=== PATIENT | female | born 1940 | race Caucasian/White ===

== ENCOUNTER 2017-02-14 13:05 | Emergency (ER) | payer MEDICARE ==
[2017-02-14] MEDS ORDERED: Ondansetron ODT TAB* 4 MG PO ONE (15:48)
[2017-02-14 16:18] LABS: Urine Bilirubin Negative (Negative); Urine Glucose Negative (Negative); Urine Nitrite Negative (Negative)
[2017-02-14 16:29] LABS: Hematocrit 42 % (35-47); Hemoglobin 14.1 g/dl (12.0-16.0); Mean Corpuscular HGB Conc 33 g/dl (31-36); Mean Corpuscular Hemoglobin 27 pg (27-31); Mean Corpuscular Volume 82 fL (80-97); Mean Platelet Volume 7 um3 (7.4-10.4); Red Blood Count 5.14 10^6/ul (4.0-5.4); Red Cell Distribution Width 14 % (10.5-15); White Blood Count 7.5 10^3/ul (3.5-10.8)
[2017-02-14] MEDS ORDERED: Orphenadrine Citrate IV* 30 MG/ML 2 ML VIAL IM ONE (16:34)
[2017-02-14] MEDS ORDERED: Ibuprofen TAB* 600 MG PO ONE (16:34)
[2017-02-14 16:40] LABS: ALT 15 U/L (7-52); AST 20 U/L (13-39); Albumin 4.1 g/dL (3.2-5.2); Alkaline Phosphatase 122 U/L (34-104); Anion Gap 5 mmol/L (2-11); BUN/Creatinine Ratio 19.5 (8-20); Blood Urea Nitrogen 17 mg/dL (6-24); C Reactive Protein 5.77 mg/L (< 5.00); CO2 Carbon Dioxide 29 mmol/L (22-32); Chloride 101 mmol/L (101-111); EGFR African American 81.6 (>60); EGFR Non-African American 63.5 (>60); Globulin 3.4 g/dL (2-4); Glucose 91 mg/dL (70-100); Lipase < 10 U/L (11.0-82.0); Potassium 3.8 mmol/L (3.5-5.0); Sodium 135 mmol/L (133-145); Total Protein 7.5 g/dL (6.4-8.9)
--- NOTE | 2017-02-14 17:32 | RAD ---
INDICATION: Diffuse abdominal pain COMPARISON: CT August 17, 2013 TECHNIQUE: Noncontrast axial source images were obtained from the hemidiaphragms to the symphysis pubis. This examination was ordered using a renal stone protocol which is performed without oral or intravenous contrast and therefore has inherent limitations when used to evaluate other intra-abdominal or intrapelvic pathology. Consider conventional contrast enhanced imaging if clinically indicated. Lung bases: The lung bases are clear. Liver: The liver is normal in size. Noncontrast imaging shows no evidence of a hepatic mass or ductal dilatation. Gallbladder: There are no calcified gallstones. There is no evidence of wall thickening or pericholecystic fluid.. Spleen: The spleen is normal in size. The noncontrast CT appearance is normal. Pancreas: Noncontrast imaging shows no pancreatic mass or ductal dilitation. The pancreas appears atrophic Adrenal glands: No masses are identified. Kidneys/Bladder: There is no evidence of nephrolithiasis or CT evidence of hydronephrosis. Noncontrast imaging shows no evidence of a renal mass. The bladder is unremarkable.. Adenopathy: There is no evidence of intraperitoneal or retroperitoneal adenopathy. Evaluation is limited without oral contrast. Fluid collections: There are no free or localized fluid collections. Vessels: The aorta and iliac vessels are normal in caliber. There are no significant atherosclerotic changes. The IVC appears normal Pelvic organs: There is hysterectomy. There is no adnexal mass GI tract: Evaluation of the bowel is limited without oral contrast. The upper GI tract is grossly normal. There are moderate diverticula of the sigmoid colon. There are no obstructive findings. The appendix is visualized and appears normal. Soft tissues: No soft tissue abnormalities of the extraperitoneal abdomen or pelvis are identified. Osseous structures: There are no acute osseous findings. IMPRESSION: NO ACUTE CT FINDINGS. NO MASS OR INFLAMMATORY CHANGES. MODERATE DIVERTICULA.
--- NOTE | 2017-02-14 17:36 | ED ---
Complex/Multi-Sys Presentation - HPI Summary HPI Summary: 76 female presents to ED with complaints of chronic pain in back and abdomen with nausea. States she sees chronic pain management, takes morphine however it has not been helping. Denies any known injury or trauma. Tripped and had a slight fall a few days ago which she thinks may have tweaked something. Has not taken any other medication at home other than what she is prescribed. Denies vomiting, diarrhea, constipation, fever, chills, chest pain, and difficulty breathing. Normal bowel movements and no urinary symptoms other than pressure with urinating and not producing a lot. No other complaints. No significant PMHx other than chronic pain and low back pain. - History Of Current Complaint Chief Complaint: EDGeneral Time Seen by Provider: 02/14/17 15:48 Hx Obtained From: Patient Onset/Duration: Gradual Onset, Lasting Days, Still Present Timing: Constant Severity Currently: Moderate Severity Initially: Mild Location: Pain At: - diffuse back/abdomen Character: Dull - aching Aggravating Factor(s): movement Alleviating Factor(s): none Associated Signs And Symptoms: Positive: Nausea, Back Pain. Negative: Agitation , Headache, SOB, Cough, Palpitations, Vomiting, Diarrhea - Allergies/Home Medications Allergies/Adverse Reactions: Allergies Allergy/AdvReac Type Severity Reaction Status Date / Time Penicillins [PCN] Allergy Severe Swelling Verified 02/14/17 13:13 Iodinated Diagnostic Agents Allergy Hives Verified 02/14/17 13:13 PMH/Surg Hx/FS Hx/Imm Hx Endocrine/Hematology History: Denies: Hx Diabetes, Hx Thyroid Disease Cardiovascular History: Denies: Hx Congestive Heart Failure, Hx Hypertension, Hx Pacemaker/ICD, Other Cardiovascular Problems/Disorders Respiratory History: Reports: Hx Sleep Apnea - CPAP Denies: Hx Asthma, Hx Chronic Obstructive Pulmonary Disease (COPD), Other Respiratory Problems/Disorders GI History: Reports: Hx Diverticulosis, Hx Gastroesophageal Reflux Disease, Hx Irritable Bowel, Hx Ulcer Denies: Other GI Disorders History: Reports: Hx Kidney Stones Denies: Hx Renal Disease Musculoskeletal History: Reports: Hx Arthritis - ALL OVER, Hx Back Problems - Lumbar Spinal Stenosis, Hx Bursitis - IN THE PAST IN SHOULDERS, Hx Fibromyalgia , Other Musculoskeletal History - Plantars Fascia Syndrome Denies: Hx Tendonitis Sensory History: Reports: Hx Cataracts - ROSHNI REMOVAL, Hx Contacts or Glasses - READING GLASSES, Other Sensory Impairments - Actinic Keratosis (skin) Denies: Hx Hearing Aid Opthamlomology History: Reports: Hx Cataracts - ROSHIN REMOVAL, Hx Contacts or Glasses - READING GLASSES, Other Sensory Impairments - Actinic Keratosis (skin) Neurological History: Reports: Other Neuro Impairments/Disorders - Senile Nuclear Sclerosis. PAIN CLINIC PT. Denies: Hx Headaches, Hx Migraine, Hx Nerve Disease, Hx Seizures Psychiatric History: Reports: Hx Anxiety - ON MEDS, Hx Depression - ON MEDS Denies: Hx Panic Disorder - Cancer History Hx Chemotherapy: No Hx Radiation Therapy: No Hx Palliative Cancer Treatment: No - Surgical History Surgery Procedure, Year, and Place: KIDNEY STONES, 07/27/12, [facility] [place]. HYSTERECTOMY , 1982, [facility] [place]. 05/2013 LAMINECTOMY LOW BACK Hx Anesthesia Reactions: No - Immunization History Date of Tetanus Vaccine: PT STATES UNSURE Date of Influenza Vaccine: NONE Immunizations Up to Date: Yes Infectious Disease History: No Infectious Disease History: Denies: Hx Clostridium Difficile, Hx Hepatitis, Hx Human Immunodeficiency Virus (HIV), Hx of Known/Suspected MRSA, Hx Shingles, Hx Tuberculosis, Hx Known/ Suspected VRSA, History Other Infectious Disease, Traveled Outside the [place] in Last 30 Days - Family History Known Family History: Positive: None - Social History Alcohol Use: None Substance Use Type: Reports: None Substance Use Comment - Amount & Last Used: percocet Smoking Status (MU): Never Smoked Tobacco Review of Systems Constitutional: Negative Cardiovascular: Negative Respiratory: Negative Positive: Abdominal Pain, Nausea Positive: Arthralgia, Myalgia Neurological: Negative All Other Systems Reviewed And Are Negative: Yes Physical Exam Triage Information Reviewed: Yes Vital Signs On Initial Exam: Initial Vitals Temp Pulse Resp BP Pulse Ox 97.9 F 89 16 144/98 100 02/14/17 13:08 02/14/17 13:08 02/14/17 13:08 02/14/17 13:08 02/14/17 13:08 133/87 normal vitals, bp improved Vital Signs Reviewed: Yes Appearance: Positive: Well-Appearing, No Pain Distress, Well-Nourished Skin: Positive: Warm, Skin Color Reflects Adequate Perfusion, Dry. Negative: Cold, Numb, Cyanosis @, Jaundiced, Pale, Erythema @ Head/Face: Positive: Normal Head/Face Inspection Eyes: Positive: Conjunctiva Clear ENT: Positive: Hearing grossly normal, Pharynx normal Neck: Positive: Supple, Nontender Respiratory/Lung Sounds: Positive: Clear to Auscultation, Breath Sounds Present. Negative: Rales, Rhonchi, Wheezes Cardiovascular: Positive: Normal, RRR, Pulses are Symmetrical in both Upper and Lower Extremities. Negative: Murmur, Rub Abdomen Description: Positive: Nontender, No Organomegaly, Soft. Negative: Bruit, CVA Tenderness (R), CVA Tenderness (L), Distended, Guarding, McBurney's Point Tenderness, Peritoneal Signs Bowel Sounds: Positive: Present Musculoskeletal: Positive: Normal, Strength/ROM Intact, Pain @ - on palpation of lower lumbar back around L3. Negative: Limited @, Interruption @, Abnormal @ , Edema Left, Edema Right, Other - no crepitus step off or obvious deformity Neurological: Positive: Normal, Sensory/Motor Intact, Alert, Oriented to Person Place, Time, CN Intact II-III, Reflexes Intact, NV Bundle Intact Distally, Normal Gait - [place] Coma Scale Coma Scale Total: 15 Diagnostics - Vital Signs Vital Signs Temp Pulse Resp BP Pulse Ox 02/14/17 13:08 97.9 F 89 16 144/98 100 - Laboratory Lab Results: Lab Results 02/14/17 02/14/17 02/14/17 Range/Units 15:30 16:10 16:10 WBC 7.5 (3.5-10.8) 10^3/ul RBC 5.14 (4.0-5.4) 10^6/ul Hgb 14.1 (12.0-16.0) g/dl Hct 42 (35-47) % MCV 82 (80-97) fL MCH 27 (27-31) pg MCHC 33 (31-36) g/dl RDW 14 (10.5-15) % Plt Count 232 (150-450) 10^3/ul MPV 7 L (7.4-10.4) um3 Neut % (Auto) 64.0 (38-83) % Lymph % (Auto) 27.0 (25-47) % [place] % (Auto) 7.2 (1-9) % Eos % (Auto) 0.6 (0-6) % Baso % (Auto) 1.2 (0-2) % Absolute Neuts (auto) 4.8 (1.5-7.7) 10^3/ul Absolute Lymphs (auto) 2.0 (1.0-4.8) 10^3/ul Absolute Monos (auto) 0.5 (0-0.8) 10^3/ul Absolute Eos (auto) 0 (0-0.6) 10^3/ul Absolute Basos (auto) 0.1 (0-0.2) 10^3/ul Absolute Nucleated RBC 0 10^3/ul Nucleated RBC % 0 Sodium 135 (133-145) mmol/L Potassium 3.8 (3.5-5.0) mmol/L Chloride 101 (101-111) mmol/L Carbon Dioxide 29 (22-32) mmol/L Anion Gap 5 (2-11) mmol/L BUN 17 (6-24) mg/dL Creatinine 0.87 (0.51-0.95) mg/dL Est GFR ( Amer) 81.6 (>60) Est GFR (Non-Af Amer) 63.5 (>60) BUN/Creatinine Ratio 19.5 (8-20) Glucose 91 (70-100) mg/dL Lactic Acid (0.5-2.0) mmol/L Calcium 10.0 (8.6-10.3) mg/dL Total Bilirubin 0.40 (0.2-1.0) mg/dL AST 20 (13-39) U/L ALT 15 (7-52) U/L Alkaline Phosphatase 122 H (34-104) U/L C-Reactive Protein 5.77 H (< 5.00) mg/L Total Protein 7.5 (6.4-8.9) g/dL Albumin 4.1 (3.2-5.2) g/dL Globulin 3.4 (2-4) g/dL Albumin/Globulin Ratio 1.2 (1-3) Lipase < 10 L (11.0-82.0) U/L Urine Color Yellow Urine Appearance Clear Urine pH 5.0 (5-9) Ur Specific [place] 1.018 (1.010-1.030) Urine Protein Negative (Negative) Urine Ketones Negative (Negative) Urine Blood Negative (Negative) Urine Nitrate Negative (Negative) Urine Bilirubin Negative (Negative) Urine Urobilinogen Negative (Negative) Ur Leukocyte Esterase Negative (Negative) Urine Glucose Negative (Negative) 12/18/17 Range/Units 16:10 WBC (3.5-10.8) 10^3/ul RBC (4.0-5.4) 10^6/ul Hgb (12.0-16.0) g/dl Hct (35-47) % MCV (80-97) fL MCH (27-31) pg MCHC (31-36) g/dl RDW (10.5-15) % Plt Count (150-450) 10^3/ul MPV (7.4-10.4) um3 Neut % (Auto) (38-83) % Lymph % (Auto) (25-47) % [place] % (Auto) (1-9) % Eos % (Auto) (0-6) % Baso % (Auto) (0-2) % Absolute Neuts (auto) (1.5-7.7) 10^3/ul Absolute Lymphs (auto) (1.0-4.8) 10^3/ul Absolute Monos (auto) (0-0.8) 10^3/ul Absolute Eos (auto) (0-0.6) 10^3/ul Absolute Basos (auto) (0-0.2) 10^3/ul Absolute Nucleated RBC 10^3/ul Nucleated RBC % Sodium (133-145) mmol/L Potassium (3.5-5.0) mmol/L Chloride (101-111) mmol/L Carbon Dioxide (22-32) mmol/L Anion Gap (2-11) mmol/L BUN (6-24) mg/dL Creatinine (0.51-0.95) mg/dL Est GFR ( Amer) (>60) Est GFR (Non-Af Amer) (>60) BUN/Creatinine Ratio (8-20) Glucose (70-100) mg/dL Lactic Acid 1.1 (0.5-2.0) mmol/L Calcium (8.6-10.3) mg/dL Total Bilirubin (0.2-1.0) mg/dL AST (13-39) U/L ALT (7-52) U/L Alkaline Phosphatase (34-104) U/L C-Reactive Protein (< 5.00) mg/L Total Protein (6.4-8.9) g/dL Albumin (3.2-5.2) g/dL Globulin (2-4) g/dL Albumin/Globulin Ratio (1-3) Lipase (11.0-82.0) U/L Urine Color Urine Appearance Urine pH (5-9) Ur Specific [place] (1.010-1.030) Urine Protein (Negative) Urine Ketones (Negative) Urine Blood (Negative) Urine Nitrate (Negative) Urine Bilirubin (Negative) Urine Urobilinogen (Negative) Ur Leukocyte Esterase (Negative) Urine Glucose (Negative) Result Diagrams: 02/14/17 16:10 02/14/17 16:10 Lab Statement: Any lab studies that have been ordered have been reviewed, and results considered in the medical decision making process. - CT abd/pelvis CT Interpretation: No Acute Changes - NO ACUTE CT FINDINGS. NO MASS OR INFLAMMATORY CHANGES. MODERATE DIVERTICULA. CT Interpretation Completed By: Radiologist - and myself Re-Evaluation - Re-Evaluation First Eval Re-Evaluation Time: 17:35 Change: Improved - had relief after medication Complex Multi-Symp Course/Dx Course Of Treatment: CT abd/pelvis obtained and normal. urinalysis obtained and completely negative. Given ibuprofen and norflex with significant relief. labs obtained and unremarkable. appears patient is suffering from a MSK strain/pain. will continue ibuprofen and muscle relaxer for spasms and antiinflammation. follow up with pain clinic and pcp. aware of worsening signs and symptoms. no other concerns or etiologies for pain. patient agrees and understands. - Diagnoses Differential Diagnoses/HQI/PQRI: Other - chronic pain, chronic back pain, muscle strain, low back strain, constipation Provider Diagnoses: Chronic pain, Back pain Discharge - Discharge Plan Condition: Stable Disposition: HOME Prescriptions: Baclofen TAB* [Lioresal TAB*] 5 mg PO TID PRN #15 tab PRN Reason: Spasms Ibuprofen TAB* [Motrin TAB* 400 MG] 400 mg PO Q6H PRN #15 tab PRN Reason: Pain Ondansetron ODT TAB* [Zofran 4 MG Odt TAB*] 4 mg PO Q6H PRN #10 tab.odt PRN Reason: Nausea Patient Education Materials: Chronic Pain (ED), Chronic Back Pain (ED) Referrals: Abe Leon MD [Primary Care Provider] - Additional Instructions: Take prescribed medication as directed. Take ibuprofen and muscle relaxer as prescribed. Apply heating pad. Zofran for nausea as needed. Follow up with PCP. Any new or worsening signs/symptoms please seek medical attention promptly.
[2017-02-14 18:00] VITALS: BP 133/87
== END 2017-02-14 18:00 | disposition home or self-care (01) ==
LOC: ED 13:05
DX: M54.5 Low back pain (principal); G89.29 Other chronic pain; G47.30 Sleep apnea, unspecified
CPT/HCPCS: 36415; 74176; 80053; 81003; 83605; 83690; 85025; 86140; 96372; 99282; A9270-GY; J2360

== ENCOUNTER 2017-02-23 12:02 | Emergency (ER) | payer MEDICARE ==
[2017-02-23] MEDS ORDERED: HYDROmorphone INJ* 2 MG/ML CARPUJECT SYRINGE IV SLOW PU ONE ×2 (12:41→13:48)
[2017-02-23] MEDS ORDERED: HYDROmorphone INJ* 1 MG/ML CARPUJECT SYRINGE IV SLOW PU ONE ×2 (12:41→13:48)
[2017-02-23] MEDS ORDERED: NS 0.9% 1000 ML* 1,000 ML BOLUS SCH (12:45)
[2017-02-23 12:46] LABS: ABS Basophils 0.1 10^3/ul (0-0.2); ABS Eosinophils 0.1 10^3/ul (0-0.6); ABS Lymphocytes 1.5 10^3/ul (1.0-4.8); ABS Monocytes 0.5 10^3/ul (0-0.8); ABS Neutrophils 5.7 10^3/ul (1.5-7.7); ABS Nucleated RBC 0.01 10^3/ul; Eosinophil % 0.7 % (0-6); Hematocrit 44 % (35-47); Hemoglobin 14.5 g/dl (12.0-16.0); Mean Corpuscular HGB Conc 33 g/dl (31-36); Mean Corpuscular Hemoglobin 27 pg (27-31); Mean Corpuscular Volume 83 fL (80-97); Mean Platelet Volume 8 um3 (7.4-10.4); Nucleated Red Blood Cells % 0.1; Platelet Count 223 10^3/ul (150-450); Red Blood Count 5.31 10^6/ul (4.0-5.4); Red Cell Distribution Width 15 % (10.5-15); White Blood Count 7.8 10^3/ul (3.5-10.8)
[2017-02-23] MEDS ORDERED: HYDROmorphone INJ* 1 MG/ML CARPUJECT SYRINGE ONE (12:48)
[2017-02-23 12:52] LABS: INR 1.02 (0.77-1.02)
[2017-02-23 12:56] LABS: Urine Appearance Clear; Urine Blood Negative (Negative); Urine Color Yellow; Urine Ketones Negative (Negative); Urine Protein Negative (Negative); Urine Specific Gravity 1.014 (1.010-1.030); Urine Urobilinogen Negative (Negative)
[2017-02-23] MEDS ORDERED: Ondansetron INJ* 2 MG/ML VIAL IV ONE (13:01)
[2017-02-23 13:05] LABS: EGFR Non-African American 62.6 (>60)
[2017-02-23] MEDS ORDERED: Metoclopramide IV* 5 MG/ML 2 ML VIAL IV ONE (13:49)
--- NOTE | 2017-02-23 15:52 | RAD ---
Indication: Left lower quadrant abdominal pain. CT of the abdomen and pelvis was performed after oral contrast administration. No IV contrast was given. Coronal and sagittal reconstructed. The lung bases demonstrate no pleural fluid, nodules or masses. Heart is of normal size without evidence of pericardial effusion. The liver is normal in size. No focal lesions or intrahepatic ductal dilatation is noted. The gallbladder demonstrates no calcific gallstones. No pericholecystic fluid or wall thickening is identified. The pancreas demonstrates no mass or pancreatic ductal dilatation. The spleen is normal in size. No adrenal lesions are noted. The kidneys demonstrates no hydronephrosis in either kidney. No hydroureter is noted. No retroperitoneal adenopathy is noted. Aorta and inferior vena cava are unremarkable. No dilated loops of bowel are noted. Diverticulosis of the sigmoid colon without definite evidence of diverticulitis is noted. No dilated loops of bowel are noted. The bladder is unremarkable. The patient status post hysterectomy. Mild compression of the T11 vertebra is noted. This is unchanged from February 14, 2017. Grade 1 spondylolisthesis of L4 on 5 is noted. IMPRESSION: Diverticulosis of the sigmoid colon without definite evidence of diverticulitis. No free fluid is identified. Patient status post hysterectomy. No evidence of obstructive uropathy is noted. Approximately 25% compression of T11 age of which is undetermined.
--- NOTE | 2017-02-23 17:09 | ED ---
Uday Chambers Angela, scribed for Lana Reynoso MD on 02/23/17 at 1245 . Complex/Multi-Sys Presentation - HPI Summary HPI Summary: This pt is a 76 y/o female, accompanied by her son, presenting to [facility] c/o abd pain and chronic lower back pain. Pt reports she was seen in the ED 1 week ago ( 02/14/17) for the same complaint, for which she was given Dilaudid and alleviated her pain. She had a CT abd pelvis that was unremarkable on 02/14/17 and was treated with baclofen and ibuprofen and zofran for musculoskeletal pain. She notes left lower abd pain radiating to right lower side of the abd, which is described as aching and stabbing. Pt notes nausea and constipation. Pt states her last normal bowel movement was 3 days ago, denies bloody stool. Pt has taken a couple of Dulcolax with no relief. She denies vomiting, dysuria, hematuria, chest pain, SOB. Pt is on pain management, taking morphine, for chronic low back pain but has not had much relief. Pt has had back surgery. She has not had a colonoscopy in many years. Pt was told by Dr. Leon that she does not have to get any more colonoscopies. She states all her colonoscopies were normal. PMHx includes kidney stones which were retrieved. Pt notes that today's pain does not feel like a kidney stone, "it feels worse." Pt notes she has always had "stomach problems on and off." Pt denies hx of MA. - History Of Current Complaint Chief Complaint: EDAbdPain Time Seen by Provider: 02/23/17 12:14 Hx Obtained From: Patient, Family/Hvac R Tech - Refugio Campbell Onset/Duration: Lasting Days, Still Present Timing: Constant, Days Severity Currently: Severe Location: Pain At: - lower left abd, and chronic low back pain, Radiates To: - right lower abd Character: Sharp - aching and stabbing Aggravating Factor(s): Nothing Alleviating Factor(s): Dilaudid Associated Signs And Symptoms: Positive: Nausea, Abdominal Pain, Back Pain - chronic, Other - POS: constipation. NEG: hematuria. Negative: SOB, Chest Pain, Vomiting, Dysuria - Allergies/Home Medications Allergies/Adverse Reactions: Allergies Allergy/AdvReac Type Severity Reaction Status Date / Time Penicillins [PCN] Allergy Severe Swelling Verified 02/14/17 13:13 Iodinated Diagnostic Agents Allergy Hives Verified 02/14/17 13:13 PMH/Surg Hx/FS Hx/Imm Hx Previously Healthy: No Endocrine/Hematology History: Denies: Hx Diabetes, Hx Thyroid Disease Cardiovascular History: Denies: Hx Congestive Heart Failure, Hx Hypertension, Hx Myocardial Infarction, Hx Pacemaker/ICD, Other Cardiovascular Problems/Disorders Respiratory History: Reports: Hx Sleep Apnea - CPAP Denies: Hx Asthma, Hx Chronic Obstructive Pulmonary Disease (COPD), Other Respiratory Problems/Disorders GI History: Reports: Hx Diverticulosis, Hx Gastroesophageal Reflux Disease, Hx Irritable Bowel, Hx Ulcer Denies: Other GI Disorders History: Reports: Hx Kidney Stones Denies: Hx Renal Disease Musculoskeletal History: Reports: Hx Arthritis, Hx Back Problems - Lumbar Spinal Stenosis, Hx Bursitis - IN THE PAST IN SHOULDERS, Hx Fibromyalgia, Other Musculoskeletal History - Plantar Fascia Syndrome Denies: Hx Tendonitis Sensory History: Reports: Hx Cataracts - ROSHNI REMOVAL, Hx Contacts or Glasses - READING GLASSES, Other Sensory Impairments - Actinic Keratosis (skin) Denies: Hx Hearing Aid Opthamlomology History: Reports: Hx Cataracts - ROSHNI REMOVAL, Hx Contacts or Glasses - READING GLASSES, Other Sensory Impairments - Actinic Keratosis (skin) Neurological History: Reports: Other Neuro Impairments/Disorders - Senile Nuclear Sclerosis. PAIN CLINIC PT. Denies: Hx Headaches, Hx Migraine, Hx Nerve Disease, Hx Seizures Psychiatric History: Reports: Hx Anxiety - ON MEDS, Hx Depression - ON MEDS Denies: Hx Panic Disorder - Cancer History Hx Chemotherapy: No Hx Radiation Therapy: No Hx Palliative Cancer Treatment: No - Surgical History Surgery Procedure, Year, and Place[place] [facility] [place] [facility] [place] LAMINECTOMY LOW BACK Hx Anesthesia Reactions: No - Immunization History Date of Tetanus Vaccine: PT STATES UNSURE Date of Influenza Vaccine: NONE Infectious Disease History: No Infectious Disease History: Denies: Hx Clostridium Difficile, Hx Hepatitis, Hx Human Immunodeficiency Virus (HIV), Hx of Known/Suspected MRSA, Hx Shingles, Hx Tuberculosis, Hx Known/ Suspected VRSA, History Other Infectious Disease, Traveled Outside the [place] in Last 30 Days - Family History Known Family History: Positive: Cardiac Disease - Brother and sister, Other - Mother: from [place]. Father: colon [place]. - Social History Lives: Alone Alcohol Use: Rare Substance Use Type: Reports: Prescribed Substance Use Comment - Amount & Last Used: morphine, pain clinic Smoking Status (MU): Never Smoked Tobacco Review of Systems Negative: Fever, Chills Negative: Chest Pain Negative: Shortness Of Breath Gastrointestinal: Other - constipation Positive: Abdominal Pain, Nausea. Negative: Vomiting, Other - bloody stools Negative: dysuria, hematuria Positive: Arthralgia Neurological: Negative Psychological: Normal All Other Systems Reviewed And Are Negative: Yes Physical Exam - Summary Physical Exam Summary: Appearance: Well-appearing, severe pain distress, Well-nourished Skin: Warm, color reflects adequate perfusion Head: Normal Head/Face inspection Eyes: Conjunctiva clear ENT: Normal inspection Neck: Supple, non tender, no nodes, no JVD Respiratory: Lungs clear, Normal breath sounds, no respiratory distress Cardio: RRR, No murmur, pulses normal, brisk capillary refill Abdomen: soft, left lower quadrant abd tenderness radiating to right lower abd, no guarding, no rebound, no masses, no bruits, no organomegaly Musculoskeletal: Strength Intact/ ROM intact. No calf tenderness. No edema. Low lumbar spinal tenderness, no CVA tenderness Neuro: Alert, muscle tone normal, facial symmetry, speech normal, sensory/motor intact Psychological: Normal Triage Information Reviewed: Yes Vital Signs On Initial Exam: Initial Vitals Temp Pulse Resp BP Pulse Ox 98.0 F 84 20 138/90 96 02/23/17 12:04 02/23/17 12:04 02/23/17 12:04 02/23/17 12:04 02/23/17 12:04 Vital Signs Reviewed: Yes - Rosamaria Coma Scale Coma Scale Total: 15 Diagnostics - Vital Signs Vital Signs Temp Pulse Resp BP Pulse Ox 02/23/17 12:04 98.0 F 84 20 138/90 96 - Laboratory Lab Results: Lab Results 02/23/17 02/23/17 02/23/17 Range/Units 12:35 12:35 12:35 WBC 7.8 (3.5-10.8) 10^3/ul RBC 5.31 (4.0-5.4) 10^6/ul Hgb 14.5 (12.0-16.0) g/dl Hct 44 (35-47) % MCV 83 (80-97) fL MCH 27 (27-31) pg MCHC 33 (31-36) g/dl RDW 15 (10.5-15) % Plt Count 223 (150-450) 10^3/ul MPV 8 (7.4-10.4) um3 Neut % (Auto) 72.9 (38-83) % Lymph % (Auto) 19.0 L (25-47) % Rains % (Auto) 6.5 (1-9) % Eos % (Auto) 0.7 (0-6) % Baso % (Auto) 0.9 (0-2) % Absolute Neuts (auto) 5.7 (1.5-7.7) 10^3/ul Absolute Lymphs (auto) 1.5 (1.0-4.8) 10^3/ul Absolute Monos (auto) 0.5 (0-0.8) 10^3/ul Absolute Eos (auto) 0.1 (0-0.6) 10^3/ul Absolute Basos (auto) 0.1 (0-0.2) 10^3/ul Absolute Nucleated RBC 0.01 10^3/ul Nucleated RBC % 0.1 INR (Anticoag Therapy) (0.77-1.02) Sodium 136 (133-145) mmol/L Potassium 3.8 (3.5-5.0) mmol/L Chloride 101 (101-111) mmol/L Carbon Dioxide 28 (22-32) mmol/L Anion Gap 7 (2-11) mmol/L BUN 16 (6-24) mg/dL Creatinine 0.88 (0.51-0.95) mg/dL Est GFR ( Amer) 80.6 (>60) Est GFR (Non-Af Amer) 62.6 (>60) BUN/Creatinine Ratio 18.2 (8-20) Glucose 100 (70-100) mg/dL Lactic Acid (0.5-2.0) mmol/L Calcium 10.1 (8.6-10.3) mg/dL Magnesium 2.2 (1.9-2.7) mg/dL Total Bilirubin 0.50 (0.2-1.0) mg/dL AST 21 (13-39) U/L ALT 16 (7-52) U/L Alkaline Phosphatase 110 H (34-104) U/L Ammonia 34 (16-53) mol/L Total Creatine Kinase 80 (10-223) U/L Troponin I 0.00 (<0.04) ng/mL C-Reactive Protein 2.79 (< 5.00) mg/L B-Natriuretic Peptide 63 ( - 100) pg/mL Total Protein 7.3 (6.4-8.9) g/dL Albumin 4.1 (3.2-5.2) g/dL Globulin 3.2 (2-4) g/dL Albumin/Globulin Ratio 1.3 (1-3) Amylase 13 L (29-103) U/L Lipase < 10 L (11.0-82.0) U/L Urine Color Urine Appearance Urine pH (5-9) Ur Specific [place] (1.010-1.030) Urine Protein (Negative) Urine Ketones (Negative) Urine Blood (Negative) Urine Nitrate (Negative) Urine Bilirubin (Negative) Urine Urobilinogen (Negative) Ur Leukocyte Esterase (Negative) Urine Glucose (Negative) 02/23/17 02/23/17 02/23/17 Range/Units 12:35 12:35 12:45 WBC (3.5-10.8) 10^3/ul RBC (4.0-5.4) 10^6/ul Hgb (12.0-16.0) g/dl Hct (35-47) % MCV (80-97) fL MCH (27-31) pg MCHC (31-36) g/dl RDW (10.5-15) % Plt Count (150-450) 10^3/ul MPV (7.4-10.4) um3 Neut % (Auto) (38-83) % Lymph % (Auto) (25-47) % Rains % (Auto) (1-9) % Eos % (Auto) (0-6) % Baso % (Auto) (0-2) % Absolute Neuts (auto) (1.5-7.7) 10^3/ul Absolute Lymphs (auto) (1.0-4.8) 10^3/ul Absolute Monos (auto) (0-0.8) 10^3/ul Absolute Eos (auto) (0-0.6) 10^3/ul Absolute Basos (auto) (0-0.2) 10^3/ul Absolute Nucleated RBC 10^3/ul Nucleated RBC % INR (Anticoag Therapy) 1.02 (0.77-1.02) Sodium (133-145) mmol/L Potassium (3.5-5.0) mmol/L Chloride (101-111) mmol/L Carbon Dioxide (22-32) mmol/L Anion Gap (2-11) mmol/L BUN (6-24) mg/dL Creatinine (0.51-0.95) mg/dL Est GFR ( Amer) (>60) Est GFR (Non-Af Amer) (>60) BUN/Creatinine Ratio (8-20) Glucose (70-100) mg/dL Lactic Acid 1.1 (0.5-2.0) mmol/L Calcium (8.6-10.3) mg/dL Magnesium (1.9-2.7) mg/dL Total Bilirubin (0.2-1.0) mg/dL AST (13-39) U/L ALT (7-52) U/L Alkaline Phosphatase (34-104) U/L Ammonia (16-53) mol/L Total Creatine Kinase (10-223) U/L Troponin I (<0.04) ng/mL C-Reactive Protein (< 5.00) mg/L B-Natriuretic Peptide ( - 100) pg/mL Total Protein (6.4-8.9) g/dL Albumin (3.2-5.2) g/dL Globulin (2-4) g/dL Albumin/Globulin Ratio (1-3) Amylase (29-103) U/L Lipase (11.0-82.0) U/L Urine Color Yellow Urine Appearance Clear Urine pH 6.0 (5-9) Ur Specific [place] 1.014 (1.010-1.030) Urine Protein Negative (Negative) Urine Ketones Negative (Negative) Urine Blood Negative (Negative) Urine Nitrate Negative (Negative) Urine Bilirubin Negative (Negative) Urine Urobilinogen Negative (Negative) Ur Leukocyte Esterase Negative (Negative) Urine Glucose Negative (Negative) Result Diagrams: 02/23/17 12:35 02/23/17 12:35 Lab Statement: Any lab studies that have been ordered have been reviewed, and results considered in the medical decision making process. - CT Abdomen/pelvis CT CT Interpretation: Positive (See Comments) - IMPRESSION: Diverticulosis of the sigmoid colon without definite evidence of diverticulitis. No free fluid is identified. Patient status post hysterectomy. No evidence of obstructive uropathy is noted. Approximately 25% compression of T11 age of which is undetermined. Dr. Reynoso has reviewed this radiology report. CT Interpretation Completed By: Radiologist - EKG 12:32 Cardiac Rate: NL EKG Rhythm: Sinus Rhythm - at 71 bpm EKG Interpretation: Nl AV IV conduction time. Nl QTc. Nl axis. Non-specific ST- T wave changes EKG Comparison: No Significant Change - no change compared to EKG done on . Re-Evaluation - Re-Evaluation First Eval Re-Evaluation Time: 17:10 Change: Unchanged Comment: I reviewed the abdomen/pelvis CT results with the pt. Pt has just had a bowel movement, which she describes as a "nice brown" color and non-bloody. Pt states she still has abd and back pain, rated 9/10 in severity. Pt reports that Dilaudid has not alleviated her pain. On re-examination the abd is soft. Pt notes she has only taken approximately 4 Robaxin pills in 10 days. Son reports "I think she gets confused after getting discharged with all the medications she has and forgets to take them." Pt states that she takes two morphine tablets at a time rather than taking them q 4 hrs as directed. Son notes she will be going to the pain clinic this Tuesday02/24/17. Second Eval Re-Evaluation Time: 18:13 Change: Unchanged Comment: The pt's pain is rated 9/10 in severity. Pt is lying down. She is tolerating a sandwich without any nausea or vomiting. Pt is agreeable with the discharge plan and will add a Fentanyl patch and try taking her meds as scheduled and directed and f/u in the pain clinic in 2 days. Complex Multi-Symp Course/Dx Course Of Treatment: Pt medications reviewed this visit. Allergies noted. EKG shows NSR at 71 bpm, normal AV IV conduction time. Normal QTc. Nl axis. Non- specific ST-T wave changes. CT abdomen/pelvis reveals diverticulosis of the sigmoid colon without definite evidence of diverticulitis. No free fluid is identified. Patient status post hysterectomy. No evidence of obstructive uropathy is noted. Approximately 25% compression of T11 age of which is undetermined. In the ED course, the pt was given IV fluids, Dilaudid, Reglan, and Zofran. On re-evaluation at 17:10 - I reviewed the abdomen/pelvis CT results with the pt. Pt has just had a bowel movement, which she describes as a "nice brown" color and non-bloody. Pt states she still has abd and back pain, rated 9/10 in severity. Pt reports that Dilaudid has not alleviated her pain. On re-examination the abd is soft. Pt notes she has only taken approximately 4 Robaxin pills in 10 days. Son reports "I think she gets confused after getting discharged with all the medications she has and forgets to take them." Son notes she will be going to the pain clinic this Tuesday. Pt was then given morphine orally, Toradol IV, and fentanyl patch 50 mcgs and baclofen. On re- eval at 18:13, the pt's pain is rated 9/10 in severity. Pt is lying down. She is tolerating a sandwich without any nausea or vomiting. Pt is agreeable with the discharge plan. - Diagnoses Differential Diagnoses/HQI/PQRI: Other - diverticulitis, renal calculus, bowel obstruction, cancer Provider Diagnoses: Abdominal pain in female, Acute exacerbation of chronic low back pain Discharge - Discharge Plan Condition: Stable Disposition: HOME Patient Education Materials: Chronic Pain (ED), Abdominal Pain (ED) Referrals: Abe Leon MD [Primary Care Provider] - 2 Days Additional Instructions: Keep your appointment with the pain clinic on 02/25/17. You were given dilaudid and morphine and toradol and a fentanyl patch for breakthrough abdominal and back pain. You were also given ondansetron and reglan for nausea. You were given baclofen as a muscle relaxant. Continue to take your morphine and muscle relaxant meds as directed. Take these around the clock. Leave the fentanyl patch in place until you are seen by the pain clinic. They may want to prescribe more. This patch lasts 72 hrs. It was placed at 5:45pm on 02/23/[address] and labs did not show any emergency condition that needed further treatment. RETURN TO THE EMERGENCY DEPARTMENT FOR ANY NEW OR WORSENING SYMPTOMS. The documentation as recorded by the Uday obrien Angela accurately reflects the service I personally performed and the decisions made by me, Lana Reynoso MD.
[2017-02-23] MEDS ORDERED: Morphine ORAL.SOLN 10 mg* 2 MG/ML UDC 5 ml PO ONE (17:26)
[2017-02-23] MEDS ORDERED: fentaNYL PATCH 50 MCG/HR TRANSDERM ONE (17:27)
[2017-02-23] MEDS ORDERED: Ketorolac INJ* 30 MG/ML 1 ML VIAL IV PUSH ONE (17:28)
[2017-02-23] MEDS ORDERED: Baclofen TAB* 10 MG PO ONE (17:29)
[2017-02-23 18:47] VITALS: BP 105/57
== END 2017-02-23 18:46 | disposition home or self-care (01) ==
LOC: ED 12:02
DX: R10.9 Unspecified abdominal pain (principal); M54.5 Low back pain; G89.29 Other chronic pain; R11.0 Nausea
CPT/HCPCS: 36415; 74176; 80053; 81003; 82140; 82150; 82550; 83605; 83690; 83735; 83880; 84484; 85025; 85610; 86140; 93005; 96374; 96375; 99282; A9270-GY; J1170; J1885; J2405; J2765

== ENCOUNTER 2017-03-03 15:49 | Emergency (ER) | payer MEDICARE ==
[2017-03-03 16:34] LABS: ABS Basophils 0.1 10^3/ul (0-0.2); ABS Eosinophils 0 10^3/ul (0-0.6); ABS Lymphocytes 1.5 10^3/ul (1.0-4.8); ABS Monocytes 0.6 10^3/ul (0-0.8); ABS Neutrophils 6.8 10^3/ul (1.5-7.7); ABS Nucleated RBC 0 10^3/ul; Eosinophil % 0.3 % (0-6); Hematocrit 43 % (35-47); Hemoglobin 14.3 g/dl (12.0-16.0); Lymphocyte % 16.7 % (25-47); Mean Corpuscular HGB Conc 33 g/dl (31-36); Mean Corpuscular Hemoglobin 27 pg (27-31); Mean Corpuscular Volume 82 fL (80-97); Mean Platelet Volume 8 um3 (7.4-10.4); Nucleated Red Blood Cells % 0; Platelet Count 257 10^3/ul (150-450); Red Cell Distribution Width 15 % (10.5-15); White Blood Count 9.1 10^3/ul (3.5-10.8)
[2017-03-03 16:50] LABS: EGFR Non-African American 66.1 (>60)
[2017-03-03] MEDS ORDERED: HYDROmorphone INJ* 2 MG/ML CARPUJECT SYRINGE IV SLOW PU ONE (17:30)
[2017-03-03] MEDS ORDERED: Diazepam SYRINGE* 5 MG/ML 2 ML SYRINGE (10 MG total) IV ONE (17:31)
[2017-03-03 17:37] LABS: Urine Appearance Clear; Urine Blood Negative (Negative); Urine Color Straw; Urine Ketones Negative (Negative); Urine Protein Negative (Negative); Urine Specific Gravity 1.004 (1.010-1.030); Urine Urobilinogen Negative (Negative)
[2017-03-03] MEDS ORDERED: LORazepam INJ* 2 MG/ML 1 ML VIAL IV PUSH ONE (17:45)
[2017-03-03] MEDS ORDERED: Ondansetron INJ* 2 MG/ML VIAL ONE (17:58)
[2017-03-03] MEDS ORDERED: Ondansetron INJ* 2 MG/ML VIAL IV ONE (18:03)
--- NOTE | 2017-03-03 21:26 | ED ---
Kaela Chambers Abhishek, scribed for Nurys Noel MD on 03/03/17 at 1833 . Abdominal Pain/Female - HPI Summary HPI Summary: This patient is a 76 years old F presenting to [facility] accompanied by her son with a chief complaint of abd pain since the last two weeks. The pt states the pain is a constant pain. According to patient and patient's son, CT were taken and nothing shows up. Currently the pain is described as a pressure that radiates to her chest. The patient rates the pain 9/10 in severity. Symptoms aggravated by movement. Symptoms alleviated by position. Patient reports NELSON, depression, vomiting, anxiety, neck pain, leg soreness, SI with plan, back pain , and nausea. Patient denies fever, chills, ear ache, sore throat, chest pain, SOB, burning when urinating, hematuria, hematochezia, and edema LE. Medications the pt was has taken include (10mg) morphine, fentanyl patches, two Tylenol. - History of Current Complaint Chief Complaint: EDAbdPain Stated Complaint: BACK & ABD PAIN Time Seen by Provider: 03/03/17 16:00 Hx Obtained From: Patient, Family/Structural Engineering Technician Onset/Duration: Gradual Onset, Lasting Weeks - since two weeks ago, Still Present Timing: Constant Severity Initially: Severe Severity Currently: Severe Pain Intensity: 9 Pain Scale Used: 0-10 Numeric Character: Other: - pressure Aggravating Factor(s): Movement Alleviating Factor(s): Position Associated Signs and Symptoms: Positive: Nausea, Vomiting. Negative: Fever, Chest Pain, Blood in Stool, Urinary Symptoms Allergies/Adverse Reactions: Allergies Allergy/AdvReac Type Severity Reaction Status Date / Time Penicillins [PCN] Allergy Severe Swelling Verified 02/25/17 13:12 Iodinated Diagnostic Agents Allergy Hives Verified 02/25/17 13:12 PMH/Surg Hx/FS Hx/Imm Hx Endocrine/Hematology History: Denies: Hx Diabetes, Hx Thyroid Disease Cardiovascular History: Denies: Hx Congestive Heart Failure, Hx Hypertension, Hx Pacemaker/ICD, Other Cardiovascular Problems/Disorders Respiratory History: Reports: Hx Sleep Apnea - CPAP Denies: Hx Asthma, Hx Chronic Obstructive Pulmonary Disease (COPD), Other Respiratory Problems/Disorders GI History: Reports: Hx Diverticulosis, Hx Gastroesophageal Reflux Disease, Hx Irritable Bowel, Hx Ulcer Denies: Other GI Disorders History: Reports: Hx Kidney Stones Denies: Hx Renal Disease Musculoskeletal History: Reports: Hx Arthritis, Hx Back Problems - Lumbar Spinal Stenosis, Hx Bursitis - IN THE PAST IN SHOULDERS, Hx Fibromyalgia, Other Musculoskeletal History - Plantar Fascia Syndrome Denies: Hx Tendonitis Sensory History: Reports: Hx Cataracts - ROSHNI REMOVAL, Hx Contacts or Glasses - READING GLASSES, Other Sensory Impairments - Actinic Keratosis (skin) Denies: Hx Hearing Aid Opthamlomology History: Reports: Hx Cataracts - ROSHNI REMOVAL, Hx Contacts or Glasses - READING GLASSES, Other Sensory Impairments - Actinic Keratosis (skin) Neurological History: Reports: Other Neuro Impairments/Disorders - Senile Nuclear Sclerosis. PAIN CLINIC PT. Denies: Hx Headaches, Hx Migraine, Hx Nerve Disease, Hx Seizures Psychiatric History: Reports: Hx Anxiety - ON MEDS, Hx Depression - ON MEDS Denies: Hx Panic Disorder - Cancer History Hx Chemotherapy: No Hx Radiation Therapy: No Hx Palliative Cancer Treatment: No - Surgical History Surgery Procedure, Year, and Place: KIDNEY STONES, 07/27/12, [facility] [place] , 1982, [facility] [place]. [place] LAMINECTOMY LOW BACK Hx Anesthesia Reactions: No - Immunization History Date of Tetanus Vaccine: PT STATES UNSURE Date of Influenza Vaccine: NONE Infectious Disease History: No Infectious Disease History: Denies: Hx Clostridium Difficile, Hx Hepatitis, Hx Human Immunodeficiency Virus (HIV), Hx of Known/Suspected MRSA, Hx Shingles, Hx Tuberculosis, Hx Known/ Suspected VRSA, History Other Infectious Disease, Traveled Outside the [place] in Last 30 Days - Family History Known Family History: Positive: Other - Colon Cancer and depression - Social History Occupation: Retired Alcohol Use: None Substance Use Type: Reports: None Substance Use Comment - Amount & Last Used: percocet, morphine Smoking Status (MU): Never Smoked Tobacco Review of Systems Negative: Fever, Chills Eyes: Negative Negative: Sore Throat Negative: Chest Pain Negative: Shortness Of Breath Gastrointestinal: Other - hematochezia Positive: Vomiting, Nausea Negative: burning, hematuria Positive: Myalgia - neck pain, leg soreness, and back pain, Other - negative edema at the LE Positive: Headache Psychological: Other - SI with plan Positive: Anxious, Depressed All Other Systems Reviewed And Are Negative: No Physical Exam - Summary Physical Exam Summary: Appearance: Alert, conversive, nontoxic appearing Skin: Warm, dry, no mottling, no rashes, no contusions HEENT: EOMI, PERRL, moist mucous membranes Neck: No masses on the neck, supple Respiratory: Clear to auscultation, breath sounds present, no rales, no rhonchi , no wheezes Cardiovascular: RRR, pulses are symmetrical in both lower and upper extremities Abdomen: Soft, non-tender Bowel Sounds: Present Musculoskeletal: Difficulty finding comfortable position Diffuse tender to palpation Neurological: A&Ox3, CN II-XII Intact, moving all extremities symmetrically Psychiatric: Anxious Triage Information Reviewed: Yes Vital Signs On Initial Exam: Initial Vitals Temp Pulse Resp BP Pulse Ox 98.7 F 87 20 137/108 98 03/03/17 15:52 03/03/17 15:52 03/03/17 15:52 03/03/17 15:52 03/03/17 15:52 Vital Signs Reviewed: Yes - Rosamaria Coma Scale Coma Scale Total: 15 Diagnostics - Vital Signs Vital Signs Temp Pulse Resp BP Pulse Ox 03/03/17 15:52 98.7 F 87 20 137/108 98 - Laboratory Lab Results: Lab Results 03/03/17 03/03/17 03/03/17 Range/Units 16:25 16:25 16:25 WBC 9.1 (3.5-10.8) 10^3/ul RBC 5.20 (4.0-5.4) 10^6/ul Hgb 14.3 (12.0-16.0) g/dl Hct 43 (35-47) % MCV 82 (80-97) fL MCH 27 (27-31) pg MCHC 33 (31-36) g/dl RDW 15 (10.5-15) % Plt Count 257 (150-450) 10^3/ul MPV 8 (7.4-10.4) um3 Neut % (Auto) 75.0 (38-83) % Lymph % (Auto) 16.7 L (25-47) % [place] % (Auto) 7.1 (1-9) % Eos % (Auto) 0.3 (0-6) % Baso % (Auto) 0.9 (0-2) % Absolute Neuts (auto) 6.8 (1.5-7.7) 10^3/ul Absolute Lymphs (auto) 1.5 (1.0-4.8) 10^3/ul Absolute Monos (auto) 0.6 (0-0.8) 10^3/ul Absolute Eos (auto) 0 (0-0.6) 10^3/ul Absolute Basos (auto) 0.1 (0-0.2) 10^3/ul Absolute Nucleated RBC 0 10^3/ul Nucleated RBC % 0 Sodium 136 (133-145) mmol/L Potassium 3.4 L (3.5-5.0) mmol/L Chloride 102 (101-111) mmol/L Carbon Dioxide 26 (22-32) mmol/L Anion Gap 8 (2-11) mmol/L BUN 11 (6-24) mg/dL Creatinine 0.84 (0.51-0.95) mg/dL Est GFR ( Amer) 85.0 (>60) Est GFR (Non-Af Amer) 66.1 (>60) BUN/Creatinine Ratio 13.1 (8-20) Glucose 99 (70-100) mg/dL Lactic Acid 1.6 (0.5-2.0) mmol/L Calcium 9.7 (8.6-10.3) mg/dL Total Bilirubin 0.40 (0.2-1.0) mg/dL AST 19 (13-39) U/L ALT 15 (7-52) U/L Alkaline Phosphatase 108 H (34-104) U/L Troponin I 0.00 (<0.04) ng/mL Total Protein 7.5 (6.4-8.9) g/dL Albumin 4.0 (3.2-5.2) g/dL Globulin 3.5 (2-4) g/dL Albumin/Globulin Ratio 1.1 (1-3) Lipase < 10 L (11.0-82.0) U/L Result Diagrams: 03/03/17 16:25 03/03/17 16:25 Lab Statement: Any lab studies that have been ordered have been reviewed, and results considered in the medical decision making process. - EKG 1625 EKG Rhythm: Sinus Rhythm - 73 bpm Ectopy: PACs EKG Interpretation: Normal QRS and QTc (EKG taken at 1625) Abdominal Pain Fem Course/Dx - Course Course Of Treatment: The patient's son reported of SI with plan after the initial exam of completed in the patients room. According to the patient, she will be seeing her PCP tomorrow. Dx will be depression and chronic pain. The patient discharged home. The patient is agreeable with this plan. - Diagnoses Provider Diagnoses: Depression, Chronic pain Discharge - Discharge Plan Condition: Stable Disposition: HOME Patient Education Materials: Chronic Pain (ED), Depression (ED) Referrals: Abe Leon MD [Primary Care Provider] - Additional Instructions: Please keep your appt with your doctor tomorrow. discuss your pain and alternative options for better pain control. return if worse or any new symptoms. Until you find alternatives, please take all medications as previously instructed. The documentation as recorded by the Kaela obrien Abhishek accurately reflects the service I personally performed and the decisions made by , Nurys Noel MD.
[2017-03-03 21:34] VITALS: BP 112/68
== END 2017-03-03 21:33 | disposition home or self-care (01) ==
LOC: ED 15:49
DX: F32.9 Major depressive disorder, single episode, unspecified (principal); G89.29 Other chronic pain; R10.84 Generalized abdominal pain; R51 Headache; R11.2 Nausea with vomiting, unspecified; F41.9 Anxiety disorder, unspecified; M54.2 Cervicalgia; M79.606 Pain in leg, unspecified; R45.851 Suicidal ideations; M54.9 Dorsalgia, unspecified; K21.9 Gastro-esophageal reflux disease without esophagitis; K57.90 Diverticulosis of intestine, part unspecified, without perforation or abscess without bleeding; Z87.442 Personal history of urinary calculi; Z88.0 Allergy status to penicillin; Z91.041 Radiographic dye allergy status; Z90.710 Acquired absence of both cervix and uterus
CPT/HCPCS: 36415; 80053; 80307; 80320; 81003; 83605; 83690; 84484; 85025; 93005; 96374; 96375; 99283; G0480; J1170; J2060; J2405

== ENCOUNTER → 2017-03-24 13:50 | Emergency (ER) | payer MEDICARE ==
[2017-03-24 16:34] VITALS: BP 136/77
[2017-03-24 16:39] LABS: ABS Basophils 0.1 10^3/ul (0-0.2); ABS Eosinophils 0 10^3/ul (0-0.6); ABS Lymphocytes 1.7 10^3/ul (1.0-4.8); ABS Monocytes 0.6 10^3/ul (0-0.8); ABS Neutrophils 6.5 10^3/ul (1.5-7.7); ABS Nucleated RBC 0 10^3/ul; Eosinophil % 0.1 % (0-6); Hematocrit 47 % (35-47); Hemoglobin 15.5 g/dl (12.0-16.0); Lymphocyte % 19.1 % (25-47); Mean Corpuscular HGB Conc 33 g/dl (31-36); Mean Corpuscular Hemoglobin 27 pg (27-31); Mean Corpuscular Volume 82 fL (80-97); Mean Platelet Volume 8 um3 (7.4-10.4); Nucleated Red Blood Cells % 0; Platelet Count 258 10^3/ul (150-450); Red Blood Count 5.68 10^6/ul (4.0-5.4); Red Cell Distribution Width 15 % (10.5-15); White Blood Count 8.8 10^3/ul (3.5-10.8)
[2017-03-24 16:57] LABS: EGFR Non-African American 63.5 (>60)
--- NOTE | 2017-03-25 08:26 | ED ---
Ainket Chambers Gabriel, scribed for Armando Luu MD on 03/24/17 at 1555 . Abdominal Pain/Female - HPI Summary HPI Summary: This patient is a 76 year old F presenting to [facility] accompanied by her son with a chief complaint of ABD pain that has been constant for a month. The patient rates the pain 10/10 in severity. Patients son reports confusion and CP. Pt has been in ED for 4 times and PCP for 3 times for this issue and has had no resolution. She has chronic back pain and takes morphine and fentanyl. She fell on 03/19/17 and hit her face. Additionally she saw GI doctor and nothing significant was found. - History of Current Complaint Chief Complaint: EDAbdPain Stated Complaint: ABD AND BACK PAIN Time Seen by Provider: 03/24/17 15:42 Hx Obtained From: Patient, Family/Unit Technician Onset/Duration: Still Present Timing: Constant Severity Initially: Severe Severity Currently: Severe Pain Intensity: 10 Pain Scale Used: 0-10 Numeric Location: Diffuse Associated Signs and Symptoms: Positive: Chest Pain, Other: - confusion Allergies/Adverse Reactions: Allergies Allergy/AdvReac Type Severity Reaction Status Date / Time Penicillins [PCN] Allergy Severe Swelling Verified 03/21/17 14:53 Iodinated Diagnostic Agents Allergy Hives Verified 03/21/17 14:53 PMH/Surg Hx/FS Hx/Imm Hx Endocrine/Hematology History: Denies: Hx Diabetes, Hx Thyroid Disease Cardiovascular History: Denies: Hx Congestive Heart Failure, Hx Hypertension, Hx Pacemaker/ICD, Other Cardiovascular Problems/Disorders Respiratory History: Reports: Hx Sleep Apnea - CPAP Denies: Hx Asthma, Hx Chronic Obstructive Pulmonary Disease (COPD), Other Respiratory Problems/Disorders GI History: Reports: Hx Diverticulosis, Hx Gastroesophageal Reflux Disease, Hx Irritable Bowel, Hx Ulcer Denies: Other GI Disorders History: Reports: Hx Kidney Stones Denies: Hx Renal Disease Musculoskeletal History: Reports: Hx Arthritis, Hx Back Problems - Lumbar Spinal Stenosis, Hx Bursitis - IN THE PAST IN SHOULDERS, Hx Fibromyalgia, Other Musculoskeletal History - Plantar Fascia Syndrome Denies: Hx Tendonitis Sensory History: Reports: Hx Cataracts - ROSHNI REMOVAL, Hx Contacts or Glasses - READING GLASSES, Other Sensory Impairments - Actinic Keratosis (skin) Denies: Hx Hearing Aid Opthamlomology History: Reports: Hx Cataracts - ROSHNI REMOVAL, Hx Contacts or Glasses - READING GLASSES, Other Sensory Impairments - Actinic Keratosis (skin) Neurological History: Reports: Other Neuro Impairments/Disorders - Senile Nuclear Sclerosis. PAIN CLINIC PT. Denies: Hx Headaches, Hx Migraine, Hx Nerve Disease, Hx Seizures Psychiatric History: Reports: Hx Anxiety - ON MEDS, Hx Depression - ON MEDS Denies: Hx Panic Disorder - Cancer History Hx Chemotherapy: No Hx Radiation Therapy: No Hx Palliative Cancer Treatment: No - Surgical History Surgery Procedure, Year, and Place: KIDNEY STONES, 07/27/12, [facility] – [place]. HYSTERECTOMY , 1982, [facility] [place]. 05/2013 LAMINECTOMY LOW BACK Hx Anesthesia Reactions: No - Immunization History Date of Tetanus Vaccine: PT STATES UNSURE Date of Influenza Vaccine: NONE Infectious Disease History: No Infectious Disease History: Denies: Hx Clostridium Difficile, Hx Hepatitis, Hx Human Immunodeficiency Virus (HIV), Hx of Known/Suspected MRSA, Hx Shingles, Hx Tuberculosis, Hx Known/ Suspected VRSA, History Other Infectious Disease, Traveled Outside the [place] in Last 30 Days - Family History Known Family History: Positive: Other - Colon Cancer and depression Negative: Diabetes, Renal Disease, Respiratory Disease, Seizure Disorder - Social History Lives: With Family Alcohol Use: None Substance Use Type: Reports: None Substance Use Comment - Amount & Last Used: percocet, morphine Smoking Status (MU): Never Smoked Tobacco Review of Systems Positive: Chest Pain Positive: Abdominal Pain Neurological: Other - confusion All Other Systems Reviewed And Are Negative: Yes Physical Exam - Summary Physical Exam Summary: VITAL SIGNS: Reviewed. GENERAL: Patient is a well-developed and nourished female who is lying comfortable in the stretcher. Patient is anxious HEAD AND FACE: No signs of trauma. No ecchymosis, hematomas or skull depressions. No sinus tenderness. EYES: PERRLA, EOMI x 2, No injected conjunctiva, no nystagmus. EARS: Hearing grossly intact. Ear canals and tympanic membranes are within normal limits. MOUTH: Oropharynx within normal limits. NECK: Supple, trachea is midline, no adenopathy, no JVD, no carotid bruit, no c- spine tenderness, neck with full ROM. CHEST: Symmetric, no tenderness at palpation LUNGS: Clear to auscultation bilaterally. No wheezing or crackles. CVS: Regular rate and rhythm, S1 and S2 present, no murmurs or gallops appreciated. ABDOMEN: Soft, and the pain displayed is not compatible to the physical exam No signs of distention. No rebound no guarding, and no masses palpated. Bowel sounds are normal. EXTREMITIES: FROM in all major joints, no edema, no cyanosis or clubbing. NEURO: Alert and oriented x 3. No acute neurological deficits. Speech is normal and follows commands. SKIN: Dry and warm Triage Information Reviewed: Yes Vital Signs On Initial Exam: Initial Vitals Temp Pulse Resp BP Pulse Ox 97.6 F 102 20 152/105 95 03/24/17 14:02 03/24/17 14:02 03/24/17 14:02 03/24/17 14:02 03/24/17 14:02 Vital Signs Reviewed: Yes Diagnostics - Vital Signs Vital Signs Temp Pulse Resp BP Pulse Ox 03/24/17 15:26 98.8 F 43 18 129/85 93 03/24/17 14:02 97.6 F 102 20 152/105 95 - Laboratory Lab Results: Lab Results 03/24/17 03/24/17 Range/Units 16:19 16:19 WBC 8.8 (3.5-10.8) 10^3/ul RBC 5.68 H (4.0-5.4) 10^6/ul Hgb 15.5 (12.0-16.0) g/dl Hct 47 (35-47) % MCV 82 (80-97) fL MCH 27 (27-31) pg MCHC 33 (31-36) g/dl RDW 15 (10.5-15) % Plt Count 258 (150-450) 10^3/ul MPV 8 (7.4-10.4) um3 Neut % (Auto) 73.3 (38-83) % Lymph % (Auto) 19.1 L (25-47) % [place] % (Auto) 6.8 (1-9) % Eos % (Auto) 0.1 (0-6) % Baso % (Auto) 0.7 (0-2) % Absolute Neuts (auto) 6.5 (1.5-7.7) 10^3/ul Absolute Lymphs (auto) 1.7 (1.0-4.8) 10^3/ul Absolute Monos (auto) 0.6 (0-0.8) 10^3/ul Absolute Eos (auto) 0 (0-0.6) 10^3/ul Absolute Basos (auto) 0.1 (0-0.2) 10^3/ul Absolute Nucleated RBC 0 10^3/ul Nucleated RBC % 0 Sodium 138 (133-145) mmol/L Potassium 3.3 L (3.5-5.0) mmol/L Chloride 101 (101-111) mmol/L Carbon Dioxide 29 (22-32) mmol/L Anion Gap 8 (2-11) mmol/L BUN 12 (6-24) mg/dL Creatinine 0.87 (0.51-0.95) mg/dL Est GFR ( Amer) 81.6 (>60) Est GFR (Non-Af Amer) 63.5 (>60) BUN/Creatinine Ratio 13.8 (8-20) Glucose 107 H (70-100) mg/dL Calcium 10.6 H (8.6-10.3) mg/dL Total Bilirubin 0.60 (0.2-1.0) mg/dL AST 25 (13-39) U/L ALT 23 (7-52) U/L Alkaline Phosphatase 117 H (34-104) U/L Total Creatine Kinase 84 (10-223) U/L Troponin I 0.01 (<0.04) ng/mL C-Reactive Protein 2.45 (< 5.00) mg/L Total Protein 7.6 (6.4-8.9) g/dL Albumin 4.2 (3.2-5.2) g/dL Globulin 3.4 (2-4) g/dL Albumin/Globulin Ratio 1.2 (1-3) Lipase < 10 L (11.0-82.0) U/L Result Diagrams: 03/24/17 16:19 03/24/17 16:19 Lab Statement: Any lab studies that have been ordered have been reviewed, and results considered in the medical decision making process. - EKG 1533 Cardiac Rate: NL EKG Rhythm: Sinus Rhythm - at 83 BPM EKG Interpretation: normal axis, no ST elevations Abdominal Pain Fem Course/Dx - Course Course Of Treatment: This patient is a 76 year old F presenting to [facility] accompanied by her son with a chief complaint of ABD pain that has been constant for a month. The patient rates the pain 10/10 in severity. Patients son reports confusion and CP. Pt has been in ED for 4 times and PCP for 3 times for this issue and has had no resolution. She has chronic back pain and takes morphine for it and fentanyl. She fell 03/19/17 and hit her face. Additionally she saw GI and nothing significant was found. Test results with no significant abnormalities. She has had 2 CTs in the last month and has followed up with Dr. barakat and pain management for chronic back and abdominla pain. She is taking 37 micrograms of fentanyl and 50mg of morphine every 4 hours and she reports needing more pain medication. At this point I feel uncomfortable giving more due to the last time she was given dilaudid she had respiratory issues. Dr. Walker suggests giving her no more medication due to chronic pain with high tolerance. Dr. Melton states he only recommends to follow up with nurse Noel in pain management clinic. 1630 We discussed patient care with Dr. Walker has done through work up and he doesnt think he will find any pathology to explain her pain. He has reviewed both of her CTs and cannot find any abnormalities. The patients son is agreeable with this plan. However the patient is requesting pain medication. - Diagnoses Provider Diagnoses: Chronic abdominal pain Discharge - Discharge Plan Condition: Stable Disposition: HOME Patient Education Materials: Chronic Abdominal Pain (ED) Referrals: Abe Leon MD [Primary Care Provider] - 2 Days Additional Instructions: RETURN TO EMERGENCY DEPARTMENT FOR ANY NEW OR WORSENING SYMPTOMS The documentation as recorded by the Aniket obrien Gabriel accurately reflects the service I personally performed and the decisions made by me, Armando Luu MD.
== END | disposition home or self-care (01) ==
LOC: ED 13:50
DX: R10.9 Unspecified abdominal pain (principal); G89.29 Other chronic pain; Z88.0 Allergy status to penicillin; Z91.041 Radiographic dye allergy status
CPT/HCPCS: 36415; 80053; 82550; 83690; 84484; 85025; 86140; 93005; 99282

== ENCOUNTER 2017-03-25 11:07 | Emergency (ER) | payer MEDICARE | END 2017-03-25 11:45 | disposition left against medical advice (07) | LOC: ED 11:07 | DX: R52 Pain, unspecified (principal); Z53.21 Procedure and treatment not carried out due to patient leaving prior to being seen by health care provider ==

== ENCOUNTER 2018-06-23 19:12 | Emergency (ER) | payer MEDICARE ==
[2018-06-23 21:27] LABS: ABS Basophils 0 10^3/ul (0-0.2); ABS Eosinophils 0 10^3/ul (0-0.6); ABS Lymphocytes 1.4 10^3/ul (1.0-4.8); ABS Monocytes 0.6 10^3/ul (0-0.8); ABS Neutrophils 7.9 10^3/ul (1.5-7.7); ABS Nucleated RBC 0 10^3/ul; Eosinophil % 0.2 %; Hematocrit 45 % (33-41); Hemoglobin 14.8 g/dL (12.0-16.0); Lymphocyte % 14.1 %; Mean Corpuscular HGB Conc 33 g/dL (31-36); Mean Corpuscular Hemoglobin 28 pg (27-31); Mean Corpuscular Volume 85 fL (80-97); Mean Platelet Volume 7.6 fL (7.4-10.4); Nucleated Red Blood Cells % 0; Platelet Count 257 10^3/uL (150-450); Red Blood Count 5.28 10^6 /uL (3.70-4.87); Red Cell Distribution Width 15 % (10.5-15); White Blood Count 9.9 10^3/uL (3.5-10.8)
[2018-06-23 21:46] LABS: ALT 40 U/L (7-52); AST 38 U/L (13-39); Albumin 4.4 g/dL (3.2-5.2); Albumin/Globulin Ratio 1.2 (1-3); Alkaline Phosphatase 115 U/L (34-104); Anion Gap 7 mmol/L (2-11); Blood Urea Nitrogen 20 mg/dL (6-24); CO2 Carbon Dioxide 30 mmol/L (22-32); Calcium 10.6 mg/dL (8.6-10.3); Chloride 103 mmol/L (101-111); EGFR African American 76.6 (>60); EGFR Non-African American 63.3 (>60); Globulin 3.8 g/dL (2-4); Glucose 101 mg/dL (70-100); Potassium 4.4 mmol/L (3.5-5.0); Sodium 140 mmol/L (135-145); Total Protein 8.2 g/dL (6.4-8.9)
[2018-06-23 22:09] LABS: Urine Appearance Cloudy; Urine Bacteria Absent (Absent); Urine Bilirubin Negative (Negative); Urine Blood Negative (Negative); Urine Color Yellow; Urine Glucose Negative (Negative); Urine Ketones Negative (Negative); Urine Nitrite Negative (Negative); Urine Protein Negative (Negative); Urine Red Blood Cell Absent (Absent); Urine Specific Gravity 1.013 (1.010-1.030); Urine Squamous Epithelial Cell Present (Absent); Urine Urobilinogen Negative (Negative); Urine White Blood Cell 2+(11-20/hpf) (Absent)
[2018-06-23] MEDS ORDERED: NS 0.9% 1000 ML** 1,000 ML IV ONE (22:33)
[2018-06-23] MEDS ORDERED: PROCHLORPERAZINE INJ 5 MG/ML 2 ML VIAL IV ONE (22:33)
[2018-06-23] MEDS ORDERED: Phenazopyridine TAB* 100 MG PO ONE (22:34)
[2018-06-23] MEDS ORDERED: Sulfamethox/Trimethoprim DS 800/160* TAB PO ONE (22:34)
--- NOTE | 2018-06-23 23:11 | ED ---
GI/ HPI - HPI Summary HPI Summary: 77-year-old female presents with urinary symptoms for the past couple days. She admits to urgency and frequency. She admits to dysuria. She has history of chronic pain. She admits to flank pain but this is chronic. No fevers. No cough shortness breath or chest pain. She takes Dilaudid and fenatyl daily. admits to nausea but no vomiting. this is also a chronic issue. - History of Current Complaint Chief Complaint: EDUrogenitalProblems Time Seen by Provider: 06/23/18 22:18 Stated Complaint: NAUSEA/HEADACHE/BACK PAIN PER PT Pain Intensity: 8 - Allergy/Home Medications Allergies/Adverse Reactions: Allergies Allergy/AdvReac Type Severity Reaction Status Date / Time Iodinated Contrast- Oral and Allergy Hives Verified 05/31/18 14:32 IV Dye Penicillins Allergy Swelling Verified 05/31/18 14:32 PMH/Surg Hx/FS Hx/Imm Hx Endocrine/Hematology History: Denies: Hx Diabetes, Hx Thyroid Disease Cardiovascular History: Denies: Hx Congestive Heart Failure, Hx Hypertension, Hx Pacemaker/ICD, Other Cardiovascular Problems/Disorders Respiratory History: Reports: Hx Sleep Apnea - CPAP Denies: Hx Asthma, Hx Chronic Obstructive Pulmonary Disease (COPD), Other Respiratory Problems/Disorders GI History: Reports: Hx Diverticulosis, Hx Gastroesophageal Reflux Disease, Hx Irritable Bowel, Hx Ulcer Denies: Other GI Disorders History: Reports: Hx Kidney Stones Denies: Hx Renal Disease Musculoskeletal History: Reports: Hx Arthritis, Hx Back Problems - Lumbar Spinal Stenosis, Hx Bursitis - IN THE PAST IN SHOULDERS, Hx Fibromyalgia, Other Musculoskeletal History - Plantar Fascia Syndrome Denies: Hx Tendonitis Sensory History: Reports: Hx Cataracts - ROSHNI REMOVAL, Hx Contacts or Glasses - READING GLASSES, Other Sensory Impairments - Actinic Keratosis (skin) Denies: Hx Hearing Aid Opthamlomology History: Reports: Hx Cataracts - ROSHNI REMOVAL, Hx Contacts or Glasses - READING GLASSES, Other Sensory Impairments - Actinic Keratosis (skin) Neurological History: Reports: Other Neuro Impairments/Disorders - Senile Nuclear Sclerosis. PAIN CLINIC PT. Denies: Hx Headaches, Hx Migraine, Hx Nerve Disease, Hx Seizures Psychiatric History: Reports: Hx Anxiety - ON MEDS, Hx Depression - ON MEDS Denies: Hx Panic Disorder - Cancer History Hx Chemotherapy: No Hx Radiation Therapy: No Hx Palliative Cancer Treatment: No - Surgical History Surgery Procedure, Year, and Place: KIDNEY STONES, 07/27/12, [facility] [place]STERECT[place]Y , 1982, [facility] [place]. 05/2013 LAMINECTOMY LOW BACK, shots in back, cataracts Hx Anesthesia Reactions: No - Immunization History Date of Tetanus Vaccine: PT STATES UNSURE Date of Influenza Vaccine: NONE Infectious Disease History: No Infectious Disease History: Denies: Hx Clostridium Difficile, Hx Hepatitis, Hx Human Immunodeficiency Virus (HIV), Hx of Known/Suspected MRSA, Hx Shingles, Hx Tuberculosis, Hx Known/ Suspected VRSA, History Other Infectious Disease, Traveled Outside the [place] in Last 30 Days - Family History Known Family History: Positive: None, Other - Colon Cancer and depression Negative: Diabetes, Renal Disease, Respiratory Disease, Seizure Disorder - Social History Alcohol Use: None Substance Use Type: Reports: None Substance Use Comment - Amount & Last Used: percocet, morphine Smoking Status (MU): Never Smoked Tobacco Review of Systems Negative: Fever Negative: Chest Pain Negative: Shortness Of Breath Positive: Abdominal Pain Positive: dysuria Positive: Myalgia - back pain All Other Systems Reviewed And Are Negative: Yes Physical Exam Triage Information Reviewed: Yes Vital Signs On Initial Exam: Initial Vitals Temp Pulse Resp BP Pulse Ox 98 F 81 18 157/96 95 06/23/18 19:43 06/23/18 19:43 06/23/18 19:43 06/23/18 19:43 06/23/18 19:43 Vital Signs Reviewed: Yes Appearance: Positive: Well-Appearing Skin: Positive: Warm, Dry Head/Face: Positive: Normal Head/Face Inspection Eyes: Positive: Normal, Conjunctiva Clear ENT: Positive: Pharynx normal Respiratory/Lung Sounds: Positive: Clear to Auscultation, Breath Sounds Present Cardiovascular: Positive: Normal, RRR Abdomen Description: Positive: Soft, Other: - tenderness suprapubic tenderness. Negative: CVA Tenderness (R), CVA Tenderness (L) Bowel Sounds: Positive: Present Musculoskeletal: Positive: Normal Neurological: Positive: Normal Psychiatric: Positive: Normal Diagnostics - Vital Signs Vital Signs Temp Pulse Resp BP Pulse Ox 06/23/18 19:43 98 F 81 18 157/96 95 - Laboratory Lab Results: Lab Results 06/23/18 06/23/18 06/23/18 Range/Units 21:11 21:11 21:55 WBC 9.9 (3.5-10.8) 10^3/uL RBC 5.28 H (3.70-4.87) 10^6 /uL Hgb 14.8 (12.0-16.0) g/dL Hct 45 H (33-41) % MCV 85 (80-97) fL MCH 28 (27-31) pg MCHC 33 (31-36) g/dL RDW 15 (10.5-15) % Plt Count 257 (150-450) 10^3/uL MPV 7.6 (7.4-10.4) fL Neut % (Auto) 79.5 % Lymph % (Auto) 14.1 % [place] % (Auto) 5.9 % Eos % (Auto) 0.2 % Baso % (Auto) 0.3 % Absolute Neuts (auto) 7.9 H (1.5-7.7) 10^3/ul Absolute Lymphs (auto) 1.4 (1.0-4.8) 10^3/ul Absolute Monos (auto) 0.6 (0-0.8) 10^3/ul Absolute Eos (auto) 0 (0-0.6) 10^3/ul Absolute Basos (auto) 0 (0-0.2) 10^3/ul Absolute Nucleated RBC 0 10^3/ul Nucleated RBC % 0 Sodium 140 (135-145) mmol/L Potassium 4.4 (3.5-5.0) mmol/L Chloride 103 (101-111) mmol/L Carbon Dioxide 30 (22-32) mmol/L Anion Gap 7 (2-11) mmol/L BUN 20 (6-24) mg/dL Creatinine 0.87 (0.51-0.95) mg/dL Est GFR ( Amer) 76.6 (>60) Est GFR (Non-Af Amer) 63.3 (>60) BUN/Creatinine Ratio 23.0 H (8-20) Glucose 101 H (70-100) mg/dL Calcium 10.6 H (8.6-10.3) mg/dL Total Bilirubin 0.30 (0.2-1.0) mg/dL AST 38 (13-39) U/L ALT 40 (7-52) U/L Alkaline Phosphatase 115 H (34-104) U/L Total Protein 8.2 (6.4-8.9) g/dL Albumin 4.4 (3.2-5.2) g/dL Globulin 3.8 (2-4) g/dL Albumin/Globulin Ratio 1.2 (1-3) Lipase < 10 L (11.0-82.0) U/L Urine Color Yellow Urine Appearance Cloudy Urine pH 5.0 (5-9) Ur Specific [place] 1.013 (1.010-1.030) Urine Protein Negative (Negative) Urine Ketones Negative (Negative) Urine Blood Negative (Negative) Urine Nitrate Negative (Negative) Urine Bilirubin Negative (Negative) Urine Urobilinogen Negative (Negative) Ur Leukocyte Esterase 2+ A (Negative) Urine WBC (Auto) 2+(11-20/hpf) A (Absent) Urine RBC (Auto) Absent (Absent) Ur Squamous Epith Cells Present A (Absent) Urine Bacteria Absent (Absent) Urine Glucose Negative (Negative) Urine Ascorbic Acid * A (Negative) Result Diagrams: 06/23/18 21:11 06/23/18 21:11 Lab Statement: Any lab studies that have been ordered have been reviewed, and results considered in the medical decision making process. Re-Evaluation - Re-Evaluation First Eval Re-Evaluation Time: 00:02 Change: Improved Comment: feeling better GIGU Course/Dx - Course Course Of Treatment: 77-year-old female presents with urinary symptoms for the past couple days. She admits to urgency and frequency. She admits to dysuria. She has history of chronic pain. She admits to flank pain but this is chronic. No fevers. No cough shortness breath or chest pain. She takes Dilaudid and fenatyl daily. On exam mild suprapubic tenderness. Negative CVA tenderness. Vitals are normal. Urine shows a UTI. Gave bactrim. Patient was also made to headache which is her normal so to some fluids. prescribed Bactrim for 7 days with flank pain and pyridium. Patient understands agrees with plan. - Diagnoses Differential Diagnoses - Female: Pyelonephritis, Urinary Tract Infection, Ureteral Calculi Provider Diagnoses: UTI (urinary tract infection) Discharge - Sign-Out/Discharge Documenting (check all that apply): Patient Departure Patient Received Moderate/Deep Sedation with Procedure: No - Discharge Plan Condition: Good Disposition: HOME Prescriptions: Phenazopyridine 200 mg (NF) [Pyridium 200 MG tab *] 200 mg PO TID #5 tab Sulfamethox/Trimethoprim DS* [Bactrim DS 800/160 TAB*] 1 tab PO BID #13 tab Patient Education Materials: Urinary Tract Infection in Women (ED) Referrals: Abe Leon MD [Primary Care Provider] - Additional Instructions: Take Bactrim twice a day for 7 days, first dose given in ED Take pyridium two tablets three times a day with food for 2 days, first dose given in ED Follow up with primary in 7 days Return to ED if develop fever, or any new or worsening symptoms - Billing Disposition and Condition Condition: GOOD Disposition: Home
[2018-06-24 00:43] VITALS: BP 139/74
== END 2018-06-24 00:43 | disposition home or self-care (01) ==
LOC: ED 19:12
DX: N39.0 Urinary tract infection, site not specified (principal); G47.33 Obstructive sleep apnea (adult) (pediatric); K57.90 Diverticulosis of intestine, part unspecified, without perforation or abscess without bleeding; K21.9 Gastro-esophageal reflux disease without esophagitis; K58.9 Irritable bowel syndrome, unspecified; M19.90 Unspecified osteoarthritis, unspecified site; M79.7 Fibromyalgia; F41.9 Anxiety disorder, unspecified; F32.9 Major depressive disorder, single episode, unspecified; Z88.0 Allergy status to penicillin; Z91.041 Radiographic dye allergy status
CPT/HCPCS: 36415; 80053; 81003; 81015; 83690; 85025; 87086; 96361; 96374; 99283; A9270-GY; J0780

== ENCOUNTER 2018-06-24 19:11 | Emergency (ER) | payer MEDICARE ==
[2018-06-24 21:59] LABS: Hematocrit 41 % (33-41); Hemoglobin 13.5 g/dL (12.0-16.0); Mean Corpuscular HGB Conc 33 g/dL (31-36); Mean Corpuscular Hemoglobin 28 pg (27-31); Mean Corpuscular Volume 84 fL (80-97); Mean Platelet Volume 7.4 fL (7.4-10.4); Platelet Count 248 10^3/uL (150-450); Red Cell Distribution Width 15 % (10.5-15)
--- NOTE | 2018-06-24 22:01 | ED ---
Abdominal Pain/Female - HPI Summary HPI Summary: Patient is a 77 y/o female who presents to the ER with chronic abdominal pain worsening this week. She describes the CC as constant for the last year but waxing and waning. She was in the ER last night for similar symptoms and was diagnosed with a UTI. She was seen by her PCP on 5 days ago for similar symptoms. Patient complains of N/V and hematuria. She rates her pain 10/10 in severity. She has a PMHx of sleep apnea, diverticulosis, GERD, IBS, PUD, renal calculi, arthritis, lumbar spinal stenosis, bursitis, and plantar fascia syndrome. She has had surgery for kidney stones several years ago, a laminectomy low back, and a hysterectomy. She does not drink alcohol, use alcohol, and has never smoked. - History of Current Complaint Chief Complaint: EDAbdPain Stated Complaint: ABD PAIN, NAUSEA PER PT Time Seen by Provider: 06/24/18 21:49 Hx Obtained From: Patient, Family/Project Management Professional Onset/Duration: Lasting Weeks - Chronic, Worse Since - One week ago Timing: Constant Severity Currently: Severe Pain Intensity: 10 Pain Scale Used: 0-10 Numeric Radiates: No Aggravating Factor(s): Nothing Alleviating Factor(s): Nothing Associated Signs and Symptoms: Positive: Urinary Symptoms - Hematuria, Nausea, Vomiting Allergies/Adverse Reactions: Allergies Allergy/AdvReac Type Severity Reaction Status Date / Time Iodinated Contrast- Oral and Allergy Hives Verified 06/24/18 19:34 IV Dye Penicillins Allergy Swelling Verified 06/24/18 19:34 PMH/Surg Hx/FS Hx/Imm Hx Endocrine/Hematology History: Denies: Hx Diabetes, Hx Thyroid Disease Cardiovascular History: Denies: Hx Congestive Heart Failure, Hx Hypertension, Hx Pacemaker/ICD, Other Cardiovascular Problems/Disorders Respiratory History: Reports: Hx Sleep Apnea - CPAP Denies: Hx Asthma, Hx Chronic Obstructive Pulmonary Disease (COPD), Other Respiratory Problems/Disorders GI History: Reports: Hx Diverticulosis, Hx Gastroesophageal Reflux Disease, Hx Irritable Bowel, Hx Ulcer Denies: Other GI Disorders History: Reports: Hx Kidney Stones Denies: Hx Renal Disease Musculoskeletal History: Reports: Hx Arthritis, Hx Back Problems - Lumbar Spinal Stenosis, Hx Bursitis - IN THE PAST IN SHOULDERS, Hx Fibromyalgia, Other Musculoskeletal History - Plantar Fascia Syndrome Denies: Hx Tendonitis Sensory History: Reports: Hx Cataracts - ROSHNI REMOVAL, Hx Contacts or Glasses - READING GLASSES, Other Sensory Impairments - Actinic Keratosis (skin) Denies: Hx Hearing Aid Opthamlomology History: Reports: Hx Cataracts - ROSHNI REMOVAL, Hx Contacts or Glasses - READING GLASSES, Other Sensory Impairments - Actinic Keratosis (skin) Neurological History: Reports: Other Neuro Impairments/Disorders - Senile Nuclear Sclerosis. PAIN CLINIC PT. Denies: Hx Headaches, Hx Migraine, Hx Nerve Disease, Hx Seizures Psychiatric History: Reports: Hx Anxiety - ON MEDS, Hx Depression - ON MEDS Denies: Hx Panic Disorder - Cancer History Hx Chemotherapy: No Hx Radiation Therapy: No Hx Palliative Cancer Treatment: No - Surgical History Surgery Procedure, Year, and Place: KIDNEY STONES, 07/27/12, [facility] [place]. HYSTERECTOMY , 1982, [facility] [place]. 05/2013 LAMINECTOMY LOW BACK, shots in back, cataracts Hx Anesthesia Reactions: No - Immunization History Date of Tetanus Vaccine: PT STATES UNSURE Date of Influenza Vaccine: NONE Infectious Disease History: No Infectious Disease History: Denies: Hx Clostridium Difficile, Hx Hepatitis, Hx Human Immunodeficiency Virus (HIV), Hx of Known/Suspected MRSA, Hx Shingles, Hx Tuberculosis, Hx Known/ Suspected VRSA, History Other Infectious Disease, Traveled Outside the [place] in Last 30 Days - Family History Known Family History: Positive: None, Other - Colon Cancer and depression Negative: Diabetes, Renal Disease, Respiratory Disease, Seizure Disorder - Social History Alcohol Use: None Substance Use Type: Reports: None Substance Use Comment - Amount & Last Used: percocet, morphine Smoking Status (MU): Never Smoked Tobacco Review of Systems Positive: Abdominal Pain - Chronic, worsening within last week, Vomiting, Nausea Positive: hematuria All Other Systems Reviewed And Are Negative: Yes Physical Exam - Summary Physical Exam Summary: Appearance: Well appearing, no pain distress Skin: warm, dry, reflects adequate perfusion Head/face: normal Eyes: EOMI, MARITZA ENT: normal Neck: supple, non-tender Respiratory: CTA, breath sounds present Cardiovascular: RRR, pulses symmetrical Abdomen: LLQ tenderness, soft Musculoskeletal: normal, strength/ROM intact Neuro: normal, sensory motor intact, A&Ox3 Triage Information Reviewed: Yes Vital Signs On Initial Exam: Initial Vitals Temp Pulse Resp BP Pulse Ox 98.0 F 90 17 131/88 94 06/24/18 19:30 06/24/18 19:30 06/24/18 19:30 06/24/18 19:30 06/24/18 19:30 Vital Signs Reviewed: Yes Diagnostics - Vital Signs Vital Signs Temp Pulse Resp BP Pulse Ox 06/24/18 19:30 98.0 F 90 17 131/88 94 - Laboratory Lab Results: Lab Results 06/24/18 Range/Units 21:40 WBC 11.0 H (3.5-10.8) 10^3/uL RBC 4.80 (3.70-4.87) 10^6 /uL Hgb 13.5 (12.0-16.0) g/dL Hct 41 (33-41) % MCV 84 (80-97) fL MCH 28 (27-31) pg MCHC 33 (31-36) g/dL RDW 15 (10.5-15) % Plt Count 248 (150-450) 10^3/uL MPV 7.4 (7.4-10.4) fL Neut % (Auto) Pending Lymph % (Auto) Pending Stone % (Auto) Pending Eos % (Auto) Pending Baso % (Auto) Pending Absolute Neuts (auto) Pending Absolute Lymphs (auto) Pending Absolute Monos (auto) Pending Absolute Eos (auto) Pending Absolute Basos (auto) Pending Absolute Nucleated RBC Pending Nucleated RBC % Pending Result Diagrams: 06/24/18 21:40 06/24/18 21:40 Lab Statement: Any lab studies that have been ordered have been reviewed, and results considered in the medical decision making process. - CT CT A/P CT Interpretation Completed By: Radiologist Summary of CT Findings: 1. There is a small hiatal hernia which is stable. 2. Stable colonic diverticulosis without evidence for acute diverticulitis. 3. No other acute CT pathology. Dr. Burns has reviewed the radiology report. Abdominal Pain Fem Course/Dx - Course Course Of Treatment: Patient is a 77 y/o female who presents to the ER with chronic abdominal pain worsening this week. During ED course she received fluids and Zofran. Bloodwork obtained. CT A/P revealed 1. There is a small hiatal hernia which is stable. 2. Stable colonic diverticulosis without evidence for acute diverticulitis. 3. No other acute CT pathology. Patient will be discharged home with dx of abd pain and history of UTI. Patient understands and agrees with this plan. - Diagnoses Differential Diagnosis: Positive: Diverticulitis, Renal Colic, Urinary Tract Infection, Other - Abominal pain, history of UTI Provider Diagnoses: Abdominal pain, History of UTI Discharge - Sign-Out/Discharge Documenting (check all that apply): Patient Departure - Discharge Patient Received Moderate/Deep Sedation with Procedure: No - Discharge Plan Condition: Stable Disposition: HOME Patient Education Materials: Urinary Tract Infection in Women (ED), Acute Abdominal Pain (ED), Chronic Abdominal Pain (ED) Referrals: Abe Leon MD [Primary Care Provider] - 3 Days Additional Instructions: Follow up with your primary care provider in 3 days. RETURN TO EMERGENCY ROOM IF CHANGING OR WORSENING SYMPTOMS. - Billing Disposition and Condition Condition: STABLE Disposition: Home - Attestation Statements Document Initiated by Jose Antonio: Yes Documenting Scribe: Zaid Leal Provider For Whom Jose Antonio is Documenting (Include Credential): Kal Burns MD Scribe Attestation: Zaid Chambers scribed for Kal Burns MD on 06/25/18 at 0028. Scribe Documentation Reviewed: Yes Provider Attestation: The documentation as recorded by the Zaid obrien accurately reflects the service I personally performed and the decisions made by Kal marmolejo MD Status of Scribe Document: Viewed
[2018-06-24 22:12] LABS: ALT 37 U/L (7-52); AST 36 U/L (13-39); Albumin 4.1 g/dL (3.2-5.2); Albumin/Globulin Ratio 1.3 (1-3); Alkaline Phosphatase 99 U/L (34-104); Anion Gap 9 mmol/L (2-11); BUN/Creatinine Ratio 18.4 (8-20); Blood Urea Nitrogen 16 mg/dL (6-24); C Reactive Protein 4.15 mg/L (<8.01); CO2 Carbon Dioxide 25 mmol/L (22-32); Chloride 103 mmol/L (101-111); EGFR African American 76.6 (>60); EGFR Non-African American 63.3 (>60); Globulin 3.2 g/dL (2-4); Glucose 110 mg/dL (70-100); Potassium 4.2 mmol/L (3.5-5.0); Sodium 137 mmol/L (135-145); Total Protein 7.3 g/dL (6.4-8.9)
[2018-06-24] MEDS ORDERED: Ondansetron INJ* 2 MG/ML VIAL IV ONE (22:15)
[2018-06-24] MEDS ORDERED: NS 0.9% 1000 ML** 1,000 ML IV SCH (22:15)
[2018-06-24 23:02] LABS: Troponin I 0.01 ng/mL (<0.04)
[2018-06-24 23:12] LABS: ABS Basophils 0 10^3/ul (0-0.2); ABS Eosinophils 0 10^3/ul (0-0.6); ABS Monocytes 0.5 10^3/ul (0-0.8); ABS Neutrophils 9.5 10^3/ul (1.5-7.7); ABS Nucleated RBC 0 10^3/ul; Eosinophil % 0.1 %; Lymphocyte % 8.8 %; Nucleated Red Blood Cells % 0
[2018-06-25 00:45] VITALS: BP 0/0
== END 2018-06-25 00:22 | disposition home or self-care (01) ==
LOC: ED 19:11
DX: R10.9 Unspecified abdominal pain (principal); K44.9 Diaphragmatic hernia without obstruction or gangrene; K57.90 Diverticulosis of intestine, part unspecified, without perforation or abscess without bleeding; Z87.440 Personal history of urinary (tract) infections; M72.2 Plantar fascial fibromatosis; G47.33 Obstructive sleep apnea (adult) (pediatric); M79.7 Fibromyalgia; Z91.041 Radiographic dye allergy status; Z88.0 Allergy status to penicillin
CPT/HCPCS: 36415; 74176; 80053; 83605; 83690; 84484; 85025; 86140; 96361; 96374; 99284; J2405

== ENCOUNTER 2019-01-12 09:35 | Emergency (ER) | payer MEDICARE ==
--- NOTE | 2019-01-12 10:09 | ED ---
Abdominal Pain/Female - HPI Summary HPI Summary: This pt is a 78 y/o female presenting to [facility] c/o acute on chronic abd pain for the past 6 days. Pt reports she has chronic abd pain for which she takes morphine 30 mg BID chronically. In addition, pt also follows up at the pain clinic. Pt currently states her abd pain is diffuse. Pt notes she has chronic constipation secondary to her opioids but has a bowel movement every day which is described as "marbly." She states she vomited yesterday after eating. Pt took her pills last night and went to sleep. She did not take pills this morning , but usually takes them around 0800 every day. Denies fever. Son reports pt has been on morphine easily for the past 1.5 years now. Son states pt was on fentanyl patches in the past. Per son, pt's medication tolerance is high due to everything pt takes. Additionally son reports pt is not eating nourishing meals despite having Meals on Wheels come every day. Son notes pt only eats ice cream most of the time and leaves her meals untouched. Per son, patient has been nonfunctional for the last 2-3 years and can't function with pain medications. Son is interested in having patient go to rehab because son reports patient needs 24 hour care and "someone to keep her on track." Pt has seen GI in the past. - History of Current Complaint Chief Complaint: EDAbdPain Stated Complaint: SEVERE ABDOMINAL PAIN PER PT Time Seen by Provider: 01/12/19 09:51 Hx Obtained From: Patient, Family/Gyroscopic Engineering Technician - Son Onset/Duration: Lasting Days, Still Present Timing: Days Severity Currently: Severe Pain Intensity: 10 Pain Scale Used: 0-10 Numeric Location: Diffuse Radiates: No Aggravating Factor(s): Nothing Alleviating Factor(s): Nothing Associated Signs and Symptoms: Positive: Constipation, Nausea, Vomiting. Negative: Fever Allergies/Adverse Reactions: Allergies Allergy/AdvReac Type Severity Reaction Status Date / Time Iodinated Contrast Media Allergy Hives Verified 12/26/18 14:50 [Iodinated Contrast- Oral and IV Dye] Penicillins Allergy Swelling Verified 12/26/18 14:50 PMH/Surg Hx/FS Hx/Imm Hx Endocrine/Hematology History: Denies: Hx Diabetes, Hx Thyroid Disease Cardiovascular History: Denies: Hx Congestive Heart Failure, Hx Hypertension, Hx Pacemaker/ICD, Other Cardiovascular Problems/Disorders Respiratory History: Reports: Hx Sleep Apnea - CPAP Denies: Hx Asthma, Hx Chronic Obstructive Pulmonary Disease (COPD), Other Respiratory Problems/Disorders GI History: Reports: Hx Diverticulosis, Hx Gastroesophageal Reflux Disease, Hx Irritable Bowel, Hx Ulcer Denies: Other GI Disorders History: Reports: Hx Kidney Stones Denies: Hx Renal Disease Musculoskeletal History: Reports: Hx Arthritis, Hx Back Problems - Lumbar Spinal Stenosis, Hx Bursitis - IN THE PAST IN SHOULDERS, Hx Fibromyalgia, Other Musculoskeletal History - Plantar Fascia Syndrome Denies: Hx Tendonitis Sensory History: Reports: Hx Cataracts - ROSHNI REMOVAL, Hx Contacts or Glasses - READING GLASSES, Other Sensory Impairments - Actinic Keratosis (skin) Denies: Hx Hearing Aid Opthamlomology History: Reports: Hx Cataracts - ROSHNI REMOVAL, Hx Contacts or Glasses - READING GLASSES, Other Sensory Impairments - Actinic Keratosis (skin) Neurological History: Reports: Other Neuro Impairments/Disorders - Senile Nuclear Sclerosis. PAIN CLINIC PT. Denies: Hx Headaches, Hx Migraine, Hx Nerve Disease, Hx Seizures Psychiatric History: Reports: Hx Anxiety - ON MEDS, Hx Depression - ON MEDS Denies: Hx Panic Disorder - Cancer History Hx Chemotherapy: No Hx Radiation Therapy: No Hx Palliative Cancer Treatment: No - Surgical History Surgical History: Yes Surgery Procedure, Year, and Place: KIDNEY STONES, 07/27/12, [facility] [place]. HYSTERECTOMY , 1982, [facility]. 05/2013 LAMINECTOMY LOW BACK, shots in back, cataracts Hx Anesthesia Reactions: No - Immunization History Date of Tetanus Vaccine: PT STATES UNSURE Date of Influenza Vaccine: NONE Infectious Disease History: No Infectious Disease History: Denies: Hx Clostridium Difficile, Hx Hepatitis, Hx Human Immunodeficiency Virus (HIV), Hx of Known/Suspected MRSA, Hx Shingles, Hx Tuberculosis, Hx Known/ Suspected VRSA, History Other Infectious Disease, Traveled Outside the [place] in Last 30 Days - Family History Known Family History: Positive: Other - Colon Cancer and depression Negative: Diabetes, Renal Disease, Respiratory Disease, Seizure Disorder - Social History Alcohol Use: None Substance Use Type: Reports: None Substance Use Comment - Amount & Last Used: percocet, morphine Smoking Status (MU): Never Smoked Tobacco Review of Systems Negative: Fever Gastrointestinal: Other - POSITIVE: chronic constipation Positive: Abdominal Pain, Vomiting, Nausea All Other Systems Reviewed And Are Negative: Yes Physical Exam - Summary Physical Exam Summary: Constitutional: Well-developed, Well-nourished, Alert. (-) Distressed Skin: Warm, Dry HENT: Normocephalic; Atraumatic Eyes: Conjunctiva normal Neck: Musculoskeletal ROM normal neck. (-) JVD, (-) Stridor, (-) Nuchal rigidity Cardio: Rhythm regular, rate normal, Heart sounds normal; Intact distal pulses; Radial pulses are 2+ and symmetric. (-) Murmur Pulmonary/Chest wall: Effort normal. (-) Respiratory distress, (-) Wheezes, (-) Rales Abd: Soft, mild generalized abdominal tenderness, (-) Distension, (-) Guarding, (-) Rebound Musculoskeletal: (-) Edema Lymph: (-) Cervical adenopathy Neuro: Alert, Oriented x3 Psych: Mood and affect Normal Triage Information Reviewed: Yes Vital Signs On Initial Exam: Initial Vitals Temp Pulse Resp BP Pulse Ox 98.9 F 91 19 143/76 95 01/12/19 09:45 01/12/19 09:45 01/12/19 09:45 01/12/19 09:45 01/12/19 09:45 Vital Signs Reviewed: Yes Procedures - Sedation Patient Received Moderate/Deep Sedation with Procedure: No Diagnostics - Vital Signs Vital Signs Temp Pulse Resp BP Pulse Ox 01/12/19 09:45 98.9 F 91 19 143/76 95 - Laboratory Result Diagrams: 01/12/19 10:03 01/12/19 10:03 Lab Statement: Any lab studies that have been ordered have been reviewed, and results considered in the medical decision making process. - EKG 10:24 Cardiac Rate: NL - at 83 bpm EKG Rhythm: Sinus Rhythm EKG Comparison: No Significant Change - compared to prior on 09/12/16. Summary of EKG Findings: EKG at 10:24 shows sinus rhythm at a rate of 83 bpm. T wave inversion in lead III. No change from prior on 09/12/16. Re-Evaluation - Re-Evaluation First Eval Re-Evaluation Time: 12:22 Comment: Pt ate apples and catarina crackers. Labs w/o e/o infection. Feeling better after home pain medications. Abd exam soft. Will give pt Toradol for pain and send UA. Second Eval Change: Improved - UA neg, patient feeling better. SW saw and set up home health nursing visit. Abdominal Pain Fem Course/Dx - Course Course Of Treatment: 78 y/o F w hx chronic abdominal pain, chronic back pain managed by pain services on morphine twice a day, who presents with abdominal pain. - DDx includes infectious process such as gastritis, diverticulitis, functional abdominal pain, UTI. Lower suspicion for SBO, cardiac cause, appendicitis, cholecystitis or gallbladder pathology. Exam relatively unremarkable today, no rigidity or suggestions of acute surgical abd. Patient states this is her chronic pain, patient has had a workup this pain before, has seen GI. No new symptoms. Will obtain cbc to assess for underlying infection. Cmp given reports of vomiting. Still having BM, do not suspect obstruction. Less likely ovarian torsion given location of pain and no focal TTP on exam. Pt denies pelvic pain. Will obtain UA to assess for UTI. Trop and EKG to asses cardiac causes. Will continue to monitor. Son would like to speak w SW regarding her opioid use. - Diagnoses Provider Diagnoses: Chronic abdominal pain Discharge ED - Sign-Out/Discharge Documenting (check all that apply): Patient Departure - Discharge home - Discharge Plan Condition: Stable Disposition: HOME Patient Education Materials: Chronic Abdominal Pain (ED) Referrals: [facility] [Outside] Abe Leon MD [Primary Care Provider] - Additional Instructions: You were seen in the emergency department for abdominal pain. Your labs did not show cause for this pain. Please continue to take her medications as prescribed, follow up with her chronic pain doctor. Please follow up with your primary care doctor in next 2-3 days and return to emergency department for worsening pain, inability to eat or drink, fevers,or concerning symptoms. It was a pleasure taking care of you today. - Billing Disposition and Condition Condition: STABLE Disposition: Home - Attestation Statements Document Initiated by Scribe: Yes Documenting Scribe: Wendi Frye Provider For Whom Jose Antonio is Documenting (Include Credential): Len Hollingsworth MD Scribe Attestation: Wendi Chambers, scribed for Len Hollingsworth MD on 01/12/19 at 1407. Scribe Documentation Reviewed: Yes Provider Attestation: The documentation as recorded by the Wendi obrien accurately reflects the service I personally performed and the decisions made by me, Len Hollingsworth MD Status of Scribe Document: Viewed
[2019-01-12 10:14] LABS: ABS Lymphocytes 0.9 10^3/ul (1.0-4.8); ABS Monocytes 0.6 10^3/ul (0-0.8); ABS Neutrophils 7.6 10^3/ul (1.5-7.7); Eosinophil % 0.2 %; Hematocrit 44 % (35-47); Hemoglobin 14.5 g/dL (12.0-16.0); Lymphocyte % 9.9 %; Mean Corpuscular HGB Conc 33 g/dL (31-36); Mean Corpuscular Hemoglobin 28 pg (27-31); Mean Corpuscular Volume 83 fL (80-97); Mean Platelet Volume 7.6 fL (7.4-10.4); Nucleated Red Blood Cells % 0.2; Platelet Count 242 10^3/uL (150-450); Red Blood Count 5.27 10^6 /uL (3.70-4.87); Red Cell Distribution Width 14 % (10-15); White Blood Count 9.1 10^3/uL (3.5-10.8)
[2019-01-12] MEDS ORDERED: Ondansetron ODT TAB* 4 MG PO ONE (10:16)
[2019-01-12] MEDS ORDERED: Morphine TAB Extended Release (*) 30 MG TAB.ER PO ONE (10:16)
[2019-01-12 10:32] LABS: ALT 20 U/L (7-52); AST 25 U/L (13-39); Albumin 4.4 g/dL (3.2-5.2); Albumin/Globulin Ratio 1.2 (1-3); Alkaline Phosphatase 135 U/L (34-104); Anion Gap 6 mmol/L (2-11); BUN/Creatinine Ratio 23.9 (8-20); Blood Urea Nitrogen 22 mg/dL (6-24); CO2 Carbon Dioxide 30 mmol/L (22-32); Calcium 10.6 mg/dL (8.6-10.3); Chloride 102 mmol/L (101-111); EGFR African American 71.6 (>60); EGFR Non-African American 59.2 (>60); Globulin 3.7 g/dL (2-4); Glucose 113 mg/dL (70-100); Potassium 4.3 mmol/L (3.5-5.0); Sodium 138 mmol/L (135-145); Total Protein 8.1 g/dL (6.4-8.9)
--- OUTSIDE RECORDS SUMMARY | 2019-01-12 10:52 | XMS REPORT | Summary of Care ---
:1940 Author Organization [facility] Address [address] [address] Care Team Providers Name Role Phone Abe Leon Primary Care Provider Reason for Referral Refer to Department Only (Routine) Status Reason Specialty Diagnoses / Referred By Referred To Procedures Contact Contact Pending Review Diagnoses Severe episode of recurrent major depressive disorder, without psychotic features (HCC) Degenerative lumbar spinal stenosis Paris Elias, [place] [address] [place] [id number] Scheduling Instructions Medicare Home Health: The [id number] visit can be up to 90 days prior to the referral or within 30 days after the referral. The [id number] visit must be related to the reason for which Home Health is needed. See CMS Manual System - Medicare Benefit Policy under Additional Order Details. Reason for Visit Reason Comments Nausea stomach pains and nausea 11/30/2018, chronic back pain. The nausea med. that she is curently taking is no longer working. Encounter Details Date Type Department Care Team Description 12/04/2018 Office Visit Paris Vela, Severe episode of recurrent major depressive disorder, without psychotic features (HCC) (Primary Dx); Practice [facility] Degenerative lumbar spinal stenosis; [address] Dysuria; [place] [address] [place] [address] Nausea [phone] Allergies Active Allergy Reactions Severity Noted Date Comments Cadexomer Iodine Hives High 07/11/2013 Penicillin G 08/10/2007 documented as of this encounter (statuses as of 12/05/2018) Medications Medication Sig Dispensed Refills Start Date End Date Status Morphine Sulfate ER 30 Take by mouth. 0 Active MG Oral Tablet Extended Release 12 hour Abuse-Deterrent magnesium oxide (MAG-OX) Take 1 Tab by 30 Tab 5 07/14/2017 Active 400 MG Oral Tab mouth DAILY. Multiple Take by mouth. 0 Active Vitamins-Minerals (ICAPS) Oral Cap prednisoLONE acetate Place 1 Drop in 5 mL 5 04/18/2018 Active (PRED FORTE) 1 % right eye FOUR Ophthalmic Suspension TIMES DAILY. Fluoxetine HCl 40 MG Take 2 Caps by 60 Cap 1 06/02/2018 Active Oral Cap mouth DAILY. Additional information Patient taking differently: 40 mg Oral DAILY, Reported on 07/25/2018 4:37 PM Aripiprazole (ABILIFY) 2 MG Take 1 Tab by mouth EVERY 90 Tab 1 07/25/2018 Active Oral Tab BEDTIME. Omeprazole delayed rel cap 20 Take 20 mg by mouth DAILY. 90 Cap 1 2018 Active MG Oral CAPSULE DELAYED RELEASE promethazine (PHENERGAN) 25 MG Take 1 Tab by mouth EVERY 30 Tab 1 2018 Active Oral Tab SIX HOURS NEEDED (nausea). ALPRAZolam (XANAX) 0.25 MG TAKE 1 TABLET BY MOUTH 30 Tab 0 10/31/2018 Active Oral Tab ONCE DAILY NEEDED FOR ANXIETY . DO NOT EXCEED 1 PER 24 HOURS hyoscyamine (LEVSIN) 0.125 MG Take 0.125 mg by mouth 60 Tab 1 11/06/2018 Active Oral Tab TWICE DAILY. 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 Presence of intraocular lens 09/13/2017 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 Degenerative lumbar spinal stenosis 01/10/2012 Neurogenic claudication due to lumbar spinal stenosis 01/10/2012 SARAH (obstructive sleep apnea) 08/31/2009 Plantar fascia syndrome 08/31/2009 Backache 08/10/2007 FAMILY HISTORY OF BREAST CANCER 08/10/2007 Fibromyalgia 08/10/2007 Severe episode of recurrent major depressive disorder, without psychotic 08/09 features Anxiety state 08/10/2007 AK (actinic keratosis) 08/07/2007 Photoaging of skin 02/06/2007 IBS (irritable bowel syndrome) 12/07/2006 documented as of this encounter (statuses as of 12/05/2018) Resolved Problems Problem Noted Date Resolved Date SPK (superficial punctate keratitis), left 08/16/2018 11/22/2018 Corneal edema of right eye 04/19/2018 08/16/2018 Superficial punctate keratitis of right eye 04/19/2018 11/22/2018 Bilateral cornea scars 04/04/2018 08/16/2018 Corneal edema of both eyes 09/13/2017 08/16/2018 Sleep Apnea 08/10/2007 11/16/2014 Senile nuclear sclerosis 01/21/2004 09/13/2017 BMI 40.0-44.9, adult 06/19/2018 Overview: This patient's BMI has been calculated and is above average, and BMI management plan is completed. General patient education discussion including: weight loss link to reduction of risk factors for car diac and other diseases Exercise intervention: walking documented as of this encounter (statuses as of 12/05/2018) Immunizations Name Administration Dates Next Due Influenza (IM) Preservative Free 01/29/2014, 11/20/2012, 11/22/2011, 02/18/2009, 02/13/2008 Influenza Vaccine High Dose 11/10/2017, 12/13/2016, 11/17/2015, 11/11/2014 Influenza Vaccine Whole 02/09/2007, 01/07/2005 PNEUMOCOCCAL POLYSACCHARIDE VACCINE 11/17/2015 Pneumococcal Conjugate(13 Valent) 12/13/2016 documented as of this encounter Social History Tobacco Use Types Packs/Day Years Used Date Never Smoker Smokeless Tobacco: Never Used Alcohol Use Drinks/Week oz/Week Comments Yes social Sex Assigned at Date Recorded Not on file Job Start Date Occupation Industry Not on file Not on file Not on file Travel History Travel Start Travel End No recent travel history available. documented as of this encounter Last Filed Vital Signs Vital Sign Reading Time Taken Comments Blood Pressure 126/86 12/04/2018 3:30 PM EDT Pulse 88 12/04/2018 3:30 PM EDT Temperature 37.1 12/04/2018 3:30 PM C (98.8 EDT F) Respiratory Rate - - Oxygen Saturation 97% 12/04/2018 3:30 PM EDT Inhaled Oxygen Concentration - - Weight 93.4 kg (205 lb 12.8 oz) 12/04/2018 3:30 PM EDT Height 160 cm (5' 3") 12/04/2018 3:30 PM EDT Body Mass Index 36.46 12/04/2018 3:30 PM EDT documented in this encounter Patient Instructions Patient InstructionsParis Elias NP - 12/04/2018 3:20 PM EDTReferral to physical therapy - home if able. See if you can get in to pain management sooner than one month. List of therapists given - call [facility]. Follow up with Dr. Leon. Suicide Hotline - documented in this encounter Progress Notes Krysta Rubio MD - 12/04/2018 3:20 PM EDTNote reviewed and agree with plan aris Elias NP - 12/04/2018 3:20 PM EDT PATIENT: Angeles Stanford : 1940 DATE OF SERVICE: 12/04/2018 CHIEF COMPLAINT: Chief Complaint Patient presents with Nausea stomach pains and nausea 11/30/2018, chronic back pain. The nausea med. that she is curently taking is no longer working. Subjective HISTORY OF PRESENT ILLNESS: Angeles Stanford is a 78-y.o. female. HPI Had cornea surgery in March, not healing well, trouble seeing, has appointment with ophthalmologycoming up. Chronic back pain is acting up. Nausea is chronic, for awhile she didn't have any nausea but now back. She has been on promethazine. This worked for awhile and now not working. Son feels this has to do with depression starting back up. She had her license taken away after herlast visit with ophthalmology which hasnt helped - she is stuck in her house all day, doesn't see people. She has tried bentyl, zofran, promethazine. Pressure in lower abdomen, chronic, past urine tests have been negative. Past Medical History: Diagnosis Date Abdominal pain AK (actinic keratosis) 08/07/2007 Anxiety 08/10/2007 BMI 40.0-44.9, adult (HCC) DEPRESSION 08/10/2007 Fatty liver FIBROMYALGIA 08/10/2007 Fuchs' corneal dystrophy Gastritis 2010 ?? EGD, ELLEN test negative. 2017 EGD + Headache(784.0) Hypertension IBS (irritable bowel syndrome) per [place] Kidney stone calcium oxalate Neurogenic claudication s/p laminectomy SARAH (obstructive sleep apnea) change to 13cm Osteopenia 2014 10 and 1.8 Photoaging of skin 02/06/07 Plantar fasciitis Postmenopausal Urinary tract infection 08/22/2018 Family History Problem Relation Age of Onset Cancer Mother ? breast Cancer Father Skin Cancer Brother Skin Cancer Son Current Outpatient Medications Medication Sig ALPRAZolam (XANAX) 0.25 MG Oral Tab TAKE 1 TABLET BY MOUTH ONCE DAILY NEEDED FOR ANXIETY .DO NOT EXCEED 1 PER 24 HOURS Aripiprazole (ABILIFY) 2 MG Oral Tab Take 1 Tab by mouth EVERY BEDTIME. Fluoxetine HCl 40 MG Oral Cap Take 2 Caps by mouth DAILY. (Patient taking differently: Take 40 mg by mouth DAILY.) hyoscyamine (LEVSIN) 0.125 MG Oral Tab Take 0.125 mg by mouth TWICE DAILY. magnesium oxide (MAG-OX) 400 MG Oral Tab Take 1 Tab by mouth DAILY. mirtazapine (REMERON) 15 MG Oral Tab TAKE 1 TABLET BY MOUTH EVERY DAY AT BEDTIME Morphine Sulfate ER 30 MG Oral Tablet Extended Release 12 hour Abuse- Deterrent Take by mouth. Multiple Vitamins-Minerals (ICAPS) Oral Cap Take by mouth. Omeprazole delayed rel cap 20 MG Oral CAPSULE DELAYED RELEASE Take 20 mg by mouth DAILY. prednisoLONE acetate (PRED FORTE) 1 % Ophthalmic Suspension Place 1 Drop in right eye FOUR TIMES DAILY. promethazine (PHENERGAN) 25 MG Oral Tab Take 1 Tab by mouth EVERY SIX HOURS NEEDED (nausea). promethazine (PHENERGAN) 25 MG Oral Tab TAKE 1 TABLET BY MOUTH EVERY 6 HOURS NEEDED FOR NAUSEA No current facility-administered medications for this visit. Allergies Allergen Reactions Iodine [Cadexomer Iodine] Hives Penicillin G Social History Socioeconomic History Marital status: Spouse name: Not on file Number of children: Not on file Years of education: Not on file Highest education level: Not on file Occupational History Not on file Social Needs Financial resource strain: Not on file Food insecurity: Worry: Not on file Inability: Not on file Transportation needs: Medical: Not on file Non-medical: Not on file Tobacco Use Smoking status: Never Smoker Smokeless tobacco: Never Used Substance and Sexual Activity Alcohol use: Yes Comment: social Drug use: No Sexual activity: Not on file Lifestyle Physical activity: Days per week: Not on file Minutes per session: Not on file Stress: Not on file Relationships Social connections: Talks on phone: Not on file Gets together: Not on file Attends uatsdin service: Not on file Active member of club or organization: Not on file Attends meetings of clubs or organizations: Not on file Relationship status: Not on file Intimate partner violence: Fear of current or ex partner: Not on file Emotionally abused: Not on file Physically abused: Not on file Forced sexual activity: Not on file Other Topics Concern Not on file Social History Narrative Not on file REVIEW OF SYSTEMS: Review of Systems Constitutional: Positive for malaise/fatigue. Negative for chills and fever. Gastrointestinal: Positive for abdominal pain (pressure in lower abd, chronic) and nausea. Negative for constipation and diarrhea. Genitourinary: Negative for dysuria, frequency and urgency. Musculoskeletal: Positive for back pain. Negative for falls, joint pain, myalgias and neck pain. Neurological: Positive for weakness (both legs). Psychiatric/Behavioral: Positive for depression and suicidal ideas (suicidal ideation, no plan or intent). Objective PHYSICAL EXAM: VITALS: BP 126/86 (BP Location: Left arm, Patient Position: Sitting) | Pulse 88 | Temp 98.8 F(37.1 C) (Temporal) | Ht 5' 3" (1.6 m) | Wt 205 lb 12.8 oz (93.4 kg) | SpO2 97% | BMI 36.46 kg/m Body mass index is 36.46 kg /m. Physical Exam Vitals signs and nursing note reviewed. Constitutional: General: She is not in acute distress. Appearance: Normal appearance. She is well-developed. Cardiovascular: Rate and Rhythm: Normal rate and regular rhythm. Heart sounds: Normal heart sounds. No murmur. No friction rub. No gallop. Pulmonary: Effort: Pulmonary effort is normal. No respiratory distress. Breath sounds: Normal breath sounds. Neurological: Mental Status: She is alert. Psychiatric: Mood and Affect: Mood and affect normal. Speech: Speech normal. Behavior: Behavior is slowed and withdrawn. Behavior is cooperative. Thought Content: Thought content includes suicidal ideation. Thought content does not include suicidal plan. ASSESSMENT / IMPRESSION: ICD-9-CM ICD-10-CM 1. Severe episode of recurrent major depressive disorder, without psychotic features (HCC) 296.33 F33.2 REFER TO HOME HEALTH 2. Degenerative lumbar spinal stenosis 724.02 M48.061 REFER TO HOME HEALTH 3. Dysuria 788.1 R30.0 URINE DIP MANUAL (AMB POCT) 4. Nausea 787.02 R11.0 Plan 1. Severe episode of recurrent major depressive disorder, without psychotic features (HCC) -Discussed medication changes (such as going up on the mirtazapine) with patient and son however patient expresses that she would rather stop her medications and son does not want to change any medications without first talking to Dr. Leon. - REFER TO HOME HEALTH 2. Degenerative lumbar spinal stenosis -Son is requesting a referral to home health as this seemed to improve things in the past - for VNS and physical therapy. - REFER TO HOME HEALTH 3. Dysuria This is chronic, nothing on urine tests so far. - URINE DIP MANUAL (AMB POCT) 4. Nausea This is chronic, has tried several medications in the past with little success. Son does not want any medication or dosage changes without first talking to Dr. Leon. -I wasn't able to change or add any medications today for nausea as the son would prefer to run things by Dr. Leon. I advised them to make an appointment with Dr. Leon. -She should try to get in to see pain management sooner (she thinks maybe she is due to go back in one month, maybe 2 weeks, she's not sure). She is requesting that I increase her morphine for her back pain and I'm not comfortable doing this, this is prescribed by pain management. -Her depression is ongoing and not well controlled, now expressing some suicidal ideation - with no plan or intent currently. I advised [facility] call [facility]. She's not currently doing any kind of therapy or seeing psych but would probably benefit from this. She and son given strict instructions to go to the ER if there is any intent for suicide, or a plan. Also given the suicide hotline number. They both acknowledge understanding of this. Son feels symptoms are due to depression - patient feels depression is due to symptoms. Author: Paris Elias NP 12/04/2018 19:17 documented in this encounter Plan of Treatment Date Type Specialty Care Team Description 12/06/2018 Ocular Visit Optometry Ramez Hancock, OD [address] [address] 12/06/2018 IPPR Ophthalmology 12/06/2018 IPPR Ophthalmology 12/06/2018 Ocular Visit Ophthalmology Jose Rayo MD [address] [address] 12/14/2018 Office Visit Family Practice Abe Leon MD [address] [place] [address] [phone] Name Type Priority Associated Diagnoses Order Schedule URINE DIP MANUAL (AMB POCT) POCT Routine Dysuria Ordered: 12/04/2018 Name Type Priority Associated Diagnoses Order Schedule REFER TO HOME HEALTH Referral Routine Severe episode of Ordered: 12/04/2018 recurrent major depressive disorder, without psychotic features (HCC) Degenerative lumbar spinal stenosis Health Maintenance Due Date Last Done Comments MEDICARE ANNUAL WELLNESS 1940 VISIT HIV SCREENING 1955 ZOSTER IMMUNIZATION SERIES 09/11/1991 (1 of 2) INFLUENZA VACCINE (#1) 2018 11/10/2017, 12/13/2016, 11/17/2015, Additional history exists FALL RISK ASSESSMENT 03/08/2019 03/08/2018, 03/08/2018 DEPRESSION SCREENING 06/03/2019 06/02/2018, 06/02/2018 OSTEOPOROSIS SCREENING 11/11/2024 11/11/2014 PNEUMOCOCCAL 65+YRS Completed 12/13/2016, 11/17/2015 HPV IMMUNIZATION SERIES Aged Out No longer eligible based on patient's age to complete this topic MENINGOCOCCAL VACCINE IMM Aged Out No longer eligible based on patient's age to complete this topic documented as of this encounter Goals Goal Patient Goal Associated Recent Patient-Stated? Author Type Problems Progress Depression Depression 28 No luciano Leon (PHQ-9) (06/02/2018 MD Abe total score < 5 2:38 PM EDT) Note: This is an individualized treatment (depression) goal for Angeles Stanford: Displayed above is your goal for a depression screening (PHQ-9) score that would indicate good control of your depression. Keep a regular sleep schedule Lifestyle No Abe Leon MD Note: This is an individualized lifestyle goal for Angeles Stanford: Please maintain a regular sleep schedule. This may help with some symptoms of depression. Unit - lb < 200 Result Component No Abe Leon MD Take all prescribed medications as directed Self-management Abe Boyer MD Note: This is an individualized self-management goal for Angeles Stanford: Please take all prescribed medications as directed. 1. Do not skip doses. If you cannot afford your medications, talk with your doctor. 2. Use a pill reminder system such as a pill box if needed. Your pharmacist can help you with this. 3. Contact your Pharmacy 5 days before your medication runs out. If you cannot take your medications for any reasons, talk with your doctor. 4. Please bring all of your medication bottles and inhalers (or a list of all your medications/inhalers) with you to every visit. Potential barriers to meeting all of your care plan goals will continue to be addressed on an ongoing basis. documented as of this encounter Implants Implanted Type Area Viscose Cellar Worker Device Identifier Shelf Expiration Model / Date Serial / Lot Corneal Implant On The Fly - [id number] / Implanted: Qty: 1 on 04/18/2018 by Jose Rayo MD at [facility] [id number] / [id number] documented as of this encounter Results Not on filedocumented in this encounter Visit Diagnoses Diagnosis Severe episode of recurrent major depressive disorder, without psychotic features (HCC) - Primary Degenerative lumbar spinal stenosis Spinal stenosis, lumbar region, without neurogenic claudication Dysuria Nausea Nausea alone documented in this encounter Insurance Payer Benefit Plan / Subscriber ID Effective Dates Phone Address Type Group AETNA MEDICARE AETNA MEDICARE xxxxxxxx 2016-Present [employer] ADVANTAGE ADVANTAGE Guarantor Name Account Type Relation to Date of Phone Billing Patient Address Angeles Stanford Personal/Family 1940 [address] [phone] [place], [place] (Work) [id number] documented as of this encounter
--- OUTSIDE RECORDS SUMMARY | 2019-01-12 10:52 | XMS REPORT | Summary of Care ---
:1940 Author Organization [facility] Address [address] [address] Care Team Providers Name Role Phone Abe Leon Primary Care Provider Reason for Visit Reason Comments Follow Up pt presents for follow up with urinary pressure, pain med, and right foot. Encounter Details Date Type Department Care Team Description 12/14/2018 Office Visit [facility] Abe Leon MD Dry eye syndrome of both eyes (Primary Dx); Practice [address] Severe episode of recurrent major depressive disorder, without psychotic features (HCC); [address] [place] [address] Degenerative lumbar spinal stenosis; [place] [address] Irritable bowel syndrome, unspecified type [phone] Allergies Active Allergy Reactions Severity Noted Date Comments Cadexomer Iodine Hives High 07/11/2013 Penicillin G 08/10/2007 documented as of this encounter (statuses as of 12/14/2018) Medications Medication Sig Dispensed Refills Start Date [...] (ABILIFY) 2 MG Take 1 Tab by 90 Tab 1 07/25/2018 Active Oral Tab mouth EVERY BEDTIME. Omeprazole delayed rel cap 20 Take 20 mg by 90 Cap 1 07/25/2018 Active MG Oral CAPSULE DELAYED mouth DAILY. RELEASE hyoscyamine (LEVSIN) 0.125 MG Take 0.125 mg 60 Tab 1 11/06/2018 Active Oral Tab by mouth TWICE DAILY. promethazine (PHENERGAN) 25 TAKE 1 TABLET 30 Tab 0 11/07/2018 Active MG Oral Tab BY MOUTH EVERY 6 HOURS NEEDED FOR NAUSEA mirtazapine (REMERON) 15 MG TAKE 1 TABLET 30 Tab 2 11/07/2018 Active Oral Tab BY MOUTH EVERY DAY AT BEDTIME ofloxacin (OCUFLOX) 0.3 % Place 1 Drop in 1 Bottle 1 12/06/2018 Active Ophthalmic Solution right eye FOUR TIMES DAILY. ALPRAZolam (XANAX) 0.25 MG TAKE 1 TABLET 30 Tab 0 12/11/2018 Active Oral Tab BY MOUTH ONCE DAILY NEEDED FOR ANXIETY . DO NOT EXCEED 1 PER 24 HOURS [address]ulose Sodium Place 1 Drop to 0 Active (REFRESH LIQUIGEL the external OP)Indications: both eyes eye FOUR TIMES DAILY. Indications: both eyes promethazine (PHENERGAN) 25 Take 1 Tab by 30 Tab 1 08/24/2018 MG Oral Tab mouth EVERY SIX 2019 HOURS NEEDED (nausea). documented as of this encounter (statuses as of 12/14/2018) Active Problems Problem Noted Date Urinary tract [...] as of this encounter (statuses as of 12/14/2018) Resolved Problems Problem Noted Date Resolved Date [...] as of this encounter (statuses as of 12/14/2018) Immunizations Name Administration Dates Next Due Influenza (IM) Preservative Free 01/29/2014, 11/20/2012, 11/22/2011, 02/18/2009, 02/13/2008 Influenza Vaccine 65 Yrs + 12/14/2018 Influenza Vaccine High Dose 11/10/2017, 12/13/2016, 11/17/2015, [...] Sign Reading Time Taken Comments Blood Pressure 106/70 12/14/2018 4:18 PM EDT Pulse 93 12/14/2018 4:18 PM EDT Temperature 37.7 12/14/2018 4:18 PM EDT C (99.8 F) Respiratory Rate - - Oxygen Saturation 97% 12/14/2018 4:18 PM EDT Inhaled Oxygen Concentration - - Weight 93.9 kg (207 lb) 12/14/2018 4:18 PM EDT Height 160 cm (5' 3") 12/14/2018 4:18 PM EDT Body Mass Index 36.67 12/14/2018 4:18 PM EDT documented in this encounter Patient Instructions Patient InstructionsAbe Leon MD - 12/14/2018 4:00 PM EDTChange hyoscyamine to 1 a day in the AMElectronically signed by Abe Leon MD at 4:38 PM EDT documented in this encounter Progress Notes Abe Leon MD - 12/14/2018 4:00 PM EDT PATIENT: Angeles Stanford : 1940 DATE OF SERVICE: 12/14/2018 CHIEF COMPLAINT: Chief Complaint Patient presents with Follow Up pt presents for follow up with urinary pressure, pain med, and right foot. Subjective HISTORY OF PRESENT ILLNESS: Angeles Stnaford is a 78-y.o. female. She has same complaints. Back pain , pain meds from pain clinic. She has complained over the years meds not enough or too much. They are trying to keep dose steady rightfully so. Same as her mood ,she often would not take her meds, then complain not feel well. Son has been better about keeping her meds satable. When I saw her last , thought her issue was she did better when more socialized so suggested home health providers but it was summer and she had a good summer but feeling worse now . Saw ENVIRONMENTAL PROTECTION ECONOMIST 1 week ago and re ordered home health but they will end soon and not be in a sustainable situation Her eye surgery not go well , feel dry, Also dry mouth Wonder if her meds . Podiatry wants to take toe off Past Medical History: Diagnosis Date Abdominal pain AK (actinic keratosis) 08/07/2007 Anxiety 08/10/2007 BMI 40.0-44.9, adult (HCC) DEPRESSION 08/10/2007 Fatty liver FIBROMYALGIA 08/10/2007 Fuchs' corneal dystrophy Gastritis 2010 ?? EGD, ELLEN test negative. 2018 EGD + Headache(784.0) Hypertension IBS (irritable bowel [...] Take 1 Tab by mouth EVERY BEDTIME. Carboxymethylcellulose Sodium (REFRESH LIQUIGEL OP) Place 1 Drop to the external eye FOUR TIMES DAILY. Indications: both eyes Fluoxetine HCl 40 MG Oral Cap Take [...] Vitamins-Minerals (ICAPS) Oral Cap Take by mouth. ofloxacin (OCUFLOX) 0.3 % Ophthalmic Solution Place 1 Drop in right eye FOUR TIMES DAILY. Omeprazole delayed rel cap 20 MG Oral CAPSULE DELAYED RELEASE Take 20 mg by mouth DAILY. prednisoLONE acetate (PRED FORTE) 1 % Ophthalmic Suspension Place 1 Drop in right eye FOUR TIMES DAILY. promethazine (PHENERGAN) 25 MG Oral Tab TAKE [...] file Gets together: Not on file Attends orthodox service: Not on file Active member of [...] Narrative Not on file REVIEW OF SYSTEMS: ROS Objective PHYSICAL EXAM: VITALS: BP 106/70 (BP Location: Left arm, Patient Position: Sitting) | Pulse 93 | Temp 99.8 F(37.7 C) | Ht 5' 3" (1.6 m) | Wt 207 lb (93.9 kg) | SpO2 97% | BMI 36.67 kg/m Body massindex is 36.67 kg/m. Physical Exam Vitals signs reviewed. Constitutional: Appearance: She is not ill-appearing (she looks ok today , ). HENT: Mouth/Throat: Mouth: Mucous membranes are moist. Cardiovascular: Rate and Rhythm: Normal rate and regular rhythm. Pulmonary: Effort: Pulmonary effort is normal. No respiratory distress. Abdominal: Palpations: Abdomen is soft. There is no mass. Tenderness: There is no tenderness. Psychiatric: Comments: Dress and hygiene good Good eye contact Thoughts and speech normal She is alert and makes sense today Affect Appropriate Mood normal ASSESSMENT / IMPRESSION: ICD-9-CM ICD-10-CM 1. Dry eye syndrome of both eyes meds can contribute levsin could cause this so go to 1 a day Also remeron but dont change it or abilify as mood too important 375.15 H04.123 2. Severe episode of recurrent major depressive disorder, without psychotic features (HCC) try to get home health aides again 296.33 F33.2 3. Degenerative lumbar spinal stenosis 724.02 M48.061 4. Irritable bowel syndrome, unspecified type 564.1 K58.9 Plan Author: Abe Leon MD 12/14/2018 22:43 documented in this encounter Plan of Treatment Date Type Specialty Care Team Description 12/25/2018 Ocular Visit Ophthalmology Jose Rayo MD [address] [address] [phone] Health Maintenance Due Date Last Done Comments [...] is an individualized lifestyle goal for Angeles W Stanford: Please maintain a regular sleep schedule. This may help with some symptoms of depression. 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 Device Identifier Shelf Expiration Model / Date Serial / Lot Corneal Implant On The Fly - [id number] / Implanted: Qty: 1 on 04/18/2018 by Jose Rayo MD at [facility] [id number] / [id number] documented as of this encounter Results Not on filedocumented in this encounter Visit Diagnoses Diagnosis Dry eye syndrome of both eyes - Primary Severe episode of recurrent major depressive disorder, without psychotic features (HCC) Degenerative lumbar spinal stenosis Spinal stenosis, lumbar region, without neurogenic claudication Irritable bowel syndrome, unspecified type documented in this encounter Insurance Payer Benefit Plan / Subscriber ID Effective Dates Phone Address Type Group AETNA MEDICARE AETNA MEDICARE xxxxxxxx 2016-Present [employer] ADVANTAGE ADVANTAGE Guarantor Name Account Type Relation to Date of Phone Billing Patient Address Angeles Stanford Personal/Family 1940 [address] [phone] [place], [place] (Work) [id number] documented as of this encounter
[2019-01-12] MEDS ORDERED: Ketorolac INJ* 30 MG/ML 1 ML VIAL IM ONE (12:25)
[2019-01-12] MEDS ORDERED: Al Hydrox/Mg Hydrox/Simet LIQ* 30 ML UDC PO ONE (13:18)
[2019-01-12] MEDS ORDERED: Lidocaine 2% VISCOUS* 15 ML UDC PO ONE (13:18)
[2019-01-12 13:53] LABS: Urine Appearance Cloudy; Urine Bacteria Absent (Absent); Urine Bilirubin Negative (Negative); Urine Blood Negative (Negative); Urine Color Yellow; Urine Glucose Negative (Negative); Urine Ketones Negative (Negative); Urine Nitrite Negative (Negative); Urine Protein Negative (Negative); Urine Red Blood Cell 1+(3-5/hpf) (Absent); Urine Specific Gravity 1.026 (1.010-1.030); Urine Squamous Epithelial Cell Present (Absent); Urine Urobilinogen Negative (Negative); Urine White Blood Cell Absent (Absent)
[2019-01-12 16:07] VITALS: BP 122/89
== END 2019-01-12 15:23 | disposition home or self-care (01) ==
LOC: ED 09:35
DX: R10.9 Unspecified abdominal pain (principal); G89.29 Other chronic pain; K21.9 Gastro-esophageal reflux disease without esophagitis; F41.9 Anxiety disorder, unspecified; F32.9 Major depressive disorder, single episode, unspecified; Z90.710 Acquired absence of both cervix and uterus; Z87.442 Personal history of urinary calculi; Z79.899 Other long term (current) drug therapy; Z88.0 Allergy status to penicillin; Z91.041 Radiographic dye allergy status
CPT/HCPCS: 36415; 80053; 81003; 81015; 83605; 83690; 84484; 85025; 87086; 93005; 96372; 99284; A9270-GY; J1885

== ENCOUNTER 2019-03-13 14:07 | Inpatient (IN) | payer MEDICARE ==
--- NOTE | 2019-03-13 14:38 | ED ---
Abdominal Pain/Female - HPI Summary HPI Summary: This pt is a 78 y/o female presenting to [facility] c/o intermittent acute on chronic abd pain for the past 2 years. Patient states her abd pain is accompanied by nausea. Pt also reports she has chronic back pain. Patient follows up at the pain management clinic for her chronic pain with Dr. Caitie Cohen. She states she has been prescribed morphine for a couple of years now but states "it has gotten to the point where it doesn't touch it anymore." Patient notes her abd pain in the past week has been uncontrollable and rates her pain 9/10. She denies fever, vomiting. While patient is giving history she reports SI and states "I'm tired of living like a vegetable." Patient states her last abdomen/pelvis cat scan was in May 2018. - History of Current Complaint Chief Complaint: EDAbdPain Stated Complaint: ABDOMINAL PAIN PER EMS Time Seen by Provider: 03/13/19 14:23 Hx Obtained From: Patient Onset/Duration: Lasting Weeks, Still Present - T Timing: Weeks Severity Currently: Moderate Pain Intensity: 9 Pain Scale Used: 0-10 Numeric Location: Other - lower abd Radiates: No Aggravating Factor(s): Nothing Alleviating Factor(s): Nothing Associated Signs and Symptoms: Positive: Back Pain - chronic, Nausea. Negative : Fever, Vomiting, Diarrhea Allergies/Adverse Reactions: Allergies Allergy/AdvReac Type Severity Reaction Status Date / Time Iodinated Contrast Media Allergy Hives Verified 01/16/19 08:41 [Iodinated Contrast- Oral and IV Dye] Penicillins Allergy Swelling Verified 01/16/19 08:41 Home Medications: Home Medications ALPRAZolam TAB* [Xanax TAB*] 0.25 mg PO DAILY PRN MDD 0.25 mg 03/13/19 [History Confirmed 03/13/19] B2/Vits A,C,E/Lut/Zeaxanth/Min [Icaps Tablet] 1 tab PO DAILY 03/13/19 [History Confirmed 03/13/19] Carboxymethylcellulose Sodium [Refresh] 1 % OPHTHALMIC QID 03/13/19 [History Confirmed 03/13/19] Magnesium Oxide TAB* [MagOx 400 TAB*] 400 mg PO DAILY 03/13/19 [History Confirmed 03/13/19] Omeprazole CAP (NF) [Prilosec CAP* 20 MG] 20 mg PO DAILY 03/13/19 [History Confirmed 03/13/19] Promethazine 25 mg TAB [Phenergan 25 mg TAB] 25 mg PO Q6H PRN 03/13/19 [History Confirmed 03/13/19] Tobramycin/Dexameth OPTH.SUSP* [Tobradex 0.3-0.1%*] 1 drop RIGHT EYE QID [History Confirmed 03/13/19] prednisoLONE 1% OPHTH.SUSP* [Pred Forte 1%*] 1 drop RIGHT EYE QID 03/13/19 [ History Confirmed 03/13/19] PMH/Surg Hx/FS Hx/Imm Hx Endocrine/Hematology History: Denies: Hx Diabetes, Hx Thyroid Disease Cardiovascular History: Denies: Hx Congestive Heart Failure, Hx Hypertension, Hx Pacemaker/ICD, Other Cardiovascular Problems/Disorders Respiratory History: Reports: Hx Sleep Apnea - CPAP Denies: Hx Asthma, Hx Chronic Obstructive Pulmonary Disease (COPD), Other Respiratory Problems/Disorders GI History: Reports: Hx Diverticulosis, Hx Gastroesophageal Reflux Disease, Hx Irritable Bowel, Hx Ulcer Denies: Other GI Disorders History: Reports: Hx Kidney Stones Denies: Hx Renal Disease Musculoskeletal History: Reports: Hx Arthritis, Hx Back Problems - Lumbar Spinal Stenosis, Hx Bursitis - IN THE PAST IN SHOULDERS, Hx Fibromyalgia, Other Musculoskeletal History - Plantar Fascia Syndrome Denies: Hx Tendonitis Sensory History: Reports: Hx Cataracts - ROSHNI REMOVAL, Hx Contacts or Glasses - READING GLASSES, Other Sensory Impairments - Actinic Keratosis (skin) Denies: Hx Hearing Aid Opthamlomology History: Reports: Hx Cataracts - ROSHNI REMOVAL, Hx Contacts or Glasses - READING GLASSES, Other Sensory Impairments - Actinic Keratosis (skin) Neurological History: Reports: Other Neuro Impairments/Disorders - Senile Nuclear Sclerosis. PAIN CLINIC PT. Denies: Hx Headaches, Hx Migraine, Hx Nerve Disease, Hx Seizures Psychiatric History: Reports: Hx Anxiety - ON MEDS, Hx Depression - ON MEDS Denies: Hx Panic Disorder - Cancer History Hx Chemotherapy: No Hx Radiation Therapy: No Hx Palliative Cancer Treatment: No - Surgical History Surgery Procedure, Year, and Place: KIDNEY STONES, 07/27/12, [facility]STERECTOMY , 1982, [facility]. 05/2013 LAMINECTOMY LOW BACK, shots in back, cataracts Hx Anesthesia Reactions: No - Immunization History Date of Tetanus Vaccine: PT STATES UNSURE Date of Influenza Vaccine: NONE Infectious Disease History: No Infectious Disease History: Denies: Hx Clostridium Difficile, Hx Hepatitis, Hx Human Immunodeficiency Virus (HIV), Hx of Known/Suspected MRSA, Hx Shingles, Hx Tuberculosis, Hx Known/ Suspected VRSA, History Other Infectious Disease, Traveled Outside the [place] in Last 30 Days - Family History Known Family History: Positive: Other - Colon Cancer and depression Negative: Diabetes, Renal Disease, Respiratory Disease, Seizure Disorder - Social History Alcohol Use: None Substance Use Type: Reports: None Substance Use Comment - Amount & Last Used: percocet, morphine Smoking Status (MU): Never Smoked Tobacco Review of Systems Negative: Fever Positive: Abdominal Pain, Nausea. Negative: Vomiting Musculoskeletal: Other - POSITVE: chronic back pain Psychological: Other - POSITIVE: SI All Other Systems Reviewed And Are Negative: Yes Physical Exam - Summary Physical Exam Summary: VITAL SIGNS: Reviewed. GENERAL: Patient is a well-developed and nourished female who is lying comfortable in the stretcher. Patient is not in any acute respiratory distress. HEAD AND FACE: No signs of trauma. No ecchymosis, hematomas or skull depressions. No sinus tenderness. EYES: PERRLA, EOMI x 2, No injected conjunctiva, no nystagmus. EARS: Hearing grossly intact. Ear canals and tympanic membranes are within normal limits. MOUTH: Oropharynx within normal limits. NECK: Supple, trachea is midline, no adenopathy, no JVD, no carotid bruit, no c- spine tenderness, neck with full ROM. CHEST: Symmetric, no tenderness at palpation LUNGS: Clear to auscultation bilaterally. No wheezing or crackles. CVS: Regular rate and rhythm, S1 and S2 present, no murmurs or gallops appreciated. ABDOMEN: Soft, non-tender. No signs of distention. No rebound, no guarding, and no masses palpated. Bowel sounds are normal. EXTREMITIES: FROM in all major joints, no edema, no cyanosis or clubbing. NEURO: Alert and oriented x 3. No acute neurological deficits. Speech is normal and follows commands. SKIN: Dry and warm PSYCH: patient is anxious Triage Information Reviewed: Yes Vital Signs On Initial Exam: Initial Vitals Temp Pulse Resp BP Pulse Ox 98.8 F 86 18 161/86 97 03/13/19 14:14 03/13/19 14:14 03/13/19 14:14 03/13/19 14:14 03/13/19 14:14 Vital Signs Reviewed: Yes Procedures - Sedation Patient Received Moderate/Deep Sedation with Procedure: No Diagnostics - Vital Signs Vital Signs Temp Pulse Resp BP Pulse Ox 03/13/19 14:14 98.8 F 86 18 161/86 97 - Laboratory Result Diagrams: 03/13/19 14:39 03/13/19 14:43 Lab Statement: Any lab studies that have been ordered have been reviewed, and results considered in the medical decision making process. - CT Abdomen/Pelvis CT CT Interpretation Completed By: Radiologist Summary of CT Findings: IMPRESSION: No definite obstructive uropathy is noted. No other masses or fluid collections are identified. Dr. Luu has reviewed this report. - EKG 15:06 Cardiac Rate: NL - at 82 bpm EKG Rhythm: Sinus Rhythm Summary of EKG Findings: EKG at 1506 shows sinus rhythm at [address] elevations. Q waves in leads III and aVF. EKG was reviewed and interpreted by ED physician. Re-Evaluation - Re-Evaluation First Eval Re-Evaluation Time: 16:42 Comment: Patient is medically cleared. Abdominal Pain Fem Course/Dx - Course Course Of Treatment: This pt is a 78 y/o female presenting to [facility] c/o intermittent acute on chronic abd pain for the past 2 years. Patient states her abd pain is accompanied by nausea. Pt also reports she has chronic back pain. Patient follows up at the pain management clinic for her chronic pain with Dr. Caitie Cohen. She states she has been prescribed morphine for a couple of years now but states "it has gotten to the point where it doesn't touch it anymore." Patient notes her abd pain in the past week has been uncontrollable and rates her pain 9/10. She denies fever, vomiting. While patient is giving history she reports SI and states "I'm tired of living like a vegetable.". Patient states her last abdomen/pelvis cat scan was in May 2018. Blood work without a significant abnormality except for alkaline phosphatase of 126. Urinalysis Negative for UTI. Abdominopelvic CT impression: No definite obstructive uropathy is noted. No other masses or fluid collections are identified. At this point I believe that her symptoms are secondary to her chronic back and intermittent chronic abdominal pain. Therefore the patient is medically clear and she is waiting for a mental health evaluation. Patient had a mental health evaluation and her case was reviewed by Dr. Jiméenz, psychiatrist. Per mental health bag grader, Dr. Jiménez will admit the patient on a voluntary status with dx depressive disorder NOS. - Diagnoses Provider Diagnoses: Depressive disorder Discharge ED - Sign-Out/Discharge Documenting (check all that apply): Patient Departure - Admit to [facility] - Discharge Plan Condition: Stable Disposition: [facility]YCHIATRIC FACILITY[place] Referrals: Abe Loen MD [Primary Care Provider] - - Billing Disposition and Condition Condition: STABLE Disposition: Psychiatric Facility [facility] - Attestation Statements Document Initiated by Jose Antonio: Yes Documenting Scribe: Wendi Frye Provider For Whom Jose Antonio is Documenting (Include Credential): Armando Luu MD Scribe Attestation: Wendi Chambers, scribed for Armando Luu MD on 03/13/19 at 2151. Scribe Documentation Reviewed: Yes Provider Attestation: The documentation as recorded by the scribeWendi accurately reflects the service I personally performed and the decisions made by me, Armando Luu MD Status of Scribe Document: Viewed
[2019-03-13 15:20] LABS: ABS Basophils 0.1 10^3/ul (0-0.2); ABS Lymphocytes 1.3 10^3/ul (1.0-4.8); ABS Monocytes 0.6 10^3/ul (0-0.8); ABS Neutrophils 5.7 10^3/ul (1.5-7.7); Eosinophil % 0.1 %; Hematocrit 41 % (35-47); Lymphocyte % 16.7 %; Mean Corpuscular HGB Conc 34 g/dL (31-36); Mean Corpuscular Hemoglobin 29 pg (27-31); Mean Corpuscular Volume 83 fL (80-97); Mean Platelet Volume 7.8 fL (7.4-10.4); Platelet Count 224 10^3/uL (150-450); Red Blood Count 4.91 10^6 /uL (3.70-4.87); Red Cell Distribution Width 15 % (10-15); White Blood Count 7.6 10^3/uL (3.5-10.8)
[2019-03-13 15:30] LABS: Troponin I 0.01 ng/mL (<0.03)
--- OUTSIDE RECORDS SUMMARY | 2019-03-13 15:31 | XMS REPORT ---
:1940 Author Organization [facility] Care Team Providers Name Role Phone Unavailable Unavailable Unavailable Problems Condition Condition Condition Status Onset Resolution Last Treating Comments Name Details Category Date Date Treatment Clinician Date Other Other Diagnosis Active 2018-02 Adri chronic chronic 03-14 Mal[place]ke pain pain RN Spinal Spinal Diagnosis Active Adri stenosis, stenosis, 02-28 [place] lumbar lumbar RN region region without without neurogenic neurogenic claudicatio claudicatio n n Obstructive Obstructive Diagnosis Active Adri sleep apnea sleep apnea 02-28 [place] (adult) (adult) RN (pediatric) (pediatric) Other Other Diagnosis Active Adri constipatio constipatio 02-28 [place] n n RN Irritable 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 RN without without diarrhea diarrhea Fibromyalgi Fibromyalgi Diagnosis Active Adri a a 02-28 [place] RN Diverticulo Diverticulo Diagnosis Active Adri sis of sis of [place] intestine, intestine, RN part part unspecified unspecified , without , without perforation perforation or abscess or abscess without without bleeding bleeding Unspecified Unspecified Diagnosis Active Adri osteoarthri osteoarthri [place] tis, tis, RN unspecified unspecified site site Major Major Diagnosis Active Adri depressive depressive [place] disorder, disorder, RN single single episode, episode, unspecified unspecified Anxiety Anxiety Diagnosis Active Adri disorder, disorder, [place] unspecified unspecified 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) (current) [place] use of use of RN opiate opiate analgesic analgesic Pain frequent Pain Mgmt Resolve 2018-022019-02-27 Kasandra pain d 03-18 10:26:00 [place] 10:50: [id number] 00 Respiratory dyspnea Respirator Resolve 2018-022019-01-24 Kasandra present y d 03-18 10:00:00 [place] 10:50: [id number] 00 Sensory impaired Sensory Active 2018-02 Kasandra hearing 03-18 [place] 10:50: [id number] 00 Nutrition nutritional Nutrition Resolve 2018-022019-02-19 Kasandra risk d 03-18 09:42:00 [place] 10:50: [id number] 00 Nutrition knowledge/s Nutrition Resolve 2018-022019-02-19 Kasandra kill d 03-18 09:42:00 [place] deficit: pt 10:50: [id number] 00 Nutrition knowledge/s Nutrition Resolve 2018-022019-02-19 Kasandra kill d 03-18 09:42:00 [place] deficit: cg 10:50: [id number] 00 Nutrition nutritional Nutrition Resolve 2018-022019-02-19 Kasandra restriction d 03-18 09:42:00 [place] s 10:50: [id number] 00 Elimination urinary Eliminatio Resolve 2018-022019-01-24 Kasandra incontinenc n d 03-18 10:00:00 Magaly [place] 10:50: [id number] 00 Elimination nausea/vomi Eliminatio Resolve 2018-022019-03-05 Kasandra ting n d 03-18 10:25:00 [place] 10:50: [id number] 00 Neuro confusion Neuro/Emot Active 2018-02 Kasandra present ion 03-18 [place] 10:50: [id number] 00 Neuro anxiety Neuro/Emot Active 2018-02 Kasandra present ion 03-18 [place] 10:50: [id number] 00 Neuro depressive Neuro/Emot Active 2018-02 Kasandra feelings ion 03-18 [facility] 10:50: [id number] 00 Neuro impaired Neuro/Emot Active 2018-02 Kasandra decision-ma ion 03-18 [facility] 10:50: [id number] 00 Neuro knowledge/s Neuro/Emot Active 2018-02 Kasandra kill ion 03-18 [place] deficit: pt 10:50: [id number] 00 Neuro knowledge/s Neuro/Emot Active 2018-02 Kasandra kill ion 03-18 [place] deficit: cg 10:50: [id number] 00 Activity ADL Activity Active 2018-02 Kasandra assistance 03-18 [facility] 10:50: [id number] 00 Activity self-care Activity Resolve 2018-022019-01-24 Kasandra deficit d 03-18 10:00:00 [place] 10:50: [id number] 00 Safety structural Safety Resolve 2018-022019-01-24 Kasandra barriers d 03-18 10:00:00 [place] present 10:50: [id number] 00 Safety fall risk Safety Resolve 2018-022019-01-24 Kasandra factor d 03-18 10:00:00 [place] present 10:50: [id number] 00 Safety risk for Safety Resolve 2018-022019-01-30 Kasandra hospitaliza d 03-18 14:20:00 [place] tion 10:50: [id number] 00 Safety can be left Safety Active 2018-02 Kasandra alone for 03-18 [place] only short 10:50: [id number] periods 00 Medication oral med Meds Resolve 2018-022019-01-30 Kasandra assistance d 03-18 14:20:00 [place] required 10:50: [id number] 00 Medication knowledge/s Meds Resolve 2018-022019-02-13 Kasandra kill d 03-18 14:02:00 [place] deficit: pt 10:50: [id number] 00 Musculoskel transfer Musculoske Resolve 2018-022019-01-24 Kasandra etal assistance letal d 03-18 10:00:00 [place] required 10:50: [id number] 00 Musculoskel requires Musculoske Resolve 2018-022019-01-24 Lisa etal human letal d 03-20 10:00:00 [place] assist to 13:00: leave home 00 24 Hr Diet nutrition NT: 24Hr Resolve 2018-022019-02-02 Agatha intake Diet d 03-21 11:05:00 [place] deficit 13:00: [id number] 00 24 Hr Diet knowledge/s NT: 24Hr Resolve 2018-022019-02-02 Agatha kill Diet d 03-21 11:05:00 [place] deficit - 13:00: [id number] pt 00 24 Hr Diet knowledge/s NT: 24Hr Resolve 2018-022019-02-02 Agatha kill Diet d 03-21 11:05:00 [place] deficit - 13:00: [id number] cg 00 Nutritional eating NT: Resolve 2018-022019-02-02 Agatha Barrier difficultie Barriers d 03-21 11:05:00 [place] s present 13:00: [id number] 00 Elimination urinary Eliminatio Resolve 2018-022019-01-24 Adri urgency n d 1- 10:00:00 [place] 14:10: RN 00 Elimination urinary Eliminatio Resolve 2018-022019-01-24 Adri frequency n d 1-25 10:00:00 [place] 14:10: RN 00 Elimination urinary Eliminatio Resolve 2018-022019-02-27 Adri incontinenc n d 2-03 10:26:00 [place] e 14:20: RN 00 Elimination urinary Eliminatio Resolve 2018-022019-02-27 Adri urgency n d 2-03 10:26:00 [place] 14:20: RN 00 Elimination constipatio Eliminatio Resolve 2018-022019-03-05 Lisa n n d 2-06 10:25:00 [place] 10:00: 00 Safety risk for Safety Resolve 2018-022019-02-06 Adri hospitaliza d 2-10 13:25:00 [place] tion 13:25: RN 00 Safety risk for Safety Resolve 2018-022019-02-13 [facility] 14:02[facility]00 [place] tion 10:30: 00 Medication oral med Meds Resolve 2018-022019-02-13 Lisa assistance d 2-13 14:02:00 [place] required 10:30: 00 Respiratory dyspnea Respirator Active 2018-02 Adri present y 2-17 [place] 14:02: RN 00 Safety risk for Safety Resolve 2018-022019-02-27 Lana hospitaliza d 2-20 10:26:00 [place] tion 14:00: t 00 [id number] Safety risk for Safety Resolve 2019-03-05 Lana hospitaliza d 1-03 10:25:00 [place] tion 13:30: t 00 [id number] Allergies, Adverse Reactions, Alerts Allergy Name Allergy Status Severity Reaction(s) Onset Inactive Treating Comments Type Date Date Clinician Penicillins Allergen Active Unknown swelling 2018-02 [facility] 1-19 Iodinated Allergen Active Unknown Hives 2018-02 Sommer White Contrast Group 1-19 Media Medications Ordered Filled Start Stop Current Ordering Indication Dosage Frequency Signature Comments Components Medication Medication Date Date Medication? Clinician (SIG) Name Name FLUoxetine FLUoxetine 2018-02 Yes Carolyn Unknown Unknown 40 mg 40 mg 03-18 Abe CÁRDENAS capsule capsule Bentyl 10 Bentyl 10 2018-02 Yes Carolyn Unknown Unknown mg mg 03-18 Abe CÁRDENAS Acetaminoph Acetaminoph 2018-02 Yes Carolyn Unknown Unknown en Pain en Pain 03-18 Abe CÁRDENAS Relief 500 Relief 500 mg tablet mg tablet ARIPiprazol ARIPiprazol 2018-02 Yes Carolyn Unknown Unknown e 2 mg e 2 mg 03-18 Abe CÁRDENAS tablet tablet omeprazole omeprazole 2018-02 Yes Carolyn Unknown Unknown 20 mg 20 mg 03-18 Abe CÁRDENAS capsule,del capsule,del ayed ayed release release morphine ER morphine ER 2018-02 Yes Carolyn Unknown Unknown 30 mg 30 mg 03-18 Abe CÁRDENAS tablet,exte tablet,exte nded nded release release mirtazapine mirtazapine 2018-02 Yes Carolyn Unknown Unknown 15 mg 15 mg 03-18 Abe CÁRDENAS tablet tablet magnesium magnesium 2018-02 Yes Carolyn Unknown Unknown 400 mg (as 400 mg (as 03-18 Abe CÁRDENAS magnesium magnesium oxide) oxide) capsule capsule hyoscyamine hyoscyamine 2018-02- Carolyn Unknown Unknown 0.125 mg 0.125 mg 03-18 Abe CÁRDENAS sublingual sublingual tablet tablet ALPRAZolam ALPRAZolam 2018-02 Yes Carolyn Unknown Unknown 0.25 mg 0.25 mg 03-18 Abe CÁRDENAS tablet tablet prednisoLON prednisoLON 2018-02 Yes Carolyn Unknown Unknown E acetate E acetate 03-18 Abe CÁRDENAS (PF) 1 % (PF) 1 % eye eye drops,suspe drops,suspe nsion nsion PreserVisio PreserVisio 2018-02 Yes Carolyn Unknown Unknown n AREDS-2 n AREDS-2 03-18 Abe CÁRDENAS 250 mg-200 250 mg-200 unit-40 unit-40 mg-1 mg mg-1 mg capsule capsule promethazin promethazin 2018-02- Carolyn Unknown Unknown e 25 mg e 25 mg 03-18 Abe CÁRDENAS tablet tablet promethazin promethazin 2018-02 Yes Carolyn Unknown Unknown e 25 mg e 25 mg 03-18 Abe CÁRDENAS tablet tablet hyoscyamine hyoscyamine 2018-02- Yes Carolyn Unknown Unknown 0.125 mg 0.125 mg 03-19 ,Abe sublingual sublingual tablet tablet Amitiza 8 Amitiza 8 2018-02- Yes Carolyn Unknown Unknown mcg capsule mcg capsule 03-19 ,Abe hyoscyamine hyoscyamine 2018-02- Yes Carolyn Unknown Unknown 0.125 mg 0.125 mg 03-20 ,Abe sublingual sublingual tablet tablet Amitiza 24 Amitiza 24 2018-02 Yes Aaron Unknown Unknown mcg capsule mcg capsule 04-02 MD,Murali hyoscyamine hyoscyamine 2018-02- Yes Aaron Unknown Unknown ER 0.375 mg ER 0.375 mg 04-09 MD,Murali tablet,exte tablet,exte nded nded release,12 release,12 hr hr clotrimazol clotrimazol 2018-02 Yes Carolyn Unknown Unknown e 1 % e 1 % 04-16 ,Abe topical topical cream cream ondansetron ondansetron 2018-02 Yes Aaron Unknown Unknown 4 mg 4 mg 04-16 MD,Murali disintegrat disintegrat ing tablet ing tablet hyoscyamine hyoscyamine 2018-02 Yes Aaron Unknown Unknown 0.125 mg 0.125 mg 04-16 MD,Murali sublingual sublingual tablet tablet clindamycin clindamycin 2018-02- Yes Carolyn Unknown Unknown HCl 150 mg HCl 150 mg 04-18 MD,Abe capsule capsule Vital Signs Vital Name Observation Time Observation Value Comments SYSTOLIC mm[Hg] 2019-03-05 18:09:44 126 mm[Hg] mm[Hg] Method: Sit SYSTOLIC mm[Hg] 2019-01-16 18:08:56 120 mm[Hg] mm[Hg] Method: Stand DIASTOLIC mm[Hg] 2019-03-05 18:09:44 80 mm[Hg] mm[Hg] Method: Sit DIASTOLIC mm[Hg] 2019-01-16 18:08:56 80 mm[Hg] mm[Hg] Method: Stand PULSE 2019-03-05 18:09:44 90 /min /min RESP RATE 2019-03-05 18:09:44 16 /min /min TEMP 2019-03-05 18:09:44 98.7 [degF] Procedures This patient has no known procedures. Results This patient has no known results.
--- OUTSIDE RECORDS SUMMARY | 2019-03-13 15:31 | XMS REPORT ---
:1940 Author Organization [facility] Care Team Providers Name Role Phone Unavailable [...] Adri disorder, disorder, [place]noske unspecified unspecified RN [facility] Diagnosis Active Adri (current) (current) [place] use of use of RN opiate opiate analgesic analgesic Pain frequent Pain Mgmt Resolve 2018-022019-02-27 Kasandra pain d 03-18 10:26:00 [place] 10:50: [id number] 00 Respiratory dyspnea Respirator Resolve 2018-022019-01-24 Kasandra present y d 03-18 10:00:00 [place] 10:50: [id number] 00 Sensory impaired Sensory Active 2018-02 Kasandra hearing 03-18 [place] 10:50: [id number] 00 Nutrition nutritional Nutrition Resolve 2018-022019-02-19 Kasandra risk d 03-18 09:42:00 [place] 10:50: [id number] 00 Nutrition knowledge/s Nutrition Resolve 2018-022019-02-19 Kasandra kill d 03-18 09:42:00 [place] deficit: pt 10:50: [id number] 00 Nutrition knowledge/s Nutrition Resolve 2018-022019-02-19 Kasandra kill d 03-18 09:42:00 [place] deficit: cg 10:50: [id number] 00 Nutrition nutritional Nutrition Resolve 2018-022019-02-19 Kasandra restriction d 03-18 09:42:00 [place] s 10:50: [id number] 00 Elimination urinary Eliminatio Resolve 2018-022019-01-24 Kasandra incontinenc n d 03-18 10:00:00 Magaly [place] 10:50: [id number] 00 Elimination nausea/vomi Eliminatio Resolve 2018-022019-03-05 Kasandra ting n d 03-18 10:25:00 [place] 10:50: [id number] 00 Neuro confusion Neuro/Emot Active 2018-02 Kasandra present ion 03-18 [place] 10:50: [id number] 00 Neuro anxiety Neuro/Emot Active 2018-02 Kasandra present ion 03-18 [place] 10:50: [id number] 00 Neuro depressive Neuro/Emot Active 2018-02 Kasandra feelings ion 03-18 [facility] 10:50: [id number] 00 Neuro impaired Neuro/Emot Active 2018-02 Kasandra decision-ma ion 03-18 [facility] 10:50: [id number] 00 Neuro knowledge/s Neuro/Emot Active 2018-02 Kasandra kill ion 03-18 [place] deficit: pt 10:50: [id number] 00 Neuro knowledge/s Neuro/Emot Active 2018-02 Kasandra kill ion 03-18 [place] deficit: cg 10:50: [id number] 00 Activity ADL Activity Active 2018-02 Kasandra assistance 03-18 [facility] 10:50: [id number] 00 Activity self-care Activity Resolve 2018-022019-01-24 Kasandra deficit d 03-18 10:00:00 [place] 10:50: [id number] 00 Safety structural Safety Resolve 2018-022019-01-24 Kasandra barriers d 03-18 10:00:00 [place] present 10:50: [id number] 00 Safety fall risk Safety Resolve 2018-022019-01-24 Kasandra factor d 03-18 10:00:00 [place] present 10:50: [id number] 00 Safety risk for Safety Resolve 2018-022019-01-30 Kasandra hospitaliza d 03-18 14:20:00 [place] tion 10:50: [id number] 00 Safety can be left Safety Active 2018-02 Kasandra alone for 03-18 Mag[place] only short 10:50: [id number] periods 00 Medication oral med Meds Resolve 2018-022019-01-30 Kasandra assistance d 03-18 14:20:00 [place] required 10:50: [id number] 00 Medication knowledge/s Meds Resolve 2018-022019-02-13 Kasandra kill d 03-18 14:02:00 [place] deficit: pt 10:50: [id number] 00 Musculoskel transfer Musculoske Resolve 2018-022019-01-24 Kasandra etal assistance letal d 03-18 10:00:00 [place] required 10:50: [id number] 00 Musculoskel requires Musculoske Resolve 2018-022019-01-24 Lisa etal human letal d 03-20 10:00:00 [place] assist to 13:00: leave home 00 24 Hr Diet nutrition NT: 24Hr Resolve 2018-022019-02-02 Agatha intake Diet d 03-21 11:05:00 [place] deficit 13:00: [id number] 00 24 Hr Diet knowledge/s NT: 24Hr Resolve 2018-022019-02-02 Agatha kill Diet d 03-21 11:05:00 [place] deficit - 13:00: [id number] pt 00 24 Hr Diet knowledge/s NT: 24Hr Resolve 2018-022019-02-02 Agatha kill Diet d 03-21 11:05:00 [place] deficit - 13:00: [id number] cg 00 Nutritional eating NT: Resolve 2018-022019-02-02 Agatha Barrier difficultie Barriers d 03-21 11:05:00 [place] s present 13:00: [id number] 00 Elimination urinary Eliminatio Resolve 2018-022019-01-24 Adri urgency n d 1-25 10:00:00 [place] 14:10: RN [...] Safety risk for Safety Resolve 2018-022019-02-13 [facility] 2[facility] 14:02:00 [place] tion 10:30: 00 Medication oral med Meds Resolve 2018-022019-02-13 Lisa assistance d 2-13 14:02:00 [place] required 10:30: 00 Respiratory dyspnea Respirator Active 2018-02 Adri present y 2-17 [place] 14:02: RN 00 Safety risk for Safety Resolve 2018-022019-02-27 Lana hospitaliza d 2-20 10:26:00 [place] tion 14:00: t 00 [id number] Safety risk for Safety Resolve 2019-03-05 Lana hospitaliza d 1-03 10:25:00 [place] tion 13:30: t 00 [id number] Safety risk for Safety Active Lana hospitaliza 03-08 [place] tion 11:00: t 00 [id number] Allergies, Adverse Reactions, Alerts Allergy Name Allergy [...] magnesium oxide) oxide) capsule capsule hyoscyamine hyoscyamine 2018-02 Yes Carolyn Unknown Unknown 0.125 mg 0.125 [...] mg mg-1 mg capsule capsule promethazin promethazin 2018-02 Yes Carolyn Unknown Unknown [...] sublingual sublingual tablet tablet Amitiza 24 Amitiza 2018-02 Yes [place] Unknown Unknown mcg capsule mcg capsule 04-02 [...] Unknown Unknown 0.125 mg 0.125 mg 04-16 ,Murali sublingual sublingual tablet tablet clindamycin clindamycin 2018-02- Yes Carolyn Unknown Unknown HCl 150 mg HCl 150 mg 04-18 ,Abe capsule capsule Vital Signs Vital Name Observation Time Observation Value Comments SYSTOLIC mm[Hg] 2019-01-16 18:08:56 120 mm[Hg] mm[Hg] Method: Stand DIASTOLIC mm[Hg] 2019-01-16 18:08:56 80 mm[Hg] mm[Hg] Method: Stand RESP RATE 2019-03-05 18:09:44 16 /min /min Procedures This patient has no known procedures. Results This patient has no known results.
--- OUTSIDE RECORDS SUMMARY | 2019-03-13 15:31 | XMS REPORT ---
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) (current) [place] use of use of RN opiate opiate analgesic analgesic Pain frequent Pain Mgmt Resolve 2018-022019-02-27 Kasandra pain d 03-18 10:26:00 [place] 10:50: [id number] 00 Respiratory dyspnea Respirator Resolve 2018-022019-01-24 Kasandra present y d 03-18 10:00:00 [place] 10:50: [id number] 00 Sensory impaired Sensory Active 2018-02 Kasandra hearing 03-18 [place] 10:50: [id number] 00 Nutrition nutritional Nutrition Resolve 2018-022019-02-19 Kasandra risk d 03-18 09:42:00 [place] 10:50: [id number] 00 Nutrition knowledge/s Nutrition Resolve 2018-022019-02-19 Kasandra kill d 03-18 09:42:00 [place] deficit: pt 10:50: [id number] 00 Nutrition knowledge/s Nutrition Resolve 2018-022019-02-19 Kasandra kill d 03-18 09:42:00 [place] deficit: cg 10:50: [id number] 00 Nutrition nutritional Nutrition Resolve 2018-022019-02-19 Kasandra restriction d 03-18 09:42:00 [place] s 10:50: [id number] 00 Elimination urinary Eliminatio Resolve 2018-022019-01-24 Kasandra incontinenc n d 03-18 10:00:00 Magaly [place] 10:50: [id number] 00 Elimination nausea/vomi Eliminatio Active 2018-02 Kasandra ting n 03-18 [place] 10:50: [id number] 00 Neuro confusion Neuro/Emot Active 2018-02 Kasandra present ion 03-18 [place] 10:50: [id number] 00 Neuro anxiety Neuro/Emot Active 2018-02 Kasanrda present ion 03-18 [place] 10:50: [id number] 00 Neuro depressive Neuro/Emot Active 2018-02 Kasandra feelings ion 03-18 [facility] 10:50: [id number] 00 Neuro impaired Neuro/Emot Active 2018-02 Kasandra decision-ma ion 03-18 [facility] 10:50: [id number] 00 Neuro knowledge/s Neuro/Emot Active 2018-02 Kasandra kill ion 03-18 [place] deficit: pt 10:50: [id number] 00 Neuro knowledge/s Neuro/Emot Active 2018-02 Kasandra kill ion 03-18 [place] deficit: cg 10:50: [id number] 00 Activity ADL Activity Active 2018-02 Kasandra assistance 03-18 [place] required 10:50: [id number] 00 Activity self-care Activity Resolve 2018-022019-01-24 Kasandra deficit d 03-18 10:00:00 [place] 10:50: [id number] 00 Safety structural Safety Resolve 2018-022019-01-24 Kasandra barriers d - 10:00:00 [place] present 10:50: [id number] 00 Safety fall risk Safety Resolve 2018-022019-01-24 Kasandra factor d 03-18 10:00:00 [place] present 10:50: [id number] 00 Safety risk for Safety Resolve 2018-022019-01-30 Kasandra hospitaliza d 03-18 14:20:00 [place] tion 10:50: [id number] 00 Safety can be left Safety Active 2018-02 Kasandra alone for 03-18 [place] only short 10:50: [id number] periods 00 Medication oral med Meds Resolve 2018-022019-01-30 Kasandra assistance d 03-18 14:20:00 [place] required 10:50: [id number] 00 Medication knowledge/s Meds Resolve 2018-022019-02-13 Kasandra kill d 03-18 14:02:00 [place] deficit: pt 10:50: [id number] 00 Musculoskel transfer Musculoske Resolve 2018-022019-01-24 Kasandra etal assistance letal d 03-18 10:00:00 [place] required 10:50: [id number] 00 Musculoskel requires Musculoske Resolve 2018-022019-01-24 Lisa etal human letal d 03-20 10:00:00 [place] assist to 13:00: leave home 00 24 Hr Diet nutrition NT: 24Hr Resolve 2018-022019-02-02 Agatha intake Diet d 03-21 11:05:00 [place] deficit 13:00: [id number] 00 24 Hr Diet knowledge/s NT: 24Hr Resolve 2018-022019-02-02 Agatha kill Diet d 03-21 11:05:00 [place] deficit - 13:00: [id number] pt 00 24 Hr Diet knowledge/s NT: 24Hr Resolve 2018-022019-02-02 Agatha kill Diet d 03-21 11:05:00 [place] deficit - 13:00: [id number] cg 00 Nutritional eating NT: Resolve 2018-022019-02-02 Agatha Barrier difficultie Barriers d 03-21 11:05:00 [place] s present 13:00: [id number] Elimination urinary Eliminatio Resolve 2018-022019-01-24 Adri [...] Mal[place] 14:20: RN 00 Elimination constipatio Eliminatio Active 2018-02 Lisa n n 2-06 [place] 10:00: 00 Safety risk for Safety Resolve 2018-022019-02-06 Adri hospitaliza d 2-10 13:25:00 [place] tion 13:25: RN 00 Safety risk for Safety Resolve 2018-022019-02-13 Lisa hospitaliza d 2-13 14:02:00 [place] tion 10:30: 00 Medication oral med Meds Resolve 2018-022019-02-13 Lisa assistance d 2-13 14:02:00 [place] required 10:30: 00 Respiratory dyspnea Respirator Active 2018-02 Adri present y -17 [place] 14:02: RN 00 Safety risk for Safety Resolve 2018-022019-02-27 Lana hospitaliza d 2-20 10:26:00 [place] tion 14:00: t 00 [id number] Safety risk for Safety Active Lana hospitaliza 03-02 [place] tion 13:30: t 00 [id number] Allergies, Adverse Reactions, Alerts Allergy Name Allergy Status Severity Reaction(s) Onset Inactive Treating Comments Type Date Date Clinician Penicillins Allergen Active Unknown swelling 2018-02 [facility] 03-18 Iodinated Allergen Active Unknown Hives 2018-02 Sommer White Contrast Group 03-18 Media Medications Ordered Filled Start Stop Current [...] oxide) oxide) capsule capsule hyoscyamine hyoscyamine 2018-02- Yes Carolyn Unknown Unknown [...] mg-1 mg capsule capsule promethazin promethazin 2018-02- Yes Carolyn Unknown Unknown e 25 mg e 25 mg 03-18 Abe CÁRDENAS tablet tablet promethazin promethazin 2018-02 Yes Carolyn Unknown Unknown e 25 mg e 25 mg 03-18 Abe CÁRDENAS tablet tablet hyoscyamine hyoscyamine 2018-02- Yes Carolyn Unknown Unknown 0.125 mg 0.125 mg 03-19 Abe CÁRDENAS sublingual sublingual tablet tablet Amitiza 8 Amitiza 8 2018-02- Yes Carolyn Unknown Unknown mcg capsule mcg capsule 03-19 Abe CÁRDENAS hyoscyamine hyoscyamine 2018-02- Yes Carolyn Unknown Unknown [...] 80 mm[Hg] mm[Hg] Method: Stand RESP RATE 2019-02-27 18:09:38 16 /min /min Procedures This patient has no known procedures. Results This patient has no known results.
--- OUTSIDE RECORDS SUMMARY | 2019-03-13 15:31 | XMS REPORT ---
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) (current) [place] use of use of RN opiate opiate analgesic analgesic Pain frequent Pain Mgmt Resolve 2018-022019-02-27 Kasandra pain d 03-18 10:26:00 [place] 10:50: [id number] 00 Respiratory dyspnea Respirator Resolve 2018-022019-01-24 Kasandra present y d 03-18 10:00:00 [place] 10:50: [id number] 00 Sensory impaired Sensory Active 2018-02 Kasandra hearing 03-18 [place] 10:50: [id number] 00 Nutrition nutritional Nutrition Resolve 2018-022019-02-19 Kasandra risk d 03-18 09:42:00 [place] 10:50: [id number] 00 Nutrition knowledge/s Nutrition Resolve 2018-022019-02-19 Kasandra kill d 03-18 09:42:00 [place] deficit: pt 10:50: [id number] 00 Nutrition knowledge/s Nutrition Resolve 2018-022019-02-19 Kasandra kill d 03-18 09:42:00 [place] deficit: cg 10:50: [id number] 00 Nutrition nutritional Nutrition Resolve 2018-022019-02-19 Kasandra restriction d 03-18 09:42:00 [place] s 10:50: [id number] 00 Elimination urinary Eliminatio Resolve 2018-022019-01-24 Kasandra incontinenc n d 03-18 10:00:00 Magaly shelton 10:50: [id number] 00 Elimination nausea/vomi Eliminatio Resolve 2018-022019-03-05 Kasandra ting n d 03-18 10:25:00 [place] 10:50: [id number] 00 Neuro confusion Neuro/Emot Active 2018-02 Kasandra present ion 03-18 [place] 10:50: [id number] 00 Neuro anxiety Neuro/Emot Active 2018-02 Kasandra present ion 03-18 [place] 10:50: [id number] 00 Neuro depressive Neuro/Emot Active 2018-02 Kasandra feelings ion 03-18 [facility] 10:50: [id number] 00 Neuro impaired Neuro/Emot Active 2018-02 Kasandra decision-ma ion 03-18 [facility] 10:50: [id number] 00 Neuro knowledge/s Neuro/Emot Active 2018-02 Kasandra kill ion 03-18 [place] deficit: pt 10:50: [id number] 00 Neuro knowledge/s Neuro/Emot Active 2018-02 Kasandra kill ion 03-18 [place] deficit: cg 10:50: [id number] 00 Activity ADL Activity Active 2018-02 Kasandra assistance 03-18 [facility] 10:50: [id number] 00 Activity self-care Activity Resolve 2018-022019-01-24 Kasandra deficit d 03-18 10:00:00 [place] 10:50: [id number] 00 Safety structural Safety Resolve 2018-022019-01-24 Kasandra barriers d 03-18 10:00:00 [place] present 10:50: [id number] 00 Safety fall risk Safety Resolve 2018-022019-01-24 Kasandra factor d 03-18 10:00:00 [place] present 10:50: [id number] 00 Safety risk for Safety Resolve 2018-022019-01-30 Kasandra hospitaliza d 03-18 14:20:00 [place] tion 10:50: [id number] 00 Safety can be left Safety Active 2018-02 Kasandra alone for 03-18 [place] only short 10:50: [id number] periods 00 Medication oral med Meds Resolve 2018-022019-01-30 Kasandra assistance d 03-18 14:20:00 [place] required 10:50: [id number] 00 Medication knowledge/s Meds Resolve 2018-022019-02-13 Kasandra kill d 03-18 14:02:00 [place] deficit: pt 10:50: [id number] 00 Musculoskel transfer Musculoske Resolve 2018-022019-01-24 Kasandra etal assistance letal d 03-18 10:00:00 [place] required 10:50: [id number] 00 Musculoskel requires Musculoske Resolve 2018-022019-01-24 Lisa etal human letal d 03-20 10:00:00 [place] assist to 13:00: leave home 00 24 Hr Diet nutrition NT: 24Hr Resolve 2018-022019-02-02 Agatha intake Diet d 03-21 11:05:00 [place] deficit 13:00: [id number] 00 24 Hr Diet knowledge/s NT: 24Hr Resolve 2018-022019-02-02 Agatha kill Diet d 03-21 11:05:00 [place] deficit - 13:00: [id number] pt 00 24 Hr Diet knowledge/s NT: 24Hr Resolve 2018-022019-02-02 Agatha kill Diet d 03-21 11:05:00 [place] deficit - 13:00: [id number] cg 00 Nutritional eating NT: Resolve 2018-022019-02-02 Agatha Barrier difficultie Barriers d 03-21 11:05:00 [place] s present 13:00: [id number] 00 Elimination urinary Eliminatio Resolve 2018-022019-01-24 Adri [...] Safety risk for Safety Resolve 2018-022019-02-13 [facility] 14:02:00 [place] tion 10:30: 00 Medication oral med Meds Resolve 2018-022019-02-13 Lisa assistance d 2-13 14:02:00 [place] required 10:30: 00 Respiratory dyspnea Respirator Active 2018-02 Adri present y 2-17 [place] 14:02: RN 00 Safety risk for Safety Resolve 2018-022019-02-27 Lana hospitaliza d 2-20 10:26:00 [place] tion 14:00: t 00 [id number] Safety risk for Safety Resolve 2019-03-05 Lana hospitaliza d 1-03 10:25:00 [place]brand tion 13:30: t 00 [id number] Allergies, Adverse Reactions, Alerts Allergy Name Allergy [...] Unknown Unknown en Pain en Pain 03-18 bAe CÁRDENAS Relief 500 Relief 500 mg tablet [...]
--- OUTSIDE RECORDS SUMMARY | 2019-03-13 15:31 | XMS REPORT ---
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 Diagnosis Active Adri (current) (current) [place] use of use of RN opiate opiate analgesic analgesic Pain frequent Pain Mgmt Resolve 2018-022019-02-27 Kasandra pain d 03-18 10:26:00 [place] 10:50: [id number] 00 Respiratory dyspnea Respirator Resolve 2018-022019-01-24 Kasandra present y d 03-18 10:00:00 [place] 10:50: [id number] 00 Sensory impaired Sensory Active 2018-02 Kasandra hearing 03-18 [place] 10:50: [id number] 00 Nutrition nutritional Nutrition Resolve 2018-022019-02-19 Kasandra risk d 03-18 09:42:00 [place] 10:50: [id number] 00 Nutrition knowledge/s Nutrition Resolve 2018-022019-02-19 Kasandra kill d 03-18 09:42:00 Magaly deficit: pt 10:50: [id number] 00 Nutrition knowledge/s Nutrition Resolve 2018-022019-02-19 Kasandra kill d 03-18 09:42:00 Magaly deficit: cg 10:50: [id number] 00 Nutrition nutritional Nutrition Resolve 2018-022019-02-19 Kasandra restriction d 03-18 09:42:00 Magaly s 10:50: [id number] 00 Elimination urinary Eliminatio Resolve 2018-022019-01-24 Kasandra incontinenc n d 03-18 10:00:00 Magaly shelton 10:50: [id number] 00 Elimination nausea/vomi Eliminatio Resolve 2018-022019-03-05 Kasandra ting n d 03-18 10:25:00 [place] 10:50: [id number] 00 Neuro confusion Neuro/Emot Active 2018-02 Kasandra present ion 03-18 [place] 10:50: [id number] 00 Neuro anxiety Neuro/Emot Active 2018-02 Kasandra present ion 03-18 [place] 10:50: [id number] 00 Neuro depressive Neuro/Emot Active 2018-02 Kasandra feelings ion 03-18 [facility] 10:50: [id number] 00 Neuro impaired Neuro/Emot Active 2018-02 Kasandra decision-ma ion 03-[address] [facility] 10:50: [id number] 00 Neuro knowledge/s Neuro/Emot Active 2018-02 Kasandra kill ion 03-18 [place] deficit: pt 10:50: [id number] 00 Neuro knowledge/s Neuro/Emot Active 2018-02 Kasandra kill ion 03-18 [place] deficit: cg 10:50: [id number] 00 Activity ADL Activity Active 2018-02 Kasandra assistance 03-18 [facility] 10:50: [id number] 00 Activity self-care Activity Resolve 2018-022019-01-24 Kasandra deficit d 03-18 10:00:00 [place] 10:50: [id number] 00 Safety structural Safety Resolve 2018-022019-01-24 Kasandra barriers d 03-18 10:00:00 [place] present 10:50: [id number] 00 Safety fall risk Safety Resolve 2018-022019-01-24 Kasandra factor d 03-18 10:00:00 [place] present 10:50: [id number] 00 Safety risk for Safety Resolve 2018-022019-01-30 Kasandra hospitaliza d 03-18 14:20:00 [place] tion 10:50: [id number] 00 Safety can be left Safety Active 2018-02 Kasandra alone for 03-18 Magaly only short 10:50: [id number] periods 00 Medication oral med Meds Resolve 2018-022019-01-30 Kasandra assistance d 03-18 14:20:00 [place] required 10:50: [id number] 00 Medication knowledge/s Meds Resolve 2018-022019-02-13 Kasandra kill d 03-18 14:02:00 [place] deficit: pt 10:50: [id number] 00 Musculoskel transfer Musculoske Resolve 2018-022019-01-24 Kasandra etal assistance letal d 03-18 10:00:00 [place] required 10:50: [id number] 00 Musculoskel requires Musculoske Resolve 2018-022019-01-24 Lisa etal human letal d 03-20 10:00:00 [place]le[place] assist to 13:00: leave home 00 24 Hr Diet nutrition NT: 24Hr Resolve 2018-022019-02-02 Agatha intake Diet d 03-21 11:05:00 [place] deficit 13:00: [id number] 00 24 Hr Diet knowledge/s NT: 24Hr Resolve 2018-022019-02-02 Agatha kill Diet d 03-21 11:05:00 [place] deficit - 13:00: [id number] pt 00 24 Hr Diet knowledge/s NT: 24Hr Resolve 2018-022019-02-02 Agatha kill Diet d 03-21 11:05:00 [place] deficit - 13:00: [id number] cg 00 Nutritional eating NT: Resolve 2018-022019-02-02 Agatha Barrier difficultie Barriers d 03-21 11:05:00 [place] s present 13:00: [id number] 00 Elimination urinary Eliminatio Resolve 2018-022019-01-24 Adri [...] Safety risk for Safety Resolve 2018-022019-02-13 [facility] 14:02:00 [place] tion 10:30: 00 Medication oral med Meds Resolve 2018-022019-02-13 Lisa assistance d 2-13 14:02:00 [place] required 10:30: 00 Respiratory dyspnea Respirator Active 2018-02 Adri present y 2-17 [place] 14:02: RN 00 Safety risk for Safety Resolve 2018-022019-02-27 Lana hospitaliza d 2-20 10:26:00 [place] tion 14:00: t 00 [id number] Safety risk for Safety Resolve 2019-03-05 Lana hospitaliza d 1-03 10:25:00 [place] tion 13:30: t 00 [id number] Safety risk for Safety Active Lana hospitaliza 03-08 [place]brand tion 11:00: t 00 [id number] Allergies, Adverse Reactions, Alerts Allergy Name Allergy [...]
--- OUTSIDE RECORDS SUMMARY | 2019-03-13 15:31 | XMS REPORT ---
:1940 Author Organization [facility] Care Team Providers Name Role Phone Unavailable [...] Adri disorder, disorder, Malnoske unspecified unspecified RN [facility] Diagnosis Active Adri (current) (current) [place] use of use of RN opiate opiate analgesic analgesic Pain frequent Pain Mgmt Resolve 2018-022019-02-27 Kasandra pain d 03-18 10:26:00 [place] 10:50: [id number] 00 Respiratory dyspnea Respirator Resolve 2018-022019-01-24 Kasandra present y d 03-18 10:00:00 [place] 10:50: [id number] 00 Sensory impaired Sensory Active 2018-02 Kasandra hearing 03-18 [place] 10:50: [id number] 00 Nutrition nutritional Nutrition Resolve 2018-022019-02-19 Kasandra risk d 03-18 09:42:00 [place] 10:50: [id number] 00 Nutrition knowledge/s Nutrition Resolve 2018-022019-02-19 Kasandra kill d 03-18 09:42:00 Magaly deficit: pt 10:50: [id number] 00 Nutrition knowledge/s Nutrition Resolve 2018-022019-02-19 Kasandra kill d 03-18 09:42:00 Mag[place] deficit: cg 10:50: [id number] 00 Nutrition nutritional Nutrition Resolve 2018-022019-02-19 Kasandra restriction d 03-18 09:42:00 Magaly s 10:50: [id number] 00 Elimination urinary Eliminatio Resolve 2018-022019-01-24 Kasandra incontinenc n d 03-18 10:00:00 Magaly shel[place] 10:50: [id number] 00 Elimination nausea/vomi Eliminatio Resolve 2018-022019-03-05 Kasandra ting n d 03-18 10:25:00 [place] 10:50: [id number] 00 Neuro confusion Neuro/Emot Active 2018-02 Kasandra present ion 03-18 [place] 10:50: [id number] 00 Neuro anxiety Neuro/Emot Active 2018-02 Kasandra present ion 03-18 [place] 10:50: [id number] 00 Neuro depressive Neuro/Emot Active 2018-02 Kasandra feelings ion 03-18 [facility] 10:50: [id number] 00 Neuro impaired Neuro/Emot Active 2018-02 Kasandra decision-ma ion 03-18 [facility] 10:50: [id number] 00 Neuro knowledge/s Neuro/Emot Active 2018-02 Kasandra kill ion 03-18 [place] deficit: pt 10:50: [id number] 00 Neuro knowledge/s Neuro/Emot Active 2018-02 Kasandra kill ion 03-18 [place] deficit: cg 10:50: [id number] 00 Activity ADL Activity Active 2018-02 Kasandra assistance 03-18 [facility] 10:50: [id number] 00 Activity self-care Activity Resolve 2018-022019-01-24 Kasandra deficit d 03-18 10:00:00 [place] 10:50: [id number] 00 Safety structural Safety Resolve 2018-022019-01-24 Kasandra barriers d 03-18 10:00:00 [place] present 10:50: [id number] 00 Safety fall risk Safety Resolve 2018-022019-01-24 Kasandra factor d 03-18 10:00:00 [place] present 10:50: [id number] 00 Safety risk for Safety Resolve 2018-022019-01-30 Kasandra hospitaliza d 03-18 14:20:00 [place] tion 10:50: [id number] 00 Safety can be left Safety Active 2018-02 Kasandra alone for 03-18 Magaly only short 10:50: [id number] periods 00 Medication oral med Meds Resolve 2018-022019-01-30 Kasandra assistance d 03-18 14:20:00 [place] required 10:50: [id number] 00 Medication knowledge/s Meds Resolve 2018-022019-02-13 Kasandra kill d 03-18 14:02:00 [place] deficit: pt 10:50: [id number] 00 Musculoskel transfer Musculoske Resolve 2018-022019-01-24 Kasandra etal assistance letal d 03-18 10:00:00 [place] required 10:50: [id number] 00 Musculoskel requires Musculoske Resolve 2018-022019-01-24 Lisa etal human letal d 03-20 10:00:00 [place]le[place] assist to 13:00: leave home 00 24 Hr Diet nutrition NT: 24Hr Resolve 2018-022019-02-02 Agatha intake Diet d 03-21 11:05:00 [place] deficit 13:00: [id number] 00 24 Hr Diet knowledge/s NT: 24Hr Resolve 2018-022019-02-02 Agatha kill Diet d 03-21 11:05:00 [place] deficit - 13:00: [id number] pt 00 24 Hr Diet knowledge/s NT: 24Hr Resolve 2018-022019-02-02 Agatha kill Diet d 03-21 11:05:00 [place] deficit - 13:00: [id number] cg 00 Nutritional eating NT: Resolve 2018-022019-02-02 Agatha Barrier difficultie Barriers d 03-21 11:05:00 [place] s present 13:00: [id number] 00 Elimination urinary Eliminatio Resolve 2018-022019-01-24 Adri [...] Safety risk for Safety Resolve 2018-022019-02-13 [facility] 14:02:00 [place] tion 10:30: 00 Medication oral med Meds Resolve 2018-022019-02-13 Lisa assistance d 2-13 14:02:00 [place] required 10:30: 00 Respiratory dyspnea Respirator Active 2018-02 Adri present y 2-17 [place] 14:02: RN 00 Safety risk for Safety Resolve 2018-022019-02-27 Lana hospitaliza d 2-20 10:26:00 [place] tion 14:00: t 00 [id number] Safety risk for Safety Resolve 2019-03-05 Lana hospitaliza d 1-03 10:25:00 [place] tion 13:30: t 00 [id number] Safety risk for Safety Active Lana hospitaliza 03-08 [place] tion 11:00: t 00 [id number] Allergies, Adverse Reactions, Alerts Allergy Name Allergy [...]
--- OUTSIDE RECORDS SUMMARY | 2019-03-13 15:32 | XMS REPORT ---
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 Adri (current) (current) [place] use of use of RN opiate opiate analgesic analgesic Pain frequent Pain Mgmt Active 2018-02 Kasandra pain 03-18 [place] 10:50: [id number] 00 Respiratory dyspnea Respirator Resolve 2018-022019-01-24 Kasandra present y d 03-18 10:00:00 [place] 10:50: [id number] 00 Sensory impaired Sensory Active 2018-02 Kasandra hearing 03-18 [place] 10:50: [id number] 00 Nutrition nutritional Nutrition Active 2018-02 Kasandra risk 03-18 [place] 10:50: [id number] 00 Nutrition knowledge/s Nutrition Active 2018-02 Kasandra kill 03-18 [place] deficit: pt 10:50: [id number] 00 Nutrition knowledge/s Nutrition Active 2018-02 Kasandra kill 03-18 [place] deficit: cg 10:50: [id number] 00 Nutrition nutritional Nutrition Active 2018-02 Kasandra restriction 03-18 [place] s 10:50: [id number] 00 Elimination urinary Eliminatio Resolve 2018-022019-01-24 Kasandra incontinenc n d 03-18 10:00:00 [place] e 10:50: [id number] 00 Elimination nausea/vomi Eliminatio Active 2018-02 Kasandra ting n 03-18 [place] 10:50: [id number] 00 Neuro confusion Neuro/Emot Active 2018-02 Kasandra present ion 03-18 [place] 10:50: [id number] 00 Neuro anxiety Neuro/Emot Active 2018-02 Kasandra present ion 03-18 [place] 10:50: [id number] 00 Neuro depressive Neuro/Emot Active 2018-02 Kasandra feelings ion 03-18 [facility] 10:50: [id number] 00 Neuro impaired Neuro/Emot Active 2018-02 Kasandra decision-ma ion 03-18 [facility] 10:50: [id number] 00 Neuro knowledge/s Neuro/Emot Active 2018-02 Kasandra kill ion 03-18 [place] deficit: pt 10:50: [id number] 00 Neuro knowledge/s Neuro/Emot Active 2018-02 Kasandra kill ion 03-18 [place] deficit: cg 10:50: [id number] 00 Activity ADL Activity Active 2018-02 Kasandra assistance 03-18 [place] required 10:50: [id number] 00 Activity self-care Activity Resolve 2018-022019-01-24 Kasandra deficit d 03-18 10:00:00 [place] 10:50: [id number] 00 Safety structural Safety Resolve 2018-022019-01-24 Kasandra barriers d 03-18 10:00:00 [place] present 10:50: [id number] 00 Safety fall risk Safety Resolve 2018-022019-01-24 Kasandra factor d 03-18 10:00:00 [place] present 10:50: [id number] 00 Safety risk for Safety Resolve 2018-022019-01-30 Kasandra hospitaliza d 03-18 14:20:00 Magaly tion 10:50: [id number] 00 Safety can be left Safety Active 2018-02 Kasandra alone for 03-18 Magaly only short 10:50: [id number] periods 00 Medication oral med Meds Resolve 2018-022019-01-30 Kasandra assistance d 03-18 14:20:00 [place] required 10:50: [id number] 00 Medication knowledge/s Meds Resolve 2018-022019-02-13 Kasandra kill d 03-18 14:02:00 [place] deficit: pt 10:50: [id number] 00 Musculoskel transfer Musculoske Resolve 2018-022019-01-24 Kasandra etal assistance letal d 03-18 10:00:00 [place] required 10:50: [id number] 00 Musculoskel requires Musculoske Resolve 2018-022019-01-24 Lisa etal human letal d 03-20 10:00:00 [place]le[place] assist to 13:00: leave home 00 24 Hr Diet nutrition NT: 24Hr Resolve 2018-022019-02-02 Agatha intake Diet d 03-21 11:05:00 [place] deficit 13:00: [id number] 00 24 Hr Diet knowledge/s NT: 24Hr Resolve 2018-022019-02-02 Agatha kill Diet d 03-21 11:05:00 [place] deficit - 13:00: [id number] pt 00 24 Hr Diet knowledge/s NT: 24Hr Resolve 2018-022019-02-02 Agatah kill Diet d 03-21 11:05:00 [place] deficit - 13:00: [id number] cg 00 Nutritional eating NT: Resolve 2018-022019-02-02 Agatha Barrier difficultie Barriers d 03-21 11:05:00 [place] s present 13:00: [id number] 00 Elimination urinary Eliminatio Resolve 2018-022019-01-24 Adri urgency n d 03-24 10:00:00 [place] 14:10: RN 00 Elimination urinary Eliminatio Resolve 2018-022019-01-24 Adri frequency n d 03-24 10:00:00 [place] 14:10: RN 00 Elimination urinary Eliminatio Active 2018-02 Adri incontinenc n 2-03 [place] e 14:20: RN 00 Elimination urinary Eliminatio Active 2018-02 Adri urgency n 2-03 [place] 14:20: RN 00 Elimination constipatio Eliminatio Active 2018-02 Lisa n n 2-06 [place] 10:00: 00 Safety risk for Safety Resolve 2018-022019-02-06 Adri hospitaliza d 2-10 13:25:00 [place] tion 13:25: RN 00 Safety risk for Safety Resolve 2018-022019-02-13 Lisa hospitaliza d 2-13 14:02:00 [place] tion 10:30: 00 Medication oral med Meds Resolve 2018-022019-02-13 Lisa assistance d 2- 14:02:00 [place] required 10:30: 00 Respiratory dyspnea Respirator Active 2018-02 Adri present y 2- [place] 14:02: RN 00 Safety risk for Safety Active 2018-02 Lana hospitaliza 2-20 [place] tion 14:00: t 00 [id number] Allergies, Adverse Reactions, Alerts Allergy Name Allergy Status Severity Reaction(s) Onset Inactive Treating Comments Type Date Date Clinician Penicillins Allergen Active Unknown swelling 2018-02 [facility] 1- Iodinated Allergen Active Unknown Hives 2018-02 Sommer White Contrast Group -19 Media Medications Ordered Filled Start Stop Current [...] Carolyn Unknown Unknown mcg capsule mcg capsule 03-19- Abe CÁRDENAS hyoscyamine hyoscyamine 2018-02- Yes Carolyn Unknown Unknown 0.125 mg 0.125 mg 03-20 12- Abe CÁRDENAS sublingual sublingual tablet tablet Amitiza 24 Amitiza 24 2018-02 Yes Aaron Unknown Unknown mcg capsule mcg capsule 04-02 ,Murali hyoscyamine hyoscyamine 2018-02- Yes Aaron Unknown Unknown ER 0.375 mg ER 0.375 mg 04-09 12-17 ,Murali tablet,exte tablet,exte nded nded release,12 release,12 hr hr clotrimazol clotrimazol 2018-02 Yes Carolyn Unknown Unknown e 1 % e 1 % 04-16 MD,Abe topical topical cream cream ondansetron ondansetron 2018-02 Yes Aaron Unknown Unknown 4 mg 4 mg 04-16 MD,Murali disintegrat disintegrat ing tablet ing tablet hyoscyamine hyoscyamine 2018-02 Yes Aaron Unknown Unknown 0.125 mg 0.125 mg 04-16 MD,Murali sublingual sublingual tablet tablet Vital Signs Vital Name Observation Time Observation Value Comments SYSTOLIC mm[Hg] 2019-02-19 18:09:30 130 mm[Hg] mm[Hg] Method: Sit SYSTOLIC mm[Hg] 2019-01-16 18:08:56 120 mm[Hg] mm[Hg] Method: Stand DIASTOLIC mm[Hg] 2019-02-19 18:09:30 80 mm[Hg] mm[Hg] Method: Sit DIASTOLIC mm[Hg] 2019-01-16 18:08:56 80 mm[Hg] mm[Hg] Method: Stand PULSE 2019-02-19 18:09:30 87 /min /min RESP RATE 2019-02-19 18:09:30 16 /min /min TEMP 2019-02-19 18:09:30 98.9 [degF] Procedures This patient has no known procedures. Results This patient has no known results.
--- OUTSIDE RECORDS SUMMARY | 2019-03-13 15:32 | XMS REPORT ---
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 care senior care Diagnosis Active Adri (current) (current) Malnoske use of use of RN opiate opiate analgesic analgesic Pain frequent Pain Mgmt Active 2018-02 Kasandra pain 03-18 [place] 10:50: [id number] 00 Respiratory dyspnea Respirator Resolve 2018-022019-01-24 Kasandra present y d 03-18 10:00:00 [place] 10:50: [id number] 00 Sensory impaired Sensory Active 2018-02 Kasandra hearing 03-18 [place] 10:50: [id number] 00 Nutrition nutritional Nutrition Active 2018-02 Kasandra risk 03-18 [place] 10:50: [id number] 00 Nutrition knowledge/s Nutrition Active 2018-02 Kasandra kill 03-18 [place] deficit: pt 10:50: [id number] 00 Nutrition knowledge/s Nutrition Active 2018-02 Kasandra kill 03-18 [place] deficit: cg 10:50: [id number] 00 Nutrition nutritional Nutrition Active 2018-02 Kasandra restriction 03-18 [place] s 10:50: [id number] 00 Elimination urinary Eliminatio Resolve 2018-022019-01-24 Kasandra incontinenc n d 03-18 10:00:00 [place] e 10:50: [id number] 00 Elimination nausea/vomi Eliminatio Active 2018-02 Kasandra ting n 03-18 [place] 10:50: [id number] 00 Neuro confusion Neuro/Emot Active 2018-02 Kasandra present ion 03-18 [place] 10:50: [id number] 00 Neuro anxiety Neuro/Emot Active 2018-02 Kasandra present ion 03-18 [place] 10:50: [id number] 00 Neuro depressive Neuro/Emot Active 2018-02 Kasandra feelings ion 03-18 [facility] 10:50: [id number] 00 Neuro impaired Neuro/Emot Active 2018-02 Kasandra decision-ma ion 03-18 [facility] 10:50: [id number] 00 Neuro knowledge/s Neuro/Emot Active 2018-02 Kasandra kill ion 03-18 [place] deficit: pt 10:50: [id number] 00 Neuro knowledge/s Neuro/Emot Active 2018-02 Kasandra kill ion 03-18 [place] deficit: cg 10:50: [id number] 00 Activity ADL Activity Active 2018-02 Kasandra assistance 03-18 [place] required 10:50: [id number] 00 Activity self-care Activity Resolve 2018-022019-01-24 Kasandra deficit d 03-18 10:00:00 [place] 10:50: [id number] 00 Safety structural Safety Resolve 2018-022019-01-24 Kasandra barriers d 03-18 10:00:00 [place] present 10:50: [id number] 00 Safety fall risk Safety Resolve 2018-022019-01-24 Kasandra factor d 03-18 10:00:00 [place] present 10:50: [id number] 00 Safety risk for Safety Resolve 2018-022019-01-30 Kasandra hospitaliza d 03-18 14:20:00 [place] tion 10:50: [id number] 00 Safety can be left Safety Active 2018-02 Kasandra alone for 03-18 [place] only short 10:50: [id number] periods 00 Medication oral med Meds Resolve 2018-022019-01-30 Kasandra assistance d 03-18 14:20:00 [place] required 10:50: [id number] 00 Medication knowledge/s Meds Active 2018-02 Kasandra kill 03-18 [place] deficit: pt 10:50: [id number] 00 Musculoskel transfer Musculoske Resolve 2018-022019-01-24 Kasandra etal assistance letal d 03-18 10:00:00 [place] required 10:50: [id number] 00 Musculoskel requires Musculoske Resolve 2018-022019-01-24 Lisa etal human letal d 03-20 10:00:00 [place] assist to 13:00: leave home 00 24 Hr Diet nutrition NT: 24Hr Resolve 2018-022019-02-02 Agatha intake Diet d 03-21 11:05:00 [place] deficit 13:00: [id number] 00 24 Hr Diet knowledge/s NT: 24Hr Resolve 2018-022019-02-02 Agatha kill Diet d 03-21 11:05:00 [place] deficit - 13:00: [id number] pt 00 24 Hr Diet knowledge/s NT: 24Hr Resolve 2018-022019-02-02 Agatha kill Diet d 03-21 11:05:00 [place] deficit - 13:00: [id number] cg 00 Nutritional eating NT: Resolve 2018-022019-02-02 Agatha Barrier difficultie Barriers d 03-21 11:05:00 [place] s present 13:00: [id number] Elimination urinary Eliminatio Resolve 2018-022019-01-24 Adri [...] for Safety Resolve 2018-022019-02-06 Adri hospitaliza d 2- 13:25:00 Malnoske tion 13:25: RN 00 Safety risk for Safety Active 2018-02 Lisa hospitaliza 2- [place] tion 10:30: 00 Medication oral med Meds Resolve 2018-022019-02-09 Lisa assistance d 04-12 10:30:00 [place] required 10:30: 00 Allergies, Adverse Reactions, Alerts Allergy Name Allergy [...] Unknown Unknown mcg capsule mcg capsule 03-19 12- Abe CÁRDENAS hyoscyamine hyoscyamine 2018-02- Yes Carolyn Unknown Unknown 0.125 mg 0.125 mg 03-20 12- Abe CÁRDENAS sublingual sublingual tablet tablet Amitiza 24 Amitiza 2018-02 Yes Aaron Unknown Unknown mcg capsule mcg capsule - MDMurali hyoscyamine hyoscyamine 2018-02 Yes Aarno Unknown Unknown ER 0.375 mg ER 0.375 mg 2-10 MD,Murali tablet,exte tablet,exte nded nded release,12 release,12 hr hr Vital Signs Vital Name Observation Time Observation Value Comments SYSTOLIC mm[Hg] 2019-02-09 18:09:20 122 mm[Hg] mm[Hg] Method: Sit SYSTOLIC mm[Hg] 2019-01-16 18:08:56 120 mm[Hg] mm[Hg] Method: Stand DIASTOLIC mm[Hg] 2019-02-09 18:09:20 78 mm[Hg] mm[Hg] Method: Sit DIASTOLIC mm[Hg] 2019-01-16 18:08:56 80 mm[Hg] mm[Hg] Method: Stand PULSE 2019-02-09 18:09:20 91 /min /min RESP RATE 2019-02-09 18:09:20 16 /min /min TEMP 2019-02-09 18:09:20 97.7 [degF] Procedures This patient has no known procedures. Results This patient has no known results.
--- OUTSIDE RECORDS SUMMARY | 2019-03-13 15:32 | XMS REPORT ---
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 Diagnosis Active Adri (current) (current) Malnoske use of use of RN opiate opiate analgesic analgesic Pain frequent Pain Mgmt Active 2018-02 Kasandra pain 03-18 [place] 10:50: [id number] 00 Respiratory dyspnea Respirator Resolve 2018-022019-01-24 Kasandra present y d 03-18 10:00:00 [place] 10:50: [id number] 00 Sensory impaired Sensory Active 2018-02 Kasandra hearing 03-18 [place] 10:50: [id number] 00 Nutrition nutritional Nutrition Resolve 2018-022019-02-19 Kasandra risk d 03-18 09:42:00 [place] 10:50: [id number] 00 Nutrition knowledge/s Nutrition Resolve 2018-022019-02-19 Kasandra kill d 03-18 09:42:00 [place] deficit: pt 10:50: [id number] 00 Nutrition knowledge/s Nutrition Resolve 2018-022019-02-19 Kasandra kill d 03-18 09:42:00 [place] deficit: cg 10:50: [id number] 00 Nutrition nutritional Nutrition Resolve 2018-022019-02-19 Kasandra restriction d 03-18 09:42:00 [place] s 10:50: [id number] 00 Elimination urinary Eliminatio Resolve 2018-022019-01-24 Kasandra incontinenc n d 03-18 10:00:00 [place] e 10:50: [id number] 00 Elimination nausea/vomi Eliminatio Active 2018-02 Kasandra ting n 03-18 [place] 10:50: [id number] 00 Neuro confusion Neuro/Emot Active 2018-02 Kasandra present ion 03-18 [place] 10:50: [id number] 00 Neuro anxiety Neuro/Emot Active 2018-02 Kasandra present ion 03-18 [place] 10:50: [id number] 00 Neuro depressive Neuro/Emot Active 2018-02 Kasandra feelings ion 03-18 [facility] 10:50: [id number] 00 Neuro impaired Neuro/Emot Active 2018-02 Kasandra decision-ma ion 03-18 [facility] 10:50: [id number] 00 Neuro knowledge/s Neuro/Emot Active 2018-02 Kasandra kill ion 03-18 [place] deficit: pt 10:50: [id number] 00 Neuro knowledge/s Neuro/Emot Active 2018-02 Kasandra kill ion 03-18 [place] deficit: cg 10:50: [id number] 00 Activity ADL Activity Active 2018-02 Kasandra assistance 03-18 [place] required 10:50: [id number] 00 Activity self-care Activity Resolve 2018-022019-01-24 Kasandra deficit d 03-18 10:00:00 [place] 10:50: [id number] 00 Safety structural Safety Resolve 2018-022019-01-24 Kasandra barriers d - 10:00:00 [place] present 10:50: [id number] 00 Safety fall risk Safety Resolve 2018-022019-01-24 Kasandra factor d 03-18 10:00:00 [place] present 10:50: [id number] 00 Safety risk for Safety Resolve 2018-022019-01-30 Kasandra hospitaliza d 03-18 14:20:00 [place] tion 10:50: [id number] 00 Safety can be left Safety Active 2018-02 Kasandra alone for 03-18 [place] only short 10:50: [id number] periods 00 Medication oral med Meds Resolve 2018-022019-01-30 Kasandra assistance d 03-18 14:20:00 [place] required 10:50: [id number] 00 Medication knowledge/s Meds Resolve 2018-022019-02-13 Kasandra kill d 03-18 14:02:00 [place] deficit: pt 10:50: [id number] 00 Musculoskel transfer Musculoske Resolve 2018-022019-01-24 Kasandra etal assistance letal d 03-18 10:00:00 [place] required 10:50: [id number] 00 Musculoskel requires Musculoske Resolve 2018-022019-01-24 Lisa etal human letal d 03-20 10:00:00 [place] assist to 13:00: leave home 00 24 Hr Diet nutrition NT: 24Hr Resolve 2018-022019-02-02 Agatha intake Diet d 03-21 11:05:00 [place] deficit 13:00: [id number] 00 24 Hr Diet knowledge/s NT: 24Hr Resolve 2018-022019-02-02 Agatha kill Diet d 03-21 11:05:00 [place] deficit - 13:00: [id number] pt 00 24 Hr Diet knowledge/s NT: 24Hr Resolve 2018-022019-02-02 Agatha kill Diet d 03-21 11:05:00 [place] deficit - 13:00: [id number] cg 00 Nutritional eating NT: Resolve 2018-022019-02-02 Agatha Barrier difficultie Barriers d 03-21 11:05:00 [place] s present 13:00: [id number] 00 Elimination urinary Eliminatio Resolve 2018-022019-01-24 Adri [...] risk for Safety Active 2018-02 Lana hospitaliza - [place] tion 14:00: t 00 [id number] Allergies, Adverse Reactions, Alerts Allergy Name Allergy [...] release morphine ER morphine ER 2018-02 Yes Carolny Unknown Unknown 30 mg 30 mg 03-18 [...] Abe CÁRDENAS tablet tablet hyoscyamine hyoscyamine 2018-02- Carolyn Unknown Unknown 0.125 mg 0.125 mg 03-19 Abe CÁRDENAS sublingual sublingual tablet tablet Amitiza 8 Amitiza 8 2018-02- Yes Carolyn Unknown Unknown mcg capsule mcg capsule 03-19 Abe CÁRDENAS hyoscyamine hyoscyamine 2018-02- Carolyn Unknown Unknown 0.125 mg 0.125 mg 03-20 Abe CÁRDENAS sublingual sublingual tablet tablet Amitiza 24 Amitiza 24 2018-02 Yes Aaron Unknown Unknown mcg capsule mcg capsule 2-03 MD,Murali hyoscyamine hyoscyamine 2018-02- Yes Aaron Unknown Unknown ER 0.375 mg ER 0.375 mg 04-09 ,Murali tablet,exte tablet,exte nded nded release,12 release,12 hr hr clotrimazol clotrimazol 2018-02 Yes Carolyn Unknown Unknown e 1 % e 1 % 04-16 ,Abe topical topical cream cream ondansetron ondansetron 2018-02 Yes Aaron Unknown Unknown 4 mg 4 mg 04-16 ,Murali disintegrat disintegrat ing tablet ing tablet hyoscyamine hyoscyamine 2018-02 Yes Chazyamila Unknown Unknown 0.125 mg 0.125 mg 04-16 ,Murali sublingual sublingual tablet tablet clindamycin clindamycin 2018-02 Yes Carolyn Unknown Unknown HCl 150 mg HCl 150 mg 04-18 ,Abe capsule capsule Vital Signs Vital Name Observation Time Observation Value Comments SYSTOLIC mm[Hg] 2019-01-16 18:08:56 120 mm[Hg] mm[Hg] Method: Stand DIASTOLIC mm[Hg] 2019-01-16 18:08:56 80 mm[Hg] mm[Hg] Method: Stand RESP RATE 2019-02-19 18:09:30 16 /min /min Procedures This patient has no known procedures. Results This patient has no known results.
--- OUTSIDE RECORDS SUMMARY | 2019-03-13 15:32 | XMS REPORT ---
:1940 Author Organization [facility] Care Team Providers Name Role Phone Unavailable [...] Adri disorder, disorder, Malnoske unspecified unspecified RN alf alf Diagnosis Active Adri (current) (current) [place]noske use of use of RN opiate opiate analgesic analgesic Pain frequent Pain Mgmt Active 2018-02 Kasandra pain 03-18 [place] 10:50: [id number] 00 Respiratory dyspnea Respirator Resolve 2018-022019-01-24 Kasandra present y d 03-18 10:00:00 [place] 10:50: [id number] 00 Sensory impaired Sensory Active 2018-02 Kasandra hearing 03-18 [place] 10:50: [id number] 00 Nutrition nutritional Nutrition Active 2018-02 Kasandar risk 03-18 [place] 10:50: [id number] 00 Nutrition knowledge/s Nutrition Active 2018-02 Kasandra kill 03-18 [place] deficit: pt 10:50: [id number] 00 Nutrition knowledge/s Nutrition Active 2018-02 Kasandra kill 03-18 [place] deficit: cg 10:50: [id number] 00 Nutrition nutritional Nutrition Active 2018-02 Kasandra restriction 03-18 [place] s 10:50: [id number] 00 Elimination urinary Eliminatio Resolve 2018-022019-01-24 Kasandra incontinenc n d 03-18 10:00:00 [place] e 10:50: [id number] 00 Elimination nausea/vomi Eliminatio Active 2018-02 Kasanrda ting n 03-18 [place] 10:50: [id number] 00 Neuro confusion Neuro/Emot Active 2018-02 Kasandra present ion 03-18 [place] 10:50: [id number] 00 Neuro anxiety Neuro/Emot Active 2018-02 Kasandra present ion 03-18 [place] 10:50: [id number] 00 Neuro depressive Neuro/Emot Active 2018-02 Kasandra feelings ion 03-18 [facility] 10:50: [id number] 00 Neuro impaired Neuro/Emot Active 2018-02 Kasandra decision-ma ion 03-18 [facility] 10:50: [id number] 00 Neuro knowledge/s Neuro/Emot Active 2018-02 Kasandra kill ion 03-18 [place] deficit: pt 10:50: [id number] 00 Neuro knowledge/s Neuro/Emot Active 2018-02 Kasandra kill ion 03-18 [place] deficit: cg 10:50: [id number] 00 Activity ADL Activity Active 2018-02 Kasandra assistance 03-18 [place] required 10:50: [id number] 00 Activity self-care Activity Resolve 2018-022019-01-24 Kasandra deficit d 03-18 10:00:00 [place] 10:50: [id number] 00 Safety structural Safety Resolve 2018-022019-01-24 Kasandra barriers d 03-18 10:00:00 [place] present 10:50: [id number] 00 Safety fall risk Safety Resolve 2018-022019-01-24 Kasandra factor d 03-18 10:00:00 [place] present 10:50: [id number] 00 Safety risk for Safety Resolve 2018-022019-01-30 Kasandra hospitaliza d 03-18 14:20:00 [place] tion 10:50: [id number] 00 Safety can be left Safety Active 2018-02 Kasandra alone for 03-18 [place] only short 10:50: [id number] periods 00 Medication oral med Meds Resolve 2018-022019-01-30 Kasandra assistance d 03-18 14:20:00 [place] required 10:50: [id number] 00 Medication knowledge/s Meds Resolve 2018-022019-02-13 Kasandra kill d 03-18 14:02:00 [place] deficit: pt 10:50: [id number] 00 Musculoskel transfer Musculoske Resolve 2018-022019-01-24 Kasandra etal assistance letal d 03-18 10:00:00 [place] required 10:50: [id number] 00 Musculoskel requires Musculoske Resolve 2018-022019-01-24 Lisa etal human letal d 03-20 10:00:00 [place] assist to 13:00: leave home 00 24 Hr Diet nutrition NT: 24Hr Resolve 2018-022019-02-02 Agatha intake Diet d 03-21 11:05:00 [place] deficit 13:00: [id number] 00 24 Hr Diet knowledge/s NT: 24Hr Resolve 2018-022019-02-02 Agatha kill Diet d 03-21 11:05:00 [place] deficit - 13:00: [id number] pt 00 24 Hr Diet knowledge/s NT: 24Hr Resolve 2018-022019-02-02 Agatha kill Diet d 03-21 11:05:00 [place] deficit - 13:00: [id number] cg 00 Nutritional eating NT: Resolve 2018-022019-02-02 Agatha Barrier difficultie Barriers d 03-21 11:05:00 [place] s present 13:00: [id number] 00 Elimination urinary Eliminatio Resolve 2018-022019-01-24 Adri [...] hospitaliza 2-20 [place] tion 14:00: t 00 [id number] Allergies, Adverse Reactions, Alerts Allergy Name Allergy [...] Unknown Unknown mcg capsule mcg capsule - ,Murali hyoscyamine hyoscyamine 2018-02 Yes Aaron Unknown Unknown ER 0.375 mg ER 0.375 mg 2-10 ,Murali tablet,exte tablet,exte nded nded release,12 release,12 hr hr clotrimazol clotrimazol 2018-02 Yes Carolyn Unknown Unknown e 1 % e 1 % 04-16 Abe CÁRDENAS topical topical cream cream ondansetron ondansetron 2018-02 Yes Aaron Unknown Unknown 4 mg 4 mg 04-16 MDMurali disintegrat disintegrat ing tablet ing tablet Vital Signs Vital Name Observation Time Observation Value Comments SYSTOLIC mm[Hg] 2019-01-16 18:08:56 120 mm[Hg] mm[Hg] Method: Stand DIASTOLIC mm[Hg] 2019-01-16 18:08:56 80 mm[Hg] mm[Hg] Method: Stand RESP RATE 2019-02-13 18:09:24 16 /min /min Procedures This patient has no known procedures. Results This patient has no known results.
--- OUTSIDE RECORDS SUMMARY | 2019-03-13 15:32 | XMS REPORT ---
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 Active Adri (current) (current) [place] use of use of RN opiate opiate analgesic analgesic Pain frequent Pain Mgmt Resolve 2018-022019-02-27 Kasandra pain d 03-18 10:26:00 [place] 10:50: [id number] 00 Respiratory dyspnea Respirator Resolve 2018-022019-01-24 Kasandra present y d 03-18 10:00:00 [place] 10:50: [id number] 00 Sensory impaired Sensory Active 2018-02 Kasandra hearing 03-18 [place] 10:50: [id number] 00 Nutrition nutritional Nutrition Resolve 2018-022019-02-19 Kasandra risk d 03-18 09:42:00 [place] 10:50: [id number] 00 Nutrition knowledge/s Nutrition Resolve 2018-022019-02-19 Kasandra kill d 03-18 09:42:00 [place] deficit: pt 10:50: [id number] 00 Nutrition knowledge/s Nutrition Resolve 2018-022019-02-19 Kasandra kill d 03-18 09:42:00 [place] deficit: cg 10:50: [id number] 00 Nutrition nutritional Nutrition Resolve 2018-022019-02-19 Kasandra restriction d 03-18 09:42:00 [place] s 10:50: [id number] 00 Elimination urinary Eliminatio Resolve 2018-022019-01-24 Kasandra incontinenc n d 03-18 10:00:00 [place] 10:50: [id number] 00 Elimination nausea/vomi Eliminatio Active 2018-02 Kasandra ting n 03-18 [place] 10:50: [id number] 00 Neuro confusion Neuro/Emot Active 2018-02 Kasandra present ion 03-18 [place] 10:50: [id number] 00 Neuro anxiety Neuro/Emot Active 2018-02 Kasandra present ion 03-18 [place] 10:50: [id number] 00 Neuro depressive Neuro/Emot Active 2018-02 Kasandra feelings ion 03-18 [facility] 10:50: [id number] 00 Neuro impaired Neuro/Emot Active 2018-02 Kasandra decision-ma ion 03-18 [facility] 10:50: [id number] 00 Neuro knowledge/s Neuro/Emot Active 2018-02 Kasadnra kill ion 03-18 [place] deficit: pt 10:50: [id number] 00 Neuro knowledge/s Neuro/Emot Active 2018-02 Kasandra kill ion 03-18 [place] deficit: cg 10:50: [id number] 00 Activity ADL Activity Active 2018-02 Kasandra assistance 03-18 [place] required 10:50: [id number] 00 Activity self-care Activity Resolve 2018-022019-01-24 Kasandra deficit d 03-18 10:00:00 [place] 10:50: [id number] 00 Safety structural Safety Resolve 2018-022019-01-24 Kasandra barriers d - 10:00:00 [place] present 10:50: [id number] 00 Safety fall risk Safety Resolve 2018-022019-01-24 Kasandra factor d 03-18 10:00:00 [place] present 10:50: [id number] 00 Safety risk for Safety Resolve 2018-022019-01-30 Kasandra hospitaliza d 03-18 14:20:00 [place] tion 10:50: [id number] 00 Safety can be left Safety Active 2018-02 Kasandra alone for 03-18 [place] only short 10:50: [id number] periods 00 Medication oral med Meds Resolve 2018-022019-01-30 Kasandra assistance d 03-18 14:20:00 [place] required 10:50: [id number] 00 Medication knowledge/s Meds Resolve 2018-022019-02-13 Kasandra kill d 03-18 14:02:00 [place] deficit: pt 10:50: [id number] 00 Musculoskel transfer Musculoske Resolve 2018-022019-01-24 Kasandra etal assistance letal d 03-18 10:00:00 [place] required 10:50: [id number] 00 Musculoskel requires Musculoske Resolve 2018-022019-01-24 Lisa etal human letal d 03-20 10:00:00 [place] assist to 13:00: leave home 00 24 Hr Diet nutrition NT: 24Hr Resolve 2018-022019-02-02 Agatha intake Diet d 03-21 11:05:00 [place] deficit 13:00: [id number] 00 24 Hr Diet knowledge/s NT: 24Hr Resolve 2018-022019-02-02 Agatha kill Diet d 03-21 11:05:00 [place] deficit - 13:00: [id number] pt 00 24 Hr Diet knowledge/s NT: 24Hr Resolve 2018-022019-02-02 Agatha kill Diet d 03-21 11:05:00 [place] deficit - 13:00: [id number] cg 00 Nutritional eating NT: Resolve 2018-022019-02-02 Agatha Barrier difficultie Barriers d 03-21 11:05:00 [place] s present 13:00: [id number] 00 Elimination urinary Eliminatio Resolve 2018-022019-01-24 Adri [...] 2-20 10:26:00 [place] t[place] 14:00: t 00 [id number] Allergies, Adverse Reactions, Alerts Allergy Name Allergy [...] e 2 mg e 2 mg 03-18 ,Abe tablet tablet omeprazole omeprazole 2018-02 Yes Carolyn [...] Observation Time Observation Value Comments SYSTOLIC mm[Hg] 2019-02-27 18:09:38 134 mm[Hg] mm[Hg] Method: Sit SYSTOLIC mm[Hg] 2019-01-16 18:08:56 120 mm[Hg] mm[Hg] Method: Stand DIASTOLIC mm[Hg] 2019-02-27 18:09:38 80 mm[Hg] mm[Hg] Method: Sit DIASTOLIC mm[Hg] 2019-01-16 18:08:56 80 mm[Hg] mm[Hg] Method: Stand PULSE 2019-02-27 18:09:38 84 /min /min RESP RATE 2019-02-27 18:09:38 16 /min /min TEMP 2019-02-27 18:09:38 98.9 [degF] Procedures This patient has no known procedures. Results This patient has no known results.
--- OUTSIDE RECORDS SUMMARY | 2019-03-13 15:32 | XMS REPORT ---
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) (current) [place] use of use of RN opiate opiate analgesic analgesic Pain frequent Pain Mgmt Resolve 2018-022019-02-27 Kasandra pain d 03-18 10:26:00 [place] 10:50: [id number] 00 Respiratory dyspnea Respirator Resolve 2018-022019-01-24 Kasandra present y d 03-18 10:00:00 [place] 10:50: [id number] 00 Sensory impaired Sensory Active 2018-02 Kasandra hearing 03-18 [place] 10:50: [id number] 00 Nutrition nutritional Nutrition Resolve 2018-022019-02-19 Kasandra risk d 03-18 09:42:00 [place] 10:50: [id number] 00 Nutrition knowledge/s Nutrition Resolve 2018-022019-02-19 Kasandra kill d 03-18 09:42:00 [place] deficit: pt 10:50: [id number] 00 Nutrition knowledge/s Nutrition Resolve 2018-022019-02-19 Kasandra kill d 03-18 09:42:00 [place] deficit: cg 10:50: [id number] 00 Nutrition nutritional Nutrition Resolve 2018-022019-02-19 Kasandra restriction d 03-18 09:42:00 [place] s 10:50: [id number] 00 Elimination urinary Eliminatio Resolve 2018-022019-01-24 Kasandra incontinenc n d 03-18 10:00:00 [place] 10:50: [id number] 00 Elimination nausea/vomi Eliminatio Active 2018-02 Kasandra ting n 03-18 [place] 10:50: [id number] 00 Neuro confusion Neuro/Emot Active 2018-02 Kasandra present ion 03-18 [place] 10:50: [id number] 00 Neuro anxiety Neuro/Emot Active 2018-02 Kasandra present ion 03-18 [place] 10:50: [id number] 00 Neuro depressive Neuro/Emot Active 2018-02 Kasandra feelings ion 03-18 [facility] 10:50: [id number] 00 Neuro impaired Neuro/Emot Active 2018-02 Kasandra decision-ma ion 03-18 [facility] 10:50: [id number] 00 Neuro knowledge/s Neuro/Emot Active 2018-02 Kasandra kill ion 03-18 [place] deficit: pt 10:50: [id number] 00 Neuro knowledge/s Neuro/Emot Active 2018-02 Kasandra kill ion 03-18 [place] deficit: cg 10:50: [id number] 00 Activity ADL Activity Active 2018-02 Kasandra assistance 03-18 [place] required 10:50: [id number] 00 Activity self-care Activity Resolve 2018-022019-01-24 Kasandra deficit d 03-18 10:00:00 [place] 10:50: [id number] 00 Safety structural Safety Resolve 2018-022019-01-24 Kasandra barriers d - 10:00:00 [place] present 10:50: [id number] 00 Safety fall risk Safety Resolve 2018-022019-01-24 Kasandra factor d 03-18 10:00:00 [place] present 10:50: [id number] 00 Safety risk for Safety Resolve 2018-022019-01-30 Kasandra hospitaliza d 03-18 14:20:00 [place] tion 10:50: [id number] 00 Safety can be left Safety Active 2018-02 Kasandra alone for 03-18 [place] only short 10:50: [id number] periods 00 Medication oral med Meds Resolve 2018-022019-01-30 Kasandra assistance d 03-18 14:20:00 [place] required 10:50: [id number] 00 Medication knowledge/s Meds Resolve 2018-022019-02-13 Kasandra kill d 03-18 14:02:00 [place] deficit: pt 10:50: [id number] 00 Musculoskel transfer Musculoske Resolve 2018-022019-01-24 Kasandra etal assistance letal d 03-18 10:00:00 [place] required 10:50: [id number] 00 Musculoskel requires Musculoske Resolve 2018-022019-01-24 Lisa etal human letal d 03-20 10:00:00 [place] assist to 13:00: leave home 00 24 Hr Diet nutrition NT: 24Hr Resolve 2018-022019-02-02 Agatha intake Diet d 03-21 11:05:00 [place] deficit 13:00: [id number] 00 24 Hr Diet knowledge/s NT: 24Hr Resolve 2018-022019-02-02 Agatha kill Diet d 03-21 11:05:00 [place] deficit - 13:00: [id number] pt 00 24 Hr Diet knowledge/s NT: 24Hr Resolve 2018-022019-02-02 Agatha kill Diet d 03-21 11:05:00 [place] deficit - 13:00: [id number] cg 00 Nutritional eating NT: Resolve 2018-022019-02-02 Agatha Barrier difficultie Barriers d 03-21 11:05:00 [place] s present 13:00: [id number] 00 Elimination urinary Eliminatio Resolve 2018-022019-01-24 Adri [...] 2-20 10:26:00 [place] t[place] 14:00: t 00 [id number] Safety risk for Safety Active Lana hospitaliza 03-02 [place] tion 13:30: t 00 [id number] Allergies, Adverse Reactions, Alerts Allergy Name Allergy [...]
--- OUTSIDE RECORDS SUMMARY | 2019-03-13 15:32 | XMS REPORT ---
:1940 Author Organization [facility] Care Team Providers Name Role Phone Unavailable [...] Adri disorder, disorder, Malnoske unspecified unspecified RN nursing home nursing home Diagnosis Active Adri (current) (current) [place] use of use of RN opiate opiate analgesic analgesic Pain frequent Pain Mgmt Active 2018-02 Kasandra pain 03-18 [place] 10:50: [id number] 00 Respiratory dyspnea Respirator Resolve 2018-022019-01-24 Kasandra present y d 03-18 10:00:00 [place] 10:50: [id number] 00 Sensory impaired Sensory Active 2018-02 Kasandra hearing 03-18 [place] 10:50: [id number] 00 Nutrition nutritional Nutrition Active 2018-02 Kasandra risk 03-18 [place] 10:50: [id number] 00 Nutrition knowledge/s Nutrition Active 2018-02 Kasandra kill 03-18 [place] deficit: pt 10:50: [id number] 00 Nutrition knowledge/s Nutrition Active 2018-02 Kasandra kill 03-18 [place] deficit: cg 10:50: [id number] 00 Nutrition nutritional Nutrition Active 2018-02 Kasandra restriction 03-18 [place] s 10:50: [id number] 00 Elimination urinary Eliminatio Resolve 2018-022019-01-24 Kasandra incontinenc n d 03-18 10:00:00 [place] e 10:50: [id number] 00 Elimination nausea/vomi Eliminatio Active 2018-02 Kasandra ting n 03-18 [place] 10:50: [id number] 00 Neuro confusion Neuro/Emot Active 2018-02 Kasandra present ion 03-18 [place] 10:50: [id number] 00 Neuro anxiety Neuro/Emot Active 2018-02 Kasandra present ion 03-18 [place] 10:50: [id number] 00 Neuro depressive Neuro/Emot Active 2018-02 Kasandra feelings ion 03-18 [facility] 10:50: [id number] 00 Neuro impaired Neuro/Emot Active 2018-02 Kasandra decision-ma ion 03-18 [facility] 10:50: [id number] 00 Neuro knowledge/s Neuro/Emot Active 2018-02 Kasandra kill ion 03-18 [place] deficit: pt 10:50: [id number] 00 Neuro knowledge/s Neuro/Emot Active 2018-02 Kasandra kill ion 03-18 [place] deficit: cg 10:50: [id number] 00 Activity ADL Activity Active 2018-02 Kasandra assistance 03-18 [place] required 10:50: [id number] 00 Activity self-care Activity Resolve 2018-022019-01-24 Kasandra deficit d 03-18 10:00:00 [place] 10:50: [id number] 00 Safety structural Safety Resolve 2018-022019-01-24 Kasandra barriers d 03-18 10:00:00 [place] present 10:50: [id number] 00 Safety fall risk Safety Resolve 2018-022019-01-24 Kasandra factor d 03-18 10:00:00 [place] present 10:50: [id number] 00 Safety risk for Safety Resolve 2018-022019-01-30 Kasandra hospitaliza d 03-18 14:20:00 [place] tion 10:50: [id number] 00 Safety can be left Safety Active 2018-02 Kasandra alone for 03-18 [place] only short 10:50: [id number] periods 00 Medication oral med Meds Resolve 2018-022019-01-30 Kasandra assistance d 03-18 14:20:00 [place] required 10:50: [id number] 00 Medication knowledge/s Meds Resolve 2018-022019-02-13 Kasandra kill d 03-18 14:02:00 [place] deficit: pt 10:50: [id number] 00 Musculoskel transfer Musculoske Resolve 2018-022019-01-24 Kasandra etal assistance letal d 03-18 10:00:00 [place] required 10:50: [id number] 00 Musculoskel requires Musculoske Resolve 2018-022019-01-24 Lisa etal human letal d 03-20 10:00:00 [place] assist to 13:00: leave home 00 24 Hr Diet nutrition NT: 24Hr Resolve 2018-022019-02-02 Agatha intake Diet d 03-21 11:05:00 [place] deficit 13:00: [id number] 00 24 Hr Diet knowledge/s NT: 24Hr Resolve 2018-022019-02-02 Agatha kill Diet d 03-21 11:05:00 [place] deficit - 13:00: [id number] pt 00 24 Hr Diet knowledge/s NT: 24Hr Resolve 2018-022019-02-02 Agatha kill Diet d 03-21 11:05:00 [place] deficit - 13:00: [id number] cg 00 Nutritional eating NT: Resolve 2018-022019-02-02 Agatha Barrier difficultie Barriers d 03-21 11:05:00 [place] s present 13:00: [id number] 00 Elimination urinary Eliminatio Resolve 2018-022019-01-24 Adri [...] hospitaliza 2-20 [place] tion 14:00: t 00 [id number] Allergies, Adverse Reactions, Alerts Allergy Name Allergy [...]
--- OUTSIDE RECORDS SUMMARY | 2019-03-13 15:32 | XMS REPORT ---
:1940 Author Organization [facility] Care Team Providers Name Role Phone Unavailable [...] Pain Mgmt Active 2018-02 Kasandra pain 03-18 [place] 10:50: [id number] 00 Respiratory dyspnea Respirator Resolve 2018-022019-01-24 Kasandra present y d 03-18 10:00:00 [place] 10:50: [id number] 00 Sensory impaired Sensory Active 2018-02 Kasandra hearing 03-18 [place] 10:50: [id number] 00 Nutrition nutritional Nutrition Active 2018-02 Kasandra risk 03-18 [place] 10:50: [id number] 00 Nutrition knowledge/s Nutrition Active 2018-02 Kasandra kill 03-18 [place] deficit: pt 10:50: [id number] 00 Nutrition knowledge/s Nutrition Active 2018-02 Kasandra kill 03-18 [place] deficit: cg 10:50: [id number] 00 Nutrition nutritional Nutrition Active 2018-02 Kasandra restriction 03-18 [place] s 10:50: [id number] 00 Elimination urinary Eliminatio Resolve 2018-022019-01-24 Kasandra incontinenc n d 03-18 10:00:00 [place] e 10:50: [id number] 00 Elimination nausea/vomi Eliminatio Active 2018-02 Kasandra ting n 03-18 [place] 10:50: [id number] 00 Neuro confusion Neuro/Emot Active 2018-02 Kasandra present ion 03-18 [place] 10:50: [id number] 00 Neuro anxiety Neuro/Emot Active 2018-02 Kasandra present ion 03-18 [place] 10:50: [id number] 00 Neuro depressive Neuro/Emot Active 2018-02 Kasandra feelings ion 03-18 [facility] 10:50: [id number] 00 Neuro impaired Neuro/Emot Active 2018-02 Kasandra decision-ma ion 03-18 [facility] 10:50: [id number] 00 Neuro knowledge/s Neuro/Emot Active 2018-02 Kasandra kill ion 03-18 [place] deficit: pt 10:50: [id number] 00 Neuro knowledge/s Neuro/Emot Active 2018-02 Kasandra kill ion 03-18 [place] deficit: cg 10:50: [id number] 00 Activity ADL Activity Active 2018-02 Kasandra assistance 03-18 [place] required 10:50: [id number] 00 Activity self-care Activity Resolve 2018-022019-01-24 Kasandra deficit d 03-18 10:00:00 [place] 10:50: [id number] 00 Safety structural Safety Resolve 2018-022019-01-24 Kasandra barriers d 03-18 10:00:00 [place] present 10:50: [id number] 00 Safety fall risk Safety Resolve 2018-022019-01-24 Kasandra factor d 03-18 10:00:00 [place] present 10:50: [id number] 00 Safety risk for Safety Resolve 2018-022019-01-30 Kasandra hospitaliza d 03-18 14:20:00 [place] tion 10:50: [id number] 00 Safety can be left Safety Active 2018-02 Kasandra alone for 03-18 [place] only short 10:50: [id number] periods 00 Medication oral med Meds Resolve 2018-022019-01-30 Kasandra assistance d 03-18 14:20:00 [place] required 10:50: [id number] 00 Medication knowledge/s Meds Resolve 2018-022019-02-13 Kasandra kill d 03-18 14:02:00 [place] deficit: pt 10:50: [id number] 00 Musculoskel transfer Musculoske Resolve 2018-022019-01-24 Kasandra etal assistance letal d 03-18 10:00:00 [place] required 10:50: [id number] 00 Musculoskel requires Musculoske Resolve 2018-022019-01-24 Lisa etal human letal d 03-20 10:00:00 [place] assist to 13:00: leave home 00 24 Hr Diet nutrition NT: 24Hr Resolve 2018-022019-02-02 Agatha intake Diet d 03-21 11:05:00 [place] deficit 13:00: [id number] 00 24 Hr Diet knowledge/s NT: 24Hr Resolve 2018-022019-02-02 Agatha kill Diet d 03-21 11:05:00 [place] deficit - 13:00: [id number] pt 00 24 Hr Diet knowledge/s NT: 24Hr Resolve 2018-022019-02-02 Agatha kill Diet d 03-21 11:05:00 [place] deficit - 13:00: [id number] cg 00 Nutritional eating NT: Resolve 2018-022019-02-02 Agatha Barrier difficultie Barriers d 03-21 11:05:00 [place] s present 13:00: [id number] 00 Elimination urinary Eliminatio Resolve 2018-022019-01-24 Adri [...] dyspnea Respirator Active 2018-02 Adri present y - Malnoske 14:02: RN 00 Allergies, Adverse Reactions, Alerts Allergy Name [...] capsule mcg capsule 04-02 ,Murali hyoscyamine hyoscyamine 2018-02 Yes Aaron Unknown Unknown ER 0.375 mg ER 0.375 mg 2- MD,Murali tablet,exte tablet,exte nded nded release,12 release,12 hr hr clotrimazol clotrimazol 2018-02 Yes Carolyn Unknown Unknown e 1 % e 1 % 04-16 Abe CÁRDENAS topical topical cream cream ondansetron ondansetron 2018-02 Yes [place] Unknown Unknown 4 mg 4 mg 04-16 Murali CÁRDENAS disintegrat disintegrat ing tablet ing tablet Vital Signs Vital Name Observation Time Observation Value Comments SYSTOLIC mm[Hg] 2019-02-13 18:09:24 136 mm[Hg] mm[Hg] Method: Sit SYSTOLIC mm[Hg] 2019-01-16 18:08:56 120 mm[Hg] mm[Hg] Method: Stand DIASTOLIC mm[Hg] 2019-02-13 18:09:24 78 mm[Hg] mm[Hg] Method: Sit DIASTOLIC mm[Hg] 2019-01-16 18:08:56 80 mm[Hg] mm[Hg] Method: Stand PULSE 2019-02-13 18:09:24 86 /min /min RESP RATE 2019-02-13 18:09:24 16 /min /min TEMP 2019-02-13 18:09:24 98.4 [degF] Procedures This patient has no known procedures. Results This patient has no known results.
--- OUTSIDE RECORDS SUMMARY | 2019-03-13 15:32 | XMS REPORT ---
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 Diagnosis Active Adri (current) (current) [place]noske use of use of RN opiate opiate analgesic analgesic Pain frequent Pain Mgmt Active 2018-02 Kasandra pain 03-18 [place] 10:50: [id number] 00 Respiratory dyspnea Respirator Resolve 2018-022019-01-24 Kasandra present y d 03-18 10:00:00 [place] 10:50: [id number] 00 Sensory impaired Sensory Active 2018-02 Kasandra hearing 03-18 [place] 10:50: [id number] 00 Nutrition nutritional Nutrition Active 2018-02 Kasandra risk 03-18 [place] 10:50: [id number] 00 Nutrition knowledge/s Nutrition Active 2018-02 Kasandra kill 03-18 [place] deficit: pt 10:50: [id number] 00 Nutrition knowledge/s Nutrition Active 2018-02 Kasandra kill 03-18 [place] deficit: cg 10:50: [id number] 00 Nutrition nutritional Nutrition Active 2018-02 Kasandra restriction 03-18 [place] s 10:50: [id number] 00 Elimination urinary Eliminatio Resolve 2018-022019-01-24 Kasandra incontinenc n d 03-18 10:00:00 [place] e 10:50: [id number] 00 Elimination nausea/vomi Eliminatio Active 2018-02 Kasandra ting n 03-18 [place] 10:50: [id number] 00 Neuro confusion Neuro/Emot Active 2018-02 Kasandra present ion 03-18 [place] 10:50: [id number] 00 Neuro anxiety Neuro/Emot Active 2018-02 Kasandra present ion 03-18 [place] 10:50: [id number] 00 Neuro depressive Neuro/Emot Active 2018-02 Kasandra feelings ion 03-18 [facility] 10:50: [id number] 00 Neuro impaired Neuro/Emot Active 2018-02 Kasandra decision-ma ion 03-18 [facility] 10:50: [id number] 00 Neuro knowledge/s Neuro/Emot Active 2018-02 Kasandra kill ion 03-18 [place] deficit: pt 10:50: [id number] 00 Neuro knowledge/s Neuro/Emot Active 2018-02 Kasandra kill ion 03-18 [place] deficit: cg 10:50: [id number] 00 Activity ADL Activity Active 2018-02 Kasandra assistance 03-18 [place] required 10:50: [id number] 00 Activity self-care Activity Resolve 2018-022019-01-24 Kasandra deficit d 03-18 10:00:00 [place] 10:50: [id number] 00 Safety structural Safety Resolve 2018-022019-01-24 Kasandra barriers d 03-18 10:00:00 [place] present 10:50: [id number] 00 Safety fall risk Safety Resolve 2018-022019-01-24 Kasandra factor d 03-18 10:00:00 [place] present 10:50: [id number] 00 Safety risk for Safety Resolve 2018-022019-01-30 Kasandra hospitaliza d 03-18 14:20:00 [place] tion 10:50: [id number] 00 Safety can be left Safety Active 2018-02 Kasandra alone for 03-18 [place] only short 10:50: [id number] periods 00 Medication oral med Meds Resolve 2018-022019-01-30 Kasandra assistance d 03-18 14:20:00 [place] required 10:50: [id number] 00 Medication knowledge/s Meds Resolve 2018-022019-02-13 Kasandra kill d 03-18 14:02:00 [place] deficit: pt 10:50: [id number] 00 Musculoskel transfer Musculoske Resolve 2018-022019-01-24 Kasandra etal assistance letal d 03-18 10:00:00 [place] required 10:50: [id number] 00 Musculoskel requires Musculoske Resolve 2018-022019-01-24 Lisa etal human letal d 03-20 10:00:00 [place] assist to 13:00: leave home 00 24 Hr Diet nutrition NT: 24Hr Resolve 2018-022019-02-02 Agatha intake Diet d 03-21 11:05:00 [place] deficit 13:00: [id number] 00 24 Hr Diet knowledge/s NT: 24Hr Resolve 2018-022019-02-02 Agatha kill Diet d 03-21 11:05:00 [place] deficit - 13:00: [id number] pt 00 24 Hr Diet knowledge/s NT: 24Hr Resolve 2018-022019-02-02 Agatha kill Diet d 03-21 11:05:00 [place] deficit - 13:00: [id number] cg 00 Nutritional eating NT: Resolve 2018-022019-02-02 Agatha Barrier difficultie Barriers d 03-21 11:05:00 [place] s present 13:00: [id number] 00 Elimination urinary Eliminatio Resolve 2018-022019-01-24 Adri [...] 25 mg e 25 mg 03-18 Abe CÁRDNEAS tablet tablet hyoscyamine hyoscyamine 2018-02- Yes Carolyn [...]
--- OUTSIDE RECORDS SUMMARY | 2019-03-13 15:32 | XMS REPORT ---
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) (current) [place] use of use of RN opiate opiate analgesic analgesic Pain frequent Pain Mgmt Active 2018-02 Kasandra pain 03-18 [place] 10:50: [id number] 00 Respiratory dyspnea Respirator Resolve 2018-022019-01-24 Kasandra present y d 03-18 10:00:00 [place] 10:50: [id number] 00 Sensory impaired Sensory Active 2018-02 Kasandra hearing 03-18 [place] 10:50: [id number] 00 Nutrition nutritional Nutrition Resolve 2018-022019-02-19 Kasandra risk d 03-18 09:42:00 [place] 10:50: [id number] 00 Nutrition knowledge/s Nutrition Resolve 2018-022019-02-19 Kasandra kill d 03-18 09:42:00 [place] deficit: pt 10:50: [id number] 00 Nutrition knowledge/s Nutrition Resolve 2018-022019-02-19 Kasandra kill d 03-18 09:42:00 [place] deficit: cg 10:50: [id number] 00 Nutrition nutritional Nutrition Resolve 2018-022019-02-19 Kasandra restriction d 03-18 09:42:00 [place] s 10:50: [id number] 00 Elimination urinary Eliminatio Resolve 2018-022019-01-24 Kasandra incontinenc n d 03-18 10:00:00 [place] e 10:50: [id number] 00 Elimination nausea/vomi Eliminatio Active 2018-02 Kasandra ting n 03-18 [place] 10:50: [id number] 00 Neuro confusion Neuro/Emot Active 2018-02 Kasandra present ion 03-18 [place] 10:50: [id number] 00 Neuro anxiety Neuro/Emot Active 2018-02 Kasandra present ion 03-18 [place] 10:50: [id number] 00 Neuro depressive Neuro/Emot Active 2018-02 Kasandra feelings ion 03-18 [facility] 10:50: [id number] 00 Neuro impaired Neuro/Emot Active 2018-02 Kasandra decision-ma ion 03-18 [facility] 10:50: [id number] 00 Neuro knowledge/s Neuro/Emot Active 2018-02 Kasandra kill ion 03-18 [place] deficit: pt 10:50: [id number] 00 Neuro knowledge/s Neuro/Emot Active 2018-02 Kasandra kill ion 03-18 [place] deficit: cg 10:50: [id number] 00 Activity ADL Activity Active 2018-02 Kasandra assistance 03-18 [place] required 10:50: [id number] 00 Activity self-care Activity Resolve 2018-022019-01-24 Kasandra deficit d 03-18 10:00:00 [place] 10:50: [id number] 00 Safety structural Safety Resolve 2018-022019-01-24 Kasandra barriers d - 10:00:00 [place] present 10:50: [id number] 00 Safety fall risk Safety Resolve 2018-022019-01-24 Kasandra factor d 03-18 10:00:00 [place] present 10:50: [id number] 00 Safety risk for Safety Resolve 2018-022019-01-30 Kasandra hospitaliza d 03-18 14:20:00 [place] tion 10:50: [id number] 00 Safety can be left Safety Active 2018-02 Kasandra alone for 03-18 [place] only short 10:50: [id number] periods 00 Medication oral med Meds Resolve 2018-022019-01-30 Kasandra assistance d 03-18 14:20:00 [place] required 10:50: [id number] 00 Medication knowledge/s Meds Resolve 2018-022019-02-13 Kasandra kill d 03-18 14:02:00 [place] deficit: pt 10:50: [id number] 00 Musculoskel transfer Musculoske Resolve 2018-022019-01-24 Kasandra etal assistance letal d 03-18 10:00:00 [place] required 10:50: [id number] 00 Musculoskel requires Musculoske Resolve 2018-022019-01-24 Lisa etal human letal d 03-20 10:00:00 [place] assist to 13:00: leave home 00 24 Hr Diet nutrition NT: 24Hr Resolve 2018-022019-02-02 Agatha intake Diet d 03-21 11:05:00 [place] deficit 13:00: [id number] 00 24 Hr Diet knowledge/s NT: 24Hr Resolve 2018-022019-02-02 Agatha kill Diet d 03-21 11:05:00 [place] deficit - 13:00: [id number] pt 00 24 Hr Diet knowledge/s NT: 24Hr Resolve 2018-022019-02-02 Agatha kill Diet d 03-21 11:05:00 [place] deficit - 13:00: [id number] cg 00 Nutritional eating NT: Resolve 2018-022019-02-02 Agatha Barrier difficultie Barriers d 03-21 11:05:00 [place] s present 13:00: [id number] 00 Elimination urinary Eliminatio Resolve 2018-022019-01-24 Adri [...] hospitaliza - [facility] tion 14:00: t 00 [id number] Allergies, Adverse Reactions, Alerts Allergy Name Allergy [...] capsule mcg capsule 2-03 MD,Murali hyoscyamine hyoscyamine 2018-02 2019- Yes Aaron Unknown Unknown ER 0.375 mg ER 0.375 mg 2- MD,Murali tablet,exte tablet,exte nded nded release,12 release,12 hr hr clotrimazol clotrimazol 2018-02 Yes Carolyn Unknown Unknown e 1 % e 1 % 04-16 ,Abe topical topical cream cream ondansetron ondansetron 2018-02 Yes Aaron Unknown Unknown 4 mg 4 mg 2 MD,Murali disintegrat disintegrat ing tablet ing tablet hyoscyamine hyoscyamine 2018-02 Yes Aaron Unknown Unknown 0.125 mg 0.125 mg 04-16 MD,Murali sublingual sublingual tablet tablet clindamycin clindamycin 2018-02 [...]
--- OUTSIDE RECORDS SUMMARY | 2019-03-13 15:32 | XMS REPORT ---
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 Diagnosis Active Adri (current) (current) [place] use of use of RN opiate opiate analgesic analgesic Pain frequent Pain Mgmt Active 2018-02 Kasandra pain 03-18 [place] 10:50: [id number] 00 Respiratory dyspnea Respirator Resolve 2018-022019-01-24 Kasandra present y d 03-18 10:00:00 [place] 10:50: [id number] 00 Sensory impaired Sensory Active 2018-02 Kasandra hearing 03-18 [place] 10:50: [id number] 00 Nutrition nutritional Nutrition Resolve 2018-022019-02-19 Kasandra risk d 03-18 09:42:00 [place] 10:50: [id number] 00 Nutrition knowledge/s Nutrition Resolve 2018-022019-02-19 Kasandra kill d 03-18 09:42:00 [place] deficit: pt 10:50: [id number] 00 Nutrition knowledge/s Nutrition Resolve 2018-022019-02-19 Kasandra kill d 03-18 09:42:00 [place] deficit: cg 10:50: [id number] 00 Nutrition nutritional Nutrition Resolve 2018-022019-02-19 Kasandra restriction d 03-18 09:42:00 [place] s 10:50: [id number] 00 Elimination urinary Eliminatio Resolve 2018-022019-01-24 Kasandra incontinenc n d 03-18 10:00:00 [place] e 10:50: [id number] 00 Elimination nausea/vomi Eliminatio Active 2018-02 Kasandra ting n 03-18 [place] 10:50: [id number] 00 Neuro confusion Neuro/Emot Active 2018-02 Kasandra present ion 03-18 [place] 10:50: [id number] 00 Neuro anxiety Neuro/Emot Active 2018-02 Kasandra present ion 03-18 [place] 10:50: [id number] 00 Neuro depressive Neuro/Emot Active 2018-02 Kasandra feelings ion 03-18 [facility] 10:50: [id number] 00 Neuro impaired Neuro/Emot Active 2018-02 Kasandra decision-ma ion 03-18 [facility] 10:50: [id number] 00 Neuro knowledge/s Neuro/Emot Active 2018-02 Kasandra kill ion 03-18 [place] deficit: pt 10:50: [id number] 00 Neuro knowledge/s Neuro/Emot Active 2018-02 Kasandra kill ion 03-18 [place] deficit: cg 10:50: [id number] 00 Activity ADL Activity Active 2018-02 Kasandra assistance 03-18 [place] required 10:50: [id number] 00 Activity self-care Activity Resolve 2018-022019-01-24 [place] deficit d 03-18 10:00:00 [place] 10:50: [id number] 00 Safety structural Safety Resolve 2018-022019-01-24 Kasandra barriers d - 10:00:00 [place] present 10:50: [id number] 00 Safety fall risk Safety Resolve 2018-022019-01-24 Kasandra factor d 03-18 10:00:00 [place] present 10:50: [id number] 00 Safety risk for Safety Resolve 2018-022019-01-30 Kasandra hospitaliza d 03-18 14:20:00 [place] tion 10:50: [id number] 00 Safety can be left Safety Active 2018-02 Kasandra alone for 03-18 [place] only short 10:50: [id number] periods 00 Medication oral med Meds Resolve 2018-022019-01-30 [place] assistance d 03-18 14:20:00 [place] required 10:50: [id number] 00 Medication knowledge/s Meds Resolve 2018-022019-02-13 [place] kill d 03-18 14:02:00 [place] deficit: pt 10:50: [id number] 00 Musculoskel transfer Musculoske Resolve 2018-022019-01-24 Kasandra etal assistance letal d 03-18 10:00:00 [place] required 10:50: [id number] 00 Musculoskel requires Musculoske Resolve 2018-022019-01-24 Lisa etal human letal d 03-20 10:00:00 [place] assist to 13:00: leave home 00 24 Hr Diet nutrition NT: 24Hr Resolve 2018-022019-02-02 Agatha intake Diet d 03-21 11:05:00 [place] deficit 13:00: [id number] 00 24 Hr Diet knowledge/s NT: 24Hr Resolve 2018-022019-02-02 Agatha kill Diet d 03-21 11:05:00 [place] deficit - 13:00: [id number] pt 00 24 Hr Diet knowledge/s NT: 24Hr Resolve 2018-022019-02-02 Agatha kill Diet d 03-21 11:05:00 [place] deficit - 13:00: [id number] cg 00 Nutritional eating NT: Resolve 2018-022019-02-02 Agatha Barrier difficultie Barriers d 03-21 11:05:00 [place] s present 13:00: [id number] 00 Elimination urinary Eliminatio Resolve 2018-022019-01-24 Adri [...] hospitaliza - [facility] tion 14:00: t 00 [id number] Allergies, Adverse Reactions, Alerts Allergy Name Allergy [...]
--- OUTSIDE RECORDS SUMMARY | 2019-03-13 15:32 | XMS REPORT ---
:1940 Author Organization [facility] Care Team Providers Name Role Phone Unavailable [...] Adri disorder, disorder, [place] unspecified unspecified RN jail jail Diagnosis Active Adri (current) (current) [place] use of use of RN opiate opiate analgesic analgesic Pain frequent Pain Mgmt Active 2018-02 Kasandra pain 03-18 [place] 10:50: [id number] 00 Respiratory dyspnea Respirator Resolve 2018-022019-01-24 Kasandra present y d 03-18 10:00:00 [place] 10:50: [id number] 00 Sensory impaired Sensory Active 2018-02 Kasandra hearing 03-18 [place] 10:50: [id number] 00 Nutrition nutritional Nutrition Active 2018-02 Kasandra risk 03-18 [place] 10:50: [id number] 00 Nutrition knowledge/s Nutrition Active 2018-02 Kasandra kill 03-18 [place] deficit: pt 10:50: [id number] 00 Nutrition knowledge/s Nutrition Active 2018-02 Kasandra kill 03-18 [place] deficit: cg 10:50: [id number] 00 Nutrition nutritional Nutrition Active 2018-02 Kasandra restriction 03-18 [place] s 10:50: [id number] 00 Elimination urinary Eliminatio Resolve 2018-022019-01-24 Kasandra incontinenc n d 03-18 10:00:00 [place] e 10:50: [id number] 00 Elimination nausea/vomi Eliminatio Active 2018-02 Kasandra ting n 03-18 [place] 10:50: [id number] 00 Neuro confusion Neuro/Emot Active 2018-02 Kasandra present ion 03-18 [place] 10:50: [id number] 00 Neuro anxiety Neuro/Emot Active 2018-02 Kasandra present ion 03-18 [place] 10:50: [id number] 00 Neuro depressive Neuro/Emot Active 2018-02 Kasandra feelings ion 03-18 [facility] 10:50: [id number] 00 Neuro impaired Neuro/Emot Active 2018-02 Kasandra decision-ma ion 03-18 [facility] 10:50: [id number] 00 Neuro knowledge/s Neuro/Emot Active 2018-02 Kasandra kill ion 03-18 [place] deficit: pt 10:50: [id number] 00 Neuro knowledge/s Neuro/Emot Active 2018-02 Kasandra kill ion 03-18 [place] deficit: cg 10:50: [id number] 00 Activity ADL Activity Active 2018-02 Kasandra assistance 03-18 [place] required 10:50: [id number] 00 Activity self-care Activity Resolve 2018-022019-01-24 Kasandra deficit d 03-18 10:00:00 [place] 10:50: [id number] 00 Safety structural Safety Resolve 2018-022019-01-24 Kasandra barriers d 03-18 10:00:00 [place] present 10:50: [id number] 00 Safety fall risk Safety Resolve 2018-022019-01-24 Kasandra factor d 03-18 10:00:00 [place] present 10:50: [id number] 00 Safety risk for Safety Resolve 2018-022019-01-30 Kasandra hospitaliza d 03-18 14:20:00 [place] tion 10:50: [id number] 00 Safety can be left Safety Active 2018-02 Kasandra alone for 03-18 [place] only short 10:50: [id number] periods 00 Medication oral med Meds Resolve 2018-022019-01-30 Kasandra assistance d 03-18 14:20:00 [place] required 10:50: [id number] 00 Medication knowledge/s Meds Active 2018-02 Kasandra kill 03-18 [place] deficit: pt 10:50: [id number] 00 Musculoskel transfer Musculoske Resolve 2018-022019-01-24 Kasandra etal assistance letal d 03-18 10:00:00 [place] required 10:50: [id number] 00 Musculoskel requires Musculoske Resolve 2018-022019-01-24 Lisa etal human letal d 03-20 10:00:00 [place] assist to 13:00: leave home 00 24 Hr Diet nutrition NT: 24Hr Resolve 2018-022019-02-02 Agatha intake Diet d 03-21 11:05:00 [place] deficit 13:00: [id number] 00 24 Hr Diet knowledge/s NT: 24Hr Resolve 2018-022019-02-02 Agatha kill Diet d 03-21 11:05:00 [place] deficit - 13:00: [id number] pt 00 24 Hr Diet knowledge/s NT: 24Hr Resolve 2018-022019-02-02 Agatha kill Diet d 03-21 11:05:00 [place] deficit - 13:00: [id number] cg 00 Nutritional eating NT: Resolve 2018-022019-02-02 Agatha Barrier difficultie Barriers d 03-21 11:05:00 [place] s present 13:00: [id number] 00 Elimination urinary Eliminatio Resolve 2018-022019-01-24 Adri [...] tion 10:30: 00 Medication oral med Meds Active 2018-02 Lisa assistance 04-12 [place] required 10:30: 00 Respiratory dyspnea Respirator Active 2018-02 Adri present y 2-17 [place] 14:02: RN 00 Allergies, Adverse Reactions, [...] ER 0.375 mg ER 0.375 mg 2- ,Murali tablet,exte tablet,exte nded nded release,12 release,12 hr hr clotrimazol clotrimazol 2018-02 Yes Carolyn Unknown Unknown e 1 % e 1 % 04-16 Abe CÁRDENAS topical topical cream cream Vital Signs Vital Name Observation Time Observation [...]
--- OUTSIDE RECORDS SUMMARY | 2019-03-13 15:32 | XMS REPORT ---
:1940 Author Organization [facility] Care Team Providers Name Role Phone Unavailable [...] Pain Mgmt Active 2018-02 Kasandra pain 03-18 [place] 10:50: [id number] 00 Respiratory dyspnea Respirator Resolve 2018-022019-01-24 Kasandra present y d 03-18 10:00:00 [place] 10:50: [id number] 00 Sensory impaired Sensory Active 2018-02 Kasandra hearing 03-18 [place] 10:50: [id number] 00 Nutrition nutritional Nutrition Active 2018-02 Kasandra risk 03-18 [place] 10:50: [id number] 00 Nutrition knowledge/s Nutrition Active 2018-02 Kasandra kill 03-18 [place] deficit: pt 10:50: [id number] 00 Nutrition knowledge/s Nutrition Active 2018-02 Kasandra kill 03-18 [place] deficit: cg 10:50: [id number] 00 Nutrition nutritional Nutrition Active 2018-02 Kasandra restriction 03-18 [place] s 10:50: [id number] 00 Elimination urinary Eliminatio Resolve 2018-022019-01-24 Kasandra incontinenc n d 03-18 10:00:00 [place] e 10:50: [id number] 00 Elimination nausea/vomi Eliminatio Active 2018-02 Kasandra ting n 03-18 [place] 10:50: [id number] 00 Neuro confusion Neuro/Emot Active 2018-02 Kasandra present ion 03-18 [place] 10:50: [id number] 00 Neuro anxiety Neuro/Emot Active 2018-02 Kasandra present ion 03-18 [place] 10:50: [id number] 00 Neuro depressive Neuro/Emot Active 2018-02 Kasandra feelings ion 03-18 [facility] 10:50: [id number] 00 Neuro impaired Neuro/Emot Active 2018-02 Kasandra decision-ma ion 03-18 [facility] 10:50: [id number] 00 Neuro knowledge/s Neuro/Emot Active 2018-02 Kasandra kill ion 03-18 [place] deficit: pt 10:50: [id number] 00 Neuro knowledge/s Neuro/Emot Active 2018-02 Kasandra kill ion 03-18 [place] deficit: cg 10:50: [id number] 00 Activity ADL Activity Active 2018-02 Kasandra assistance 03-18 [place] required 10:50: [id number] 00 Activity self-care Activity Resolve 2018-022019-01-24 Kasandra deficit d 03-18 10:00:00 [place] 10:50: [id number] 00 Safety structural Safety Resolve 2018-022019-01-24 Kasandra barriers d 03-18 10:00:00 [place] present 10:50: [id number] 00 Safety fall risk Safety Resolve 2018-022019-01-24 Kasandra factor d 03-18 10:00:00 [place] present 10:50: [id number] 00 Safety risk for Safety Resolve 2018-022019-01-30 Kasandra hospitaliza d 03-18 14:20:00 [place] tion 10:50: [id number] 00 Safety can be left Safety Active 2018-02 Kasandra alone for 03-18 [place] only short 10:50: [id number] periods 00 Medication oral med Meds Resolve 2018-022019-01-30 Kasandra assistance d 03-18 14:20:00 [place] required 10:50: [id number] 00 Medication knowledge/s Meds Resolve 2018-022019-02-13 Kasandra kill d 03-18 14:02:00 [place] deficit: pt 10:50: [id number] 00 Musculoskel transfer Musculoske Resolve 2018-022019-01-24 Kasandra etal assistance letal d 03-18 10:00:00 [place] required 10:50: [id number] 00 Musculoskel requires Musculoske Resolve 2018-022019-01-24 Lisa etal human letal d 03-20 10:00:00 [place] assist to 13:00: leave home 00 24 Hr Diet nutrition NT: 24Hr Resolve 2018-022019-02-02 Agatha intake Diet d 03-21 11:05:00 [place] deficit 13:00: [id number] 00 24 Hr Diet knowledge/s NT: 24Hr Resolve 2018-022019-02-02 Agatha kill Diet d 03-21 11:05:00 [place] deficit - 13:00: [id number] pt 00 24 Hr Diet knowledge/s NT: 24Hr Resolve 2018-022019-02-02 Agatha kill Diet d 03-21 11:05:00 [place] deficit - 13:00: [id number] cg 00 Nutritional eating NT: Resolve 2018-022019-02-02 Agatha Barrier difficultie Barriers d 03-21 11:05:00 [place] s present 13:00: [id number] 00 Elimination urinary Eliminatio Resolve 2018-022019-01-24 Adri [...] hospitaliza 2-20 [place] tion 14:00: t 00 [id number] Allergies, Adverse Reactions, Alerts Allergy Name Allergy [...] sublingual tablet tablet ALPRAZolam ALPRAZolam 2018-02 Yes Carloyn Unknown Unknown 0.25 mg 0.25 mg 03-18 [...] Unknown 0.125 mg 0.125 mg 03-20 12- bAe CÁRDENAS sublingual sublingual tablet tablet Amitiza 24 [...]
--- OUTSIDE RECORDS SUMMARY | 2019-03-13 15:32 | XMS REPORT ---
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 Diagnosis Active Adri (current) (current) [place] use of use of RN opiate opiate analgesic analgesic Pain frequent Pain Mgmt Active 2018-02 Kasandra pain 03-18 [place] 10:50: [id number] 00 Respiratory dyspnea Respirator Resolve 2018-022019-01-24 Kasandra present y d 03-18 10:00:00 [place] 10:50: [id number] 00 Sensory impaired Sensory Active 2018-02 Kasandra hearing 03-18 [place] 10:50: [id number] 00 Nutrition nutritional Nutrition Resolve 2018-022019-02-19 Kasandra risk d 03-18 09:42:00 [place] 10:50: [id number] 00 Nutrition knowledge/s Nutrition Resolve 2018-022019-02-19 Kasandra kill d 03-18 09:42:00 [place] deficit: pt 10:50: [id number] 00 Nutrition knowledge/s Nutrition Resolve 2018-022019-02-19 Kasandra kill d 03-18 09:42:00 [place] deficit: cg 10:50: [id number] 00 Nutrition nutritional Nutrition Resolve 2018-022019-02-19 Kasandra restriction d 03-18 09:42:00 [place] s 10:50: [id number] 00 Elimination urinary Eliminatio Resolve 2018-022019-01-24 Kasandra incontinenc n d 03-18 10:00:00 [place] e 10:50: [id number] 00 Elimination nausea/vomi Eliminatio Active 2018-02 Kasandra ting n 03-18 [place] 10:50: [id number] 00 Neuro confusion Neuro/Emot Active 2018-02 Kasandra present ion 03-18 [place] 10:50: [id number] 00 Neuro anxiety Neuro/Emot Active 2018-02 Kasandra present ion 03-18 [place] 10:50: [id number] 00 Neuro depressive Neuro/Emot Active 2018-02 Kasandra feelings ion 03-18 [facility] 10:50: [id number] 00 Neuro impaired Neuro/Emot Active 2018-02 Kasandra decision-ma ion 03-18 [facility] 10:50: [id number] 00 Neuro knowledge/s Neuro/Emot Active 2018-02 Kasandra kill ion 03-18 [place] deficit: pt 10:50: [id number] 00 Neuro knowledge/s Neuro/Emot Active 2018-02 Kasandra kill ion 03-18 [place] deficit: cg 10:50: [id number] 00 Activity ADL Activity Active 2018-02 Kasandra assistance 03-18 [place] required 10:50: [id number] 00 Activity self-care Activity Resolve 2018-022019-01-24 Kasandra deficit d 03-18 10:00:00 [place] 10:50: [id number] 00 Safety structural Safety Resolve 2018-022019-01-24 Kasandra barriers d - 10:00:00 [place] present 10:50: [id number] 00 Safety fall risk Safety Resolve 2018-022019-01-24 Kasandra factor d 03-18 10:00:00 [place] present 10:50: [id number] 00 Safety risk for Safety Resolve 2018-022019-01-30 Kasandra hospitaliza d 03-18 14:20:00 [place] tion 10:50: [id number] 00 Safety can be left Safety Active 2018-02 Kasandra alone for 03-18 [place] only short 10:50: [id number] periods 00 Medication oral med Meds Resolve 2018-022019-01-30 Kasandra assistance d 03-18 14:20:00 [place] required 10:50: [id number] 00 Medication knowledge/s Meds Resolve 2018-022019-02-13 Kasandra kill d 03-18 14:02:00 [place] deficit: pt 10:50: [id number] 00 Musculoskel transfer Musculoske Resolve 2018-022019-01-24 Kasandra etal assistance letal d 03-18 10:00:00 [place] required 10:50: [id number] 00 Musculoskel requires Musculoske Resolve 2018-022019-01-24 Lisa etal human letal d 03-20 10:00:00 [place] assist to 13:00: leave home 00 24 Hr Diet nutrition NT: 24Hr Resolve 2018-022019-02-02 Agatha intake Diet d 03-21 11:05:00 [place] deficit 13:00: [id number] 00 24 Hr Diet knowledge/s NT: 24Hr Resolve 2018-022019-02-02 Agatha kill Diet d 03-21 11:05:00 [place] deficit - 13:00: [id number] pt 00 24 Hr Diet knowledge/s NT: 24Hr Resolve 2018-022019-02-02 Agatha kill Diet d 03-21 11:05:00 [place] deficit - 13:00: [id number] cg 00 Nutritional eating NT: Resolve 2018-022019-02-02 Agatha Barrier difficultie Barriers d 03-21 11:05:00 [place] s present 13:00: [id number] 00 Elimination urinary Eliminatio Resolve 2018-022019-01-24 Adri [...] hospitaliza - [facility] tion 14:00: t 00 [id number] Allergies, Adverse Reactions, Alerts Allergy Name Allergy [...]
--- OUTSIDE RECORDS SUMMARY | 2019-03-13 15:33 | XMS REPORT ---
:1940 Author Organization [facility] Care Team Providers Name Role Phone Unavailable Unavailable Unavailable Problems Condition Condition Condition Status Onset Resolution Last Treating Comments Name Details Category Date Date Treatment Clinician Date Pain frequent Pain Mgmt Active 2018-02 Kasandra pain 03-18 [place] 10:50: [id number] 00 Respiratory dyspnea Respirator Resolve 2018-022019-01-24 Kasandra present y d 03-18 10:00:00 [place] 10:50: [id number] 00 Sensory impaired Sensory Active 2018-02 Kasandra hearing 03-18 [place] 10:50: [id number] 00 Nutrition nutritional Nutrition Active 2018-02 Kasandra risk 03-18 [place] 10:50: [id number] 00 Nutrition knowledge/s Nutrition Active 2018-02 Kasandra kill 03-18 [place] deficit: pt 10:50: [id number] 00 Nutrition knowledge/s Nutrition Active 2018-02 Kasandra kill 03-18 [place] deficit: cg 10:50: [id number] 00 Nutrition nutritional Nutrition Active 2018-02 Kasandra restriction 03-18 [facility] 10:50: [id number] 00 Elimination urinary Eliminatio Resolve 2018-022019-01-24 Kasandra incontinenc n d 03-18 10:00:00 [place] 10:50: [id number] 00 Elimination nausea/vomi Eliminatio Active 2018-02 Kasandra ting n 03-18 [place] 10:50: [id number] 00 Neuro confusion Neuro/Emot Active 2018-02 Kasandra present ion 03-18 [place] 10:50: [id number] 00 Neuro anxiety Neuro/Emot Active 2018-02 Kasandra present ion 03-18 [place] 10:50: [id number] 00 Neuro depressive Neuro/Emot Active 2018-02 Kasandra feelings ion 03-18 [facility] 10:50: [id number] 00 Neuro impaired Neuro/Emot Active 2018-02 Kasandra decision-ma ion 03-18 [place] flavia 10:50: [id number] 00 Neuro knowledge/s Neuro/Emot Active 2018-02 Kasandra kill ion 03-18 [place] deficit: pt 10:50: [id number] 00 Neuro knowledge/s Neuro/Emot Active 2018-02 Kasandra kill ion 03-18 [place] deficit: cg 10:50: [id number] 00 Activity ADL Activity Active 2018-02 Kasandra assistance 03-18 [place] required 10:50: [id number] 00 Activity self-care Activity Resolve 2018-022019-01-24 Kasandra deficit d 03-18 10:00:00 [place] 10:50: [id number] 00 Safety structural Safety Resolve 2018-022019-01-24 Kasandra barriers d 03-18 10:00:00 [place] present 10:50: [id number] 00 Safety fall risk Safety Resolve 2018-022019-01-24 Kasandra factor d 03-18 10:00:00 [place] present 10:50: [id number] 00 Safety risk for Safety Resolve 2018-022019-01-30 Kasandra hospitaliza d 03-18 14:20:00 [place] tion 10:50: [id number] 00 Safety can be left Safety Active 2018-02 Kasandra alone for 03-18 [place] only short 10:50: [id number] periods 00 Medication oral med Meds Resolve 2018-022019-01-30 Kasandra assistance d 03-18 14:20:00 [place] required 10:50: [id number] 00 Medication knowledge/s Meds Active 2018-02 Kasandra kill 03-18 [place] deficit: pt 10:50: [id number] 00 Musculoskel transfer Musculoske Resolve 2018-022019-01-24 Kasandra etal assistance letal d 03-18 10:00:00 [place] required 10:50: [id number] 00 Musculoskel requires Musculoske Resolve 2018-022019-01-24 Lisa etal human letal d 03-20 10:00:00 [place] assist to 13:00: leave home 00 24 Hr Diet nutrition NT: 24Hr Resolve 2018-022019-02-02 Agatha intake Diet d 03-21 11:05:00 [place] deficit 13:00: [id number] 00 24 Hr Diet knowledge/s NT: 24Hr Resolve 2018-022019-02-02 Agatha kill Diet d 03-21 11:05:00 [place] deficit - 13:00: [id number] pt 00 24 Hr Diet knowledge/s NT: 24Hr Resolve 2018-022019-02-02 Agatha harry Diet d 03-21 11:05:00 [place] deficit - 13:00: [id number] cg 00 Nutritional eating NT: Resolve 2018-022019-02-02 Agatha Barrier difficultie Barriers d 03-21 11:05:00 [place] s present 13:00: [id number] 00 Elimination urinary Eliminatio Resolve 2018-022019-01-24 Adri [...] 2-10 13:25:00 [place] tion 13:25: RN 00 Allergies, Adverse Reactions, Alerts Allergy Name Allergy Status Severity Reaction(s) Onset Inactive Treating Comments Type Date Date Clinician Penicillins Allergen Active Unknown swelling 2018-02 [facility] 1- Iodinated Allergen Active Unknown Hives 2018-02 [facility] Contrast [facility] - Media Medications Ordered Filled Start Stop Current [...] capsule mcg capsule 04-02 MD,Murali hyoscyamine hyoscyamine 2018- Yes [place] Unknown Unknown ER 0.375 mg ER 0.375 mg 2-10 MD,Murali tablet,exte tablet,exte nded nded release,12 release,12 hr hr Vital Signs Vital Name Observation Time Observation Value Comments SYSTOLIC mm[Hg] 2019-02-06 18:09:17 118 mm[Hg] mm[Hg] Method: Sit SYSTOLIC mm[Hg] 2019-01-16 18:08:56 120 mm[Hg] mm[Hg] Method: Stand DIASTOLIC mm[Hg] 2019-02-06 18:09:17 76 mm[Hg] mm[Hg] Method: Sit DIASTOLIC mm[Hg] 2019-01-16 18:08:56 80 mm[Hg] mm[Hg] Method: Stand PULSE 2019-02-06 18:09:17 87 /min /min RESP RATE 2019-02-06 18:09:17 16 /min /min TEMP 2019-02-06 18:09:17 99.1 [degF] Procedures This patient has no known procedures. Results This patient has no known results.
--- OUTSIDE RECORDS SUMMARY | 2019-03-13 15:33 | XMS REPORT ---
:1940 Author Organization [facility] Care Team Providers Name Role Phone Unavailable [...] Pain Mgmt Active 2018-02 Kasandra pain 03-18 [place] 10:50: [id number] 00 Respiratory dyspnea Respirator Resolve 2018-022019-01-24 Kasandra present y d 03-18 10:00:00 [place] 10:50: [id number] 00 Sensory impaired Sensory Active 2018-02 Kasandra hearing 03-18 [place] 10:50: [id number] 00 Nutrition nutritional Nutrition Active 2018-02 Kasandra risk 03-18 [place] 10:50: [id number] 00 Nutrition knowledge/s Nutrition Active 2018-02 Kasandra kill 03-18 [place] deficit: pt 10:50: [id number] 00 Nutrition knowledge/s Nutrition Active 2018-02 Kasandra kill 03-18 [place] deficit: cg 10:50: [id number] 00 Nutrition nutritional Nutrition Active 2018-02 Kas[place] restriction 03-18 [place] s 10:50: [id number] 00 Elimination urinary Eliminatio Resolve 2018-022019-01-24 Kasandra incontinenc n d 03-18 10:00:00 [place] e 10:50: [id number] 00 Elimination nausea/vomi Eliminatio Active 2018-02 Kasandra ting n 03-18 [place] 10:50: [id number] 00 Neuro confusion Neuro/Emot Active 2018-02 Kasandra present ion 03-18 [place] 10:50: [id number] 00 Neuro anxiety Neuro/Emot Active 2018-02 Kasandra present ion 03-18 [place] 10:50: [id number] 00 Neuro depressive Neuro/Emot Active 2018-02 Kasandra feelings ion 03-18 [facility] 10:50: [id number] 00 Neuro impaired Neuro/Emot Active 2018-02 Kasandra decision-ma ion 03-18 [facility] 10:50: [id number] 00 Neuro knowledge/s Neuro/Emot Active 2018-02 Kasandra kill ion 03-18 [place] deficit: pt 10:50: [id number] 00 Neuro knowledge/s Neuro/Emot Active 2018-02 Kasandra kill ion 03-18 [place] deficit: cg 10:50: [id number] 00 Activity ADL Activity Active 2018-02 Kasandra assistance 03-18 [place] required 10:50: [id number] 00 Activity self-care Activity Resolve 2018-022019-01-24 [place] deficit d 03-18 10:00:00 [place] 10:50: [id number] 00 Safety structural Safety Resolve 2018-022019-01-24 Kasandra barriers d 03-18 10:00:00 [place] present 10:50: [id number] 00 Safety fall risk Safety Resolve 2018-022019-01-24 Kasandra factor d 03-18 10:00:00 [place] present 10:50: [id number] 00 Safety risk for Safety Resolve 2018-022019-01-30 Kasandra hospitaliza d 03-18 14:20:00 [place] tion 10:50: [id number] 00 Safety can be left Safety Active 2018-02 Kasandra alone for 03-18 [place] only short 10:50: [id number] periods 00 Medication oral med Meds Resolve 2018-022019-01-30 Kasandra assistance d 03-18 14:20:00 [place] required 10:50: [id number] 00 Medication knowledge/s Meds Active 2018-02 Kasandra kill 03-18 [place] deficit: pt 10:50: [id number] 00 Musculoskel transfer Musculoske Resolve 2018-022019-01-24 Kasandra etal assistance letal d 03-18 10:00:00 [place] required 10:50: [id number] 00 Musculoskel requires Musculoske Resolve 2018-022019-01-24 Lisa etal human letal d 03-20 10:00:00 [place] assist to 13:00: leave home 00 24 Hr Diet nutrition NT: 24Hr Resolve 2018-022019-02-02 Agatha intake Diet d 03-21 11:05:00 [place] deficit 13:00: [id number] 00 24 Hr Diet knowledge/s NT: 24Hr Resolve 2018-022019-02-02 Agatha kill Diet d 03-21 11:05:00 [place] deficit - 13:00: [id number] pt 00 24 Hr Diet knowledge/s NT: 24Hr Resolve 2018-022019-02-02 Agatha kill Diet d 03-21 11:05:00 [place] deficit - 13:00: [id number] cg 00 Nutritional eating NT: Resolve 2018-022019-02-02 Agatha Barrier difficultie Barriers d 03-21 11:05:00 [place] present 13:00: [id number] 00 Elimination urinary Eliminatio Resolve 2018-022019-01-24 Adri urgency n d 03-24 10:00:00 [place] 14:10: RN 00 Elimination urinary Eliminatio Resolve 2018-022019-01-24 Adri frequency n d 03-24 10:00:00 [place] 14:10: RN 00 Elimination urinary Eliminatio Active 2018-02 Adri incontinenc n 2-03 [place] e 14:20: RN 00 Elimination urinary Eliminatio Active 2018-02 Adri urgency n 2-03 [place] 14:20: RN 00 Elimination constipatio Eliminatio Active 2018-02 Lsia n n 2-06 [place] 10:00: 00 Safety [...] capsule - MDMurali hyoscyamine hyoscyamine 2018-02 Yes Aaron Unknown Unknown [...]
--- OUTSIDE RECORDS SUMMARY | 2019-03-13 15:33 | XMS REPORT ---
:1940 Author Organization [facility] Care Team Providers Name Role Phone Unavailable Unavailable Unavailable Problems Condition Condition Condition Status Onset Resolution Last Treating Comments Name Details Category Date Date Treatment Clinician Date Pain frequent Pain Mgmt Active 2018-02 Kasandra pain 03-18 [place] 10:50: [id number] Respiratory dyspnea Respirator Resolve 2018-022019-01-24 Kasandra present y d 03-18 10:00:00 [place] 10:50: [id number] 00 Sensory impaired Sensory Active 2018-02 Kasandra hearing 03-18 [place] 10:50: [id number] 00 Nutrition nutritional Nutrition Active 2018-02 Kasandra risk 03-18 [place] 10:50: [id number] 00 Nutrition knowledge/s Nutrition Active 2018-02 Kasandra kill 03-18 [place] deficit: pt 10:50: [id number] 00 Nutrition knowledge/s Nutrition Active 2018-02 Kasandra kill 03-18 [place] deficit: cg 10:50: [id number] 00 Nutrition nutritional Nutrition Active 2018-02 Kasandra restriction 03-18 [facility] 10:50: [id number] 00 Elimination urinary Eliminatio Resolve 2018-022019-01-24 Kasandra incontinenc n d 03-18 10:00:00 [place] 10:50: [id number] 00 Elimination nausea/vomi Eliminatio Active 2018-02 Kasandra ting n 03-18 [place] 10:50: [id number] 00 Neuro confusion Neuro/Emot Active 2018-02 Kasandra present ion 03-18 [place] 10:50: [id number] 00 Neuro anxiety Neuro/Emot Active 2018-02 Kasandra present ion 03-18 [place] 10:50: [id number] 00 Neuro depressive Neuro/Emot Active 2018-02 Kasandra feelings ion 03-18 [facility] 10:50: [id number] 00 Neuro impaired Neuro/Emot Active 2018-02 Kasandra decision-ma ion 03-18 [place] flavia 10:50: [id number] 00 Neuro knowledge/s Neuro/Emot Active 2018-02 Kasandra kill ion 03-18 [place] deficit: pt 10:50: [id number] 00 Neuro knowledge/s Neuro/Emot Active 2018-02 Kasandra kill ion 03-18 [place] deficit: cg 10:50: [id number] 00 Activity ADL Activity Active 2018-02 Kasandra assistance 03-18 [place] required 10:50: [id number] 00 Activity self-care Activity Resolve 2018-022019-01-24 Kasandra deficit d 03-18 10:00:00 [place] 10:50: [id number] 00 Safety structural Safety Resolve 2018-022019-01-24 Kasandra barriers d 03-18 10:00:00 [place] present 10:50: [id number] 00 Safety fall risk Safety Resolve 2018-022019-01-24 Kasandra factor d 03-18 10:00:00 [place] present 10:50: [id number] 00 Safety risk for Safety Resolve 2018-022019-01-30 Kasandra hospitaliza d 03-18 14:20:00 [place] tion 10:50: [id number] 00 Safety can be left Safety Active 2018-02 Kasandra alone for 03-18 [place] only short 10:50: [id number] periods 00 Medication oral med Meds Resolve 2018-022019-01-30 Kasandra assistance d 03-18 14:20:00 [place] required 10:50: [id number] 00 Medication knowledge/s Meds Active 2018-02 Kasandra kill 03-18 [place] deficit: pt 10:50: [id number] 00 Musculoskel transfer Musculoske Resolve 2018-022019-01-24 Kasandra etal assistance letal d 03-18 10:00:00 [place] required 10:50: [id number] 00 Musculoskel requires Musculoske Resolve 2018-022019-01-24 Lisa etal human letal d 03-20 10:00:00 [place] assist to 13:00: leave home 00 24 Hr Diet nutrition NT: 24Hr Resolve 2018-022019-02-02 Agatha intake Diet d 03-21 11:05:00 [place] deficit 13:00: [id number] 00 24 Hr Diet knowledge/s NT: 24Hr Resolve 2018-022019-02-02 Agatha kill Diet d 03-21 11:05:00 [place] deficit - 13:00: [id number] pt 00 24 Hr Diet knowledge/s NT: 24Hr Resolve 2018-022019-02-02 Agatha harry Diet d 03-21 11:05:00 [place] deficit - 13:00: [id number] cg 00 Nutritional eating NT: Resolve 2018-022019-02-02 Agatha Barrier difficultie Barriers d 03-21 11:05:00 [place] s present 13:00: [id number] Elimination urinary Eliminatio Resolve 2018-022019-01-24 Adri [...] [place] 10:00: 00 Safety risk for Safety Active 2018-02 Adri hospitaliza 2-10 [place] tion 13:25: RN 00 Allergies, Adverse [...] mcg capsule 03-19 Abe CÁRDENAS hyoscyamine hyoscyamine 2018-02 Yes Carolyn Unknown Unknown 0.125 mg 0.125 mg 03-20 Abe CÁRDENAS sublingual sublingual tablet tablet Amitiza 24 Amitiza 24 2018-02 Yes Aaron Unknown Unknown mcg capsule mcg capsule 04-02 Murali CÁRDENAS Vital Signs Vital Name Observation Time Observation [...]
--- OUTSIDE RECORDS SUMMARY | 2019-03-13 15:33 | XMS REPORT ---
:1940 Author Organization [facility] Care Team Providers Name Role Phone Unavailable Unavailable Unavailable Problems Condition Condition Condition Status Onset Resolution Last Treating Comments Name Details Category Date Date Treatment Clinician Date Pain frequent Pain Mgmt Active 2018-02 Kasandra pain 03-18 [place] 10:50: [id number] Respiratory dyspnea Respirator Resolve 2018-022019-01-24 Kasandra present y d 03-18 10:00:00 [place] 10:50: [id number] 00 Sensory impaired Sensory Active 2018-02 Kasandra hearing 03-18 [place] 10:50: [id number] 00 Nutrition nutritional Nutrition Active 2018-02 Kasandra risk 03-18 [place] 10:50: [id number] 00 Nutrition knowledge/s Nutrition Active 2018-02 Kasandra kill 03-18 [place] deficit: pt 10:50: [id number] 00 Nutrition knowledge/s Nutrition Active 2018-02 Kasandra kill 03-18 [place] deficit: cg 10:50: [id number] 00 Nutrition nutritional Nutrition Active 2018-02 Kasandra restriction 03-18 [facility] 10:50: [id number] 00 Elimination urinary Eliminatio Resolve 2018-022019-01-24 Kasandra incontinenc n d 03-18 10:00:00 [place] 10:50: [id number] 00 Elimination nausea/vomi Eliminatio Active 2018-02 Kasandra ting n 03-18 [place] 10:50: [id number] 00 Neuro confusion Neuro/Emot Active 2018-02 Kasandra present ion 03-18 [place] 10:50: [id number] 00 Neuro anxiety Neuro/Emot Active 2018-02 Kasandra present ion 03-18 [place] 10:50: [id number] 00 Neuro depressive Neuro/Emot Active 2018-02 Kasandra feelings ion 03-18 [facility] 10:50: [id number] 00 Neuro impaired Neuro/Emot Active 2018-02 Kasandra decision-ma ion 03-18 [place] flavia 10:50: [id number] 00 Neuro knowledge/s Neuro/Emot Active 2018-02 Kasandra kill ion 03-18 [place] deficit: pt 10:50: [id number] 00 Neuro knowledge/s Neuro/Emot Active 2018-02 Kasandra kill ion 03-18 [place] deficit: cg 10:50: [id number] 00 Activity ADL Activity Active 2018-02 Kasandra assistance 03-18 [place] required 10:50: [id number] 00 Activity self-care Activity Resolve 2018-022019-01-24 Kasandra deficit d 03-18 10:00:00 [place] 10:50: [id number] 00 Safety structural Safety Resolve 2018-022019-01-24 Kasandra barriers d 03-18 10:00:00 [place] present 10:50: [id number] 00 Safety fall risk Safety Resolve 2018-022019-01-24 Kasandra factor d 03-18 10:00:00 [place] present 10:50: [id number] 00 Safety risk for Safety Resolve 2018-022019-01-30 Kasandra hospitaliza d 03-18 14:20:00 [place] tion 10:50: [id number] 00 Safety can be left Safety Active 2018-02 Kasandra alone for 03-18 [place] only short 10:50: [id number] periods 00 Medication oral med Meds Resolve 2018-022019-01-30 Kasandra assistance d 03-18 14:20:00 [place] required 10:50: [id number] 00 Medication knowledge/s Meds Active 2018-02 Kasandra kill 03-18 [place] deficit: pt 10:50: [id number] 00 Musculoskel transfer Musculoske Resolve 2018-022019-01-24 Kasandra etal assistance letal d 03-18 10:00:00 [place] required 10:50: [id number] 00 Musculoskel requires Musculoske Resolve 2018-022019-01-24 Lisa etal human letal d 03-20 10:00:00 [place] assist to 13:00: leave home 00 24 Hr Diet nutrition NT: 24Hr Resolve 2018-022019-02-02 Agatha intake Diet d 03-21 11:05:00 [place] deficit 13:00: [id number] 00 24 Hr Diet knowledge/s NT: 24Hr Resolve 2018-022019-02-02 Agatha kill Diet d 03-21 11:05:00 [place] deficit - 13:00: [id number] pt 00 24 Hr Diet knowledge/s NT: 24Hr Resolve 2018-022019-02-02 Agatha harry Diet d 03-21 11:05:00 [place] deficit - 13:00: [id number] cg 00 Nutritional eating NT: Resolve 2018-022019-02-02 Agatha Barrier difficultie Barriers d 03-21 11:05:00 [place] present 13:00: [id number] Elimination urinary Eliminatio Resolve 2018-022019-01-24 Adri [...]
--- OUTSIDE RECORDS SUMMARY | 2019-03-13 15:33 | XMS REPORT ---
:1940 Author Organization [facility] Care Team Providers Name Role Phone Unavailable [...] Pain Mgmt Active 2018-02 Kasandra pain 03-18 [place] 10:50: [id number] 00 Respiratory dyspnea Respirator Resolve 2018-022019-01-24 Kasandra present y d 03-18 10:00:00 [place] 10:50: [id number] 00 Sensory impaired Sensory Active 2018-02 Kasandra hearing 03-18 [place] 10:50: [id number] 00 Nutrition nutritional Nutrition Active 2018-02 Kasandra risk 03-18 [place] 10:50: [id number] 00 Nutrition knowledge/s Nutrition Active 2018-02 Kasandra kill 03-18 [place] deficit: pt 10:50: [id number] 00 Nutrition knowledge/s Nutrition Active 2018-02 Kasandra kill 03-18 [place] deficit: cg 10:50: [id number] 00 Nutrition nutritional Nutrition Active 2018-02 Kasandra restriction 03-18 [place] 10:50: [id number] 00 Elimination urinary Eliminatio Resolve 2018-022019-01-24 Kasandra incontinenc n d 03-18 10:00:00 [place] e 10:50: [id number] 00 Elimination nausea/vomi Eliminatio Active 2018-02 Kasandra ting n 03-18 [place] 10:50: [id number] 00 Neuro confusion Neuro/Emot Active 2018-02 Kasandra present ion 03-18 [place] 10:50: [id number] 00 Neuro anxiety Neuro/Emot Active 2018-02 Kasandra present ion 03-18 [place] 10:50: [id number] 00 Neuro depressive Neuro/Emot Active 2018-02 Kasandra feelings ion 03-18 [facility] 10:50: [id number] 00 Neuro impaired Neuro/Emot Active 2018-02 Kasandra decision-ma ion 03-18 [facility] 10:50: [id number] 00 Neuro knowledge/s Neuro/Emot Active 2018-02 Kasandra kill ion 03-18 [place] deficit: pt 10:50: [id number] 00 Neuro knowledge/s Neuro/Emot Active 2018-02 Kasandra kill ion 03-18 [place] deficit: cg 10:50: [id number] 00 Activity ADL Activity Active 2018-02 Kasandra assistance 03-18 [place] required 10:50: [id number] 00 Activity self-care Activity Resolve 2018-022019-01-24 Kasandra deficit d 03-18 10:00:00 [place] 10:50: [id number] 00 Safety structural Safety Resolve 2018-022019-01-24 Kasandra barriers d 03-18 10:00:00 [place] present 10:50: [id number] 00 Safety fall risk Safety Resolve 2018-022019-01-24 Kasandra factor d 03-18 10:00:00 [place] present 10:50: [id number] 00 Safety risk for Safety Resolve 2018-022019-01-30 Kasandra hospitaliza d 03-18 14:20:00 [place] tion 10:50: [id number] 00 Safety can be left Safety Active 2018-02 Kasandra alone for 03-18 [place] only short 10:50: [id number] periods 00 Medication oral med Meds Resolve 2018-022019-01-30 Kasandra assistance d 03-18 14:20:00 [place] required 10:50: [id number] 00 Medication knowledge/s Meds Active 2018-02 Kasandra kill 03-18 [place] deficit: pt 10:50: [id number] 00 Musculoskel transfer Musculoske Resolve 2018-022019-01-24 Kasandra etal assistance letal d 03-18 10:00:00 [place] required 10:50: [id number] 00 Musculoskel requires Musculoske Resolve 2018-022019-01-24 Lias etal human letal d 03-20 10:00:00 [place] assist to 13:00: leave home 00 24 Hr Diet nutrition NT: 24Hr Resolve 2018-022019-02-02 Agatha intake Diet d 03-21 11:05:00 [place] deficit 13:00: [id number] 00 24 Hr Diet knowledge/s NT: 24Hr Resolve 2018-022019-02-02 Agatha kill Diet d 03-21 11:05:00 [place] deficit - 13:00: [id number] pt 00 24 Hr Diet knowledge/s NT: 24Hr Resolve 2018-022019-02-02 Agatha kill Diet d 03-21 11:05:00 [place] deficit - 13:00: [id number] cg 00 Nutritional eating NT: Resolve 2018-022019-02-02 Agatha Barrier difficultie Barriers d 03-21 11:05:00 [place] s present 13:00: [id number] 00 Elimination urinary Eliminatio Resolve 2018-022019-01-24 Adri [...] oxide) oxide) capsule capsule hyoscyamine hyoscyamine 2018-02 Carolyn Unknown Unknown 0.125 mg 0.125 mg 03-18 Abe CÁRDENAS sublingual sublingual tablet tablet ALPRAZolam ALPRAZolam 2018-02 Yes Carolyn Unknown Unknown 0.25 mg 0.25 mg 03-18 ,Abe tablet tablet prednisoLON prednisoLON 2018-02 Yes Carolyn Unknown Unknown E acetate E acetate 03-18 ,Abe (PF) 1 % (PF) 1 % eye eye drops,suspe drops,suspe nsion nsion PreserVisio PreserVisio 2018-02 Yes Carolyn Unknown Unknown n AREDS-2 n AREDS-2 - ,Abe 250 mg-200 250 mg-200 unit-40 unit-40 mg-1 mg mg-1 mg capsule capsule promethazin promethazin 2018-02- Yes Carolyn Unknown Unknown e 25 mg e 25 mg 03-18 ,Abe tablet tablet promethazin promethazin 2018-02 Yes Carolyn Unknown Unknown e 25 mg e 25 mg 03-18 ,Abe tablet tablet hyoscyamine hyoscyamine 2018-02- Yes Carolyn Unknown Unknown 0.125 mg 0.125 mg 03-19 Abe CÁRDENAS sublingual sublingual tablet tablet Amitiza 8 Amitiza 8 2018-02- Yes Carolyn Unknown Unknown mcg capsule mcg capsule 03-19 12- Abe CÁRDENAS hyoscyamine hyoscyamine 2018-02- Yes Carolyn Unknown Unknown 0.125 mg 0.125 mg 03-20 12-10 Abe CÁRDENAS sublingual sublingual tablet tablet Amitiza 24 Amitiza 24 2018-02 Yes Aaron Unknown Unknown mcg capsule mcg capsule 2-03 MD,Murali hyoscyamine hyoscyamine 2018-02 Yes Aaron Unknown Unknown [...]
[2019-03-13 15:50] LABS: ALT 25 U/L (7-52); AST 27 U/L (13-39); Albumin/Globulin Ratio 1.3 (1-3); Alkaline Phosphatase 126 U/L (34-104); Amylase 15 U/L (29-103); Anion Gap 9 mmol/L (2-11); BUN/Creatinine Ratio 20.5 (8-20); Blood Urea Nitrogen 17 mg/dL (6-24); CO2 Carbon Dioxide 26 mmol/L (22-32); Calcium 9.8 mg/dL (8.6-10.3); Chloride 102 mmol/L (101-111); EGFR African American 80.7 (>60); EGFR Non-African American 66.7 (>60); Globulin 3.1 g/dL (2-4); Glucose 94 mg/dL (70-100); Potassium 4.2 mmol/L (3.5-5.0); Sodium 137 mmol/L (135-145); Total Protein 7.1 g/dL (6.4-8.9)
[2019-03-13 16:16] LABS: Urine Appearance Clear; Urine Bilirubin Negative (Negative); Urine Blood Negative (Negative); Urine Color Straw; Urine Glucose Negative (Negative); Urine Ketones Negative (Negative); Urine Nitrite Negative (Negative); Urine Protein Negative (Negative); Urine Specific Gravity 1.005 (1.010-1.030); Urine Urobilinogen Negative (Negative)
[2019-03-13] MEDS ORDERED: oxyCODONE/Acetamin 5/325 MG* TAB PO ONE (19:30)
[2019-03-13] MEDS ORDERED: oxyCODONE TAB* 5 MG TAB PO ONE (20:00)
[2019-03-14] MEDS: oxyCODONE TAB* 5 MG TAB PO PRN ×2 (08:57→20:30)
[2019-03-14] MEDS: oxyCODONE/Acetamin 5/325 MG* TAB PO PRN ×2 (08:58→20:30)
--- NOTE | 2019-03-14 10:00 | HP ---
H&P (Free Text) History and Physical: Justification for admission: Immediate Safety. CC " I am suicidal" The patient was brought to [facility] by EMS after she called 911 feeling suicidal with a plan to overdose on pills. She expressed that she lost her and dog and 2 brothers in the same year and is unable to cope with the loss she has endured. She reported always being in pain. She reported that nothing helps with the pain. Her goals include not being suicidal and she said " I shouldn't feel this way and I am a burden on my family." Denied access to firearms. Patient has stockpile of medications and her son manages her medications. Her son lives next door and helps her out ever day. Her family came to visit during visiting hours and brought her clothing. She reported poor sleep and appetite. The patient denied homicidal ideation intent or plan. The patient denied auditory and/ or visual hallucinations. MDD Reported feeling depressed and not longer going to catholic and having diminished interests which were found to be enjoyable in the past. She has been having crying spells, feeling empty inside, with feelings of hopelessness, and worthlessness. Reported feelings of being lonely. She has had recurrent thoughts of and that she would be better off . Anxiety Denied having symptoms of anxiety such as having times where heart feels that it is beating out of chest , sweaty palms, or shallow breathing. Denied having uncomfortable or intrusive thoughts. Denied feeling restless, high strung, or worrying too much most of the time. Bipolar Denied symptoms of tino such as having many ideas at once. Denied increased talkativeness where no one can interrupt. Denied feeling irritable most of the time while having an persistent abundance of energy most of the day without the use of energy drinks, stimulants, or recreational drug use. Denied an increase in intensity in goal directed activities. Denied having the decreased need to sleep for days , having prolonged elevated mood , or feeling on top of the world. Denied impulsive risky sexual encounters. Denied spending money recklessly , going on spending sprees wiping out savings. Denied impulsively traveling out of town or country, having super granado, and unrealistic wealth or fame. Psychosis Does not endorse hearing things that other people do not hear or seeing things other people do not see. Denied feeling that TV is making references. Denied feeling that people are spying , following , or reading their thoughts. Phobias: Patient denied having excessive fear of a particular thing or situation. Eating disorders: Patient denied having excessive eating habits or feelings of guilt after eating. Denied repeated episodes of self induced vomiting after eating. PTSD Denied flashbacks, nightmares and avoidance of a prior traumatic event. PAST PSYCHIATRIC HISTORY: Prior Diagnosis :Major depressive disorder, Fibromyalgia History of past Psychiatric Hospitalizations: No prior psychiatric admission. History of past suicide/homicide attempts : Denied past suicide attempts or self injurious behaviors. No history of violence. Outpatient follow-up: PCP Dr. Leon Medications: Past trials of medications include Xanax 0.25mg daily, Fluoxetine 80mg daily, Remeron 15mg qhs , Abilify 2mg qhs Guardianship: None. FAMILY HISTORY: - Suicide: Distant uncle by suicide. - Mental illness: Denied a history of mental health in immediate family members. - Substance abuse: Denied substance abuse among family members. SUBSTANCE ABUSE HISTORY: - EtOH: Denied recent use. No associated legal issues, blackouts, seizures, DTs or past hospitalizations due to alcohol. - Tobacco: Denied - Cannabis: Denied - Heroin: Denied - Cocaine: Denied - Substance abuse treatment: Denied past substance abuse treatment SOCIAL HISTORY: - Denied a history of childhood physical and or sexual abuse Born in [place] and raised by father and step mother her mother when she was young. - Education: Finished high school. No history of special education. - Living situation: Currently lives in [place] and has supportive family. 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 - Legal history: Denied - service history: Denied PAST MEDICAL HISTORY: Fibromyalgia, s/p Cornea Transplant, Kidney Stones 07/27/12, [facility] [place].Hysterectomy in 1982, [facility] 05/2013 Laminectomy, cataracts - Allergies: Penicillins , Iodine contrast Physical Exam: Please see ED note Mental Status Exam on Admission APPEARANCE : 78 year old female who appears stated age. Patient wearing sleep attire and is in bed. BEHAVIOR: Cooperative , calm EYE CONTACT: Fair PSYCHOMOTOR ACTIVITY: No psychomotor agitation or retardation. MOVEMENTS: No abnormal movements observed. SPEECH : Normal rate, rhythm, volume and tone. MOOD : "Depressed " AFFECT : Type is depressed Range is restricted Mood Congruent THOUGHT PROCESS: Formulated and organized in a logical, linear goal directed manner. No flight of ideas, neologism (made up words) , perseveration , tangential , loose associations , or circumstantiality. THOUGHT CONTENT: no delusions, obsessions, phobias or preoccupations. PERCEPTION: No current auditory or visual hallucinations. Doesnt appear to be responding to internal cues. No evidence of depersonalization , de-realization, or illusions SUICIDALITY suicidal ideation with plan. HOMICIDALITY Denied homicidal ideation, intent or plan. Insight/judgment: Poor insight and judgment ORIENTATION: Oriented to self, location, and time. Diagnosis on Admission: Major Depressive Disorder, Severe. Assessment: 78 year old Female with history of depression and chronic pain came to the hospital by EMS when she felt suicidal with a plan to overdose on her medications and was admitted to the BSU at [facility]. Plan #Admit to BSU, Q15 minute observation. Start regular diet. Encourage participation in activities on the milieu. #Patient evaluated in ED and was determined by the emergency room Physician to be medically fit for admission to the BSU. # Justification for Admission: For immediate safety per outlined in the [place] Mental Hygiene Code. # The patient requires psychiatric inpatient admission at this time to assure safety, receive treatment and work toward stabilization. # Labs ordered: CBC, CMP, UDS, TSH, HBA1c, TSH, Toxicology screen, Urine analysis, EKG and lipid profile. #[place] consult # Pain management consult # Start Cymbalta 30mg daily # Non formulary eye drops from home #Soft diet # To involve family in treatment planing # Will explore behavioral activation activities upon discharge # Obtain collateral information once release is signed. # Collaboration with Social Work #Goals before discharge include: To eliminate/ reduce suicidal ideation Tentative Discharge: Pending psychiatric stabilization The risks, benefits, and alternative treatment options were discussed as well as the risks of refusing treatment. After this discussion and an acknowledgement of this understanding was made. A risk/ benefit assessment of treatment was considered and discussed with the patient. When comparing the risks of treatment with the dangers of not receiving treatment, the benefits of treatment outweigh the treatment risks at this time. Risks of allergy, suicidal ideation, behavioral changes, dystonia, rashes, electrolyte imbalances, movement disorders, cardiac conduction changes, serotonin syndrome, metabolic risks awere among some of the risks discussed. Acetaminophen (Tylenol Tab*) 650 mg PO Q4H PRN PRN Reason: PAIN or TEMP > 101 F Al Hydrox/Mg Hydrox/Simethicone (Maalox Plus*) 30 ml PO Q4H PRN PRN Reason: INDIGESTION Duloxetine HCl (Cymbalta Cap*) 30 mg PO DAILY MARIELOS Ibuprofen (Motrin Tab*) 600 mg PO Q6H PRN PRN Reason: .BREATHROUGH PAIN Multivitamins (Theragran Tab*) 1 tab PO DAILY MARIELOS Ondansetron HCl (Zofran Tab*) 4 mg PO Q8H PRN PRN Reason: NAUSEA Oxycodone HCl (Roxycodone Tab*) 5 mg PO Q6H PRN PRN Reason: .PAIN Last Admin: 03/14/19 08:57 Dose: 5 mg Oxycodone/Acetaminophen (Percocet 5/325 Tab*) 1 tab PO Q6H PRN PRN Reason: .PAIN Last Admin: 03/14/19 08:58 Dose: 1 tab
[2019-03-14] MEDS ORDERED: Ondansetron TAB* 4 MG PO PRN (13:42)
[2019-03-14] MEDS ORDERED: Docusate CAP* 100 MG PO PRN (14:01)
[2019-03-14] MEDS: Vitamin THERAPEUTIC TAB PO SCH (14:19)
[2019-03-14] MEDS: DULoxetine DR CAP* 30 MG CAP.DR PO SCH (14:21)
[2019-03-14] MEDS: Ibuprofen TAB* 600 MG PO PRN (14:24)
[2019-03-14] MEDS: Acetaminophen TAB* 325 MG PO PRN (16:40)
--- NOTE | 2019-03-14 19:30 | CONSULT ---
Consult Consult: March 14, 2019 INPATIENT PAIN CONSULTATION Angeles Stanford is a 78 year old female. She has chronic low back pain and has been a patient in the pain clinic for many years, since 2011 or earlier. She has been on chronic opioid therapy for her pain since 2012. She has tried different opioids over the years. Most recently, she has been on MS Contin, 30 mg BID. She had difficulty on her last visit in December, saying her pain was not well controlled. She was considering tapering off the morphine. She has been on Morphine since at least 2015. She has had difficulty with abdominal pain for several years. Her two years ago, and although her sons frequently check in on her she has seemed depressed. She has seen Dr. Leon, her primary care doctor, and it was felt the abdominal pain flare seemed to correlate with times of high stress. She has had abdominal pain and came to the ER in May and December of 2018 with abdominal pain. She came again to the ER March 13, feeling like she was suicidal due to unrelenting pain. She was admitted to the [facility]SU and started on Cymbalta. I am asked to see her regarding her pain medications. At the present time she is off Morphine and on Percocet and oxycodone. PAST MEDICAL HISTORY: Cornea transplant, fibromyalgia Allergies Allergy/AdvReac Type Severity Reaction Status Date / Time Iodinated Contrast Media Allergy Hives Verified 01/16/19 08:41 [Iodinated Contrast- Oral and IV Dye] Penicillins Allergy Swelling Verified 01/16/19 08:41 Current Medications Acetaminophen (Tylenol Tab*) 650 mg PO Q4H PRN PRN Reason: PAIN or TEMP > 101 F Last Admin: 03/14/19 16:40 Dose: 650 mg Al Hydrox/Mg Hydrox/Simethicone (Maalox Plus*) 30 ml PO Q4H PRN PRN Reason: INDIGESTION Docusate Sodium (Colace Cap*) 200 mg PO DAILY PRN PRN Reason: CONSTIPATION Duloxetine HCl (Cymbalta Cap*) 30 mg PO DAILY [facility] Last Admin: 03/14/19 14:21 Dose: 30 mg Ibuprofen (Motrin Tab*) 600 mg PO Q6H PRN PRN Reason: .BREATHROUGH PAIN Last Admin: 03/14/19 14:24 Dose: 600 mg Multivitamins (Theragran Tab*) 1 tab PO DAILY [facility] Last Admin: 03/14/19 14:19 Dose: Not Given Genteal Tears (Ophthalmic Ointment) 1 dose BOTH EYES BID PRN PRN Reason: DRY EYES Ondansetron HCl (Zofran Tab*) 4 mg PO Q8H PRN PRN Reason: NAUSEA Oxycodone HCl (Roxycodone Tab*) 5 mg PO Q6H PRN PRN Reason: .PAIN Last Admin: 03/14/19 08:57 Dose: 5 mg Oxycodone/Acetaminophen (Percocet 5/325 Tab*) 1 tab PO Q6H PRN PRN Reason: .PAIN Last Admin: 03/14/19 08:58 Dose: 1 tab SOCIAL HISTORY: Non smoker, no alcohol. Lives alone in a house. 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 Her 2 years ago. She has other children locally Vital Signs Temp Pulse Resp BP Pulse Ox 98.2 F 91 16 109/90 100 03/14/19 08:00 03/14/19 08:00 03/14/19 18:27 03/14/19 08:00 03/14/19 08:00 EXAM: LUNGS: Clear HEART: Regular rhythm ABDOMEN: Soft, +BS EXTREMITIES: Normal tone NEUROLOGIC: Moves all 4 extremities ASSESSMENT: 1. Low Back Pain 2. Abdominal Pain, possibly due to chronic morphine PLAN: She is getting oxycodone and Percocet equivalent to 10/325 every 6 hours. She does complain of abdominal pain. She had a CT of her abd/pelvis that did not show much to explain her pain. Am not sure it is from Morphine. Agree with trial of Cymbalta and changing Morphine to oxycodone, will follow.
[2019-03-15] MEDS: oxyCODONE TAB* 5 MG TAB PO PRN ×2 (07:13→14:03)
[2019-03-15] MEDS: oxyCODONE/Acetamin 5/325 MG* TAB PO PRN ×2 (07:14→14:02)
[2019-03-15 07:22] LABS: HDL Cholesterol 61.5 mg/dL
[2019-03-15] MEDS: DULoxetine DR CAP* 30 MG CAP.DR PO SCH (09:07)
[2019-03-15] MEDS: Vitamin THERAPEUTIC TAB PO SCH (09:07)
--- NOTE | 2019-03-15 10:01 | PN ---
Subjective - Subjective Date of Service: 03/15/19 Service Type: 74619 Hosp care 35 min high complexity Subjective: Nursing Report: Patient was visible on unit, no behavioral incidents. Slept overnight. Attending group activities. CC: "I have nausea Patient was seen and evaluated today in the common room. The patient reported that people are treating her well on the unit. She had a yogurt today. She continues to report having nausea that has been present for some time. She reported having adequate appetite and sleep. The patient reports attending and participating in day groups. Per nursing no behavioral issues or overnight events reported. Patient reported that she is tolerating medications without side effects. Objective - General Observations Appearance: Neat Appears Stated Age: Yes Stature: WNL Posture: WNL Eye Contact: Average Behavior/Activity: WNL - Interaction Observations Attitude Towards Examiner: Cooperative Stated Mood: Dysphoric Affect: Restricted Speech Pattern/Tone: Clear Thought Process: Impoverished Thought Content: Depressive Thought Process: Lethality: Passive Wish Hallucination Type: Denies Delusion Type: Denies - Cognitive Function Orientation: A&O x 4 Level of Consciousness: Awake - Medication Compliance Cooperative with Inpatient Medication Regimen: Yes - Group Participation Participates in Group Activities: Yes Assessment - Assessment Merits Inpatient Hospitalization: For Immediate Safety Clinical Impression: 78 year old Female with history of depression and chronic pain came to the hospital by EMS when she felt suicidal with a plan to overdose on her medications and was admitted to the [facility] at [facility]. Plan - Plan Treatment Plan: Name: NERIS WEEMS Birthdate: 1940 [id number] # Q30 minute observation with staff pass # The patient requires psychiatric inpatient admission at this time to assure safety, receive treatment and work toward stabilization. # Labs ordered: CBC, CMP, UDS, TSH, HBA1c, TSH, Toxicology screen, Urine analysis, EKG and lipid profile. #[place] consult # Pain management evaluation completed and appreciate recommendations # Increase Cymbalta to 40mg daily # Non formulary eye drops from home # Soft diet # Family meeting at noon # Hospitalist consult for unremitting nausea # To involve family in treatment planing # Will explore behavioral activation activities upon discharge # Obtain collateral information once release is signed. # Collaboration with Social Work #Goals before discharge include: To eliminate/ reduce suicidal ideation Tentative Discharge: Pending psychiatric stabilization Continued Medication Management: Continue Outpt Medication Medications: Current Medications Acetaminophen (Tylenol Tab*) 650 mg PO Q4H PRN PRN Reason: PAIN or TEMP > 101 F Last Admin: 03/14/19 16:40 Dose: 650 mg Al Hydrox/Mg Hydrox/Simethicone (Maalox Plus*) 30 ml PO Q4H PRN PRN Reason: INDIGESTION Docusate Sodium (Colace Cap*) 200 mg PO DAILY PRN PRN Reason: CONSTIPATION Duloxetine HCl (Cymbalta Cap*) 30 mg PO DAILY [facility] Last Admin: 03/15/19 09:07 Dose: 30 mg Ibuprofen (Motrin Tab*) 600 mg PO Q6H PRN PRN Reason: .BREATHROUGH PAIN Last Admin: 03/14/19 14:24 Dose: 600 mg Multivitamins (Theragran Tab*) 1 tab PO DAILY [facility] Last Admin: 03/15/19 09:07 Dose: Not Given Genteal Tears (Ophthalmic Ointment) 1 dose BOTH EYES BID PRN PRN Reason: DRY EYES Ondansetron HCl (Zofran Tab*) 4 mg PO Q8H PRN PRN Reason: NAUSEA Last Admin: 03/15/19 07:07 Dose: 4 mg Oxycodone HCl (Roxycodone Tab*) 5 mg PO Q6H PRN PRN Reason: .PAIN Last Admin: 03/15/19 07:13 Dose: 5 mg Oxycodone/Acetaminophen (Percocet 5/325 Tab*) 1 tab PO Q6H PRN PRN Reason: .PAIN Last Admin: 03/15/19 07:14 Dose: 1 tab - Discharge Plan Discharge Plan: Inpatient Hospitalization
[2019-03-15] MEDS: Ondansetron TAB* 4 MG PO SCH ×3 (10:33→21:53)
[2019-03-15] MEDS: GENTEAL TEARS BOTH EYES PRN ×2 (10:34→12:47)
[2019-03-15] MEDS: Acetaminophen TAB* 325 MG PO PRN (10:35)
[2019-03-15] MEDS ORDERED: Polyethylene Glycol 3350* 17 GM PACKET PO PRN (11:46)
[2019-03-15] MEDS ORDERED: Senna TAB 8.6 mg* TAB PO PRN (11:46)
[2019-03-15] MEDS: Scopolamine 1.5 mg* PATCH TRANSDERM SCH (12:45)
[2019-03-15] MEDS: Sodium Chloride 5% OPTH.SOL* 15 ML BTL BOTH EYES SCH ×3 (13:57→21:54)
--- NOTE | 2019-03-15 14:17 | CONS ---
CC: Dr. Abe Leon; Dr. Luis Ruff * CONSULTATION REPORT: DATE OF ADMISSION: 03/13/19 DATE OF CONSULTATION: 03/15/19 PRIMARY CARE PROVIDER: Abe Leon MD REQUESTING PHYSICIAN IN CONSULTATION: Luis Ruff MD ATTENDING PHYSICIAN: Michelle Us MD (dictated by DANNIELLE Green). CHIEF COMPLAINT: 1. Nausea. 2. Lower abdominal pain. HISTORY OF PRESENT ILLNESS: Ms. Stanford is a 78-year-old female with a past medical history of chronic pain, fibromyalgia with chronic opiate use, major depressive disorder and GERD, who is seen on the behavioral services unit today with complaints of nausea and lower abdominal pain. She states that she has had this for "weeks" and that it has been constant. She has been having regular bowel movements, but states that they are like "hard marbles." She denies diarrhea, hematochezia or melena. She denies vomiting. She is able to eat regular meals and has consumed yogurt and tea this morning. PAST MEDICAL HISTORY: 1. Fibromyalgia/chronic pain, on opiates. 2. Major depressive disorder. 3. GERD. PAST SURGICAL HISTORY: 1. Hysterectomy. 2. Corneal transplant. 3. Laminectomy. 4. Cataracts. CURRENT MEDICATIONS: 1. Acetaminophen 650 mg p.o. q.4 hours p.r.n. 2. Cymbalta 40 mg p.o. daily. 3. Ibuprofen 600 mg p.o. q.6 hours p.r.n. 4. Multivitamins 1 tab p.o. daily. 5. GenTeal tears ophthalmic ointment 1 drop both eyes b.i.d. p.r.n. 6. Ondansetron 4 mg p.o. q.6 hours scheduled. 7. Oxycodone 5 mg p.o. q.6 hours p.r.n. 8. Oxycodone/acetaminophen 5/325 one tab p.o. q.6 hours. SOCIAL HISTORY: The patient does not use tobacco. She does not drink currently. 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 PHYSICAL EXAM: General: Ms Stanford is a well-developed, well-nourished older white female who is laying in her bed. She appears to be in no acute distress. HEENT: PERRL, EOMI, sclera non-icteric without injection. Hearing grossly intact. Oral mucous membranes are moist, without lesions. The pharynx is clear. The palate elevates symmetrically and the tongue is at midline. Cardiovascular: RRR, S1, S2 presents without murmurs, rubs, clicks, gallops. No JVD or peripheral edema. Pulmonary: Symmetrical chest expansion without use of accessory muscles. CTAB without wheeze, rhonchi, rales. Abdomen: BS in all quadrants. The abdomen is soft and there is diffuse mild tenderness to palpation, worse in the LLQ and RLQ. Neuro: Alert, oriented x3 with cranial nerves grossly intact. ASSESSMENT AND PLAN: Ms. Stanford is a 78-year-old female with a past medical history of chronic pain, on chronic opiates, gastroesophageal reflux disease, and major depressive disorder, who is admitted to the BSU with complaints of nausea and lower abdominal pain for weeks. 1. Suicidal ideation management per BSU primary team. 2. Nausea, lower abdominal pain. I suspect this may be related to constipation. She reports daily opiate use as well as small amounts of hard stools. Start bowel regimen. She also reports nausea without vomiting, recommending scopolamine patch and continue Zofran as needed. She should adopt a bland diet and slowly progress to her regular diet. If symptoms persist, abdominal x-ray or further imaging should be pursued. 3. Gastroesophageal reflux disease. The patient should restart her home omeprazole. 4. Code status. Full code. AT THIS TIME, THE HOSPITALIST TEAM WILL SIGN OFF. PLEASE FEEL FREE TO RECONSULT IF THE PATIENT CONTINUES TO HAVE ABDOMINAL PAIN. THANK YOU FOR INVOLVING US IN THE CARE OF THIS PATIENT. TIME SPENT: Approximately 30 minutes was spent on this consultation, greater than half that time was spent [id number] with the patient obtaining history, performing physical, and reviewing the plan of care. The case has been discussed with my attending, Dr. Michelle Us, who is in agreement with the plan of care. DANNIELLE GALVAN [id number]/[facility] #: [id number] MTDD
[2019-03-15] MEDS: Al Hydrox/Mg Hydrox/Simet LIQ* 30 ML UDC PO PRN (19:08)
[2019-03-15] MEDS: Magnesium Hydroxide LIQ* 30 ML UDC PO SCH (21:59)
[2019-03-16] MEDS: oxyCODONE TAB* 5 MG TAB PO PRN ×3 (00:19→23:50)
[2019-03-16] MEDS: Ondansetron TAB* 4 MG PO SCH ×4 (05:28→22:32)
--- NOTE | 2019-03-16 08:49 | PN ---
Subjective - Subjective Date of Service: 03/16/19 Service Type: 17006 Hosp care 35 min high complexity Subjective: Nursing Report: Patient was visible on unit, no behavioral incidents. Mostly in her room. CC: "I am horrible Patient was seen and evaluated today in her room. The patient reported she feels awful about being in the hospital and being a burden to her family. She reported trouble sleeping last evening and has unremitting nausea. Per nursing no behavioral issues or overnight events reported. Patient reported that she is tolerating medications without side effects. Objective - General Observations Appearance: Neat Appears Stated Age: Yes Stature: WNL Posture: Slumped Eye Contact: Avoidant Behavior/Activity: Slowed - Interaction Observations Attitude Towards Examiner: Cooperative Stated Mood: Dysphoric Affect: Restricted Speech Pattern/Tone: Quiet Volume Thought Process: Coherent Perception: WNL Thought Content: Self-Deprecatory Thought Process: Lethality: Passive Wish Hallucination Type: None Delusion Type: Somatic - Cognitive Function Orientation: A&O x 4 Level of Consciousness: Awake - Medication Compliance Cooperative with Inpatient Medication Regimen: Yes - Group Participation Participates in Group Activities: Yes Assessment - Assessment Merits Inpatient Hospitalization: For Immediate Safety Clinical Impression: 78 year old Female with history of depression and chronic pain came to the hospital by EMS when she felt suicidal with a plan to overdose on her medications and was admitted to the BSU at . Plan - Plan Treatment Plan: Name: NERIS WEEMS Birthdate: 1940 [id number] # Q30 minute observation with staff pass # The patient requires psychiatric inpatient admission at this time to assure safety, receive treatment and work toward stabilization. # Labs ordered: CBC, CMP, UDS, TSH, HBA1c, TSH, Toxicology screen, Urine analysis, EKG and lipid profile. #[place] consult # Pain management evaluation completed and appreciate recommendations # Cymbalta to 40mg daily # Non formulary eye drops from home # Soft diet # Family met with [employer] brine worker # Remeron 7.5mg qhs for sleep # Project care resource for behavioral activation upon discharge # Hospitalist consult completed for unremitting nausea # Family involved in treatment planing # Will explore behavioral activation activities upon discharge # Obtain collateral information once release is signed. # Collaboration with Social Work #Goals before discharge include: To eliminate/ reduce suicidal ideation Tentative Discharge: Pending psychiatric stabilization Sodium 137 mmol/L (135-145) 03/13/19 14:43 Potassium 4.2 mmol/L (3.5-5.0) 03/13/19 14:43 BUN 17 mg/dL (6-24) 03/13/19 14:43 Creatinine 0.83 mg/dL (0.51-0.95) 03/13/19 14:43 Hemoglobin A1c 5.7 % (4.0-5.6) H 03/15/19 06:46 Calcium 9.8 mg/dL (8.6-10.3) 03/13/19 14:43 AST 27 U/L (13-39) 03/13/19 14:43 ALT 25 U/L (7-52) 03/13/19 14:43 Triglycerides 101 mg/dL 03/15/19 06:46 Cholesterol 189 mg/dL 03/15/19 06:46 LDL Cholesterol 107 mg/dL 03/15/19 06:46 Continued Medication Management: Continue Outpt Medication Medications: Current Medications Acetaminophen (Tylenol Tab*) 650 mg PO Q4H PRN PRN Reason: PAIN or TEMP > 101 F Last Admin: 03/15/19 10:35 Dose: 650 mg Al Hydrox/Mg Hydrox/Simethicone (Maalox Plus*) 30 ml PO Q4H PRN PRN Reason: INDIGESTION Last Admin: 03/15/19 19:08 Dose: 30 ml Docusate Sodium (Colace Cap*) 200 mg PO DAILY PRN PRN Reason: CONSTIPATION Duloxetine HCl (Cymbalta Cap*) 40 mg PO DAILY [facility] Ibuprofen (Motrin Tab*) 600 mg PO Q6H PRN PRN Reason: .BREATHROUGH PAIN Last Admin: 03/14/19 14:24 Dose: 600 mg Magnesium Hydroxide (Milk Of Magnesia Liq*) 30 ml PO BID [facility] Last Admin: 03/15/19 21:59 Dose: Not Given Multivitamins (Theragran Tab*) 1 tab PO DAILY [facility] Last Admin: 03/15/19 09:07 Dose: Not Given Genteal Tears (Ophthalmic Ointment) 1 dose BOTH EYES BID PRN PRN Reason: DRY EYES Last Admin: 03/15/19 12:47 Dose: 1 dose Ondansetron HCl (Zofran Tab*) 4 mg PO Q6H [facility] Last Admin: 03/16/19 05:28 Dose: 4 mg Oxycodone HCl (Roxycodone Tab*) 5 mg PO Q6H PRN PRN Reason: .PAIN Last Admin: 03/16/19 00:19 Dose: 5 mg Oxycodone/Acetaminophen (Percocet 5/325 Tab*) 1 tab PO Q6H PRN PRN Reason: .PAIN Last Admin: 03/15/19 14:02 Dose: 1 tab Pharmacy Profile Note (Scopolamine Patch Remove*) 1 note PATCH OFF .AFTER 72 HOURS [facility] Polyethylene Glycol/Electrolytes (Miralax*) 17 gm PO DAILY PRN PRN Reason: CONSTIPATION Scopolamine (Transderm-Scop 1.5 Mg Patch*) 1 patch TRANSDERM Q72H [facility] Last Admin: 03/15/19 12:45 Dose: 1 patch Senna (Senokot 8.6 Mg Tab*) 1 tab PO BEDTIME PRN PRN Reason: CONSTIPATION Sodium Chloride (Hypertonic) (Mica 128 Opth 5% Opth.Soll*) 1 drop BOTH EYES TID [facility] Last Admin: 03/15/19 21:54 Dose: Not Given - Discharge Plan Discharge Plan: Inpatient Hospitalization
[2019-03-16] MEDS ORDERED: DULoxetine DR CAP* 30 MG CAP.DR PO SCH (09:00)
[2019-03-16] MEDS: Magnesium Hydroxide LIQ* 30 ML UDC PO SCH ×2 (09:13→22:33)
[2019-03-16] MEDS: Vitamin THERAPEUTIC TAB PO SCH (09:13)
[2019-03-16] MEDS: oxyCODONE/Acetamin 5/325 MG* TAB PO PRN ×2 (09:18→23:51)
[2019-03-16] MEDS: Sodium Chloride 5% OPTH.SOL* 15 ML BTL BOTH EYES SCH ×4 (09:20→22:33)
[2019-03-16] MEDS: DULoxetine DR CAP* 20 MG CAP.DR PO SCH (09:22)
[2019-03-16] MEDS: Al Hydrox/Mg Hydrox/Simet LIQ* 30 ML UDC PO PRN (13:26)
[2019-03-16] MEDS: Mirtazapine TAB* 15 MG PO SCH (20:04)
[2019-03-16] MEDS: GENTEAL TEARS BOTH EYES PRN (20:08)
[2019-03-17] MEDS: Ondansetron TAB* 4 MG PO SCH ×3 (05:35→18:00)
[2019-03-17] MEDS: DULoxetine DR CAP* 20 MG CAP.DR PO SCH (07:50)
[2019-03-17] MEDS: GENTEAL TEARS BOTH EYES PRN ×3 (07:50→20:30)
[2019-03-17] MEDS: oxyCODONE TAB* 5 MG TAB PO PRN ×3 (07:51→20:25)
[2019-03-17] MEDS: oxyCODONE/Acetamin 5/325 MG* TAB PO PRN ×3 (07:51→20:24)
[2019-03-17] MEDS: Vitamin THERAPEUTIC TAB PO SCH (08:08)
[2019-03-17] MEDS: Magnesium Hydroxide LIQ* 30 ML UDC PO SCH ×2 (08:08→22:58)
[2019-03-17] MEDS: Sodium Chloride 5% OPTH.SOL* 15 ML BTL BOTH EYES SCH ×2 (08:08→14:07)
[2019-03-17] MEDS: Mirtazapine TAB* 15 MG PO SCH (20:23)
[2019-03-18] MEDS: Ondansetron TAB* 4 MG PO SCH ×5 (06:00→22:28)
[2019-03-18] MEDS: oxyCODONE/Acetamin 5/325 MG* TAB PO PRN ×2 (08:50→14:54)
[2019-03-18] MEDS: oxyCODONE TAB* 5 MG TAB PO PRN ×2 (08:50→14:53)
[2019-03-18] MEDS: Vitamin THERAPEUTIC TAB PO SCH (08:51)
[2019-03-18] MEDS: Magnesium Hydroxide LIQ* 30 ML UDC PO SCH ×2 (08:51→20:16)
[2019-03-18] MEDS: DULoxetine DR CAP* 20 MG CAP.DR PO SCH (08:51)
[2019-03-18] MEDS: GENTEAL TEARS BOTH EYES PRN ×2 (11:07→14:51)
[2019-03-18] MEDS: Scopolamine 1.5 mg* PATCH TRANSDERM SCH (11:52)
[2019-03-18] MEDS ORDERED: Scopolamine PATCH Remove* 1 NOTE MISC PATCH OFF SCH (12:00)
[2019-03-18] MEDS: Al Hydrox/Mg Hydrox/Simet LIQ* 30 ML UDC PO PRN (13:45)
--- NOTE | 2019-03-18 19:42 | PN ---
Subjective - Subjective Date of Service: 03/18/19 Service Type: 71585 Hosp care 25 min moderate complexity Subjective: Neris complains of mild lower back pain but no psychiatric complaints. Wants to make sure ther is someone in her house when discharged and wants to go home on Tuesday. Denies SI, hallucinations or delusions. Objective - General Observations Appearance: Neat Stature: Overweight Posture: Slumped Eye Contact: Average Behavior/Activity: WNL - Interaction Observations Attitude Towards Examiner: Cooperative Stated Mood: Dysphoric Affect: Restricted Speech Pattern/Tone: Clear, Appropriate Thought Process: Coherent, Goal Directed Perception: WNL Thought Content: WNL Hallucination Type: Denies Delusion Type: Denies - Cognitive Function Orientation: A&O x 4 Level of Consciousness: Awake, Alert, Appropriate Cognition: WNL Estimated Intelligence: Normal Insight: WNL Judgment Within Normal Limits: No Ability to Make Reasonable Decisions: Mildly Impaired - Medication Compliance Cooperative with Inpatient Medication Regimen: Yes - Group Participation Participates in Group Activities: No Assessment - Assessment Merits Inpatient Hospitalization: Consolidate Improvements, Pending Safe DC Plan Clinical Impression: 78 year old Female with history of depression and chronic pain came to the hospital by EMS when she felt suicidal with a plan to overdose on her medications and was admitted to the B[facility] at [facility]. Plan - Plan Treatment Plan: Name: NERIS WEEMS Birthdate: 1940 [id number] # Q30 minute observation with staff pass # The patient requires psychiatric inpatient admission at this time to assure safety, receive treatment and work toward stabilization. # Labs ordered: CBC, CMP, UDS, TSH, HBA1c, TSH, Toxicology screen, Urine analysis, EKG and lipid profile. #[place] consult # Pain management evaluation completed and appreciate recommendations # Cymbalta to 40mg daily # Non formulary eye drops from home # Soft diet # Family met with [employer] house worker # Remeron 7.5mg qhs for sleep # Project care resource for behavioral activation upon discharge # Hospitalist consult completed for unremitting nausea # Family involved in treatment planing # Will explore behavioral activation activities upon discharge # Obtain collateral information once release is signed. # Collaboration with Social Work #Goals before discharge include: To eliminate/ reduce suicidal ideation Tentative Discharge: Pending psychiatric stabilization Sodium 137 mmol/L (135-145) 03/13/19 14:43 Potassium 4.2 mmol/L (3.5-5.0) 03/13/19 14:43 BUN 17 mg/dL (6-24) 03/13/19 14:43 Creatinine 0.83 mg/dL (0.51-0.95) 03/13/19 14:43 Hemoglobin A1c 5.7 % (4.0-5.6) H 03/15/19 06:46 Calcium 9.8 mg/dL (8.6-10.3) 03/13/19 14:43 AST 27 U/L (13-39) 03/13/19 14:43 ALT 25 U/L (7-52) 03/13/19 14:43 Triglycerides 101 mg/dL 03/15/19 06:46 Cholesterol 189 mg/dL 03/15/19 06:46 LDL Cholesterol 107 mg/dL 03/15/19 06:46 Continued Medication Management: Continue Outpt Medication Medications: Current Medications Acetaminophen (Tylenol Tab*) 650 mg PO Q4H PRN PRN Reason: PAIN or TEMP > 101 F Last Admin: 03/15/19 10:35 Dose: 650 mg Al Hydrox/Mg Hydrox/Simethicone (Maalox Plus*) 30 ml PO Q4H PRN PRN Reason: INDIGESTION Last Admin: 03/18/19 13:45 Dose: 30 ml Docusate Sodium (Colace Cap*) 200 mg PO DAILY PRN PRN Reason: CONSTIPATION Duloxetine HCl (Cymbalta Cap*) 40 mg PO DAILY [facility] Last Admin: 03/18/19 08:51 Dose: 40 mg Ibuprofen (Motrin Tab*) 600 mg PO Q6H PRN PRN Reason: .BREATHROUGH PAIN Last Admin: 03/14/19 14:24 Dose: 600 mg Magnesium Hydroxide (Milk Of Magnesia Liq*) 30 ml PO BID [facility] Last Admin: 03/18/19 08:51 Dose: Not Given Mirtazapine (Remeron Tab*) 7.5 mg PO BEDTIME [facility] Last Admin: 03/17/19 20:23 Dose: 7.5 mg Multivitamins (Theragran Tab*) 1 tab PO DAILY [facility] Last Admin: 03/18/19 08:51 Dose: Not Given Pto:Genteal Tears (Ophthalmic Ointment) 1 dose BOTH EYES TID PRN PRN Reason: DRY EYES Last Admin: 03/18/19 14:51 Dose: 1 dose Ondansetron HCl (Zofran Tab*) 4 mg PO Q6H [facility] Last Admin: 03/18/19 16:55 Dose: 4 mg Oxycodone HCl (Roxycodone Tab*) 5 mg PO Q6H PRN PRN Reason: .PAIN Last Admin: 03/18/19 14:53 Dose: 5 mg Oxycodone/Acetaminophen (Percocet 5/325 Tab*) 1 tab PO Q6H PRN PRN Reason: .PAIN Last Admin: 03/18/19 14:54 Dose: 1 tab Pharmacy Profile Note (Scopolamine Patch Remove*) 1 note PATCH OFF .AFTER 72 HOURS [facility] Polyethylene Glycol/Electrolytes (Miralax*) 17 gm PO DAILY PRN PRN Reason: CONSTIPATION Scopolamine (Transderm-Scop 1.5 Mg Patch*) 1 patch TRANSDERM Q72H [facility] Last Admin: 03/18/19 11:52 Dose: 1 patch Senna (Senokot 8.6 Mg Tab*) 1 tab PO BEDTIME PRN PRN Reason: CONSTIPATION - Discharge Plan Discharge Plan: Outpatient Follow Up Outpatient Program: [facility]
[2019-03-18] MEDS: Mirtazapine TAB* 15 MG PO SCH (20:14)
[2019-03-18] MEDS: Ibuprofen TAB* 600 MG PO PRN (20:18)
[2019-03-19] MEDS: oxyCODONE/Acetamin 5/325 MG* TAB PO PRN ×2 (00:12→10:05)
[2019-03-19] MEDS: oxyCODONE TAB* 5 MG TAB PO PRN ×4 (00:13→22:00)
[2019-03-19] MEDS: Ibuprofen TAB* 600 MG PO PRN ×2 (07:12→20:27)
[2019-03-19] MEDS: Ondansetron TAB* 4 MG PO SCH ×4 (07:12→22:01)
[2019-03-19] MEDS: DULoxetine DR CAP* 20 MG CAP.DR PO SCH (09:08)
[2019-03-19] MEDS: Magnesium Hydroxide LIQ* 30 ML UDC PO SCH (09:09)
[2019-03-19] MEDS: Vitamin THERAPEUTIC TAB PO SCH (10:10)
[2019-03-19] MEDS ORDERED: DULoxetine DR CAP* 20 MG CAP.DR PO ONE (11:40)
[2019-03-19] MEDS: GENTEAL TEARS BOTH EYES PRN ×2 (11:50→20:29)
--- NOTE | 2019-03-19 12:29 | PN ---
Subjective - Subjective Date of Service: 03/19/19 Service Type: 26708 Hosp care 35 min high complexity Subjective: Nursing Report: Patient was visible on unit, no behavioral incidents. CC: "Horrible Patient was seen and evaluated today in her room with Kiya ALVARADO. The patient reported she had had a hard time sleeping on the unit and said that it is because the bed is too hard. She reported being in pain and doesnt want to be tapered off of pain medications. The patient reports attending and participating in day groups. Per nursing no behavioral issues or overnight events reported. Patient reported that she is tolerating medications without side effects. Objective - General Observations Appearance: Neat Appears Stated Age: Yes Stature: WNL Posture: Slumped Eye Contact: Avoidant Behavior/Activity: Slowed - Interaction Observations Attitude Towards Examiner: Anxious Stated Mood: Dysphoric Affect: Restricted Speech Pattern/Tone: Appropriate Thought Process: Coherent Perception: WNL Thought Content: Self-Deprecatory Thought Process: Lethality: Passive Wish Hallucination Type: None Delusion Type: None - Cognitive Function Orientation: A&O x 4 Level of Consciousness: Awake - Medication Compliance Cooperative with Inpatient Medication Regimen: Yes - Group Participation Participates in Group Activities: Partial Assessment - Assessment Merits Inpatient Hospitalization: For Immediate Safety Clinical Impression: 78 year old Female with history of depression and chronic pain came to the hospital by EMS when she felt suicidal with a plan to overdose on her medications and was admitted to the [facility] at [facility]. Plan - Plan Treatment Plan: Name: NERIS WEEMS Birthdate: 1940 [id number] # Q30 minute observation with staff pass # The patient requires psychiatric inpatient admission at this time to assure safety, receive treatment and work toward stabilization. # Labs ordered: CBC, CMP, UDS, TSH, HBA1c, TSH, Toxicology screen, Urine analysis, EKG and lipid profile. #[facility] consult # Pain management evaluation completed and appreciate recommendations # Increase Cymbalta to 60mg daily # Family meeting Tuesday. # Retracted 72 hour notice # Remeron 7.5mg qhs for sleep # Plan to decrease oxycodone to 5mg, pain management in agreement with plan. # Project care resource for behavioral activation upon discharge # Hospitalist consult completed for unremitting nausea # Family involved in treatment planing # Obtain collateral information once release is signed. # Collaboration with Social Work #Goals before discharge include: To eliminate/ reduce suicidal ideation Tentative Discharge: Tuesday Sodium 137 mmol/L (135-145) 03/13/19 14:43 Potassium 4.2 mmol/L (3.5-5.0) 03/13/19 14:43 BUN 17 mg/dL (6-24) 03/13/19 14:43 Creatinine 0.83 mg/dL (0.51-0.95) 03/13/19 14:43 Hemoglobin A1c 5.7 % (4.0-5.6) H 03/15/19 06:46 Calcium 9.8 mg/dL (8.6-10.3) 03/13/19 14:43 AST 27 U/L (13-39) 03/13/19 14:43 ALT 25 U/L (7-52) 03/13/19 14:43 Triglycerides 101 mg/dL 03/15/19 06:46 Cholesterol 189 mg/dL 03/15/19 06:46 LDL Cholesterol 107 mg/dL 03/15/19 06:46 Continued Medication Management: Continue Outpt Medication Medications: Current Medications Acetaminophen (Tylenol Tab*) 650 mg PO Q4H PRN PRN Reason: PAIN or TEMP > 101 F Last Admin: 03/15/19 10:35 Dose: 650 mg Al Hydrox/Mg Hydrox/Simethicone (Maalox Plus*) 30 ml PO Q4H PRN PRN Reason: INDIGESTION Last Admin: 03/18/19 13:45 Dose: 30 ml Docusate Sodium (Colace Cap*) 200 mg PO DAILY PRN PRN Reason: CONSTIPATION Duloxetine HCl (Cymbalta Cap*) 60 mg PO DAILY [facility] Ibuprofen (Motrin Tab*) 600 mg PO Q6H PRN PRN Reason: .BREATHROUGH PAIN Last Admin: 03/19/19 07:12 Dose: 600 mg Magnesium Hydroxide (Milk Of Magnesia Liq*) 30 ml PO BID [facility] Last Admin: 03/19/19 09:09 Dose: 30 ml Mirtazapine (Remeron Tab*) 7.5 mg PO BEDTIME [facility] Last Admin: 03/18/19 20:14 Dose: 7.5 mg Multivitamins (Theragran Tab*) 1 tab PO DAILY [facility] Last Admin: 03/19/19 10:10 Dose: Not Given Pto:Genteal Tears (Ophthalmic Ointment) 1 dose BOTH EYES TID PRN PRN Reason: DRY EYES Last Admin: 03/19/19 11:50 Dose: 1 dose Ondansetron HCl (Zofran Tab*) 4 mg PO Q6H [facility] Last Admin: 03/19/19 11:09 Dose: 4 mg Oxycodone HCl (Roxycodone Tab*) 5 mg PO Q6H PRN PRN Reason: .PAIN Last Admin: 03/19/19 09:12 Dose: 5 mg Oxycodone/Acetaminophen (Percocet 5/325 Tab*) 1 tab PO Q6H PRN PRN Reason: .PAIN Last Admin: 03/19/19 10:05 Dose: 1 tab Pharmacy Profile Note (Scopolamine Patch Remove*) 1 note PATCH OFF .AFTER 72 HOURS [facility] Polyethylene Glycol/Electrolytes (Miralax*) 17 gm PO DAILY PRN PRN Reason: CONSTIPATION Scopolamine (Transderm-Scop 1.5 Mg Patch*) 1 patch TRANSDERM Q72H [facility] Last Admin: 03/18/19 11:52 Dose: 1 patch Senna (Senokot 8.6 Mg Tab*) 1 tab PO BEDTIME PRN PRN Reason: CONSTIPATION - Discharge Plan Discharge Plan: Inpatient Hospitalization
[2019-03-19] MEDS: Mirtazapine TAB* 15 MG PO SCH (20:28)
[2019-03-20] MEDS: Magnesium Hydroxide LIQ* 30 ML UDC PO SCH ×3 (00:27→20:48)
[2019-03-20] MEDS: Ondansetron TAB* 4 MG PO SCH ×3 (04:48→18:16)
[2019-03-20] MEDS: oxyCODONE TAB* 5 MG TAB PO PRN ×3 (07:20→20:26)
[2019-03-20] MEDS: Acetaminophen TAB* 325 MG PO PRN (07:21)
[2019-03-20] MEDS: DULoxetine DR CAP* 30 MG CAP.DR PO SCH (09:10)
[2019-03-20] MEDS: Vitamin THERAPEUTIC TAB PO SCH (09:10)
--- NOTE | 2019-03-20 09:56 | PN ---
Subjective - Subjective Date of Service: 03/20/19 Service Type: 73715 Hosp care 35 min high complexity Subjective: Nursing Report: Patient was visible on unit, no behavioral incidents. CC: "okay Patient was seen and evaluated today in her room. The patient reported that her pain level is about the same. She mentioned that her nausea is not as severe and she was able to eat some breakfast this morning. She is looking forward to discharge tomorrow. She attended some groups. Per nursing no behavioral issues or overnight events reported. Patient reported that she is tolerating medications without side effects. Objective - General Observations Appearance: Neat Appears Stated Age: Yes Stature: WNL Posture: WNL Eye Contact: Average Behavior/Activity: Slowed - Interaction Observations Attitude Towards Examiner: Cooperative Stated Mood: Dysphoric Affect: Restricted Speech Pattern/Tone: Clear Thought Process: Coherent Perception: WNL Thought Content: Self-Deprecatory Hallucination Type: None Delusion Type: None - Cognitive Function Orientation: A&O x 4 Level of Consciousness: Awake - Medication Compliance Cooperative with Inpatient Medication Regimen: Yes - Group Participation Participates in Group Activities: Yes Assessment - Assessment Merits Inpatient Hospitalization: For Immediate Safety Clinical Impression: 78 year old Female with history of depression and chronic pain came to the hospital by EMS when she felt suicidal with a plan to overdose on her medications and [facility] Plan - Plan Treatment Plan: Name: NERIS WEEMS Birthdate: 1940 [id number] # Q30 minute observation with staff pass # The patient requires psychiatric inpatient admission at this time to assure safety, receive treatment and work toward stabilization. # Pain management evaluation completed and appreciate recommendations # Continue Cymbalta 60mg daily # Family meeting scheduled for Tuesday. Family involved in treatment planing # Remeron 7.5mg qhs for sleep # Continue oxycodone to 5mg, pain management in agreement with plan. No withdrawal signs evident. # Project care resource for behavioral activation upon discharge # Hospitalist consult completed for unremitting nausea and appreciate recommendations # Collaboration with Social Work #Goals before discharge include: To eliminate/ reduce suicidal ideation Tentative Discharge: Tuesday Sodium 137 mmol/L (135-145) 03/13/19 14:43 Potassium 4.2 mmol/L (3.5-5.0) 03/13/19 14:43 BUN 17 mg/dL (6-24) 03/13/19 14:43 Creatinine 0.83 mg/dL (0.51-0.95) 03/13/19 14:43 Hemoglobin A1c 5.7 % (4.0-5.6) H 03/15/19 06:46 Calcium 9.8 mg/dL (8.6-10.3) 03/13/19 14:43 AST 27 U/L (13-39) 03/13/19 14:43 ALT 25 U/L (7-52) 03/13/19 14:43 Triglycerides 101 mg/dL 03/15/19 06:46 Cholesterol 189 mg/dL 03/15/19 06:46 LDL Cholesterol 107 mg/dL 03/15/19 06:46 Continued Medication Management: Continue Outpt Medication Medications: Current Medications Acetaminophen (Tylenol Tab*) 650 mg PO Q4H PRN PRN Reason: PAIN or TEMP > 101 F Last Admin: 03/20/19 07:21 Dose: 650 mg Al Hydrox/Mg Hydrox/Simethicone (Maalox Plus*) 30 ml PO Q4H PRN PRN Reason: INDIGESTION Last Admin: 03/18/19 13:45 Dose: 30 ml Docusate Sodium (Colace Cap*) 200 mg PO DAILY PRN PRN Reason: CONSTIPATION Duloxetine HCl (Cymbalta Cap*) 60 mg PO DAILY [facility] Last Admin: 03/20/19 09:10 Dose: 60 mg Ibuprofen (Motrin Tab*) 600 mg PO Q6H PRN PRN Reason: .BREATHROUGH PAIN Last Admin: 03/19/19 20:27 Dose: 600 mg Magnesium Hydroxide (Milk Of Magnesia Liq*) 30 ml PO BID [facility] Last Admin: 03/20/19 09:12 Dose: 30 ml Mirtazapine (Remeron Tab*) 7.5 mg PO BEDTIME [facility] Last Admin: 03/19/19 20:28 Dose: 7.5 mg Multivitamins (Theragran Tab*) 1 tab PO DAILY [facility] Last Admin: 03/20/19 09:10 Dose: 1 tab Pto:Genteal Tears (Ophthalmic Ointment) 1 dose BOTH EYES TID PRN PRN Reason: DRY EYES Last Admin: 03/19/19 20:29 Dose: 1 dose Ondansetron HCl (Zofran Tab*) 4 mg PO Q6H [facility] Last Admin: 03/20/19 04:48 Dose: 4 mg Oxycodone HCl (Roxycodone Tab*) 5 mg PO Q6H PRN PRN Reason: .PAIN Last Admin: 03/20/19 07:20 Dose: 5 mg Pharmacy Profile Note (Scopolamine Patch Remove*) 1 note PATCH OFF .AFTER 72 HOURS [facility] Polyethylene Glycol/Electrolytes (Miralax*) 17 gm PO DAILY PRN PRN Reason: CONSTIPATION Scopolamine (Transderm-Scop 1.5 Mg Patch*) 1 patch TRANSDERM Q72H [facility] Last Admin: 03/18/19 11:52 Dose: 1 patch Senna (Senokot 8.6 Mg Tab*) 1 tab PO BEDTIME PRN PRN Reason: CONSTIPATION - Discharge Plan Discharge Plan: Inpatient Hospitalization
[2019-03-20] MEDS: Ibuprofen TAB* 600 MG PO PRN (11:04)
[2019-03-20] MEDS: GENTEAL TEARS BOTH EYES PRN (19:11)
[2019-03-20] MEDS: Mirtazapine TAB* 15 MG PO SCH (20:25)
[2019-03-20] MEDS: SODIUM CHLORIDE 5% BOTH EYES SCH (23:07)
[2019-03-20] MEDS: OPTH BOTH EYES SCH (23:07)
[2019-03-21] MEDS: Ondansetron TAB* 4 MG PO SCH (05:20)
[2019-03-21] MEDS: oxyCODONE TAB* 5 MG TAB PO PRN ×2 (05:26→10:55)
[2019-03-21 08:32] VITALS: BP 108/76
[2019-03-21] MEDS: Vitamin THERAPEUTIC TAB PO SCH (08:44)
[2019-03-21] MEDS: DULoxetine DR CAP* 30 MG CAP.DR PO SCH (08:44)
[2019-03-21] MEDS: Acetaminophen TAB* 325 MG PO PRN (08:45)
[2019-03-21] MEDS: Magnesium Hydroxide LIQ* 30 ML UDC PO SCH (08:45)
[2019-03-21] MEDS: OPTH BOTH EYES SCH (08:47)
[2019-03-21] MEDS: SODIUM CHLORIDE 5% BOTH EYES SCH (08:47)
[2019-03-21] MEDS: Ibuprofen TAB* 600 MG PO PRN (10:33)
--- NOTE | 2019-03-21 11:08 | DS ---
Subjective - Subjective Service Types: [id number] [facility] Day Mgmt complex over 30 min Discharge Date: 03/21/19 Subjective: CC: " Things are different" Patient looks forward to going back home and having her own freedom. She does not want to go to a fpc. Family meeting took place and family encouraged that she go to a facility despite her wishes. The patient was seen and evaluated before discharge today. The patient reports attending some groups. Per nursing report no behavioral issues or overnight events reported. Patient reported having nausea that has been persistent and chronic. Patient expressed feeling better since admission. Patient endorsed feeling safe to go home and denied suicidal ideation intent or plan. Patient wants to live for her family and looks forward to seeing her grandson in [place]. Justification for admission: Immediate Safety. CC " I am suicidal" The patient was brought to [facility] by EMS after she called 911 feeling suicidal with a plan to overdose on pills. She expressed that she lost her and dog and 2 brothers in the same year and is unable to cope with the loss she has endured. She reported always being in pain. She reported that nothing helps with the pain. Her goals include not being suicidal and she said " I shouldn't feel this way and I am a burden on my family." Denied access to firearms. Patient has stockpile of medications and her son manages her medications. Her son lives next door and helps her out ever day. Her family came to visit during visiting hours and brought her clothing. She reported poor sleep and appetite. The patient denied homicidal ideation intent or plan. The patient denied auditory and/ or visual hallucinations. MDD Reported feeling depressed and not longer going to faith and having diminished interests which were found to be enjoyable in the past. She has been having crying spells, feeling empty inside, with feelings of hopelessness, and worthlessness. Reported feelings of being lonely. She has had recurrent thoughts of and that she would be better off . Anxiety Denied having symptoms of anxiety such as having times where heart feels that it is beating out of chest , sweaty palms, or shallow breathing. Denied having uncomfortable or intrusive thoughts. Denied feeling restless, high strung, or worrying too much most of the time. Bipolar Denied symptoms of tino such as having many ideas at once. Denied increased talkativeness where no one can interrupt. Denied feeling irritable most of the time while having an persistent abundance of energy most of the day without the use of energy drinks, stimulants, or recreational drug use. Denied an increase in intensity in goal directed activities. Denied having the decreased need to sleep for days , having prolonged elevated mood , or feeling on top of the world. Denied impulsive risky sexual encounters. Denied spending money recklessly , going on spending sprees wiping out savings. Denied impulsively traveling out of town or country, having super granado, and unrealistic wealth or fame. Psychosis Does not endorse hearing things that other people do not hear or seeing things other people do not see. Denied feeling that TV is making references. Denied feeling that people are spying , following , or reading their thoughts. Phobias: Patient denied having excessive fear of a particular thing or situation. Eating disorders: Patient denied having excessive eating habits or feelings of guilt after eating. Denied repeated episodes of self induced vomiting after eating. PTSD Denied flashbacks, nightmares and avoidance of a prior traumatic event. PAST PSYCHIATRIC HISTORY: Prior Diagnosis :Major depressive disorder, Fibromyalgia History of past Psychiatric Hospitalizations: No prior psychiatric admission. History of past suicide/homicide attempts : Denied past suicide attempts or self injurious behaviors. No history of violence. Outpatient follow-up: PCP Dr. Leon Medications: Past trials of medications include Xanax 0.25mg daily, Fluoxetine 80mg daily, Remeron 15mg qhs , Abilify 2mg qhs Guardianship: None. FAMILY HISTORY: - Suicide: Distant uncle by suicide. - Mental illness: Denied a history of mental health in immediate family members. - Substance abuse: Denied substance abuse among family members. SUBSTANCE ABUSE HISTORY: - EtOH: Denied recent use. No associated legal issues, blackouts, seizures, DTs or past hospitalizations due to alcohol. - Tobacco: Denied - Cannabis: Denied - Heroin: Denied - Cocaine: Denied - Substance abuse treatment: Denied past substance abuse treatment SOCIAL HISTORY: - Denied a history of childhood physical and or sexual abuse Born in [facility] [place] [facility] and raised by father and step mother her mother when she was young. - Education: Finished high school. No history of special education. - Living situation: Currently lives in [place] and has supportive family. 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 - Legal history: Denied - service history: Denied PAST MEDICAL HISTORY: Fibromyalgia, s/p Cornea Transplant, Kidney Stones 07/27/12, [facility] [place]sterectomy in 1982, [facility] [place] Laminectomy, cataracts - Allergies: Penicillins , Iodine contrast Physical Exam: Please see ED note Mental Status Exam on Admission APPEARANCE : 78 year old female who appears stated age. Patient wearing sleep attire and is in bed. BEHAVIOR: Cooperative , calm EYE CONTACT: Fair PSYCHOMOTOR ACTIVITY: No psychomotor agitation or retardation. MOVEMENTS: No abnormal movements observed. SPEECH : Normal rate, rhythm, volume and tone. MOOD : "Depressed " AFFECT : Type is depressed Range is restricted Mood Congruent THOUGHT PROCESS: Formulated and organized in a logical, linear goal directed manner. No flight of ideas, neologism (made up words) , perseveration , tangential , loose associations , or circumstantiality. THOUGHT CONTENT: no delusions, obsessions, phobias or preoccupations. PERCEPTION: No current auditory or visual hallucinations. Doesnt appear to be responding to internal cues. No evidence of depersonalization , de-realization, or illusions SUICIDALITY suicidal ideation with plan. HOMICIDALITY Denied homicidal ideation, intent or plan. Insight/judgment: Poor insight and judgment ORIENTATION: Oriented to self, location, and time. Diagnosis on Admission: Major Depressive Disorder, Severe. Diagnosis on Discharge: Major Depressive Disorder in partial remission, Chronic pain disorder with psychological factors. Condition at the time of discharge: At the time of discharge patient showed improvement of sleep and appetite. The patient was not a danger to self or others. The patient denied suicidal ideation, intent or plan. The patient denied homicidal targets, ideation, intent or plan. This patient participated in psychosocial rehabilitation and gained some insight into problems. The patient gained insight into mental illness, triggers, and treatment. The patient took medication as prescribed. The patient denied side effects of medication and objective signs of side effects were not evident. Therapy Resources were offered to the patient. Patient was given a supply of prescriptions at the time of discharge. The patient plans to attend follow up care with the follow up arrangements that were discussed and put in place. Patient was asked to keep appointments as scheduled, take medication as prescribed, have routine follow up care with their primary care physician and refrain from any use of alcohol or drugs. Objective - General Observations Appearance: Neat Appears Stated Age: Yes Stature: WNL Posture: Slumped Eye Contact: Average Behavior/Activity: WNL - Interaction Observations Attitude Towards Examiner: Cooperative Stated Mood: Euthymic Affect: Restricted Speech Pattern/Tone: Appropriate Thought Process: Coherent Perception: WNL Thought Content: Preoccupation/Ruminations Hallucination Type: None Delusion Type: None - Cognitive Function Orientation: A&O x 4 Level of Consciousness: Awake - Medication Compliance Cooperative with Inpatient Medication Regimen: Yes - Group Participation Participates in Group Activities: Yes Treatment Course & Assessment Clinical Course & Impression: Hospital course part A: 78 year old Female with history of depression and chronic pain came to the hospital by EMS when she felt suicidal with a plan to overdose on her medications and was admitted to the B[facility] at [facility]. Hospital course part B: Labs ordered included CBC, CMP, UDS, TSH, HBA1c, TSH, EKG Toxicology screen, Urine analysis, and lipid profile. Labs were reviewed and vital signs were monitored during the course of admission. The patient was admitted to the adult behavioral unit and placed on 15 minute check for safety. At a later time the patient was on Q30 minute observation and staff pass privileges. With those limits being extended, patient was safe on all checks and there were no occurrence of behavioral incidents. The patient did well on the unit and went to groups. Interacted with peers and staff. Tolerated medication changes without side effects. Group therapy and services were offered. The risks, benefits, and alternative treatment options were discussed as well as of the risks of refusing treatment. Treatment associated risks discussed. After this discussion the patient made an acknowledgement of this understanding. Follow up care appointments were put in place. Monitoring for metabolic changes was reviewed and it was emphasized to the patient to be continued to be monitored upon discharge. The patient was informed not to abruptly stop or start new medications before consulting with a medical professional. Improvements shown from the time of admission include: Improved affect, and a decrease in anxiety. The patient expressed readiness for discharge home. The patient presents with a broader range of affect, and the absence of depressed mood, delusions, perceptual disturbance. The patient denied suicidal and or homicidal ideation intent or plan. Overall, the patient responded well to inpatient treatment as evidenced by their report of strengthening of coping mechanisms, reduced distress, and more positive outlook on circumstances. Of note there was an improvement of recognizing how emotional state can effect mood and behavior. The patient reported little change in sleep or appetite remarking that her bed was uncomfortable. Safety precautions were put in place which included involving the patient and their family to closely monitor for changes in mental state. In addition, implementing follow up care, screening for the need to remove/securing firearms , weapons and stockpile of medications. Patient/ family instructed to immediately call 911 should any safety concerns arise. Family meeting took place before discharge, supportive care resources,and nursing facilities discussed with patient and family and the patient refused to go to a nursing facility to live because she did not want her freedom to be taken away. She was okay with day program and visiting nursing care, her family is worried that she will change her mind. Patients family reported that they have been burned out with caring for her. They were provided with program and caregiver services. A visiting nursing application was placed. At the time of discharge the patients capacity to decide her own medical decisions was intact and patient wished to be discharged. During the course of hospitalization, the patient placed a 72 hour notice to terminate hospitalization and later retracted it to be able to have a family meeting on Tuesday. Patient was able to dress herself and shower without assistance. Patients family noted improvement since admission and is worried that she will refuse to comply with supportive resources. Her family has been helping her out and going to her house daily and monitoring her medications and her son that lives near her has returned from [place]. Her medications indications, strength and frequency have been review with the family and patient. The patient is upset that she no longer can drive her car due to her impaired vision. Patients family did not seem satisfied with resources offered and expressed frustration due to other rehabilitation facilities denying eligibility in the past. Patients family did not want the patient to go to [facility] and the patient was not in agreement with that plan. Patient family picked up previous controlled substances prescriptions from security upon discharge and they informed that morphine and xanax were discontinued and those medications were no longer needed and can be safely discarded. COTTON TIER was checked and no indications of prescription abuse or diversion. Patient advised of the lethality and dangerousness of combining medications with pain medications in excess and/ or with alcohol and acknowledged this understanding. Patient was given a 7 day supply of Oxycodone and advised to follow up with pain management clinic. The patient was advised of the 24 hour / 7 days a week availability of the emergency room and to call 911 in the event of an emergency such as being suicidal and/ or homicidal. The patient was informed of the contact information for [facility], Suicide Prevention [facility] Crisis Services, National Suicide Prevention Lifeline, [facility], Alcoholics Anonymous, and [facility]. Medications started included remeron 7.5mg qhs , cymbalta 60mg daily for depression, oxycodone 10mg Q6H PRN, scopolamine for nausea Pain management was consulted and evaluated patient. An attempt to decrease pain medications was made however the patient reported increased pain during titration of medications and wished to resume pain medications. Consults included to pain management and hospitalist service for medical management. Family meeting took place before discharge. The family confirmed that the patient has shown improvement and expressed concern that she might not stay that way over time. At this time the patient is eager for discharge and expressed readiness for discharge. They were advised on how the days following discharge can be a vulnerable period and to look out for warning signs associated with decompensation and progression of mental illness. They were notified of the resources available in the event these situations arise and confirmed that the patient has no access to firearms. Her son has been managing her medications into weekly boxes. Patient doesnt report any improvement of pain or nausea over the course of several years of multiple medical interventions. Patient showed improvement with socialization and resources were offered directed towards increasing her socialization upon discharge. Patient was not assaultive or a behavioral problem during the course of admission. The patient showed good hygiene and was able to carry out activities of daily living such as showering and dressing herself. Patient will be discharged to live at home. Follow up appointment at [facility] care, visiting nursing services, Grieving together, Carolyn Johnson PCP. Patient informed of follow up appointment times. See more details for follow up care in the discharge plan. Risk factors were mitigated by establishing the patients baseline with close contacts and arranging a family meeting. Implemented precautionary safety measures by confirming no access to firearms, provided mental health treatment , stabilization of depressive features, arrangement of outpatient continuation of care, as well as provided a supportive care environment and therapy resources during the course of hospitalization. Safety plan was reviewed with the patient and treatment team and the patient verbalized options they could pursue to ensure their safety in the event they feel unsafe and not doing well. Grief and loss resources were provided. Risk factors: , , history of depression, pain and medical disorders . Loss of and brothers within a year Protective factors: Female, Currently no suicidal ideation, intent or plan. No prior suicide attempts , has children. Has social/ family support system. No history of service. Currently no feelings of hopelessness, not in an occupation of social isolation, no family history of suicide, doesnt have access to firearms. Doesnt have command hallucinations and or psychotic features at this time. No current substance abuse. No current alcohol abuse. No recent changes in relationship status, housing, job, or school. Currently future orientated. Patient engaged in treatment and compliant with medication. No barriers to seek mental health treatment. Sodium 137 mmol/L (135-145) 03/13/19 14:43 Potassium 4.2 mmol/L (3.5-5.0) 03/13/19 14:43 BUN 17 mg/dL (6-24) 03/13/19 14:43 Creatinine 0.83 mg/dL (0.51-0.95) 03/13/19 14:43 Hemoglobin A1c 5.7 % (4.0-5.6) H 03/15/19 06:46 Calcium 9.8 mg/dL (8.6-10.3) 03/13/19 14:43 AST 27 U/L (13-39) 03/13/19 14:43 ALT 25 U/L (7-52) 03/13/19 14:43 Triglycerides 101 mg/dL 03/15/19 06:46 Cholesterol 189 mg/dL 03/15/19 06:46 LDL Cholesterol 107 mg/dL 03/15/19 06:46 Merits Inpatient Hospitalization: No Clear for Discharge: Adequate Clinical Respons Discharge Planning - Discharge Planning Discharge Plan: Outpatient Follow Up Recommendations for Continuing Care: Medication Management, Primary Care Followup, Specialty Followup Medications: Current Medications Acetaminophen (Tylenol Tab*) 650 mg PO Q4H PRN PRN Reason: PAIN or TEMP > 101 F Last Admin: 03/21/19 08:45 Dose: 650 mg Al Hydrox/Mg Hydrox/Simethicone (Maalox Plus*) 30 ml PO Q4H PRN PRN Reason: INDIGESTION Last Admin: 03/18/19 13:45 Dose: 30 ml Docusate Sodium (Colace Cap*) 200 mg PO DAILY PRN PRN Reason: CONSTIPATION Duloxetine HCl (Cymbalta Cap*) 60 mg PO DAILY [facility] Last Admin: 03/21/19 08:44 Dose: 60 mg Ibuprofen (Motrin Tab*) 600 mg PO Q6H PRN PRN Reason: .BREATHROUGH PAIN Last Admin: 03/21/19 10:33 Dose: 600 mg Magnesium Hydroxide (Milk Of Geoforce Liq*) 30 ml PO BID [facility] Last Admin: 03/21/19 08:45 Dose: 30 ml Mirtazapine (Remeron Tab*) 7.5 mg PO BEDTIME [facility] Last Admin: 03/20/19 20:25 Dose: 7.5 mg Multivitamins (Theragran Tab*) 1 tab PO DAILY [facility] Last Admin: 03/21/19 08:44 Dose: 1 tab Pto:Genteal Tears (Ophthalmic Ointment) 1 dose BOTH EYES TID PRN PRN Reason: DRY EYES Last Admin: 03/20/19 19:11 Dose: 1 dose Ondansetron HCl (Zofran Tab*) 4 mg PO Q6H [facility] Last Admin: 03/21/19 05:20 Dose: 4 mg Oxycodone HCl (Roxycodone Tab*) 5 mg PO Q6H PRN PRN Reason: .PAIN Last Admin: 03/21/19 10:55 Dose: 5 mg Pharmacy Profile Note (Scopolamine Patch Remove*) 1 note PATCH OFF .AFTER 72 HOURS [facility] Polyethylene Glycol/Electrolytes (Miralax*) 17 gm PO DAILY PRN PRN Reason: CONSTIPATION Scopolamine (Transderm-Scop 1.5 Mg Patch*) 1 patch TRANSDERM Q72H [facility] Last Admin: 03/18/19 11:52 Dose: 1 patch Senna (Senokot 8.6 Mg Tab*) 1 tab PO BEDTIME PRN PRN Reason: CONSTIPATION Sodium Chloride (Hypertonic) (Mica 128 Opth 5% Opth.Soll*) 1 drop BOTH EYES TID MARIELOS Last Admin: 03/21/19 08:47 Dose: 1 drop Discharge Planning: Prescriptions provided for discharge [x] Yes [] No Follow up care details as per social work arrangements. Patient response to discharge plan: [x] eager for discharge [] agreeable with discharge plan [] ambivalent about discharge [] disagrees with discharge today
[2019-03-21] MEDS ORDERED: oxyCODONE TAB* 5 MG TAB PO PRN (11:13)
== END 2019-03-21 14:16 | disposition home or self-care (01) | DRG 885 ==
LOC: ED 14:07 → BSU 23:20
PROVIDERS: ADMIT Psychiatry & Neurology Psychiatry; ATTEND Psychiatry & Neurology Psychiatry
DX: F32.2 Major depressive disorder, single episode, severe without psychotic features (principal); R45.851 Suicidal ideations; M79.7 Fibromyalgia; F32.9 Major depressive disorder, single episode, unspecified; G89.4 Chronic pain syndrome; K21.9 Gastro-esophageal reflux disease without esophagitis; K58.9 Irritable bowel syndrome, unspecified; G47.30 Sleep apnea, unspecified; K57.90 Diverticulosis of intestine, part unspecified, without perforation or abscess without bleeding; M19.90 Unspecified osteoarthritis, unspecified site; M48.061 Spinal stenosis, lumbar region without neurogenic claudication; F41.9 Anxiety disorder, unspecified; R10.9 Unspecified abdominal pain; Z94.7 Corneal transplant status; Z87.442 Personal history of urinary calculi; Z88.0 Allergy status to penicillin; Z91.041 Radiographic dye allergy status; Z79.899 Other long term (current) drug therapy
CPT/HCPCS: 36415; 74176; 80053; 80061; 81003; 82150; 83036; 83605; 83690; 83880; 84484; 85025; 86140; 93005; 99222; 99232; 99233; 99238; 99284; A9270-GY

== ENCOUNTER 2019-03-22 13:30 | Inpatient (IN) | payer MEDICARE ==
[2019-03-22] MEDS ORDERED: Ondansetron ODT TAB* 4 MG PO ONE (13:46)
[2019-03-22] MEDS ORDERED: oxyCODONE TAB* 5 MG TAB PO ONE (13:54)
--- NOTE | 2019-03-22 13:54 | ED ---
Psychiatric Complaint - HPI Summary HPI Summary: Patient is a 78 y/o F presenting to [facility] with complaints of SI and opiate withdrawal. She had been in the [facility] for a week and was discharged yesterday , 03/21/19. Patient states that she has been on morphine for years and has not had any in the past week. She is additionally on Percocet and hydrocodone, which she has not had since yesterday. Patient states that she was unable to sleep last night and had a "porcupine needles" sensation throughout her body. She additionally reports nausea and diarrhea. She states she is "strung out and don't care if I live" and is "tired of this shit". Patient endorses SI but denies plan of suicide and previous attempts. She states that she wants to be admitted to [facility] once more. PMHx of chronic back pain and fibromylagia. She denies tobacco, alcohol, and substance usage with exception of opiates. Home medications and allergies are reviewed. - History Of Current Complaint Time Seen by Provider: 03/22/19 13:34 Hx Obtained From: Patient Onset/Duration: Still Present Timing: Constant Character: Depressed Associated Signs And Symptoms: Positive: Sleep Disturbance Has Suicidal: Reports: Thoughts. Denies: With A Plan, Has Prior Attempt(s) - Allergies/Home Medications Allergies/Adverse Reactions: Allergies Allergy/AdvReac Type Severity Reaction Status Date / Time Iodinated Contrast Media Allergy Hives Verified 01/16/19 08:41 [Iodinated Contrast- Oral and IV Dye] Penicillins Allergy Swelling Verified 01/16/19 08:41 Home Medications: Home Medications ALPRAZolam TAB* [Xanax TAB*] 0.25 mg PO DAILY PRN MDD 0.25mg 03/22/19 [History Confirmed 03/22/19] ARIPiprazole TAB* [Abilify 2 MG TAB*] 2 mg PO BEDTIME 03/22/19 [History Confirmed 03/22/19] Morphine Sulfate [Morphine Sulfate ER] 30 mg PO Q12H 03/22/19 [History Confirmed 03/22/19] PMH/Surg Hx/FS Hx/Imm Hx Endocrine/Hematology History: Denies: Hx Diabetes, Hx Thyroid Disease Cardiovascular History: Denies: Hx Congestive Heart Failure, Hx Hypertension, Hx Pacemaker/ICD, Other Cardiovascular Problems/Disorders Respiratory History: Reports: Hx Sleep Apnea - CPAP Denies: Hx Asthma, Hx Chronic Obstructive Pulmonary Disease (COPD), Other Respiratory Problems/Disorders GI History: Reports: Hx Diverticulosis, Hx Gastroesophageal Reflux Disease, Hx Irritable Bowel, Hx Ulcer Denies: Other GI Disorders History: Reports: Hx Kidney Stones Denies: Hx Renal Disease Musculoskeletal History: Reports: Hx Arthritis, Hx Back Problems - Lumbar Spinal Stenosis, Hx Bursitis - IN THE PAST IN SHOULDERS, Hx Fibromyalgia, Other Musculoskeletal History - Plantar Fascia Syndrome, Hammertoe Denies: Hx Tendonitis Sensory History: Reports: Hx Cataracts - ROSHNI REMOVAL, Hx Contacts or Glasses - READING GLASSES, Hx Vision Problem - R cornea surgery Mar, Other Sensory Impairments - Actinic Keratosis (skin) Denies: Hx Hearing Aid Opthamlomology History: Reports: Hx Cataracts - ROSHNI REMOVAL, Hx Contacts or Glasses - READING GLASSES, Hx Vision Problem - R cornea surgery Mar, Other Sensory Impairments - Actinic Keratosis (skin) Neurological History: Reports: Other Neuro Impairments/Disorders - Senile Nuclear Sclerosis. PAIN CLINIC PT. Denies: Hx Headaches, Hx Migraine, Hx Nerve Disease, Hx Seizures Psychiatric History: Reports: Hx Anxiety - ON MEDS, Hx Depression - ON MEDS Denies: Hx Panic Disorder - Cancer History Hx Chemotherapy: No Hx Radiation Therapy: No Hx Palliative Cancer Treatment: No - Surgical History Surgery Procedure, Year, and Place: KIDNEY STONES, 07/27/12, [facility]STERECTOMY , 1982, [facility]. 05/2013 LAMINECTOMY LOW BACK, shots in back, cataracts Hx Anesthesia Reactions: No - Immunization History Date of Tetanus Vaccine: PT STATES UNSURE Date of Influenza Vaccine: NONE Infectious Disease History: Denies: Hx Clostridium Difficile, Hx Hepatitis, Hx Human Immunodeficiency Virus (HIV), Hx of Known/Suspected MRSA, Hx Shingles, Hx Tuberculosis, Hx Known/ Suspected VRSA, History Other Infectious Disease - Family History Known Family History: Positive: Other - Colon Cancer and depression Negative: Diabetes, Renal Disease, Respiratory Disease, Seizure Disorder - Social History Alcohol Use: None Substance Use Type: Reports: None Substance Use Comment - Amount & Last Used: percocet, morphine Smoking Status (MU): Never Smoked Tobacco Review of Systems Constitutional: Other - "porcupine needles" sensation throughout her body, sleep disturbance Positive: Diarrhea, Nausea Psychological: Other - SI All Other Systems Reviewed And Are Negative: Yes Physical Exam - Summary Physical Exam Summary: Constitutional: Well-developed, Well-nourished, Alert. (-) Distressed Skin: Warm, Dry HENT: Normocephalic; Atraumatic Eyes: Conjunctiva normal Neck: Musculoskeletal ROM normal neck. (-) JVD, (-) Stridor, (-) Tracheal deviation Cardio: Rhythm regular, rate normal, Heart sounds normal; Intact distal pulses; Radial pulses are 2+ and symmetric. (-) Murmur Pulmonary/Chest wall: Effort normal. (-) Respiratory distress, (-) Wheezes, (-) Rales Abd: Soft, (-) tenderness, (-) Distension, (-) Guarding, (-) Rebound Musculoskeletal: (-) Edema Lymph: (-) Cervical adenopathy Neuro: Alert, Oriented x3 Psych: Tearful during assessment Triage Information Reviewed: Yes Vital Signs Reviewed: Yes Procedures - Sedation Patient Received Moderate/Deep Sedation with Procedure: No Diagnostics - Laboratory Result Diagrams: 03/22/19 14:00 03/22/19 13:59 Lab Statement: Any lab studies that have been ordered have been reviewed, and results considered in the medical decision making process. Course/Dx - Course Course Of Treatment: Patient is here one detriment discharged from the [facility]. Patient continues to have suicidal ideations without a plan. Patient is a chronic pain patient and switched from morphine and Percocet/oxycodone during her stay by the pain management team. Patient did not get her prescription filled and is in mild opiate withdrawal with a COWS score is 12. Patient is given a dose of oxycodone. Patient had blood performed which was unremarkable. Patient seen by psychiatric team and she was voluntarily admitted - Differential Dx/Clinical Impression Provider Diagnosis: Depressive disorder - Physician Notifications Discussed Care Of Patient With: Luis Ruff Time Discussed With Above Provider: 16:42 Instructed by Provider To: Other - Patient's case was reviewed by Dr. Ruff, patient will be admitted to [facility]. Discharge ED - Sign-Out/Discharge Documenting (check all that apply): Patient Departure - admit - Discharge Plan Condition: Stable Disposition: ADMITTED TO [facility] Referrals: Abe Leon MD [Primary Care Provider] - - Billing Disposition and Condition Condition: STABLE Disposition: Admitted to [facility] - Attestation Statements Document Initiated by Scribe: Yes Documenting Scribe: OSCAR DANIEL Provider For Whom Scribe is Documenting (Include Credential): DANILE KENNEDY MD Scribe Attestation: I, OSCAR DANIEL, scribed for DANIEL KENNEDY MD on 03/22/19 at 1846. Scribe Documentation Reviewed: Yes Provider Attestation: The documentation as recorded by the OSCAR obrien accurately reflects the service I personally performed and the decisions made by me, DANIEL KENNEDY MD Status of Scribe Document: Viewed
[2019-03-22 14:08] LABS: Hematocrit 42 % (35-47); Hemoglobin 14.2 g/dL (12.0-16.0); Mean Corpuscular HGB Conc 34 g/dL (31-36); Mean Corpuscular Hemoglobin 28 pg (27-31); Mean Corpuscular Volume 84 fL (80-97); Mean Platelet Volume 7.8 fL (7.4-10.4); Platelet Count 234 10^3/uL (150-450); Red Blood Count 5.06 10^6 /uL (3.70-4.87); Red Cell Distribution Width 16 % (10-15); White Blood Count 8.7 10^3/uL (3.5-10.8)
[2019-03-22 14:25] LABS: ALT 22 U/L (7-52); AST 23 U/L (13-39); Albumin/Globulin Ratio 1.3 (1-3); Alkaline Phosphatase 122 U/L (34-104); Anion Gap 8 mmol/L (2-11); BUN/Creatinine Ratio 24.7 (8-20); Blood Urea Nitrogen 19 mg/dL (6-24); CO2 Carbon Dioxide 25 mmol/L (22-32); Calcium 9.8 mg/dL (8.6-10.3); Chloride 108 mmol/L (101-111); EGFR Non-African American 72.7 (>60); Globulin 3.1 g/dL (2-4); Glucose 109 mg/dL (70-100); Potassium 3.9 mmol/L (3.5-5.0); Sodium 141 mmol/L (135-145); Total Protein 7.1 g/dL (6.4-8.9)
[2019-03-22 14:33] LABS: ABS Basophils 0.1 10^3/ul (0-0.2); ABS Lymphocytes 1.4 10^3/ul (1.0-4.8); ABS Monocytes 0.7 10^3/ul (0-0.8); ABS Neutrophils 6.5 10^3/ul (1.5-7.7); Eosinophil % 0.3 %; Lymphocyte % 16.2 %
[2019-03-22 14:53] LABS: Acetaminophen < 15 mcg/mL; Alcohol < 10 mg/dL (<10); Salicylate < 2.50 mg/dL (<30)
--- OUTSIDE RECORDS SUMMARY | 2019-03-22 16:07 | XMS REPORT ---
:1940 Author Organization [facility] Care Team Providers Name Role Phone Unavailable [...] Resolve 2018-022019-02-27 Kasandra pain d 03-18 10:26:00 [place] 10:50: [id number] 00 Respiratory dyspnea Respirator Resolve 2018-022019-01-24 Kasandra present y d 03-18 10:00:00 [place] 10:50: [id number] 00 Sensory impaired Sensory Active 2018-02 Kasandra hearing 03-18 [place] 10:50: [id number] 00 Nutrition nutritional Nutrition Resolve 2018-022019-02-19 Kasandra risk d 03-18 09:42:00 [place] 10:50: [id number] 00 Nutrition knowledge/s Nutrition Resolve 2018-022019-02-19 Kasandra kill d 03-18 09:42:00 [place] deficit: pt 10:50: [id number] 00 Nutrition knowledge/s Nutrition Resolve 2018-022019-02-19 Kasandra kill d 03-18 09:42:00 [place] deficit: cg 10:50: [id number] 00 Nutrition nutritional Nutrition Resolve 2018-022019-02-19 Kasandra restriction d 03-18 09:42:00 [place] 10:50: [id number] 00 Elimination urinary Eliminatio Resolve 2018-022019-01-24 Kasandra incontinenc n d 03-18 10:00:00 [place] 10:50: [id number] 00 Elimination nausea/vomi Eliminatio Resolve 2018-022019-03-05 Kasandra ting n d 03-18 10:25:00 [place] 10:50: [id number] 00 Neuro confusion Neuro/Emot Active 2018-02 Kasandra present ion 03-18 [place] 10:50: [id number] 00 Neuro anxiety Neuro/Emot Active 2018-02 Kasandra present ion 03-18 [place] 10:50: [id number] 00 Neuro depressive Neuro/Emot Active 2018-02 Kasandra feelings ion 03-18 [facility] 10:50: [id number] 00 Neuro impaired Neuro/Emot Active 2018-02 Kasandra decision-ma ion 03-18 [facility] 10:50: [id number] 00 Neuro knowledge/s Neuro/Emot Active 2018-02 Kasandra kill ion 03-18 [place] deficit: pt 10:50: [id number] 00 Neuro knowledge/s Neuro/Emot Active 2018-02 Kasandra kill ion 03-18 [place] deficit: cg 10:50: [id number] 00 Activity ADL Activity Active 2018-02 Kasandra assistance 03-18 [facility] 10:50: [id number] 00 Activity self-care Activity Resolve 2018-022019-01-24 Kasandra deficit d 03-18 10:00:00 [place] 10:50: [id number] 00 Safety structural Safety Resolve 2018-022019-01-24 Kasandra barriers d 03-18 10:00:00 [place] present 10:50: [id number] 00 Safety fall risk Safety Resolve 2018-022019-01-24 Kasandra factor d 03-18 10:00:00 [place] present 10:50: [id number] 00 Safety risk for Safety Resolve 2018-022019-01-30 Kasandra hospitaliza d 03-18 14:20:00 [place] tion 10:50: [id number] 00 Safety can be left Safety Active 2018-02 Kasandra alone for 03-18 [place] only short 10:50: [id number] periods 00 Medication oral med Meds Resolve 2018-022019-01-30 Kasandra assistance d 03-18 14:20:00 [place] required 10:50: [id number] 00 Medication knowledge/s Meds Resolve 2018-022019-02-13 Kasandra kill d 03-18 14:02:00 [place] deficit: pt 10:50: [id number] 00 Musculoskel transfer Musculoske Resolve 2018-022019-01-24 Kasandra etal assistance letal d 03-18 10:00:00 [place] required 10:50: [id number] 00 Musculoskel requires Musculoske Resolve 2018-022019-01-24 Lisa etal human letal d 03-20 10:00:00 [place] assist to 13:00: leave home 00 24 Hr Diet nutrition NT: 24Hr Resolve 2018-022019-02-02 Agatha intake Diet d 03-21 11:05:00 [place] deficit 13:00: [id number] 00 24 Hr Diet knowledge/s NT: 24Hr Resolve 2018-022019-02-02 Agatha kill Diet d 03-21 11:05:00 [place] deficit - 13:00: [id number] pt 00 24 Hr Diet knowledge/s NT: 24Hr Resolve 2018-022019-02-02 Agatha kill Diet d 03-21 11:05:00 [place] deficit - 13:00: [id number] cg 00 Nutritional eating NT: Resolve 2018-022019-02-02 Agatha Barrier difficultie Barriers d 03-21 11:05:00 [place] s present 13:00: [id number] Elimination urinary Eliminatio Resolve 2018-022019-01-24 Adri [...] Safety risk for Safety Resolve 2018-022019-02-13 [facility] 14:02:00 [place] tion 10:30: 00 Medication oral med Meds Resolve 2018-022019-02-13 Lisa assistance d 2-13 14:02:00 [place] required 10:30: 00 Respiratory dyspnea Respirator Active 2018-02 Adri present y 2-17 [place] 14:02: RN 00 Safety risk for Safety Resolve 2018-022019-02-27 Lana hospitaliza d 2-20 10:26:00 [place] tion 14:00: t 00 [id number] Safety risk for Safety Resolve 2019-03-05 Lana hospitaliza d 1-03 10:25:00 [place] tion 13:30: t 00 [id number] Safety risk for Safety Active Lana hospitaliza 03-08 [place] tion 11:00: t 00 [id number] Allergies, Adverse Reactions, Alerts Allergy Name Allergy [...] drops,suspe nsion nsion PreserVisio PreserVisio 2018-02 Yes Craolyn Unknown Unknown n AREDS-2 n AREDS-2 03-18 [...]
--- OUTSIDE RECORDS SUMMARY | 2019-03-22 16:07 | XMS REPORT ---
:1940 Author Organization [facility] Care Team Providers Name Role Phone Unavailable [...] disorder, [place] unspecified unspecified RN group home group home Diagnosis Active Adri (current) (current) [place] use of use of RN opiate opiate analgesic analgesic Pain frequent Pain Mgmt Resolve 2018-022019-02-27 Kasandra pain d 03-18 10:26:00 [place] 10:50: [id number] 00 Respiratory dyspnea Respirator Resolve 2018-022019-01-24 Kasandra present y d 03-18 10:00:00 [place] 10:50: [id number] 00 Sensory impaired Sensory Active 2018-02 Kasandra hearing 03-18 [place] 10:50: [id number] 00 Nutrition nutritional Nutrition Resolve 2018-022019-02-19 Kasandra risk d 03-18 09:42:00 [place] 10:50: [id number] 00 Nutrition knowledge/s Nutrition Resolve 2018-022019-02-19 Kasandra kill d 03-18 09:42:00 [place] deficit: pt 10:50: [id number] 00 Nutrition knowledge/s Nutrition Resolve 2018-022019-02-19 Kasandra kill d 03-18 09:42:00 [place] deficit: cg 10:50: [id number] 00 Nutrition nutritional Nutrition Resolve 2018-022019-02-19 Kasandra restriction d 03-18 09:42:00 [place] s 10:50: [id number] 00 Elimination urinary Eliminatio Resolve 2018-022019-01-24 Kasandra incontinenc n d 03-18 10:00:00 [place] 10:50: [id number] 00 Elimination nausea/vomi Eliminatio Resolve 2018-022019-03-05 Kasandra ting n d 03-18 10:25:00 [place] 10:50: [id number] 00 Neuro confusion Neuro/Emot Active 2018-02 Kasandra present ion 03-18 [place] 10:50: [id number] 00 Neuro anxiety Neuro/Emot Active 2018-02 Kasandra present ion 03-18 [place] 10:50: [id number] 00 Neuro depressive Neuro/Emot Active 2018-02 Kasandra feelings ion 03-18 [facility] 10:50: [id number] 00 Neuro impaired Neuro/Emot Active 2018-02 Kasandra decision-ma ion 03-18 [facility] 10:50: [id number] 00 Neuro knowledge/s Neuro/Emot Active 2018-02 Kasandra kill ion 03-18 [place] deficit: pt 10:50: [id number] 00 Neuro knowledge/s Neuro/Emot Active 2018-02 Kasandra kill ion 03-18 [place] deficit: cg 10:50: [id number] 00 Activity ADL Activity Active 2018-02 Kasandra assistance 03-18 [facility] 10:50: [id number] 00 Activity self-care Activity Resolve 2018-022019-01-24 Kasandra deficit d 03-18 10:00:00 [place] 10:50: [id number] 00 Safety structural Safety Resolve 2018-022019-01-24 Kasandra barriers d 03-18 10:00:00 [place] present 10:50: [id number] 00 Safety fall risk Safety Resolve 2018-022019-01-24 Kasandra factor d 03-18 10:00:00 [place] present 10:50: [id number] 00 Safety risk for Safety Resolve 2018-022019-01-30 Kasandra hospitaliza d 03-18 14:20:00 [place] tion 10:50: [id number] 00 Safety can be left Safety Active 2018-02 Kasandra alone for 03-18 [place] only short 10:50: [id number] periods 00 Medication oral med Meds Resolve 2018-022019-01-30 Kasandra assistance d 03-18 14:20:00 [place] required 10:50: [id number] 00 Medication knowledge/s Meds Resolve 2018-022019-02-13 Kasandra kill d 03-18 14:02:00 [place] deficit: pt 10:50: [id number] 00 Musculoskel transfer Musculoske Resolve 2018-022019-01-24 Kasandra etal assistance letal d 03-18 10:00:00 [place] required 10:50: [id number] 00 Musculoskel requires Musculoske Resolve 2018-022019-01-24 Lisa etal human letal d 03-20 10:00:00 [place] assist to 13:00: leave home 00 24 Hr Diet nutrition NT: 24Hr Resolve 2018-022019-02-02 Agatha intake Diet d 03-21 11:05:00 [place] deficit 13:00: [id number] 00 24 Hr Diet knowledge/s NT: 24Hr Resolve 2018-022019-02-02 Agatha kill Diet d 03-21 11:05:00 [place] deficit - 13:00: [id number] pt 00 24 Hr Diet knowledge/s NT: 24Hr Resolve 2018-022019-02-02 Agatha kill Diet d 03-21 11:05:00 [place] deficit - 13:00: [id number] cg 00 Nutritional eating NT: Resolve 2018-022019-02-02 Agatha Barrier difficultie Barriers d 03-21 11:05:00 [place] s present 13:00: [id number] 00 Elimination urinary Eliminatio Resolve 2018-022019-01-24 Adri [...] Safety risk for Safety Resolve 2018-022019-02-13 Lisa [facility] 2-13 14:02:00 [place] tion 10:30: 00 Medication oral med Meds Resolve 2018-022019-02-13 Lisa assistance d 2-13 14:02:00 [place] required 10:30: 00 Respiratory dyspnea Respirator Active 2018-02 Adri present y 2-17 [place] 14:02: RN 00 Safety risk for Safety Resolve 2018-022019-02-27 Lana hospitaliza d 2-20 10:26:00 [place] tion 14:00: t 00 [id number] Safety risk for Safety Resolve 2019-03-05 Lana hospitaliza d 1-03 10:25:00 [place] tion 13:30: t 00 [id number] Safety risk for Safety Active Lana hospitaliza 03-08 [place] tion 11:00: t 00 [id number] Allergies, Adverse Reactions, Alerts Allergy Name Allergy [...] Unknown 20 mg 20 mg 03-18 Abe CÁDRENAS capsule,del capsule,del ayed ayed release release morphine ER morphine ER 2018-02 Yes Carolyn Unknown Unknown 30 mg 30 mg 03-18 Abe CÁRDENAS tablet,exte tablet,exte nded nded release release mirtazapine mirtazapine 2018-02 Yes Carolyn Unknown Unknown 15 mg 15 mg 03-18 Abe CÁRDENAS tablet tablet magnesium magnesium 2018-02 Yes Carolyn Unknown Unknown 400 mg (as 400 mg (as 03-18 bAe CÁRDENAS magnesium magnesium oxide) oxide) capsule capsule [...]
[2019-03-22] MEDS ORDERED: Senna TAB 8.6 mg* TAB PO PRN (16:09)
[2019-03-22] MEDS: oxyCODONE TAB* 5 MG TAB PO PRN (20:10)
[2019-03-22] MEDS: Mirtazapine TAB* 15 MG PO PRN (21:26)
[2019-03-23] MEDS: busPIRone TAB* 15 MG PO PRN (02:08)
[2019-03-23] MEDS: oxyCODONE TAB* 5 MG TAB PO PRN ×3 (03:45→20:59)
--- NOTE | 2019-03-23 08:22 | HP ---
H&P (Free Text) History and Physical: Justification for admission: Immediate Safety. CC " I am suicidal" The patient was brought to [facility] by her son soon recently after being discharged from the BSU. She arrived home and told her son that she made a mistake by wanting to leave the hospital and felt suicidal and was not safe to be left alone. Patient is open to going to a care facility. Current stressors include losing her and dog and 2 brothers in the same year. She complains of nausea and pain that has been present for several years and many medical evaluations and treatments have not been able to remit her symptoms. She reported feeling that she is a burden on her family and doesnt want to live anymore. She denied access to firearms. Patient has stockpile of pain medications that she no longer takes, her son Refugio picked up at security during her last discharge and advised to safely dispose. Her family feels burned out and stated that they are unable to keep up with taking care of her. They are in the process of locating placement options for her to live. She reported poor sleep and appetite. The patient denied homicidal ideation intent or plan. The patient denied auditory and/ or visual hallucinations. 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 She reported diminished interests which were found to be enjoyable in the past. She has been having crying spells, feeling empty inside, with feelings of hopelessness, and worthlessness. Reported feelings of being lonely. She has had recurrent thoughts of and that she would be better off . Anxiety Denied having symptoms of anxiety such as having times where heart feels that it is beating out of chest , sweaty palms, or shallow breathing. Denied having uncomfortable or intrusive thoughts. Denied feeling restless, high strung, or worrying too much most of the time. Bipolar Denied symptoms of tino such as having many ideas at once. Denied increased talkativeness where no one can interrupt. Denied feeling irritable most of the time while having an persistent abundance of energy most of the day without the use of energy drinks, stimulants, or recreational drug use. Denied an increase in intensity in goal directed activities. Denied having the decreased need to sleep for days , having prolonged elevated mood , or feeling on top of the world. Denied impulsive risky sexual encounters. Denied spending money recklessly , going on spending sprees wiping out savings. Denied impulsively traveling out of town or country, having super granado, and unrealistic wealth or fame. Psychosis Does not endorse hearing things that other people do not hear or seeing things other people do not see. Denied feeling that TV is making references. Denied feeling that people are spying , following , or reading their thoughts. Phobias: Patient denied having excessive fear of a particular thing or situation. Eating disorders: Patient denied having excessive eating habits or feelings of guilt after eating. Denied repeated episodes of self induced vomiting after eating. PTSD Denied flashbacks, nightmares and avoidance of a prior traumatic event. PAST PSYCHIATRIC HISTORY: Prior Diagnosis :Major depressive disorder, Fibromyalgia History of past Psychiatric Hospitalizations: February 2019 History of past suicide/homicide attempts : Denied past suicide attempts or self injurious behaviors. No history of violence. Outpatient follow-up: PCP Dr. Leon Medications: Past trials of medications include Xanax 0.25mg daily, Fluoxetine 80mg daily, Remeron 15mg qhs , Abilify 2mg qhs, cymbalta 60mg daily and remeron 7.5mg qhs Guardianship: None. FAMILY HISTORY: - Suicide: Distant uncle by suicide. - Mental illness: Denied a history of mental health in immediate family members. - Substance abuse: Denied substance abuse among family members. SUBSTANCE ABUSE HISTORY: - EtOH: Denied recent use. No associated legal issues, blackouts, seizures, DTs or past hospitalizations due to alcohol. - Tobacco: Denied - Cannabis: Denied - Heroin: Denied - Cocaine: Denied - Substance abuse treatment: Denied past substance abuse treatment SOCIAL HISTORY: - Denied a history of childhood physical and or sexual abuse Born in [facility] and raised by father and step mother her mother when she was young. - Education: Finished high school. No history of special education. 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 - Legal history: Denied - service history: Denied PAST MEDICAL HISTORY: Fibromyalgia, s/p Cornea Transplant, Kidney Stones 07/27/12, [facility].Hysterectomy in 1982, [facility] 05/2013 Laminectomy, cataracts - Allergies: Penicillins , Iodine contrast Physical Exam: Please see ED note Mental Status Exam on Admission APPEARANCE : 78 year old female who appears stated age. Patient wearing sleep attire and is in bed. BEHAVIOR: Cooperative , calm EYE CONTACT: Fair PSYCHOMOTOR ACTIVITY: No psychomotor agitation or retardation. MOVEMENTS: No abnormal movements observed. SPEECH : Normal rate, rhythm, volume and tone. MOOD : "Depressed " AFFECT : Type is depressed Range is restricted Mood Congruent THOUGHT PROCESS: Formulated and organized in a logical, linear goal directed manner. No flight of ideas, neologism (made up words) , perseveration , tangential , loose associations , or circumstantiality. THOUGHT CONTENT: no delusions, obsessions, phobias or preoccupations. PERCEPTION: No current auditory or visual hallucinations. Doesnt appear to be responding to internal cues. No evidence of depersonalization , de-realization, or illusions SUICIDALITY suicidal ideation with plan. HOMICIDALITY Denied homicidal ideation, intent or plan. Insight/judgment: Poor insight and judgment ORIENTATION: Oriented to self, location, and time. Diagnosis on Admission: Major Depressive Disorder, Severe. Assessment: 78 year old Female with history of depression and chronic pain came to the hospital by EMS when she felt suicidal with a plan to overdose on her medications and was admitted to the BSU at [facility]. Plan #Admit to BSU, Q15 minute observation. Start regular diet. Encourage participation in activities on the milieu. #Patient evaluated in ED and was determined by the emergency room Physician to be medically fit for admission to the BSU. # Justification for Admission: For immediate safety per outlined in the [place] Mental Hygiene Code. # The patient requires psychiatric inpatient admission at this time to assure safety, receive treatment and work toward stabilization. # Labs ordered: CBC, CMP, UDS, TSH, HBA1c, TSH, Toxicology screen, Urine analysis, EKG and lipid profile. #[place] consult # Increase Cymbalta 80mg daily # Will decrease Oxycodone 5mg Q8H due to nausea # Plan to follow up with family in regards to care facility placement # Collaboration with Supervisor Rides Kiya Champion #Goals before discharge include: To eliminate/ reduce suicidal ideation Tentative Discharge: Pending psychiatric stabilization The risks, benefits, and alternative treatment options were discussed as well as the risks of refusing treatment. After this discussion and an acknowledgement of this understanding was made. A risk/ benefit assessment of treatment was considered and discussed with the patient. When comparing the risks of treatment with the dangers of not receiving treatment, the benefits of treatment outweigh the treatment risks at this time. Risks of allergy, suicidal ideation, behavioral changes, dystonia, rashes, electrolyte imbalances, movement disorders, cardiac conduction changes, serotonin syndrome, metabolic risks were among some of the risks discussed. Acetaminophen (Tylenol Tab*) 325 mg PO Q6H PRN PRN Reason: PAIN - MILD Last Admin: 03/23/19 11:05 Dose: 325 mg Al Hydrox/Mg Hydrox/Simethicone (Maalox Plus*) 30 ml PO Q4H PRN PRN Reason: INDIGESTION Buspirone HCl (Buspar Tab *) 15 mg PO BID PRN PRN Reason: ANXIETY Last Admin: 03/23/19 02:08 Dose: 15 mg Duloxetine HCl (Cymbalta Cap*) 80 mg PO DAILY MARIELOS Mirtazapine (Remeron Tab*) 15 mg PO BEDTIME PRN PRN Reason: SLEEP Last Admin: 03/22/19 21:26 Dose: 15 mg Multivitamins (Theragran Tab*) 1 tab PO DAILY MARIELOS Last Admin: 03/23/19 08:47 Dose: Not Given Ondansetron HCl (Zofran Tab*) 4 mg PO Q6H PRN PRN Reason: NAUSEA Last Admin: 03/23/19 11:05 Dose: 4 mg Oxycodone HCl (Roxycodone Tab*) 5 mg PO Q8H PRN PRN Reason: PAIN - SEVERE Last Admin: 03/23/19 13:09 Dose: 5 mg Senna (Senokot 8.6 Mg Tab*) 1 tab PO BEDTIME PRN PRN Reason: CONSTIPATION Sodium 141 mmol/L (135-145) 03/22/19 13:59 Potassium 3.9 mmol/L (3.5-5.0) 03/22/19 13:59 BUN 19 mg/dL (6-24) 03/22/19 13:59 Creatinine 0.77 mg/dL (0.51-0.95) 03/22/19 13:59 Calcium 9.8 mg/dL (8.6-10.3) 03/22/19 13:59 AST 23 U/L (13-39) 03/22/19 13:59 ALT 22 U/L (7-52) 03/22/19 13:59
[2019-03-23] MEDS: Vitamin THERAPEUTIC TAB PO SCH (08:47)
[2019-03-23] MEDS ORDERED: DULoxetine DR CAP* 60 MG CAP.DR PO SCH (09:00)
[2019-03-23] MEDS ORDERED: Scopolamine 1.5 mg* PATCH TRANSDERM SCH (09:00)
[2019-03-23] MEDS: Acetaminophen TAB* 325 MG PO PRN ×2 (11:05→17:36)
[2019-03-23] MEDS: Ondansetron TAB* 4 MG PO PRN (11:05)
[2019-03-24] MEDS: oxyCODONE TAB* 5 MG TAB PO PRN ×3 (04:45→20:26)
[2019-03-24] MEDS: Ondansetron TAB* 4 MG PO PRN ×2 (04:45→11:25)
[2019-03-24] MEDS: Vitamin THERAPEUTIC TAB PO SCH (09:13)
[2019-03-24] MEDS: Acetaminophen TAB* 325 MG PO PRN ×2 (09:46→23:40)
[2019-03-24] MEDS: DULoxetine DR CAP* 20 MG CAP.DR PO SCH (09:47)
[2019-03-24] MEDS: busPIRone TAB* 15 MG PO PRN ×2 (09:47→20:28)
[2019-03-24] MEDS: Mirtazapine TAB* 15 MG PO PRN (23:40)
[2019-03-25] MEDS: Al Hydrox/Mg Hydrox/Simet LIQ* 30 ML UDC PO PRN (02:00)
[2019-03-25] MEDS: Ondansetron TAB* 4 MG PO PRN (06:15)
[2019-03-25] MEDS: oxyCODONE TAB* 5 MG TAB PO PRN ×3 (06:15→22:49)
[2019-03-25] MEDS: Vitamin THERAPEUTIC TAB PO SCH (09:14)
[2019-03-25] MEDS: DULoxetine DR CAP* 20 MG CAP.DR PO SCH (09:14)
--- NOTE | 2019-03-25 14:49 | PN ---
Subjective - Subjective Service Type: 02535 Hosp care 25 min moderate complexity Subjective: The patient is seen today for medication management . She described her mood as fair. She reported chronic pain currently maintained on oxycodone 5mg po [id number]. She reported some constipation but denied hopelessness, worthlessness and helplessness. No behavioral problems. She denied current suicidal or homicidal ideation. She goes to some groups. No psychosis or delusions. She reported feeling lonely since her and brother .She stated that her family members have been very supportive. Appetite is fair and sleep is improving. She is taking Senna for constipation. Objective - General Observations Appearance: Neat Appears Stated Age: Yes Stature: WNL Posture: WNL Eye Contact: Average Behavior/Activity: WNL Separation from Parent/Guardian: Unremarkable/Age Appropriate - Interaction Observations Attitude Towards Examiner: Cooperative Attitude Towards Parent/Guardian: Positive Interaction Stated Mood: Anxious Affect: Full Speech Pattern/Tone: Clear Thought Process: Coherent Perception: WNL Thought Content: WNL Hallucination Type: None Delusion Type: None - Cognitive Function Orientation: A&O x 4 Level of Consciousness: Awake Cognition: WNL Estimated Intelligence: Borderline Range Insight: WNL Judgment Within Normal Limits: Yes - Medication Compliance Cooperative with Inpatient Medication Regimen: Yes - Group Participation Participates in Group Activities: Yes BSU: Problem List - Patient Problems (1) Major depressive disorder Current Visit: No Status: Chronic Code(s): F32.9 - MAJOR DEPRESSIVE DISORDER , SINGLE EPISODE, UNSPECIFIED SNOMED Code(s): 355072515 Plan - Plan Treatment Plan: Name: NERIS WEEMS Birthdate: 1940 [id number] Continue current medication management. Pain management consult may be considered. Medications: Current Medications Acetaminophen (Tylenol Tab*) 325 mg PO Q6H PRN PRN Reason: PAIN - MILD Last Admin: 03/24/19 23:40 Dose: 325 mg Al Hydrox/Mg Hydrox/Simethicone (Maalox Plus*) 30 ml PO Q4H PRN PRN Reason: INDIGESTION Last Admin: 03/25/19 02:00 Dose: 30 ml Buspirone HCl (Buspar Tab *) 15 mg PO BID PRN PRN Reason: ANXIETY Last Admin: 03/24/19 20:28 Dose: 15 mg Duloxetine HCl (Cymbalta Cap*) 80 mg PO DAILY [facility] Last Admin: 03/25/19 09:14 Dose: 80 mg Mirtazapine (Remeron Tab*) 15 mg PO BEDTIME PRN PRN Reason: SLEEP Last Admin: 03/24/19 23:40 Dose: 15 mg Multivitamins (Theragran Tab*) 1 tab PO DAILY [facility] Last Admin: 03/25/19 09:14 Dose: Not Given Ondansetron HCl (Zofran Tab*) 4 mg PO Q6H PRN PRN Reason: NAUSEA Last Admin: 03/25/19 06:15 Dose: 4 mg Oxycodone HCl (Roxycodone Tab*) 5 mg PO Q8H PRN PRN Reason: PAIN - SEVERE Last Admin: 03/25/19 14:29 Dose: 5 mg Senna (Senokot 8.6 Mg Tab*) 1 tab PO BEDTIME PRN PRN Reason: CONSTIPATION
[2019-03-25] MEDS: Acetaminophen TAB* 325 MG PO PRN (21:07)
[2019-03-25] MEDS: Mirtazapine TAB* 15 MG PO PRN (22:50)
[2019-03-26] MEDS: Acetaminophen TAB* 325 MG PO PRN (05:55)
[2019-03-26] MEDS: Ondansetron TAB* 4 MG PO PRN (05:55)
[2019-03-26] MEDS: oxyCODONE TAB* 5 MG TAB PO PRN ×3 (05:55→22:05)
[2019-03-26] MEDS: Vitamin THERAPEUTIC TAB PO SCH (09:04)
[2019-03-26] MEDS: DULoxetine DR CAP* 20 MG CAP.DR PO SCH (09:05)
--- NOTE | 2019-03-26 12:22 | PN ---
Subjective - Subjective Date of Service: 03/26/19 Service Type: 12815 Hosp care 35 min high complexity Subjective: Nursing Report: Patient was visible on unit, no behavioral incidents. CC: "I am terrible Patient was seen and evaluated today. The patient reported she did not get much sleep overnight. The patient reports attending some day groups. Per nursing no behavioral issues or overnight events reported. Patient reported back pain and nausea that has gone unchanged. Objective - General Observations Appearance: Neat Appears Stated Age: Yes Stature: WNL Posture: Slumped Eye Contact: Average Behavior/Activity: Slowed - Interaction Observations Attitude Towards Examiner: Anxious Stated Mood: Anxious Affect: Restricted Speech Pattern/Tone: Normal Volume Thought Process: Coherent Perception: WNL Thought Content: Self-Deprecatory Thought Process: Lethality: Passive Wish Hallucination Type: Denies Delusion Type: Somatic - Cognitive Function Orientation: A&O x 4 Level of Consciousness: Awake - Medication Compliance Cooperative with Inpatient Medication Regimen: Yes - Group Participation Participates in Group Activities: Partial Assessment - Assessment Merits Inpatient Hospitalization: For Immediate Safety Clinical Impression: 78 year old female with history of depression came to the hospital with suicidal ideation and was admitted to the BSU at [facility]. Plan - Plan Treatment Plan: Name: NERIS WEEMS Birthdate: 1940 [id number] #Q30 minute observation with staff pass. # The patient requires psychiatric inpatient admission at this time to assure safety, receive treatment and work toward stabilization. # Obtain collateral information once release is signed. # Collaboration with Supervisor Special Effects Kiya Champion # Decrease cymbalta to 60mg daily. # Remeron 7.5mg qhs # PT consult and walker for gait # Placement application to [facility] #Goals before discharge include: To eliminate/ reduce suicidal ideation Tentative Discharge: Pending psychiatric stabilization Sodium 141 mmol/L (135-145) 03/22/19 13:59 Potassium 3.9 mmol/L (3.5-5.0) 03/22/19 13:59 BUN 19 mg/dL (6-24) 03/22/19 13:59 Creatinine 0.77 mg/dL (0.51-0.95) 03/22/19 13:59 Calcium 9.8 mg/dL (8.6-10.3) 03/22/19 13:59 AST 23 U/L (13-39) 03/22/19 13:59 ALT 22 U/L (7-52) 03/22/19 13:59 Continued Medication Management: Continue Outpt Medication Medications: Current Medications Acetaminophen (Tylenol Tab*) 325 mg PO Q6H PRN PRN Reason: PAIN - MILD Last Admin: 03/26/19 05:55 Dose: 325 mg Al Hydrox/Mg Hydrox/Simethicone (Maalox Plus*) 30 ml PO Q4H PRN PRN Reason: INDIGESTION Last Admin: 03/25/19 02:00 Dose: 30 ml Artificial Tears (Natural Balance Tears Eye Drop) 2 drop BOTH EYES Q4H PRN PRN Reason: DRY EYE Buspirone HCl (Buspar Tab *) 15 mg PO BID PRN PRN Reason: ANXIETY Last Admin: 03/24/19 20:28 Dose: 15 mg Carboxymethylcellulose/Glycerin (Refresh Optive Gel Eye Gel) 1 applic BOTH EYES BID PRN PRN Reason: DRY EYES Duloxetine HCl (Cymbalta Cap*) 60 mg PO DAILY MARIELOS Mirtazapine (Remeron Tab*) 15 mg PO BEDTIME PRN PRN Reason: SLEEP Last Admin: 03/25/19 22:50 Dose: 15 mg Multivitamins (Theragran Tab*) 1 tab PO DAILY MARIELOS Last Admin: 03/26/19 09:04 Dose: Not Given Ondansetron HCl (Zofran Tab*) 4 mg PO Q6H PRN PRN Reason: NAUSEA Last Admin: 03/26/19 05:55 Dose: 4 mg Oxycodone HCl (Roxycodone Tab*) 5 mg PO Q6H PRN PRN Reason: PAIN - SEVERE Senna (Senokot 8.6 Mg Tab*) 1 tab PO BEDTIME PRN PRN Reason: CONSTIPATION Last Admin: 03/25/19 21:07 Dose: 1 tab - Discharge Plan Discharge Plan: Inpatient Hospitalization
[2019-03-26] MEDS: Carboxymethylcellulose/Glyceri 10 ML OPHTH.GEL lubricant eye gel BOTH EYES PRN (21:03)
[2019-03-26] MEDS: Mirtazapine TAB* 15 MG PO PRN (21:09)
[2019-03-27] MEDS: busPIRone TAB* 15 MG PO PRN ×2 (07:29→20:15)
[2019-03-27] MEDS: Ondansetron TAB* 4 MG PO PRN (07:29)
[2019-03-27] MEDS: oxyCODONE TAB* 5 MG TAB PO PRN ×2 (07:30→20:21)
[2019-03-27] MEDS: Vitamin THERAPEUTIC TAB PO SCH (09:02)
[2019-03-27] MEDS: DULoxetine DR CAP* 60 MG CAP.DR PO SCH (09:31)
--- NOTE | 2019-03-27 10:37 | PN ---
Subjective - Subjective Date of Service: 03/27/19 Service Type: 23703 Hosp care 35 min high complexity Subjective: Nursing Report: Patient was visible on unit, no behavioral incidents. Mostly in her room. CC: "Not good Patient was seen and evaluated today. The patient reported she did not get much sleep last night. The patient reported that her roommate was loud and disrupted her sleep. She was up for breakfast this morning. Per nursing no behavioral issues or overnight events reported. Patient hopes that she will be able to go to [facility] because it is close to her family. Objective - General Observations Appearance: Neat Appears Stated Age: Yes Stature: Overweight Posture: Slumped Eye Contact: Average Behavior/Activity: Slowed - Interaction Observations Attitude Towards Examiner: Anxious Stated Mood: Dysphoric Affect: Labile Speech Pattern/Tone: Normal Volume Thought Process: [place] Perception: WNL Thought Content: Self-Deprecatory Thought Process: Lethality: Passive Wish Hallucination Type: Denies Delusion Type: Denies - Cognitive Function Orientation: A&O x 4 Level of Consciousness: Awake - Medication Compliance Cooperative with Inpatient Medication Regimen: Yes - Group Participation Participates in Group Activities: Partial Assessment - Assessment Merits Inpatient Hospitalization: For Immediate Safety Clinical Impression: 78 year old female with history of depression came to the hospital with suicidal ideation and was admitted to the B[facility] at [facility]. Plan - Plan Treatment Plan: Name: NERIS WEEMS Birthdate: 1940 [id number] #Q30 minute observation with staff pass. # The patient requires psychiatric inpatient admission at this time to assure safety, receive treatment and work toward stabilization. # Obtain collateral information once release is signed. # Family involved in discharge plan # Collaboration with Black Top Roller Kiya Champion # Continue cymbalta to 60mg daily. # Remeron 7.5mg qhs # PT consult and walker for gait # Placement application to [facility] #Goals before discharge include: To eliminate/ reduce suicidal ideation Tentative Discharge: Pending psychiatric stabilization Sodium 141 mmol/L (135-145) 03/22/19 13:59 Potassium 3.9 mmol/L (3.5-5.0) 03/22/19 13:59 BUN 19 mg/dL (6-24) 03/22/19 13:59 Creatinine 0.77 mg/dL (0.51-0.95) 03/22/19 13:59 Calcium 9.8 mg/dL (8.6-10.3) 03/22/19 13:59 AST 23 U/L (13-39) 03/22/19 13:59 ALT 22 U/L (7-52) 03/22/19 13:59 Continued Medication Management: Continue Outpt Medication Medications: Current Medications Acetaminophen (Tylenol Tab*) 325 mg PO Q6H PRN PRN Reason: PAIN - MILD Last Admin: 03/26/19 05:55 Dose: 325 mg Al Hydrox/Mg Hydrox/Simethicone (Maalox Plus*) 30 ml PO Q4H PRN PRN Reason: INDIGESTION Last Admin: 03/25/19 02:00 Dose: 30 ml Artificial Tears (Natural Balance Tears Eye Drop) 2 drop BOTH EYES Q4H PRN PRN Reason: DRY EYE Buspirone HCl (Buspar Tab *) 15 mg PO BID PRN PRN Reason: ANXIETY Last Admin: 03/27/19 07:29 Dose: 15 mg Carboxymethylcellulose/Glycerin (Refresh Optive Gel Eye Gel) 1 applic BOTH EYES BID PRN PRN Reason: DRY EYES Last Admin: 03/26/19 21:03 Dose: 1 applic Duloxetine HCl (Cymbalta Cap*) 60 mg PO DAILY [facility]PLACED BY [facility] Last Admin: 03/27/19 09:31 Dose: 60 mg Mirtazapine (Remeron Tab*) 7.5 mg PO BEDTIME PRN PRN Reason: SLEEP Last Admin: 03/26/19 21:09 Dose: 7.5 mg Multivitamins (Theragran Tab*) 1 tab PO DAILY [facility]PL[facility] BY [facility] Last Admin: 03/27/19 09:02 Dose: Not Given Ondansetron HCl (Zofran Tab*) 4 mg PO Q6H PRN PRN Reason: NAUSEA Last Admin: 03/27/19 07:29 Dose: 4 mg Oxycodone HCl (Roxycodone Tab*) 5 mg PO Q6H PRN PRN Reason: PAIN - SEVERE Last Admin: 03/27/19 07:30 Dose: 5 mg Senna (Senokot 8.6 Mg Tab*) 1 tab PO BEDTIME PRN PRN Reason: CONSTIPATION Last Admin: 03/25/19 21:07 Dose: 1 tab - Discharge Plan Discharge Plan: Inpatient Hospitalization
[2019-03-27] MEDS: Carboxymethylcellulose/Glyceri 10 ML OPHTH.GEL lubricant eye gel BOTH EYES PRN ×2 (15:12→20:18)
[2019-03-27] MEDS: Mirtazapine TAB* 15 MG PO PRN (20:15)
[2019-03-28] MEDS: oxyCODONE TAB* 5 MG TAB PO PRN ×3 (07:25→23:35)
[2019-03-28] MEDS: Al Hydrox/Mg Hydrox/Simet LIQ* 30 ML UDC PO PRN (07:26)
[2019-03-28] MEDS: Vitamin THERAPEUTIC TAB PO SCH (10:54)
[2019-03-28] MEDS: DULoxetine DR CAP* 60 MG CAP.DR PO SCH (10:54)
[2019-03-28] MEDS: Carboxymethylcellulose/Glyceri 10 ML OPHTH.GEL lubricant eye gel BOTH EYES PRN (10:54)
--- NOTE | 2019-03-28 14:19 | PN ---
Subjective - Subjective Date of Service: 03/28/19 Service Type: 50360 Hosp care 35 min high complexity Subjective: Patient reported being happy about the possibility of going to [facility]. She reported increase in back pain. Patient expressed that she thinks the pain medications are causing her to have nausea and is requesting to be seen by pain specialist for alternative treatment options that could help control pain. Patient denied having goosebumps, diarrhea, vomiting. Patient went to group earlier today. Patient had improvement of sleep overnight. Objective - General Observations Appearance: Well Groomed Appears Stated Age: Yes Stature: WNL Posture: Slumped Eye Contact: Average Behavior/Activity: Slowed - Interaction Observations Attitude Towards Examiner: Anxious Stated Mood: Dysphoric Affect: Restricted Speech Pattern/Tone: Quiet Volume Thought Process: Coherent Perception: WNL Thought Content: Depressive Thought Process: Lethality: Passive Wish Hallucination Type: Denies Delusion Type: Somatic - Cognitive Function Orientation: A&O x 4 Level of Consciousness: Awake - Medication Compliance Cooperative with Inpatient Medication Regimen: Yes - Group Participation Participates in Group Activities: Partial Assessment - Assessment Merits Inpatient Hospitalization: For Immediate Safety Clinical Impression: 78 year old female with history of depression came to the hospital with suicidal ideation and was admitted to the B[facility] at [facility]. Plan - Plan Treatment Plan: Name: NERIS WEEMS Birthdate: 1940 [id number] #Q30 minute observation with staff pass. # The patient requires psychiatric inpatient admission at this time to assure safety, receive treatment and work toward stabilization. # Obtain collateral information once release is signed. # Family involved in discharge planing # Collaboration with Mainframe Developer Kiya Champion # Continue cymbalta to 60mg daily. # Pain management consult- Patient has seen pain management service during her last admission. Patient requesting to get off opiate pain medications due to associated nausea however when titrating down Oxycodone the patient continues to endorse being in pain. Patient is requesting to be seen by pain specialist for alternative treatment options that could help control pain. # Remeron 7.5mg qhs # PT consult and walker for gait # [facility] has open availability #Goals before discharge include: To eliminate/ reduce suicidal ideation Tentative Discharge: Pending psychiatric stabilization Sodium 141 mmol/L (135-145) 03/22/19 13:59 Potassium 3.9 mmol/L (3.5-5.0) 03/22/19 13:59 BUN 19 mg/dL (6-24) 03/22/19 13:59 Creatinine 0.77 mg/dL (0.51-0.95) 03/22/19 13:59 Calcium 9.8 mg/dL (8.6-10.3) 03/22/19 13:59 AST 23 U/L (13-39) 03/22/19 13:59 ALT 22 U/L (7-52) 03/22/19 13:59 Continued Medication Management: Continue Outpt Medication Medications: Current Medications Acetaminophen (Tylenol Tab*) 325 mg PO Q6H PRN PRN Reason: PAIN - MILD Last Admin: 03/26/19 05:55 Dose: 325 mg Al Hydrox/Mg Hydrox/Simethicone (Maalox Plus*) 30 ml PO Q4H PRN PRN Reason: INDIGESTION Last Admin: 03/28/19 07:26 Dose: 30 ml Artificial Tears (Natural Balance Tears Eye Drop) 2 drop BOTH EYES Q4H PRN PRN Reason: DRY EYE Buspirone HCl (Buspar Tab *) 15 mg PO BID PRN PRN Reason: ANXIETY Last Admin: 03/27/19 20:15 Dose: 15 mg Carboxymethylcellulose/Glycerin (Refresh Optive Gel Eye Gel) 1 applic BOTH EYES BID PRN PRN Reason: DRY EYES Last Admin: 03/28/19 10:54 Dose: 1 applic Duloxetine HCl (Cymbalta Cap*) 60 mg PO DAILY MARIELOS Last Admin: 03/28/19 10:54 Dose: 60 mg Mirtazapine (Remeron Tab*) 7.5 mg PO BEDTIME PRN PRN Reason: SLEEP Last Admin: 03/27/19 20:15 Dose: 7.5 mg Multivitamins (Theragran Tab*) 1 tab PO DAILY MARIELOS Last Admin: 03/28/19 10:54 Dose: 1 tab Ondansetron HCl (Zofran Tab*) 4 mg PO Q6H PRN PRN Reason: NAUSEA Last Admin: 03/27/19 07:29 Dose: 4 mg Oxycodone HCl (Roxycodone Tab*) 5 mg PO Q6H PRN PRN Reason: PAIN - SEVERE Last Admin: 03/28/19 07:25 Dose: 5 mg Senna (Senokot 8.6 Mg Tab*) 1 tab PO BEDTIME PRN PRN Reason: CONSTIPATION Last Admin: 03/25/19 21:07 Dose: 1 tab - Discharge Plan Discharge Plan: Inpatient Hospitalization
[2019-03-28] MEDS: Mirtazapine TAB* 15 MG PO PRN (21:26)
[2019-03-28] MEDS: Dextran 70/Hypromellose Tears Eye Drops 15 ml BTL (for Artificials Tears) BOTH EYES PRN (21:30)
[2019-03-28] MEDS: Acetaminophen TAB* 325 MG PO PRN (23:35)
[2019-03-29] MEDS: Acetaminophen TAB* 325 MG PO PRN (07:29)
[2019-03-29] MEDS: oxyCODONE TAB* 5 MG TAB PO PRN ×2 (07:30→20:05)
[2019-03-29] MEDS: DULoxetine DR CAP* 60 MG CAP.DR PO SCH (08:56)
[2019-03-29] MEDS: Vitamin THERAPEUTIC TAB PO SCH (08:57)
[2019-03-29] MEDS: Dextran 70/Hypromellose Tears Eye Drops 15 ml BTL (for Artificials Tears) BOTH EYES PRN (08:58)
[2019-03-29] MEDS: Carboxymethylcellulose/Glyceri 10 ML OPHTH.GEL lubricant eye gel BOTH EYES PRN (14:32)
--- NOTE | 2019-03-29 16:20 | PN ---
Subjective - Subjective Date of Service: 03/29/19 Service Type: [id number] Hosp care 35 min high complexity Subjective: Nursing Report: Patient was visible on unit, no behavioral incidents. CC: "I am doing better today Patient was seen and evaluated today. The patient reported doing better today. She was wondering when she will be transferred and if any of the care facilities accepted her yet. She reported having adequate appetite. The patient was in bed laying down before encounter. Per nursing no behavioral issues or overnight events reported. Patient reported that she is tolerating medications without side effects. Objective - General Observations Appearance: Neat Appears Stated Age: Yes Stature: WNL Posture: WNL Eye Contact: Average Behavior/Activity: WNL - Interaction Observations Attitude Towards Examiner: Cooperative Stated Mood: Dysphoric Affect: Restricted Speech Pattern/Tone: Clear Thought Process: Coherent Perception: WNL Thought Content: Self-Deprecatory Hallucination Type: None Delusion Type: None - Cognitive Function Orientation: A&O x 4 Level of Consciousness: Awake - Medication Compliance Cooperative with Inpatient Medication Regimen: Yes - Group Participation Participates in Group Activities: Yes Assessment - Assessment Merits Inpatient Hospitalization: For Immediate Safety Clinical Impression: 78 year old female with history of depression came to the hospital with suicidal ideation and was admitted to the BSU at [facility]. Plan - Plan Treatment Plan: Name: NERIS WEEMS Birthdate: 1940 [id number] #Q30 minute observation with staff pass. # The patient requires psychiatric inpatient admission at this time to assure safety, receive treatment and work toward stabilization. # Obtain collateral information once release is signed. # Family involved in discharge planing # Collaboration with Preventative Maintenance Technician Kiya Champion # Continue cymbalta to 60mg daily. # Pain management consult- Patient has seen pain management service during her last admission. Patient requesting to get off opiate pain medications due to associated nausea however when titrating down Oxycodone the patient continues to endorse being in pain. Patient is requesting to be seen by pain specialist for alternative treatment options that could help control pain. # Remeron 7.5mg qhs # PT consult and walker for gait # [facility]ing response from [facility] #Goals before discharge include: To eliminate/ reduce suicidal ideation Tentative Discharge: Pending psychiatric stabilization Sodium 141 mmol/L (135-145) 03/22/19 13:59 Potassium 3.9 mmol/L (3.5-5.0) 03/22/19 13:59 BUN 19 mg/dL (6-24) 03/22/19 13:59 Creatinine 0.77 mg/dL (0.51-0.95) 03/22/19 13:59 Calcium 9.8 mg/dL (8.6-10.3) 03/22/19 13:59 AST 23 U/L (13-39) 03/22/19 13:59 ALT 22 U/L (7-52) 03/22/19 13:59 Continued Medication Management: Continue Outpt Medication Medications: Current Medications Acetaminophen (Tylenol Tab*) 325 mg PO Q6H PRN PRN Reason: PAIN - MILD Last Admin: 03/29/19 07:29 Dose: 325 mg Al Hydrox/Mg Hydrox/Simethicone (Maalox Plus*) 30 ml PO Q4H PRN PRN Reason: INDIGESTION Last Admin: 03/28/19 07:26 Dose: 30 ml Artificial Tears (Natural Balance Tears Eye Drop) 2 drop BOTH EYES Q4H PRN PRN Reason: DRY EYE Last Admin: 03/29/19 08:58 Dose: 2 drop Buspirone HCl (Buspar Tab *) 15 mg PO BID PRN PRN Reason: ANXIETY Last Admin: 03/27/19 20:15 Dose: 15 mg Carboxymethylcellulose/Glycerin (Refresh Optive Gel Eye Gel) 1 applic BOTH EYES BID PRN PRN Reason: DRY EYES Last Admin: 03/29/19 14:32 Dose: 1 applic Duloxetine HCl (Cymbalta Cap*) 60 mg PO DAILY [facility] Last Admin: 03/29/19 08:56 Dose: 60 mg Mirtazapine (Remeron Tab*) 7.5 mg PO BEDTIME PRN PRN Reason: SLEEP Last Admin: 03/28/19 21:26 Dose: 7.5 mg Multivitamins (Theragran Tab*) 1 tab PO DAILY [facility] Last Admin: 03/29/19 08:57 Dose: Not Given Ondansetron HCl (Zofran Tab*) 4 mg PO Q6H PRN PRN Reason: NAUSEA Last Admin: 03/27/19 07:29 Dose: 4 mg Oxycodone HCl (Roxycodone Tab*) 5 mg PO Q6H PRN PRN Reason: PAIN - SEVERE Last Admin: 03/29/19 07:30 Dose: 5 mg Senna (Senokot 8.6 Mg Tab*) 1 tab PO BEDTIME PRN PRN Reason: CONSTIPATION Last Admin: 03/25/19 21:07 Dose: 1 tab - Discharge Plan Discharge Plan: Inpatient Hospitalization
[2019-03-29] MEDS: Mirtazapine TAB* 15 MG PO PRN (20:00)
[2019-03-29] MEDS: busPIRone TAB* 15 MG PO PRN (20:02)
--- NOTE | 2019-03-29 21:22 | PN ---
Progress Note - Progress Note Date of Service: 03/29/19 Note: INPATIENT PAIN-PROGRESS Angeles Stanford is a 78 year old female whom I saw in the BSU on March 14. She has chronic low back pain and has been a patient in the pain clinic since 2011 or earlier. She has been on chronic opioids since at least 2012, and has been on Morphine since 2016. She developed nausea and abdominal pain about 18 months ago. She has been seen by GI doctors at [facility] and has had a workup that has failed to elucidate a cause for her pain. She has also been depressed the past two years. She has been seen in the ER here for abdominal pain in May and December of 2018. She was hospitalized Mar 14 for SI. During that hospitalization her morphine was stopped and she was tried on Oxycodone/APAP. She was discharged home but returned again with SI. She thinks her nausea may be better without the morphine but states she needs something for her back pain. She is now on oxycodone 5 mg every 6 hours PRN. She is also taking Cymbalta Current Medications Acetaminophen (Tylenol Tab*) 325 mg PO Q6H PRN PRN Reason: PAIN - MILD Last Admin: 03/29/19 07:29 Dose: 325 mg Al Hydrox/Mg Hydrox/Simethicone (Maalox Plus*) 30 ml PO Q4H PRN PRN Reason: INDIGESTION Last Admin: 03/28/19 07:26 Dose: 30 ml Artificial Tears (Natural Balance Tears Eye Drop) 2 drop BOTH EYES Q4H PRN PRN Reason: DRY EYE Last Admin: 03/29/19 08:58 Dose: 2 drop Buspirone HCl (Buspar Tab *) 15 mg PO BID PRN PRN Reason: ANXIETY Last Admin: 03/29/19 20:02 Dose: 15 mg Carboxymethylcellulose/Glycerin (Refresh Optive Gel Eye Gel) 1 applic BOTH EYES BID PRN PRN Reason: DRY EYES Last Admin: 03/29/19 14:32 Dose: 1 applic Duloxetine HCl (Cymbalta Cap*) 60 mg PO DAILY [facility] Last Admin: 03/29/19 08:56 Dose: 60 mg Mirtazapine (Remeron Tab*) 7.5 mg PO BEDTIME PRN PRN Reason: SLEEP Last Admin: 03/29/19 20:00 Dose: 7.5 mg Multivitamins (Theragran Tab*) 1 tab PO DAILY [facility] Last Admin: 03/29/19 08:57 Dose: Not Given Ondansetron HCl (Zofran Tab*) 4 mg PO Q6H PRN PRN Reason: NAUSEA Last Admin: 03/27/19 07:29 Dose: 4 mg Oxycodone HCl (Roxycodone Tab*) 5 mg PO Q6H PRN PRN Reason: PAIN - SEVERE Last Admin: 03/29/19 20:05 Dose: 5 mg Senna (Senokot 8.6 Mg Tab*) 1 tab PO BEDTIME PRN PRN Reason: CONSTIPATION Last Admin: 03/25/19 21:07 Dose: 1 tab Vital Signs Temp Pulse Resp BP Pulse Ox 98 F 95 18 126/83 98 03/29/19 08:00 03/29/19 08:00 03/29/19 20:05 03/29/19 08:00 03/29/19 08:00 EXAM: LUNGS: Clear HEART: reg rhythm ABDOMEN: Soft NEUROLOGIC: A&O. Moves all 4 extremities, no focal weakness ASSESSMENT: 1. Low Back Pain 2. Abdominal pain and nausea PLAN: I think she seems to be doing better off Morphine. SHe would like to taper off oxycodone and try Tramadol, though I am not sure she will tolerate it. Will cut oxycodone to Q12 hr, and start tramadol.
[2019-03-30] MEDS: oxyCODONE TAB* 5 MG TAB PO PRN ×2 (07:34→16:49)
[2019-03-30] MEDS ORDERED: Clotrimazole 1% CREAM* 30 GM TOPICAL PRN (10:05)
[2019-03-30] MEDS: Lidocaine PATCH 5%* 1 PATCH TRANSDERM SCH (11:02)
[2019-03-30] MEDS: DULoxetine DR CAP* 60 MG CAP.DR PO SCH (11:03)
[2019-03-30] MEDS: Vitamin THERAPEUTIC TAB PO SCH (11:03)
[2019-03-30] MEDS: traMADol TAB* 50 MG PO PRN ×2 (11:06→20:31)
--- NOTE | 2019-03-30 15:40 | PN ---
Subjective - Subjective Date of Service: 03/30/19 Service Type: [id number] Hosp care 35 min high complexity Subjective: Nursing Report: Patient was visible on unit, no behavioral incidents. CC: "I do not have as much nausea Patient was seen and evaluated today. The patient reported she feels less nausea today. She reported having adequate appetite and ate breakfast this morning. The patient reported being scared at time by other peers on the unit. Met with family today who plan to talk together over the weekend and try to find a care facility or care worker. Patient reported that she is tolerating medications without side effects. Objective - General Observations Appearance: Neat Appears Stated Age: Yes Stature: WNL Posture: WNL Eye Contact: Average Behavior/Activity: WNL - Interaction Observations Attitude Towards Examiner: Anxious Stated Mood: Dysphoric Affect: Restricted Speech Pattern/Tone: Appropriate Thought Process: Coherent Perception: WNL Thought Content: WNL Hallucination Type: None Delusion Type: None - Cognitive Function Orientation: A&O x 4 Level of Consciousness: Awake - Medication Compliance Cooperative with Inpatient Medication Regimen: Yes - Group Participation Participates in Group Activities: Yes Assessment - Assessment Merits Inpatient Hospitalization: For Immediate Safety Clinical Impression: 78 year old female with history of depression came to the hospital with suicidal ideation and was admitted to the BSU at [facility]. Plan - Plan Treatment Plan: Name: NERIS WEEMS Birthdate: 1940 [id number] #Q30 minute observation with staff pass. # The patient requires psychiatric inpatient admission at this time to assure safety, receive treatment and work toward stabilization. # Obtain collateral information once release is signed. # Family involved in discharge planing # Collaboration with Painter Foreman Kiya Champion # Continue cymbalta to 60mg daily. # Pain management consult completed and appreciate recommendations # Remeron 7.5mg qhs # PT consult and walker for gait # TENS unit # Waiting response from placement facilities #Goals before discharge include: To eliminate/ reduce suicidal ideation Tentative Discharge: Pending psychiatric stabilization Sodium 141 mmol/L (135-145) 03/22/19 13:59 Potassium 3.9 mmol/L (3.5-5.0) 03/22/19 13:59 BUN 19 mg/dL (6-24) 03/22/19 13:59 Creatinine 0.77 mg/dL (0.51-0.95) 03/22/19 13:59 Calcium 9.8 mg/dL (8.6-10.3) 03/22/19 13:59 AST 23 U/L (13-39) 03/22/19 13:59 ALT 22 U/L (7-52) 03/22/19 13:59 Continued Medication Management: Continue Outpt Medication Medications: Current Medications Acetaminophen (Tylenol Tab*) 325 mg PO Q6H PRN PRN Reason: PAIN - MILD Last Admin: 03/29/19 07:29 Dose: 325 mg Al Hydrox/Mg Hydrox/Simethicone (Maalox Plus*) 30 ml PO Q4H PRN PRN Reason: INDIGESTION Last Admin: 03/28/19 07:26 Dose: 30 ml Artificial Tears (Natural Balance Tears Eye Drop) 2 drop BOTH EYES Q4H PRN PRN Reason: DRY EYE Last Admin: 03/29/19 08:58 Dose: 2 drop Buspirone HCl (Buspar Tab *) 15 mg PO BID PRN PRN Reason: ANXIETY Last Admin: 03/29/19 20:02 Dose: 15 mg Carboxymethylcellulose/Glycerin (Refresh Optive Gel Eye Gel) 1 applic BOTH EYES BID PRN PRN Reason: DRY EYES Last Admin: 03/29/19 14:32 Dose: 1 applic Clotrimazole (Clotrimazole 1%*) 1 applic TOPICAL DAILY PRN PRN Reason: RASH UNDER ABDOMINAL FOLD Duloxetine HCl (Cymbalta Cap*) 60 mg PO DAILY [facility] Last Admin: 03/30/19 11:03 Dose: 60 mg Lidocaine (Lidoderm 5% Patch*) 1 patch TRANSDERM DAILY [facility] Last Admin: 03/30/19 11:02 Dose: 1 patch Mirtazapine (Remeron Tab*) 7.5 mg PO BEDTIME PRN PRN Reason: SLEEP Last Admin: 03/29/19 20:00 Dose: 7.5 mg Multivitamins (Theragran Tab*) 1 tab PO DAILY [facility] Last Admin: 03/30/19 11:03 Dose: 1 tab Ondansetron HCl (Zofran Tab*) 4 mg PO Q6H PRN PRN Reason: NAUSEA Last Admin: 03/27/19 07:29 Dose: 4 mg Oxycodone HCl (Roxycodone Tab*) 5 mg PO Q8H PRN PRN Reason: PAIN - SEVERE Last Admin: 03/30/19 07:34 Dose: 5 mg Pharmacy Profile Note (Lidocaine Patch Remove*) 1 note PATCH OFF 2099 [facility] Senna (Senokot 8.6 Mg Tab*) 1 tab PO BEDTIME PRN PRN Reason: CONSTIPATION Last Admin: 03/25/19 21:07 Dose: 1 tab Tramadol HCl (Ultram*) 50 mg PO Q6H PRN PRN Reason: PAIN - MODERATE Last Admin: 03/30/19 11:06 Dose: 50 mg - Discharge Plan Discharge Plan: Inpatient Hospitalization
[2019-03-30] MEDS: Carboxymethylcellulose/Glyceri 10 ML OPHTH.GEL lubricant eye gel BOTH EYES PRN (18:43)
[2019-03-30] MEDS: Lidocaine Patch REMOVE* 1 NOTE MISC PATCH OFF SCH (20:32)
[2019-03-30] MEDS: Dextran 70/Hypromellose Tears Eye Drops 15 ml BTL (for Artificials Tears) BOTH EYES PRN (21:04)
[2019-03-30] MEDS: Mirtazapine TAB* 15 MG PO PRN (23:20)
[2019-03-31] MEDS: oxyCODONE TAB* 5 MG TAB PO PRN ×3 (03:03→23:19)
[2019-03-31] MEDS: busPIRone TAB* 15 MG PO PRN (03:03)
[2019-03-31] MEDS: DULoxetine DR CAP* 60 MG CAP.DR PO SCH (08:58)
[2019-03-31] MEDS: Vitamin THERAPEUTIC TAB PO SCH (08:58)
[2019-03-31] MEDS: traMADol TAB* 50 MG PO PRN ×2 (09:00→19:53)
[2019-03-31] MEDS: Lidocaine PATCH 5%* 1 PATCH TRANSDERM SCH (10:03)
[2019-03-31] MEDS: Dextran 70/Hypromellose Tears Eye Drops 15 ml BTL (for Artificials Tears) BOTH EYES PRN (16:10)
[2019-03-31] MEDS: Lidocaine Patch REMOVE* 1 NOTE MISC PATCH OFF SCH (19:53)
[2019-03-31] MEDS: Mirtazapine TAB* 15 MG PO PRN (23:19)
[2019-04-01] MEDS: Acetaminophen TAB* 325 MG PO PRN ×2 (07:38→23:14)
[2019-04-01] MEDS: Vitamin THERAPEUTIC TAB PO SCH (09:33)
[2019-04-01] MEDS: DULoxetine DR CAP* 60 MG CAP.DR PO SCH (09:33)
[2019-04-01] MEDS: Lidocaine PATCH 5%* 1 PATCH TRANSDERM SCH (09:33)
[2019-04-01] MEDS: oxyCODONE TAB* 5 MG TAB PO PRN ×2 (11:22→23:14)
[2019-04-01] MEDS: traMADol TAB* 50 MG PO PRN (18:59)
[2019-04-01] MEDS: Mirtazapine TAB* 15 MG PO PRN (22:09)
[2019-04-01] MEDS: Lidocaine Patch REMOVE* 1 NOTE MISC PATCH OFF SCH (23:11)
[2019-04-02] MEDS: Vitamin THERAPEUTIC TAB PO SCH (08:25)
[2019-04-02] MEDS: DULoxetine DR CAP* 60 MG CAP.DR PO SCH (08:51)
[2019-04-02] MEDS: traMADol TAB* 50 MG PO PRN (08:54)
[2019-04-02] MEDS: oxyCODONE TAB* 5 MG TAB PO PRN ×2 (10:31→23:48)
[2019-04-02] MEDS: Ondansetron TAB* 4 MG PO PRN (10:31)
[2019-04-02] MEDS: Lidocaine PATCH 5%* 1 PATCH TRANSDERM SCH (10:50)
[2019-04-02] MEDS: Al Hydrox/Mg Hydrox/Simet LIQ* 30 ML UDC PO PRN (15:17)
--- NOTE | 2019-04-02 15:42 | PN ---
Subjective - Subjective Date of Service: 04/02/19 Service Type: [id number] Hosp care 35 min high complexity Subjective: Nursing Report: Patient was visible on unit, no behavioral incidents. Attending some group activities. CC: "I am in pain Patient was seen and evaluated today. The patient reported that she is in pain and would like to speak to the pain specialist. She reported eating breakfast this morning. Per nursing no behavioral issues or overnight events reported. Her son came to visit this afternoon. Objective - General Observations Appearance: Neat Appears Stated Age: Yes Stature: WNL Posture: Slumped Eye Contact: Average Behavior/Activity: WNL - Interaction Observations Attitude Towards Examiner: Cooperative Stated Mood: Dysphoric Affect: Restricted Speech Pattern/Tone: Clear Thought Process: Coherent Perception: WNL Thought Content: WNL Hallucination Type: None Delusion Type: None - Cognitive Function Orientation: A&O x 4 Level of Consciousness: Awake Cognition: WNL - Medication Compliance Cooperative with Inpatient Medication Regimen: Yes - Group Participation Participates in Group Activities: Yes Assessment - Assessment Merits Inpatient Hospitalization: For Immediate Safety Clinical Impression: 78 year old female with history of depression came to the hospital with suicidal ideation and was admitted to the B[facility] at [facility]. Plan - Plan Treatment Plan: Name: NERIS WEEMS Birthdate: 1940 [id number] #Q30 minute observation with staff pass. # The patient requires psychiatric inpatient admission at this time to assure safety, receive treatment and work toward stabilization. # Obtain collateral information once release is signed. # Family involved in discharge planing # Collaboration with Physician Practice Consultant Kiya Champion # Continue cymbalta to 60mg daily. # Pain management consult completed and appreciate recommendations # Remeron 7.5mg qhs # PT consult and walker for gait # Family meeting took place today #Goals before discharge include: To eliminate/ reduce suicidal ideation Tentative Discharge: Pending psychiatric stabilization Sodium 141 mmol/L (135-145) 03/22/19 13:59 Potassium 3.9 mmol/L (3.5-5.0) 03/22/19 13:59 BUN 19 mg/dL (6-24) 03/22/19 13:59 Creatinine 0.77 mg/dL (0.51-0.95) 03/22/19 13:59 Calcium 9.8 mg/dL (8.6-10.3) 03/22/19 13:59 AST 23 U/L (13-39) 03/22/19 13:59 ALT 22 U/L (7-52) 03/22/19 13:59 Continued Medication Management: Continue Outpt Medication Medications: Current Medications Acetaminophen (Tylenol Tab*) 325 mg PO Q6H PRN PRN Reason: PAIN - MILD Last Admin: 04/01/19 23:14 Dose: 325 mg Al Hydrox/Mg Hydrox/Simethicone (Maalox Plus*) 30 ml PO Q4H PRN PRN Reason: INDIGESTION Last Admin: 04/02/19 15:17 Dose: 30 ml Artificial Tears (Natural Balance Tears Eye Drop) 2 drop BOTH EYES Q4H PRN PRN Reason: DRY EYE Last Admin: 03/31/19 16:10 Dose: 2 drop Buspirone HCl (Buspar Tab *) 15 mg PO BID PRN PRN Reason: ANXIETY Last Admin: 03/31/19 03:03 Dose: 15 mg Carboxymethylcellulose/Glycerin (Refresh Optive Gel Eye Gel) 1 applic BOTH EYES BID PRN PRN Reason: DRY EYES Last Admin: 03/30/19 18:43 Dose: 1 applic Clotrimazole (Clotrimazole 1%*) 1 applic TOPICAL DAILY PRN PRN Reason: RASH UNDER ABDOMINAL FOLD Duloxetine HCl (Cymbalta Cap*) 60 mg PO DAILY [facility] Last Admin: 04/02/19 08:51 Dose: 60 mg Lidocaine (Lidoderm 5% Patch*) 1 patch TRANSDERM DAILY [facility] Last Admin: 04/02/19 10:50 Dose: 1 patch Mirtazapine (Remeron Tab*) 7.5 mg PO BEDTIME PRN PRN Reason: SLEEP Last Admin: 04/01/19 22:09 Dose: 7.5 mg Multivitamins (Theragran Tab*) 1 tab PO DAILY [facility] Last Admin: 04/02/19 08:25 Dose: Not Given Ondansetron HCl (Zofran Tab*) 4 mg PO Q6H PRN PRN Reason: NAUSEA Last Admin: 04/02/19 10:31 Dose: 4 mg Oxycodone HCl (Roxycodone Tab*) 5 mg PO Q12H PRN PRN Reason: PAIN - SEVERE Last Admin: 04/02/19 10:31 Dose: 5 mg Pharmacy Profile Note (Lidocaine Patch Remove*) 1 note PATCH OFF 2100 [facility] Last Admin: 04/01/19 23:11 Dose: 1 note Senna (Senokot 8.6 Mg Tab*) 1 tab PO BEDTIME PRN PRN Reason: CONSTIPATION Last Admin: 03/25/19 21:07 Dose: 1 tab Tramadol HCl (Ultram*) 50 mg PO Q6H PRN PRN Reason: PAIN - MODERATE Last Admin: 04/02/19 08:54 Dose: 50 mg - Discharge Plan Discharge Plan: Inpatient Hospitalization
[2019-04-02] MEDS: Lidocaine Patch REMOVE* 1 NOTE MISC PATCH OFF SCH (20:50)
[2019-04-02] MEDS: Acetaminophen TAB* 325 MG PO PRN (20:52)
[2019-04-02] MEDS: Mirtazapine TAB* 15 MG PO PRN (20:53)
[2019-04-03] MEDS: Acetaminophen TAB* 325 MG PO PRN ×2 (07:21→23:45)
[2019-04-03] MEDS: Vitamin THERAPEUTIC TAB PO SCH (09:18)
[2019-04-03] MEDS: DULoxetine DR CAP* 60 MG CAP.DR PO SCH (09:18)
[2019-04-03] MEDS: Lidocaine PATCH 5%* 1 PATCH TRANSDERM SCH (10:31)
[2019-04-03] MEDS: traMADol TAB* 50 MG PO PRN ×2 (10:32→18:40)
[2019-04-03] MEDS: oxyCODONE TAB* 5 MG TAB PO PRN ×2 (10:51→23:45)
--- NOTE | 2019-04-03 12:36 | PN ---
Subjective - Subjective Date of Service: 04/03/19 Service Type: [id number] Hosp care 35 min high complexity Subjective: Nursing Report: Patient was visible on unit, no behavioral incidents. CC: "I want to go home Patient was seen and evaluated today in the common room. She reported having an adequate appetite and no changes in sleep. Per nursing no behavioral issues or overnight events reported. The patient reported holding off on taking Tramadol today because she thinks it may be causing nausea, she did report improvement of nausea and appetite today. She met with PT today and feels tired. She showered today. Her daughter came to visit today during lunch. Daughter stated she plans to contact her brothers to get a schedule to help Neris upon her discharge home. Objective - General Observations Appearance: Neat Appears Stated Age: Yes Stature: WNL Posture: Slumped Eye Contact: Average Behavior/Activity: Slowed - Interaction Observations Attitude Towards Examiner: Cooperative Stated Mood: Dysphoric Affect: Restricted Speech Pattern/Tone: Appropriate Thought Process: Coherent Perception: WNL Thought Content: WNL Hallucination Type: None Delusion Type: None - Cognitive Function Orientation: A&O x 4 Level of Consciousness: Awake Cognition: WNL - Medication Compliance Cooperative with Inpatient Medication Regimen: Yes - Group Participation Participates in Group Activities: Partial Assessment - Assessment Merits Inpatient Hospitalization: For Immediate Safety Clinical Impression: 78 year old female with history of depression came to the hospital with suicidal ideation and was admitted to the BSU at [facility]. Plan - Plan Treatment Plan: Name: NERIS WEEMS Birthdate: 1940 [id number] #Q30 minute observation with staff pass. # The patient requires psychiatric inpatient admission at this time to assure safety, receive treatment and work toward stabilization. # Obtain collateral information once release is signed. # Family involved in discharge planing # Collaboration with Tab Machine Operator Kiya Champion # Continue cymbalta to 60mg daily. # Pain management consult completed and appreciate recommendations # Remeron 7.5mg qhs # PT consult and walker for gait # Family meeting took place today # Follow up pain clinic and PCP and [facility] # [facility] referral paperwork submitted and family in the process of completing additional paperwork # Visiting care nurse referral made during prior admission. #Goals before discharge include: To eliminate/ reduce suicidal ideation Tentative Discharge: Tomorrow 04/04/19 Sodium 141 mmol/L (135-145) 03/22/19 13:59 Potassium 3.9 mmol/L (3.5-5.0) 03/22/19 13:59 BUN 19 mg/dL (6-24) 03/22/19 13:59 Creatinine 0.77 mg/dL (0.51-0.95) 03/22/19 13:59 Calcium 9.8 mg/dL (8.6-10.3) 03/22/19 13:59 AST 23 U/L (13-39) 03/22/19 13:59 ALT 22 U/L (7-52) 03/22/19 13:59 Continued Medication Management: Continue Outpt Medication Medications: Current Medications Acetaminophen (Tylenol Tab*) 325 mg PO Q6H PRN PRN Reason: PAIN - MILD Last Admin: 04/03/19 07:21 Dose: 325 mg Al Hydrox/Mg Hydrox/Simethicone (Maalox Plus*) 30 ml PO Q4H PRN PRN Reason: INDIGESTION Last Admin: 04/02/19 15:17 Dose: 30 ml Artificial Tears (Natural Balance Tears Eye Drop) 2 drop BOTH EYES Q4H PRN PRN Reason: DRY EYE Last Admin: 03/31/19 16:10 Dose: 2 drop Buspirone HCl (Buspar Tab *) 15 mg PO BID PRN PRN Reason: ANXIETY Last Admin: 03/31/19 03:03 Dose: 15 mg Carboxymethylcellulose/Glycerin (Refresh Optive Gel Eye Gel) 1 applic BOTH EYES BID PRN PRN Reason: DRY EYES Last Admin: 03/30/19 18:43 Dose: 1 applic Clotrimazole (Clotrimazole 1%*) 1 applic TOPICAL DAILY PRN PRN Reason: RASH UNDER ABDOMINAL FOLD Duloxetine HCl (Cymbalta Cap*) 60 mg PO DAILY [facility] Last Admin: 04/03/19 09:18 Dose: 60 mg Lidocaine (Lidoderm 5% Patch*) 1 patch TRANSDERM DAILY [facility] Last Admin: 04/03/19 10:31 Dose: 1 patch Mirtazapine (Remeron Tab*) 7.5 mg PO BEDTIME PRN PRN Reason: SLEEP Last Admin: 04/02/19 20:53 Dose: 7.5 mg Multivitamins (Theragran Tab*) 1 tab PO DAILY [facility] Last Admin: 04/03/19 09:18 Dose: Not Given Ondansetron HCl (Zofran Tab*) 4 mg PO Q6H PRN PRN Reason: NAUSEA Last Admin: 04/02/19 10:31 Dose: 4 mg Oxycodone HCl (Roxycodone Tab*) 5 mg PO Q12H PRN PRN Reason: PAIN - SEVERE Last Admin: 04/03/19 10:51 Dose: 5 mg Pharmacy Profile Note (Lidocaine Patch Remove*) 1 note PATCH OFF 2099 [facility] Last Admin: 04/02/19 20:50 Dose: 1 note Senna (Senokot 8.6 Mg Tab*) 1 tab PO BEDTIME PRN PRN Reason: CONSTIPATION Last Admin: 03/25/19 21:07 Dose: 1 tab Tramadol HCl (Ultram*) 50 mg PO Q6H PRN PRN Reason: PAIN - MODERATE Last Admin: 04/02/19 08:54 Dose: 50 mg - Discharge Plan Discharge Plan: Inpatient Hospitalization Outpatient Program: [facility]
[2019-04-03] MEDS: Al Hydrox/Mg Hydrox/Simet LIQ* 30 ML UDC PO PRN (18:41)
[2019-04-03] MEDS: Lidocaine Patch REMOVE* 1 NOTE MISC PATCH OFF SCH (21:19)
[2019-04-03] MEDS: Mirtazapine TAB* 15 MG PO PRN (23:45)
--- NOTE | 2019-04-04 07:51 | DS ---
Treatment Course & Assessment Clinical Course & Impression: 78 year old female with history of depression came to the hospital with suicidal ideation and was admitted to the BSU at [facility]. Discharge Planning - Discharge Planning Medications: Current Medications Acetaminophen (Tylenol Tab*) 325 mg PO Q6H PRN PRN Reason: PAIN - MILD Last Admin: 04/03/19 23:45 Dose: 325 mg Al Hydrox/Mg Hydrox/Simethicone (Maalox Plus*) 30 ml PO Q4H PRN PRN Reason: INDIGESTION Last Admin: 04/03/19 18:41 Dose: 30 ml Artificial Tears (Natural Balance Tears Eye Drop) 2 drop BOTH EYES Q4H PRN PRN Reason: DRY EYE Last Admin: 03/31/19 16:10 Dose: 2 drop Buspirone HCl (Buspar Tab *) 15 mg PO BID PRN PRN Reason: ANXIETY Last Admin: 03/31/19 03:03 Dose: 15 mg Carboxymethylcellulose/Glycerin (Refresh Optive Gel Eye Gel) 1 applic BOTH EYES BID PRN PRN Reason: DRY EYES Last Admin: 03/30/19 18:43 Dose: 1 applic Clotrimazole (Clotrimazole 1%*) 1 applic TOPICAL DAILY PRN PRN Reason: RASH UNDER ABDOMINAL FOLD Duloxetine HCl (Cymbalta Cap*) 60 mg PO DAILY [facility] Last Admin: 04/03/19 09:18 Dose: 60 mg Lidocaine (Lidoderm 5% Patch*) 1 patch TRANSDERM DAILY [facility] Last Admin: 04/03/19 10:31 Dose: 1 patch Mirtazapine (Remeron Tab*) 7.5 mg PO BEDTIME PRN PRN Reason: SLEEP Last Admin: 04/03/19 23:45 Dose: 7.5 mg Multivitamins (Theragran Tab*) 1 tab PO DAILY [facility] Last Admin: 04/03/19 09:18 Dose: Not Given Ondansetron HCl (Zofran Tab*) 4 mg PO Q6H PRN PRN Reason: NAUSEA Last Admin: 04/02/19 10:31 Dose: 4 mg Oxycodone HCl (Roxycodone Tab*) 5 mg PO Q12H PRN PRN Reason: PAIN - SEVERE Last Admin: 04/03/19 23:45 Dose: 5 mg Pharmacy Profile Note (Lidocaine Patch Remove*) 1 note PATCH OFF 2099 [facility] Last Admin: 04/03/19 21:19 Dose: 1 note Senna (Senokot 8.6 Mg Tab*) 1 tab PO BEDTIME PRN PRN Reason: CONSTIPATION Last Admin: 03/25/19 21:07 Dose: 1 tab Tramadol HCl (Ultram*) 50 mg PO Q6H PRN PRN Reason: PAIN - MODERATE Last Admin: 04/03/19 18:40 Dose: 50 mg Discharge Planning: Prescriptions provided for discharge [] Yes [] No Follow up care details as per social work arrangements. Patient response to discharge plan: [] eager for discharge [] agreeable with discharge plan [] ambivalent about discharge [] disagrees with discharge today
[2019-04-04] MEDS: Vitamin THERAPEUTIC TAB PO SCH (08:49)
[2019-04-04] MEDS: DULoxetine DR CAP* 60 MG CAP.DR PO SCH (08:50)
[2019-04-04] MEDS: traMADol TAB* 50 MG PO PRN (08:50)
[2019-04-04] MEDS: Ondansetron TAB* 4 MG PO PRN (09:45)
[2019-04-04] MEDS ORDERED: oxyCODONE TAB* 5 MG TAB ONE (10:19)
[2019-04-04] MEDS: Lidocaine PATCH 5%* 1 PATCH TRANSDERM SCH (10:53)
[2019-04-04] MEDS ORDERED: oxyCODONE TAB* 5 MG TAB PO ONE (11:00)
--- NOTE | 2019-04-04 13:05 | PN ---
Subjective - Subjective Date of Service: 04/04/19 Service Type: 99849 Hosp care 35 min high complexity Subjective: Nursing Report: Patient was visible on unit, no behavioral incidents. Slept overnight. CC: "I am glad to hear about going to [facility] Patient was seen and evaluated today in the common room. The patient reported she always feels in pain and is working on accepting that. She reported having an appetite for lunch. Her family came to visit today and is happy about the discharge plan to [facility] tomorrow and a wildlife manager came to visit her today. Objective - General Observations Appearance: Neat Appears Stated Age: Yes Stature: WNL Posture: WNL Eye Contact: Average Behavior/Activity: WNL - Interaction Observations Attitude Towards Examiner: Cooperative Stated Mood: Dysphoric Affect: Restricted Speech Pattern/Tone: Clear Thought Process: Coherent Perception: WNL Thought Content: Self-Deprecatory Hallucination Type: Denies Delusion Type: Denies - Cognitive Function Orientation: A&O x 4 Level of Consciousness: Awake - Medication Compliance Cooperative with Inpatient Medication Regimen: Yes - Group Participation Participates in Group Activities: Partial Assessment - Assessment Merits Inpatient Hospitalization: For Immediate Safety Clinical Impression: 78 year old female with history of depression came to the hospital with suicidal ideation and was admitted to the [facility] at [facility]. Plan - Plan Treatment Plan: Name: NERIS WEEMS Birthdate: 1940 [id number] #Q30 minute observation with staff pass. # The patient requires psychiatric inpatient admission at this time to assure safety, receive treatment and work toward stabilization. # Obtain collateral information once release is signed. # Family involved in discharge planing # Collaboration with [employer] Kiya Champion # Continue cymbalta to 60mg daily. # Pain management consult completed and appreciate recommendations # Remeron 7.5mg qhs # PT consult and walker for gait # Follow up pain clinic on 04/11/19 at 12:45am, PCP and [facility] # [facility] accepted patient and family plans to take her tomorrow morning. Tentative Discharge: Tomorrow 04/05/19 at 10am to [facility] Sodium 141 mmol/L (135-145) 03/22/19 13:59 Potassium 3.9 mmol/L (3.5-5.0) 03/22/19 13:59 BUN 19 mg/dL (6-24) 03/22/19 13:59 Creatinine 0.77 mg/dL (0.51-0.95) 03/22/19 13:59 Calcium 9.8 mg/dL (8.6-10.3) 03/22/19 13:59 AST 23 U/L (13-39) 03/22/19 13:59 ALT 22 U/L (7-52) 03/22/19 13:59 Continued Medication Management: Continue Outpt Medication Medications: Current Medications Acetaminophen (Tylenol Tab*) 325 mg PO Q6H PRN PRN Reason: PAIN - MILD Last Admin: 04/03/19 23:45 Dose: 325 mg Al Hydrox/Mg Hydrox/Simethicone (Maalox Plus*) 30 ml PO Q4H PRN PRN Reason: INDIGESTION Last Admin: 04/03/19 18:41 Dose: 30 ml Artificial Tears (Natural Balance Tears Eye Drop) 2 drop BOTH EYES Q4H PRN PRN Reason: DRY EYE Last Admin: 03/31/19 16:10 Dose: 2 drop Buspirone HCl (Buspar Tab *) 15 mg PO BID PRN PRN Reason: ANXIETY Last Admin: 03/31/19 03:03 Dose: 15 mg Carboxymethylcellulose/Glycerin (Refresh Optive Gel Eye Gel) 1 applic BOTH EYES BID PRN PRN Reason: DRY EYES Last Admin: 03/30/19 18:43 Dose: 1 applic Clotrimazole (Clotrimazole 1%*) 1 applic TOPICAL DAILY PRN PRN Reason: RASH UNDER ABDOMINAL FOLD Duloxetine HCl (Cymbalta Cap*) 60 mg PO DAILY [facility] Last Admin: 04/04/19 08:50 Dose: 60 mg Lidocaine (Lidoderm 5% Patch*) 1 patch TRANSDERM DAILY [facility] Last Admin: 04/04/19 10:53 Dose: Not Given Mirtazapine (Remeron Tab*) 7.5 mg PO BEDTIME PRN PRN Reason: SLEEP Last Admin: 04/03/19 23:45 Dose: 7.5 mg Multivitamins (Theragran Tab*) 1 tab PO DAILY [facility] Last Admin: 04/04/19 08:49 Dose: Not Given Ondansetron HCl (Zofran Tab*) 4 mg PO Q6H PRN PRN Reason: NAUSEA Last Admin: 04/04/19 09:45 Dose: 4 mg Oxycodone HCl (Roxycodone Tab*) 5 mg PO Q12H PRN PRN Reason: PAIN - SEVERE Last Admin: 04/03/19 23:45 Dose: 5 mg Pharmacy Profile Note (Lidocaine Patch Remove*) 1 note PATCH OFF [address] Last Admin: 04/03/19 21:19 Dose: 1 note Senna (Senokot 8.6 Mg Tab*) 1 tab PO BEDTIME PRN PRN Reason: CONSTIPATION Last Admin: 03/25/19 21:07 Dose: 1 tab Tramadol HCl (Ultram*) 50 mg PO Q6H PRN PRN Reason: PAIN - MODERATE Last Admin: 04/04/19 08:50 Dose: 50 mg - Discharge Plan Discharge Plan: Inpatient Hospitalization Outpatient Program: [facility]
[2019-04-04] MEDS: oxyCODONE TAB* 5 MG TAB PO PRN (14:49)
[2019-04-04] MEDS: Lidocaine Patch REMOVE* 1 NOTE MISC PATCH OFF SCH (20:19)
[2019-04-04] MEDS: Mirtazapine TAB* 15 MG PO PRN (20:21)
[2019-04-05] MEDS: Acetaminophen TAB* 325 MG PO PRN (03:21)
[2019-04-05] MEDS: Ondansetron TAB* 4 MG PO PRN (06:39)
[2019-04-05] MEDS ORDERED: oxyCODONE TAB* 5 MG TAB PO PRN (08:14)
[2019-04-05] MEDS ORDERED: oxyCODONE TAB* 5 MG TAB PO ONE (08:14)
[2019-04-05] MEDS: Vitamin THERAPEUTIC TAB PO SCH (08:20)
[2019-04-05] MEDS: DULoxetine DR CAP* 60 MG CAP.DR PO SCH (08:20)
[2019-04-05] MEDS: Lidocaine PATCH 5%* 1 PATCH TRANSDERM SCH (08:21)
--- NOTE | 2019-04-05 08:43 | DS ---
Subjective - Subjective Service Types: [id number] [facility] Day Mgmt complex over 30 min Discharge Date: 04/05/19 Subjective: CC: " This is not the right place for me" [facility] She said I hope I like it there my grandmother and sister went there. The patient was seen and evaluated before discharge today. The patient reported having adequate appetite and sleep. Per nursing no behavioral issues or overnight events reported. Patient reported having pain and nausea which has been present for several years. Justification for admission: Immediate Safety. CC " I am suicidal" The patient was brought to [facility] by her son soon recently after being discharged from the BSU. She arrived home and told her son that she made a mistake by wanting to leave the hospital and felt suicidal and was not safe to be left alone. Patient is open to going to a care facility. Current stressors include losing her and dog and 2 brothers in the same year. She complains of nausea and pain that has been present for several years and many medical evaluations and treatments have not been able to remit her symptoms. She reported feeling that she is a burden on her family and doesnt want to live anymore. She denied access to firearms. Patient has stockpile of pain medications that she no longer takes, her son Refugio picked up at security during her last discharge and advised to safely dispose. Her family feels burned out and stated that they are unable to keep up with taking care of her. They are in the process of locating placement options for her to live. She reported poor sleep and appetite. The patient denied homicidal ideation intent or plan. The patient denied auditory and/ or visual hallucinations. 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 She reported diminished interests which were found to be enjoyable in the past. She has been having crying spells, feeling empty inside, with feelings of hopelessness, and worthlessness. Reported feelings of being lonely. She has had recurrent thoughts of and that she would be better off . Anxiety Denied having symptoms of anxiety such as having times where heart feels that it is beating out of chest , sweaty palms, or shallow breathing. Denied having uncomfortable or intrusive thoughts. Denied feeling restless, high strung, or worrying too much most of the time. Bipolar Denied symptoms of tino such as having many ideas at once. Denied increased talkativeness where no one can interrupt. Denied feeling irritable most of the time while having an persistent abundance of energy most of the day without the use of energy drinks, stimulants, or recreational drug use. Denied an increase in intensity in goal directed activities. Denied having the decreased need to sleep for days , having prolonged elevated mood , or feeling on top of the world. Denied impulsive risky sexual encounters. Denied spending money recklessly , going on spending sprees wiping out savings. Denied impulsively traveling out of town or country, having super granado, and unrealistic wealth or fame. Psychosis Does not endorse hearing things that other people do not hear or seeing things other people do not see. Denied feeling that TV is making references. Denied feeling that people are spying , following , or reading their thoughts. Phobias: Patient denied having excessive fear of a particular thing or situation. Eating disorders: Patient denied having excessive eating habits or feelings of guilt after eating. Denied repeated episodes of self induced vomiting after eating. PTSD Denied flashbacks, nightmares and avoidance of a prior traumatic event. PAST PSYCHIATRIC HISTORY: Prior Diagnosis :Major depressive disorder, Fibromyalgia History of past Psychiatric Hospitalizations: February 2019 History of past suicide/homicide attempts : Denied past suicide attempts or self injurious behaviors. No history of violence. Outpatient follow-up: PCP Dr. Leon Medications: Past trials of medications include Xanax 0.25mg daily, Fluoxetine 80mg daily, Remeron 15mg qhs , Abilify 2mg qhs, cymbalta 60mg daily and remeron 7.5mg qhs Guardianship: None. FAMILY HISTORY: - Suicide: Distant uncle by suicide. - Mental illness: Denied a history of mental health in immediate family members. - Substance abuse: Denied substance abuse among family members. SUBSTANCE ABUSE HISTORY: - EtOH: Denied recent use. No associated legal issues, blackouts, seizures, DTs or past hospitalizations due to alcohol. - Tobacco: Denied - Cannabis: Denied - Heroin: Denied - Cocaine: Denied - Substance abuse treatment: Denied past substance abuse treatment SOCIAL HISTORY: - Denied a history of childhood physical and or sexual abuse Born in [facility] and raised by father and step mother her mother when she was young. - Education: Finished high school. No history of special education. 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 - Legal history: Denied - service history: Denied PAST MEDICAL HISTORY: Fibromyalgia, [place] Cornea Transplant[place] [facility] [place] [facility] [place] Laminectomy, cataracts - Allergies: Penicillins , Iodine contrast Physical Exam: Please see ED note Mental Status Exam on Admission APPEARANCE : 78 year old female who appears stated age. Patient wearing sleep attire and is in bed. BEHAVIOR: Cooperative , calm EYE CONTACT: Fair PSYCHOMOTOR ACTIVITY: No psychomotor agitation or retardation. MOVEMENTS: No abnormal movements observed. SPEECH : Normal rate, rhythm, volume and tone. MOOD : "Depressed " AFFECT : Type is depressed Range is restricted Mood Congruent THOUGHT PROCESS: Formulated and organized in a logical, linear goal directed manner. No flight of ideas, neologism (made up words) , perseveration , tangential , loose associations , or circumstantiality. THOUGHT CONTENT: no delusions, obsessions, phobias or preoccupations. PERCEPTION: No current auditory or visual hallucinations. Doesnt appear to be responding to internal cues. No evidence of depersonalization , de-realization, or illusions SUICIDALITY suicidal ideation with plan. HOMICIDALITY Denied homicidal ideation, intent or plan. Insight/judgment: Poor insight and judgment ORIENTATION: Oriented to self, location, and time. Diagnosis on Admission: Major Depressive Disorder, Severe. Diagnosis on Discharge: Major Depressive Disorder, in partial remission. Condition at the time of discharge: At the time of discharge patient showed improvement of sleep and appetite. The patient was not a danger to self or others. The patient denied suicidal ideation, intent or plan. The patient denied homicidal targets, ideation, intent or plan. This patient participated in psychosocial rehabilitation and gained some insight into problems. The patient gained insight into mental illness, triggers, and treatment. The patient took medication as prescribed. The patient denied side effects of medication and objective signs of side effects were not evident. Therapy Resources were offered to the patient. Patient was given a supply of prescriptions at the time of discharge. The patient plans to attend follow up care with the follow up arrangements that were discussed and put in place. Patient was asked to keep appointments as scheduled, take medication as prescribed, have routine follow up care with their primary care physician and refrain from any use of alcohol or drugs. Objective - General Observations Appearance: Neat Appears Stated Age: Yes Stature: WNL Posture: WNL Eye Contact: Average Behavior/Activity: WNL - Interaction Observations Attitude Towards Examiner: Cooperative Stated Mood: Dysphoric Affect: Full Speech Pattern/Tone: Clear, Appropriate, Normal Volume Thought Process: Coherent, Goal Directed Perception: WNL Thought Content: WNL Hallucination Type: None Delusion Type: None - Cognitive Function Orientation: A&O x 4 Level of Consciousness: Awake - Medication Compliance Cooperative with Inpatient Medication Regimen: Yes - Group Participation Participates in Group Activities: Yes Treatment Course & Assessment Clinical Course & Impression: Hospital course part A: 78 year old Female with history of depression and chronic pain came to the hospital upon recently being discharged from the BSU and was expressing suicidal ideation. Hospital course part B: Labs ordered included CBC, CMP, Toxicology screen. Labs were reviewed and vital signs were monitored during the course of admission. The patient was admitted to the adult behavioral unit and placed on 15 minute check for safety. At a later time the patient was on Q30 minute observation and staff pass privileges. With those limits being extended, patient was safe on all checks and there were no occurrence of behavioral incidents. The patient did well on the unit and went to groups. Interacted with peers and staff. For the most part tolerated medication changes without new side effects. Group therapy and services were offered. The risks, benefits, and alternative treatment options were discussed as well as of the risks of refusing treatment. Treatment associated risks discussed. After this discussion the patient made an acknowledgement of this understanding. Follow up care appointments were put in place. Monitoring for metabolic changes was reviewed and it was emphasized to the patient to be continued to be monitored upon discharge. The patient was informed not to abruptly stop or start new medications before consulting with a medical professional. Improvements shown from the time of admission include: Improved affect, and a decrease in anxiety. The patient expressed readiness for discharge . The patient presents with a broader range of affect, and the absence of depressed mood. The patient denied suicidal and or homicidal ideation intent or plan. Overall, the patient responded well to inpatient treatment as evidenced by their report of strengthening of coping mechanisms, reduced distress, and more improved outlook on circumstances. Of note there was an improvement of recognizing how emotional state can effect mood and behavior. Safety precautions were put in place which included involving the patient and their family to closely monitor for changes in mental state. In addition, implementing follow up care, screening for the need to remove/securing firearms , weapons and stockpile of medications. Patient/ family instructed to immediately call 911 should any safety concerns arise. Family meeting took place before discharge, supportive care resources,and nursing facilities discussed with patient and family and the patient wished to go to [facility] where her sister and Grandmother also received care. Patients family is very satisfied knowing that she will [facility]. A prescription for Tramadol and Lidocaine patch was provided on discharge as the patient has the medications from her prior admission CHOPPER OPERATOR was checked and no indications of prescription abuse or diversion. Patient advised of the lethality and dangerousness of combining medications with pain medications in excess and/ or with alcohol and acknowledged this understanding. Patient has a 7 day supply of pain medications from her last admission. The patient was advised of the 24 hour / 7 days a week availability of the emergency room and to call 911 in the event of an emergency such as being suicidal and/ or homicidal. The patient was informed of the contact information for [facility], Suicide Prevention and Crisis Services, National Suicide Prevention Lifeline, [facility], Alcoholics Anonymous, and [facility]. Medications that were continued included remeron 7.5mg qhs , cymbalta 60mg daily for depression, oxycodone 5mg Q8H PRN for pain , zofran for nausea, Tramadol for pain, lidocaine patch for pain, buspar 15mg BID for anxiety. Pain management was consulted and evaluated patient. An attempt to decrease pain medications was made however the patient reported increased pain during titration of medications and wished to resume pain medications. Patient has a long history of pain and nausea and has been trailed on multiple treatments by multiple providers with little change in symptoms. Patient plans to follow up with pain management clinic. Family meeting took place before discharge. The family is in agreement with the discharge plan and confirmed that the patient has shown improvement and expressed that they have no concern for her safety knowing that she will be going to [facility]. At this time the patient is eager for discharge and expressed readiness for discharge and expressed " This is not the place for me" . They were advised on how the days following discharge can be a vulnerable period and to look out for warning signs associated with decompensation and progression of mental illness. They were notified of the resources available in the event these situations arise and confirmed that the patient has no access to firearms or access to stockpiles of medications. Patient is dysphoric at baseline and showed improvement in mood during periods of increased socialization. Patient was not assaultive or a behavioral problem during the course of admission. The patient showed good hygiene. Teddy from [facility] evaluated and approved the patient. Physical Therapy was consulted and helped with gait strengthening. Patient will be discharged to live at [facility]. Follow up appointment at [facility], Pain Management 04/11/19 at 12:45pm , [place] together, Carolyn Johnson PCP. Patient informed of follow up appointment times. See more details for follow up care in the discharge plan. Risk factors were mitigated by establishing the patients baseline with close contacts and arranging a family meeting. Implemented precautionary safety measures by confirming no access to firearms or stockpiles of medications , provided mental health treatment, stabilization of depressive features, arrangement of outpatient continuation of care, as well as provided a supportive care environment and therapy resources during the course of hospitalization. Safety plan was reviewed with the patient and treatment team and the patient verbalized options they could pursue to ensure their safety in the event they feel unsafe and not doing well. Grief and loss therapy and outpatient resources were provided. Risk factors: , , history of depression, Age. Chronic pain. Loss of and brothers within a year, recent hospitalization. Protective factors: Female, Currently no suicidal ideation, intent or plan. No prior suicide attempts , has children. Has social/ family support system. No history of service. Currently no feelings of hopelessness, not in an occupation of social isolation, no family history of suicide, doesnt have access to firearms or stockpiles of medications. Doesnt have command hallucinations and or psychotic features at this time. No current substance abuse. No current alcohol abuse. Currently future orientated. Patient engaged in treatment and compliant with medication. No barriers to seek mental health treatment. Not incarcerated. No history of self-injurious behavior, doesnt have cultural belief that supports suicide The patient will always have static suicidal risk factors that are not amendable with inpatient psychiatric treatment. Sodium 141 mmol/L (135-145) 03/22/19 13:59 Potassium 3.9 mmol/L (3.5-5.0) 03/22/19 13:59 BUN 19 mg/dL (6-24) 03/22/19 13:59 Creatinine 0.77 mg/dL (0.51-0.95) 03/22/19 13:59 Calcium 9.8 mg/dL (8.6-10.3) 03/22/19 13:59 AST 23 U/L (13-39) 03/22/19 13:59 ALT 22 U/L (7-52) 03/22/19 13:59 Merits Inpatient Hospitalization: No Clear for Discharge: Adequate Clinical Respons Discharge Planning - Discharge Planning Discharge Plan: Outpatient Follow Up Outpatient Program: [facility] Recommendations for Continuing Care: Medication Management, Primary Care Followup, Specialty Followup Medications: Current Medications Acetaminophen (Tylenol Tab*) 325 mg PO Q6H PRN PRN Reason: PAIN - MILD Last Admin: 04/05/19 03:21 Dose: 325 mg Al Hydrox/Mg Hydrox/Simethicone (Maalox Plus*) 30 ml PO Q4H PRN PRN Reason: INDIGESTION Last Admin: 04/03/19 18:41 Dose: 30 ml Artificial Tears (Natural Balance Tears Eye Drop) 2 drop BOTH EYES Q4H PRN PRN Reason: DRY EYE Last Admin: 03/31/19 16:10 Dose: 2 drop Buspirone HCl (Buspar Tab *) 15 mg PO BID PRN PRN Reason: ANXIETY Last Admin: 03/31/19 03:03 Dose: 15 mg Carboxymethylcellulose/Glycerin (Refresh Optive Gel Eye Gel) 1 applic BOTH EYES BID PRN PRN Reason: DRY EYES Last Admin: 03/30/19 18:43 Dose: 1 applic Clotrimazole (Clotrimazole 1%*) 1 applic TOPICAL DAILY PRN PRN Reason: RASH UNDER ABDOMINAL FOLD Duloxetine HCl (Cymbalta Cap*) 60 mg PO DAILY [facility] Last Admin: 04/05/19 08:20 Dose: 60 mg Lidocaine (Lidoderm 5% Patch*) 1 patch TRANSDERM DAILY [facility] Last Admin: 04/05/19 08:21 Dose: Not Given Mirtazapine (Remeron Tab*) 7.5 mg PO BEDTIME PRN PRN Reason: SLEEP Last Admin: 04/04/19 20:21 Dose: 7.5 mg Multivitamins (Theragran Tab*) 1 tab PO DAILY [facility] Last Admin: 04/05/19 08:20 Dose: Not Given Ondansetron HCl (Zofran Tab*) 4 mg PO Q6H PRN PRN Reason: NAUSEA Last Admin: 04/05/19 06:39 Dose: 4 mg Oxycodone HCl (Roxycodone Tab*) 5 mg PO Q8H PRN PRN Reason: PAIN - SEVERE Pharmacy Profile Note (Lidocaine Patch Remove*) 1 note PATCH OFF [address] [facility] Last Admin: 04/04/19 20:19 Dose: Not Given Senna (Senokot 8.6 Mg Tab*) 1 tab PO BEDTIME PRN PRN Reason: CONSTIPATION Last Admin: 03/25/19 21:07 Dose: 1 tab Tramadol HCl (Ultram*) 50 mg PO Q6H PRN PRN Reason: PAIN - MODERATE Last Admin: 04/04/19 08:50 Dose: 50 mg Discharge Planning: Prescriptions provided for discharge [x] Yes [] No Follow up care details as per social work arrangements. Patient response to discharge plan: [x] eager for discharge [] agreeable with discharge plan [] ambivalent about discharge [] disagrees with discharge today
[2019-04-05 09:40] VITALS: BP 138/75
== END 2019-04-05 10:25 | DRG 885 ==
LOC: ED 13:30 → BSU 16:03
PROVIDERS: ADMIT Psychiatry & Neurology Psychiatry; ATTEND Psychiatry & Neurology Psychiatry
DX: F32.2 Major depressive disorder, single episode, severe without psychotic features (principal); R45.851 Suicidal ideations; R11.0 Nausea; G89.29 Other chronic pain; M79.7 Fibromyalgia; G47.30 Sleep apnea, unspecified; K21.9 Gastro-esophageal reflux disease without esophagitis; K58.9 Irritable bowel syndrome, unspecified; K57.90 Diverticulosis of intestine, part unspecified, without perforation or abscess without bleeding; M19.90 Unspecified osteoarthritis, unspecified site; F41.9 Anxiety disorder, unspecified; F32.9 Major depressive disorder, single episode, unspecified; R10.9 Unspecified abdominal pain; M54.5 Low back pain; Z79.899 Other long term (current) drug therapy; Z94.7 Corneal transplant status; Z88.0 Allergy status to penicillin; Z91.041 Radiographic dye allergy status
CPT/HCPCS: 36415; 80053; 80320; 80329; 85025; 85060; 99222; 99232; 99233; 99238; 99284; A9270-GY; G0480

== ENCOUNTER 2019-11-16 09:11 | Inpatient (IN) ==
[2019-11-16] MEDS ORDERED: Al Hydrox/Mg Hydrox/Simet LIQ 30 ML UDC PO ONE (09:21)
[2019-11-16] MEDS ORDERED: Famotidine IV 10 MG/ML 2 ml VIAL (20 mg) IV ONE (09:21)
[2019-11-16 10:23] LABS: ABS Lymphocytes 1.2 10^3/ul (1.0-4.8); ABS Monocytes 0.6 10^3/ul (0-0.8); ABS Neutrophils 5.4 10^3/ul (1.5-7.7); Eosinophil % 0.6 %; Hematocrit 43 % (35-47); Hemoglobin 14.6 g/dL (12.0-16.0); Lymphocyte % 16.9 %; Mean Corpuscular HGB Conc 34 g/dL (31-36); Mean Corpuscular Hemoglobin 28 pg (27-31); Mean Corpuscular Volume 84 fL (80-97); Mean Platelet Volume 7.5 fL (7.4-10.4); Platelet Count 231 10^3/uL (150-450); Red Blood Count 5.16 10^6 /uL (3.70-4.87); Red Cell Distribution Width 15 % (10-15); White Blood Count 7.3 10^3/uL (3.5-10.8)
[2019-11-16 10:33] LABS: Albumin 4.4 g/dL (3.2-5.2); Albumin/Globulin Ratio 1.3 (1-3); BUN/Creatinine Ratio 18.3 (8-20); Calcium 10.3 mg/dL (8.6-10.3); EGFR African American 81.6 (>60); EGFR Non-African American 67.4 (>60); Globulin 3.5 g/dL (2-4); Total Bilirubin 0.4 mg/dL (0.2-1.0); Total Protein 7.9 g/dL (6.4-8.9)
[2019-11-16 10:34] LABS: Troponin I 0.01 ng/mL (<0.03)
[2019-11-16] MEDS ORDERED: Pantoprazole VIAL 40 MG VIAL IV ONE (10:48)
[2019-11-16 11:00] LABS: TSH Ultra Thyroid Stim Horm 1.45 mcIU/mL (0.34-5.60)
[2019-11-16] MEDS ORDERED: Lorazepam PYXIS KEY PRN (12:29)
[2019-11-16] MEDS ORDERED: LORazepam 2 mg VIAL 1 ml IV PUSH ONE (12:29)
[2019-11-16] MEDS ORDERED: Lorazepam PYXIS KEY ONE (12:33)
[2019-11-16] MEDS ORDERED: Ondansetron 4 mg VIAL 2 MG/ML 2 ml VIAL IV PRN (16:45)
[2019-11-16] MEDS ORDERED: Al Hydrox/Mg Hydrox/Simet LIQ 30 ML UDC PO PRN (17:05)
[2019-11-16 18:37] LABS: HDL Cholesterol 62.3 mg/dL
[2019-11-16] MEDS: Enoxaparin 40 MG/0.4 ML SYR SUBCUT SCH (19:59)
[2019-11-16] MEDS: Buprenorp/Nalox 8-2 MG FILM SL FILM SCH ×2 (20:05→20:33)
[2019-11-17] MEDS ORDERED: Sucralfate 1 gm SUSP 1 GM/10 ML UDC PO SCH (07:30)
[2019-11-17] MEDS: Buprenorp/Nalox 8-2 MG FILM SL FILM SCH (08:06)
[2019-11-17] MEDS: DULoxetine DR 30 mg CAP PO SCH (08:07)
[2019-11-17] MEDS: Sucralfate 1 gm SUSP 1 GM/10 ML UDC PO SCH ×3 (09:36→17:13)
[2019-11-17] MEDS: Metoclopramide 5 MG/ML VIAL (10 mg) IV SLOW PU PRN (09:41)
[2019-11-17] MEDS: Prochlorperazine 5 mg/ml 2 ml VIAL (10 mg) IV PRN (11:40)
[2019-11-17] MEDS: Enoxaparin 40 MG/0.4 ML SYR SUBCUT SCH (17:13)
[2019-11-17] MEDS: Buprenorp/Nalox 8-2 MG SL TAB PO SCH (20:38)
[2019-11-18] MEDS: Metoclopramide 5 MG/ML VIAL (10 mg) IV SLOW PU PRN (06:30)
[2019-11-18] MEDS: Prochlorperazine 5 mg/ml 2 ml VIAL (10 mg) IV PRN (07:49)
[2019-11-18] MEDS: Sucralfate 1 gm SUSP 1 GM/10 ML UDC PO SCH ×3 (07:51→16:38)
[2019-11-18] MEDS: DULoxetine DR 30 mg CAP PO SCH (08:29)
[2019-11-18] MEDS: Buprenorp/Nalox 8-2 MG SL TAB PO SCH ×2 (08:29→20:46)
[2019-11-18] MEDS: Enoxaparin 40 MG/0.4 ML SYR SUBCUT SCH (16:38)
[2019-11-19] MEDS: Buprenorp/Nalox 8-2 MG SL TAB PO SCH (08:06)
[2019-11-19] MEDS: DULoxetine DR 30 mg CAP PO SCH (08:06)
[2019-11-19] MEDS: Sucralfate 1 gm SUSP 1 GM/10 ML UDC PO SCH ×2 (08:06→12:03)
[2019-11-19] MEDS ORDERED: Perflutren Lipid Microsphere 3 ML VIAL ONE (10:57)
[2019-11-19 12:29] VITALS: BP 149/68
[2019-11-19] MEDS ORDERED: Regadenoson 0.4 MG/5 ML SYRINGE ONE (12:34)
== END 2019-11-19 14:30 | disposition home health service (06) | DRG 313 ==
LOC: MEDTELE 09:11 → ED 09:11 → MEDTELE 18:43
PROVIDERS: ADMIT Hospitalist; ATTEND Internal Medicine

== ENCOUNTER 2024-02-13 00:25 | Inpatient (IN) ==
[2024-02-13] MEDS ORDERED: Acetaminophen IV 1 GM/100ML 1,000 MG/100 ML BAG IV ONE (01:07)
[2024-02-13] MEDS: Lactated Ringers SEPSIS* BAG 1,500 ML IV ONE (01:16)
[2024-02-13] MEDS: Acetaminophen IV 1 GM/100ML 1,000 MG/100 ML BAG IV ONE (01:16)
[2024-02-13 01:18] LABS: Activated Partial Thrombo Time 29.3 seconds (26.0-38.0); INR 1.15 (0.85-1.14)
[2024-02-13 01:28] LABS: Hematocrit 43.7 % (35-45); Hemoglobin 14.3 g/dL (11.5-14.3); Mean Corpuscular Hemoglobin 27.3 pg (27-33); Mean Corpuscular Hgb Conc 32.7 g/dL (31-36); Mean Corpuscular Volume 83.4 fL (80-97); Mean Platelet Volume 7.6 fL (7.5-11.2); Platelet Count 153 10^3/uL (150-450); Red Blood Count 5.24 10^6/uL (3.63-4.92); Red Cell Distribution Width 17.3 % (12-17); White Blood Count 10.9 10^3/uL (3.8-11.8)
[2024-02-13 01:30] LABS: High Sens Troponin Baseline 10 pg/mL (<15)
[2024-02-13 01:49] LABS: ABS Lymphocytes 0.2 10^3/uL (1.0-4.8); ABS Neutrophils 10.6 10^3/uL (1.5-7.6); ABS Nucleated RBC 0.01 10^3/ul; Eosinophil % 0.1 %; Lymphocyte % 2.2 %; RBC Morphology Normal (Normal)
[2024-02-13 01:50] LABS: ALT 59 U/L (7-52); Albumin 3.8 g/dL (3.2-5.2); Albumin/Globulin Ratio 1.1 (1-3); Alkaline Phosphatase 184 U/L (35-149); Anion Gap 9 mmol/L (2-16); Blood Urea Nitrogen 33 mg/dL (6-24); C Reactive Protein 77.71 mg/L (<8.01); CO2 Carbon Dioxide 27 mmol/L (22-32); Calcium 10.3 mg/dL (8.6-10.3); Chloride 100 mmol/L (101-111); Globulin 3.4 g/dL (2-4); Glucose 117 mg/dL (70-100); Sodium 136 mmol/L (135-145); Total Bilirubin 1.3 mg/dL (0.2-1.0); Total Protein 7.2 g/dL (6.4-8.9); eGFR CKD-EPI 50.2 (>60)
[2024-02-13] MEDS: Cefepime 2 GM in Dextrose 2 GM/50 ML BAG IV ONE (02:06)
[2024-02-13 02:08] LABS: Venous Bicarbonate HCO3 24.8 mmol/L (24-28)
[2024-02-13 02:31] LABS: High Sensitivity Troponin 1 Hr 9 pg/mL (<15)
[2024-02-13 02:37] LABS: Urine Appearance Clear; Urine Bilirubin Negative (Negative); Urine Blood Negative (Negative); Urine Color Yellow; Urine Glucose Negative (Negative); Urine Ketones Negative (Negative); Urine Nitrite Negative (Negative); Urine Protein Trace (Negative); Urine Urobilinogen 1+ (Negative); Urine pH 5.5 (5.0-8.0)
[2024-02-13 02:38] LABS: Urine Bacteria Absent /HPF (Absent); Urine Red Blood Cell Trace(0-2/hpf) /HPF (0-Trace); Urine Squamous Epithelial Cell Present /HPF (Absent); Urine White Blood Cell Trace(0-5/hpf) /HPF (0-Trace)
[2024-02-13 02:53] LABS: Potassium, Whole Blood 5.7 mmol/L (3.4-4.5)
[2024-02-13] MEDS: Polyethylene Glycol 3350 17 GM PACKET PO SCH (05:56)
[2024-02-13] MEDS: Lactated Ringers 1000 ml BAG 1,000 ML IV ONE (05:56)
[2024-02-13] MEDS: Enoxaparin 40 MG/0.4 ML SYR SUBCUT SCH (05:59)
[2024-02-13] MEDS ORDERED: Naloxone 0.4 mg VIAL 0.4 mg/ml 1 ml VIAL IV PUSH PRN (06:03)
[2024-02-13 06:12] LABS: ABS Lymphocytes 0.3 10^3/uL (1.0-4.8); ABS Monocytes 0.1 10^3/uL (0.0-0.9); ABS Neutrophils 17.5 10^3/uL (1.5-7.6); Hematocrit 38.5 % (35-45); Hemoglobin 12.3 g/dL (11.5-14.3); Lymphocyte % 1.4 %; Mean Corpuscular Hemoglobin 26.3 pg (27-33); Mean Corpuscular Hgb Conc 31.9 g/dL (31-36); Mean Corpuscular Volume 82.5 fL (80-97); Mean Platelet Volume 7.2 fL (7.5-11.2); Platelet Count 130 10^3/uL (150-450); Red Blood Count 4.66 10^6/uL (3.63-4.92); Red Cell Distribution Width 17.3 % (12-17); White Blood Count 17.9 10^3/uL (3.8-11.8)
[2024-02-13 07:11] LABS: Albumin 3.2 g/dL (3.2-5.2); Albumin/Globulin Ratio 1.1 (1-3); Creatinine, Serum 1.23 mg/dL (0.51-0.95); Globulin 2.9 g/dL (2-4); Potassium 4.3 mmol/L (3.5-5.0); Total Protein 6.1 g/dL (6.4-8.9); eGFR CKD-EPI 43.9 (>60)
[2024-02-13] MEDS: oxyCODONE SR 10 mg TAB PO SCH (08:44)
[2024-02-13] MEDS: CMCS:Mirabegron 25 mg ER TAB (NF) PO SCH (09:47)
[2024-02-13] MEDS: DULoxetine DR 30 mg CAP PO SCH (09:47)
[2024-02-13] MEDS: prednisoLONE 1% OPHTH.SUSP 5 ML OPHTH.SUSP RIGHT EYE SCH (09:50)
[2024-02-13] MEDS: Furosemide 40 mg/4 ml IV VIAL IV SLOW PU ONE (09:50)
[2024-02-13 10:05] LABS: PCO2 Arterial 52 mmHg (35-45); PO2 Arterial 87 mmHg (80-100)
[2024-02-13] MEDS: cefTRIAXone 1 gm/50 mL D5W 1 GM/50 ML BAG IV SCH (12:07)
[2024-02-13] MEDS: Azithromycin 500 mg/250 ml NS 500 MG/250 ML BAG IVPB SCH (12:44)
[2024-02-13] MEDS: Sulfur Hexaflouride MICROSPHR 25 MG VIAL IV PRN (13:45)
[2024-02-13] MEDS: Norepinephrine 4 MG/250mL D5W 4,000 MCG/250 ML BAG IV SCH (14:42)
[2024-02-13] MEDS: Norepinephrine 4 MG/250mL D5W 4,000 MCG/250 ML BAG IV ONE (14:43)
[2024-02-13] MEDS: Meropenem 2 GM in NS 0.9% 100 ml BAG 100 ML IVPB SCH (14:44)
[2024-02-14 04:23] LABS: Hematocrit 36.5 % (35-45); Hemoglobin 11.8 g/dL (11.5-14.3); Mean Corpuscular Hemoglobin 26.3 pg (27-33); Mean Corpuscular Hgb Conc 32.4 g/dL (31-36); Mean Corpuscular Volume 81.3 fL (80-97); Mean Platelet Volume 7.9 fL (7.5-11.2); Platelet Count 102 10^3/uL (150-450); Red Blood Count 4.49 10^6/uL (3.63-4.92); Red Cell Distribution Width 17.4 % (12-17); White Blood Count 17.9 10^3/uL (3.8-11.8)
[2024-02-14 04:27] LABS: ALT 56 U/L (7-52); Albumin 2.9 g/dL (3.2-5.2); Alkaline Phosphatase 114 U/L (35-149); Anion Gap 5 mmol/L (2-16); Blood Urea Nitrogen 35 mg/dL (6-24); CO2 Carbon Dioxide 29 mmol/L (22-32); Calcium 9.2 mg/dL (8.6-10.3); Chloride 103 mmol/L (101-111); Creatinine, Serum 0.92 mg/dL (0.51-0.95); Globulin 2.9 g/dL (2-4); Glucose 115 mg/dL (70-100); Magnesium 1.6 mg/dL (1.9-2.7); Sodium 137 mmol/L (135-145); Total Bilirubin 0.6 mg/dL (0.2-1.0); Total Protein 5.8 g/dL (6.4-8.9); eGFR CKD-EPI 62.2 (>60)
[2024-02-14] MEDS: Magnesium Sulf 4 GM/100 ML IV 4,000 MG/100 ML BAG IVPB ONE (04:47)
[2024-02-14 05:13] LABS: Potassium Redraw 3.4 mmol/L (3.5-5.0)
[2024-02-14 05:33] LABS: ABS Lymphocytes 1.5 10^3/uL (1.0-4.8); ABS Monocytes 1.3 10^3/uL (0.0-0.9); ABS Neutrophils 15.1 10^3/uL (1.5-7.6); ABS Nucleated RBC 0.02 10^3/ul; Eosinophil % 0.1 %; Lymphocyte % 8.3 %; Nucleated Red Blood Cells % 0.1 %/100WBC (0.0-0.8); RBC Morphology Normal (Normal)
[2024-02-14] MEDS ORDERED: fentaNYL 100 mcg/2 ml 50 MCG/ML VIAL IV SLOW PU PRN (08:15)
[2024-02-14] MEDS: Azithromycin 500 mg/250 ml NS 500 MG/250 ML BAG IVPB SCH (08:44)
[2024-02-14] MEDS: Potassium Chlor 20 meq TAB.ER PO ONE (09:00)
[2024-02-14] MEDS ORDERED: cefTRIAXone 1 gm/50 mL D5W 1 GM/50 ML BAG IV SCH (10:00)
[2024-02-14] MEDS: Nystatin TOP POWDER 15 GM BTL TOPICAL SCH (10:05)
[2024-02-14] MEDS: cefTRIAXone 2 gm/50 mL D5W 2 GM/50 ML BAG IV SCH (12:24)
[2024-02-15 06:31] LABS: ABS Lymphocytes 1.4 10^3/uL (1.0-4.8); ABS Monocytes 1.4 10^3/uL (0.0-0.9); ABS Neutrophils 14.4 10^3/uL (1.5-7.6); Eosinophil % 0.1 %; Hematocrit 38.1 % (35-45); Hemoglobin 12.5 g/dL (11.5-14.3); Lymphocyte % 8.1 %; Mean Corpuscular Hemoglobin 26.5 pg (27-33); Mean Corpuscular Hgb Conc 32.7 g/dL (31-36); Mean Corpuscular Volume 81.1 fL (80-97); Mean Platelet Volume 8.3 fL (7.5-11.2); Platelet Count 104 10^3/uL (150-450); Red Cell Distribution Width 17.5 % (12-17); White Blood Count 17.2 10^3/uL (3.8-11.8)
[2024-02-15 07:02] LABS: Albumin 3.2 g/dL (3.2-5.2); Calcium 9.6 mg/dL (8.6-10.3); Creatinine, Serum 0.65 mg/dL (0.51-0.95); Globulin 3.3 g/dL (2-4); Magnesium 1.9 mg/dL (1.9-2.7); Potassium 4.2 mmol/L (3.5-5.0); Total Bilirubin 0.4 mg/dL (0.2-1.0); Total Protein 6.5 g/dL (6.4-8.9); eGFR CKD-EPI 87.9 (>60)
[2024-02-15] MEDS: Magnesium Sulfate 2 gm BAG 2 GM/50 ML BAG IVPB ONE (08:29)
[2024-02-15] MEDS: Albuterol/Ipratropium NEB.SOL (2.5/0.5 MG) 3 ML NEB.SOLN INH PRN (14:09)
[2024-02-15] MEDS: Lidocaine 1% MPF 5 ML VIAL INJ ONE (15:00)
[2024-02-15] MEDS: Lidocaine PATCH 5% PATCH TRANSDERM SCH (15:37)
[2024-02-16] MEDS: Pantoprazole VIAL 40 MG VIAL IV SCH (06:55)
[2024-02-16 08:44] LABS: ABS Basophils 0.1 10^3/uL (0.0-0.1); ABS Lymphocytes 1.3 10^3/uL (1.0-4.8); ABS Monocytes 1.3 10^3/uL (0.0-0.9); ABS Neutrophils 13.2 10^3/uL (1.5-7.6); ABS Nucleated RBC 0.01 10^3/ul; Eosinophil % 0.1 %; Hematocrit 38.5 % (35-45); Hemoglobin 12.5 g/dL (11.5-14.3); Lymphocyte % 7.9 %; Mean Corpuscular Hemoglobin 26.6 pg (27-33); Mean Corpuscular Hgb Conc 32.5 g/dL (31-36); Mean Corpuscular Volume 81.9 fL (80-97); Mean Platelet Volume 8.3 fL (7.5-11.2); Platelet Count 115 10^3/uL (150-450); Red Cell Distribution Width 17.3 % (12-17); White Blood Count 15.9 10^3/uL (3.8-11.8)
[2024-02-16 09:18] LABS: ALT 48 U/L (7-52); Albumin 3.3 g/dL (3.5-5.7); Albumin/Globulin Ratio 0.9 (1-3); Alkaline Phosphatase 136 U/L (35-149); Anion Gap 9 mmol/L (2-16); Blood Urea Nitrogen 21 mg/dL (6-24); CO2 Carbon Dioxide 28 mmol/L (22-32); Calcium 9.8 mg/dL (8.6-10.3); Chloride 102 mmol/L (101-111); Creatinine, Serum 0.59 mg/dL (0.51-0.95); Globulin 3.5 g/dL (2-4); Glucose 107 mg/dL (70-100); Sodium 139 mmol/L (135-145); Total Bilirubin 0.7 mg/dL (0.2-1.0); Total Protein 6.8 g/dL (6.4-8.9); eGFR CKD-EPI 89.9 (>60)
[2024-02-16 10:43] LABS: PCO2 Arterial 46 mmHg (35-45); PO2 Arterial 102 mmHg (80-100)
[2024-02-16 11:13] LABS: Magnesium 1.9 mg/dL (1.9-2.7)
[2024-02-16] MEDS: Furosemide 40 mg/4 ml IV VIAL IV ONE (13:01)
[2024-02-16 13:22] LABS: Potassium Redraw 3.9 mmol/L (3.5-5.0)
[2024-02-16] MEDS: Magnesium Sulfate 2 gm BAG 2 GM/50 ML BAG IVPB ONE (14:04)
[2024-02-17 05:48] LABS: ABS Basophils 0.1 10^3/uL (0.0-0.1); ABS Eosinophils 0.1 10^3/uL (0.0-0.5); ABS Lymphocytes 1.4 10^3/uL (1.0-4.8); ABS Monocytes 1.5 10^3/uL (0.0-0.9); ABS Neutrophils 6.4 10^3/uL (1.5-7.6); ABS Nucleated RBC 0.01 10^3/ul; Eosinophil % 0.9 %; Hematocrit 38.5 % (35-45); Hemoglobin 12.6 g/dL (11.5-14.3); Lymphocyte % 15.2 %; Mean Corpuscular Hemoglobin 26.5 pg (27-33); Mean Corpuscular Hgb Conc 32.7 g/dL (31-36); Mean Platelet Volume 8.2 fL (7.5-11.2); Nucleated Red Blood Cells % 0.1 %/100WBC (0.0-0.8); Platelet Count 137 10^3/uL (150-450); Red Blood Count 4.75 10^6/uL (3.63-4.92); Red Cell Distribution Width 17.3 % (12-17); White Blood Count 9.5 10^3/uL (3.8-11.8)
[2024-02-17 06:25] LABS: Calcium 9.9 mg/dL (8.6-10.3); Creatinine, Serum 0.74 mg/dL (0.51-0.95); Magnesium 2.1 mg/dL (1.9-2.7); eGFR CKD-EPI 80.7 (>60)
[2024-02-17] MEDS: Morphine 4 MG/ML VIAL (1 ml) IV PRN (09:26)
[2024-02-17] MEDS: Furosemide 40 mg/4 ml IV VIAL IV ONE (12:49)
[2024-02-18 08:14] LABS: ABS Basophils 0.1 10^3/uL (0.0-0.1); ABS Eosinophils 0.3 10^3/uL (0.0-0.5); ABS Lymphocytes 1.6 10^3/uL (1.0-4.8); ABS Monocytes 1.3 10^3/uL (0.0-0.9); ABS Neutrophils 6.5 10^3/uL (1.5-7.6); ABS Nucleated RBC 0.01 10^3/ul; Hematocrit 38.2 % (35-45); Hemoglobin 12.4 g/dL (11.5-14.3); Lymphocyte % 16.4 %; Mean Corpuscular Hemoglobin 26.3 pg (27-33); Mean Corpuscular Hgb Conc 32.4 g/dL (31-36); Mean Corpuscular Volume 81.3 fL (80-97); Mean Platelet Volume 8.6 fL (7.5-11.2); Nucleated Red Blood Cells % 0.1 %/100WBC (0.0-0.8); Platelet Count 179 10^3/uL (150-450); Red Cell Distribution Width 17.6 % (12-17); White Blood Count 9.7 10^3/uL (3.8-11.8)
[2024-02-18 08:34] LABS: Calcium 9.7 mg/dL (8.6-10.3); Creatinine, Serum 0.83 mg/dL (0.51-0.95); Potassium 3.7 mmol/L (3.5-5.0); eGFR CKD-EPI 70.3 (>60)
[2024-02-18] MEDS: oxyCODONE SR 10 mg TAB PO SCH (20:19)
[2024-02-19 07:02] LABS: ABS Eosinophils 0.4 10^3/uL (0.0-0.5); ABS Lymphocytes 1.7 10^3/uL (1.0-4.8); ABS Monocytes 1.2 10^3/uL (0.0-0.9); ABS Neutrophils 6.5 10^3/uL (1.5-7.6); ABS Nucleated RBC 0.01 10^3/ul; Eosinophil % 4.2 %; Hematocrit 37.3 % (35-45); Hemoglobin 12.2 g/dL (11.5-14.3); Lymphocyte % 17.1 %; Mean Corpuscular Hemoglobin 26.7 pg (27-33); Mean Corpuscular Hgb Conc 32.7 g/dL (31-36); Mean Corpuscular Volume 81.9 fL (80-97); Mean Platelet Volume 8.6 fL (7.5-11.2); Nucleated Red Blood Cells % 0.1 %/100WBC (0.0-0.8); Platelet Count 225 10^3/uL (150-450); Red Blood Count 4.56 10^6/uL (3.63-4.92); Red Cell Distribution Width 17.4 % (12-17); White Blood Count 9.8 10^3/uL (3.8-11.8)
[2024-02-19 07:23] LABS: Calcium 9.8 mg/dL (8.6-10.3); Creatinine, Serum 0.65 mg/dL (0.51-0.95); Potassium 4.1 mmol/L (3.5-5.0); eGFR CKD-EPI 87.9 (>60)
[2024-02-20 08:02] LABS: ABS Basophils 0.1 10^3/uL (0.0-0.1); ABS Eosinophils 0.4 10^3/uL (0.0-0.5); ABS Lymphocytes 1.4 10^3/uL (1.0-4.8); ABS Neutrophils 5.9 10^3/uL (1.5-7.6); ABS Nucleated RBC 0.01 10^3/ul; Eosinophil % 5.1 %; Hematocrit 37.7 % (35-45); Hemoglobin 12.1 g/dL (11.5-14.3); Lymphocyte % 15.7 %; Mean Corpuscular Hemoglobin 26.4 pg (27-33); Mean Corpuscular Hgb Conc 32.2 g/dL (31-36); Mean Corpuscular Volume 81.8 fL (80-97); Mean Platelet Volume 8.2 fL (7.5-11.2); Nucleated Red Blood Cells % 0.1 %/100WBC (0.0-0.8); Platelet Count 255 10^3/uL (150-450); Red Cell Distribution Width 17.1 % (12-17); White Blood Count 8.8 10^3/uL (3.8-11.8)
[2024-02-20 08:32] LABS: Calcium 9.8 mg/dL (8.6-10.3); Creatinine, Serum 0.7 mg/dL (0.51-0.95); Magnesium 1.9 mg/dL (1.9-2.7); Potassium 4.2 mmol/L (3.5-5.0); eGFR CKD-EPI 86.3 (>60)
[2024-02-20] MEDS: Furosemide 40 mg/4 ml IV VIAL IV ONE (10:11)
[2024-02-21 05:50] LABS: PCO2 Arterial 63 mmHg (35-45); PO2 Arterial 73 mmHg (80-100)
[2024-02-21] MEDS: Magnesium Sulfate 2 gm BAG 2 GM/50 ML BAG IVPB ONE (08:26)
[2024-02-21 11:02] LABS: ABS Basophils 0.1 10^3/uL (0.0-0.1); ABS Eosinophils 0.3 10^3/uL (0.0-0.5); ABS Lymphocytes 1.6 10^3/uL (1.0-4.8); ABS Monocytes 0.8 10^3/uL (0.0-0.9); ABS Neutrophils 5.9 10^3/uL (1.5-7.6); ABS Nucleated RBC 0.01 10^3/ul; Eosinophil % 3.4 %; Hematocrit 37.3 % (35-45); Hemoglobin 12.1 g/dL (11.5-14.3); Mean Corpuscular Hemoglobin 26.6 pg (27-33); Mean Corpuscular Hgb Conc 32.5 g/dL (31-36); Mean Corpuscular Volume 81.8 fL (80-97); Mean Platelet Volume 8.4 fL (7.5-11.2); Nucleated Red Blood Cells % 0.1 %/100WBC (0.0-0.8); Platelet Count 294 10^3/uL (150-450); Red Blood Count 4.57 10^6/uL (3.63-4.92); Red Cell Distribution Width 17.1 % (12-17); White Blood Count 8.7 10^3/uL (3.8-11.8)
[2024-02-21 11:15] LABS: Calcium 9.7 mg/dL (8.6-10.3); Creatinine, Serum 0.71 mg/dL (0.51-0.95); Magnesium 2.6 mg/dL (1.9-2.7); Potassium 4.3 mmol/L (3.5-5.0); eGFR CKD-EPI 84.8 (>60)
[2024-02-22 06:13] LABS: ABS Eosinophils 0.3 10^3/uL (0.0-0.5); ABS Lymphocytes 1.4 10^3/uL (1.0-4.8); ABS Monocytes 0.9 10^3/uL (0.0-0.9); ABS Neutrophils 5.2 10^3/uL (1.5-7.6); ABS Nucleated RBC 0.01 10^3/ul; Eosinophil % 3.6 %; Hematocrit 37.8 % (35-45); Hemoglobin 12.1 g/dL (11.5-14.3); Lymphocyte % 18.1 %; Mean Corpuscular Hemoglobin 26.3 pg (27-33); Mean Corpuscular Volume 82.1 fL (80-97); Mean Platelet Volume 8.2 fL (7.5-11.2); Nucleated Red Blood Cells % 0.1 %/100WBC (0.0-0.8); Platelet Count 303 10^3/uL (150-450); Red Blood Count 4.61 10^6/uL (3.63-4.92); Red Cell Distribution Width 17.7 % (12-17); White Blood Count 7.8 10^3/uL (3.8-11.8)
[2024-02-22 06:31] LABS: Calcium 9.9 mg/dL (8.6-10.3); Creatinine, Serum 0.69 mg/dL (0.51-0.95); Magnesium 2.1 mg/dL (1.9-2.7); Potassium 4.5 mmol/L (3.5-5.0); eGFR CKD-EPI 86.6 (>60)
[2024-02-22 06:50] LABS: PCO2 Arterial 60 mmHg (35-45); PO2 Arterial 87 mmHg (80-100)
[2024-02-23 07:10] LABS: ABS Basophils 0.1 10^3/uL (0.0-0.1); ABS Eosinophils 0.2 10^3/uL (0.0-0.5); ABS Lymphocytes 1.8 10^3/uL (1.0-4.8); ABS Monocytes 0.9 10^3/uL (0.0-0.9); ABS Neutrophils 5.1 10^3/uL (1.5-7.6); Eosinophil % 3.1 %; Hematocrit 37.2 % (35-45); Hemoglobin 11.8 g/dL (11.5-14.3); Lymphocyte % 22.2 %; Mean Corpuscular Hemoglobin 26.3 pg (27-33); Mean Corpuscular Hgb Conc 31.8 g/dL (31-36); Mean Corpuscular Volume 82.7 fL (80-97); Mean Platelet Volume 8.5 fL (7.5-11.2); Platelet Count 341 10^3/uL (150-450); Red Cell Distribution Width 17.3 % (12-17)
[2024-02-23 07:30] LABS: Creatinine, Serum 0.63 mg/dL (0.51-0.95); Magnesium 2.1 mg/dL (1.9-2.7); Potassium 4.9 mmol/L (3.5-5.0); eGFR CKD-EPI 88.5 (>60)
[2024-02-24 00:34] LABS: Rapid COVID-19 Molecular Undetected (Undetected)
[2024-02-24] MEDS: Senna TAB 8.6 mg TAB PO PRN (05:13)
[2024-02-24 05:35] VITALS: BP 156/93
[2024-02-24 06:34] LABS: Calcium 10.9 mg/dL (8.6-10.3); Creatinine, Serum 0.71 mg/dL (0.51-0.95); Potassium 4.9 mmol/L (3.5-5.0); eGFR CKD-EPI 84.8 (>60)
[2024-02-24] MEDS: Magnesium Hydroxide LIQ 30 ML UDC PO ONE (08:54)
[2024-02-24] MEDS: Polyethylene Glycol 3350 17 GM PACKET PO SCH (08:54)
[2024-02-24] MEDS ORDERED: Senna TAB 8.6 mg TAB PO SCH (21:00)
== END 2024-02-24 12:10 | DRG 871 ==
LOC: ED 00:25 → EDHOLD 00:25 → SUATTDRO 03:24 → MEDTELE 08:34 → EDHOLD 09:17 → ICU 10:05 → SUATTDRO 11:08 → MEDTELE 02-14 14:41
PROVIDERS: ADMIT Student in an Organized Health Care Education/Training Program; ATTEND Student in an Organized Health Care Education/Training Program